=== PATIENT | female | born 1990 | race Caucasian/White ===

== ENCOUNTER 2023-01-17 09:51 | Outpatient (OUT) | payer OTHER, SELFPAY ==
[2023-01-17 11:18] LABS: Basophils Percent Auto 0.6 % (0.2-2.0); Eosinophils Absolute Auto 0.1 10^3/uL (0.0-0.7); Eosinophils Percent Auto 1.1 % (0.9-7.0); Hematocrit 43.7 % (36.0-48.0); Hemoglobin 14.5 g/dL (12.0-16.0); Immature Granulocytes Abs Auto 0.02 10^3/uL (0.00-0.03); Immature Granulocytes Pct Auto 0.4 % (0.0-0.5); Lymphocytes Absolute Auto 1.4 10^3/uL (1.2-3.8); Mean Corpuscular HGB Conc 33.2 g/dL (29.9-35.2); Mean Corpuscular Hemoglobin 28.9 pg (26.7-34.0); Mean Corpuscular Volume 87.1 fL (81.0-99.0); Mean Platelet Volume 10.9 fL (9.5-13.5); Monocytes Absolute Auto 0.4 10^3/uL (0.3-0.8); Monocytes Percent Auto 8.2 % (1.7-12.0); Neutrophils Absolute Auto 3.4 10^3/uL (1.4-6.5); Neutrophils Percent Auto 63.7 % (43.0-75.0); Platelet Count 284 10^3/uL (150-450); Red Blood Count 5.02 10^6/uL (4.20-5.40); Red Cell Distribution Width 11.9 % (11.0-15.0); White Blood Count 5.3 10^3/uL (4.0-11.0)
[2023-01-17 11:21] LABS: Bilirubin Urine NEGATIVE (NEGATIVE); Blood Urine SMALL (NEGATIVE); Clarity Urine CLEAR (CLEAR); Color Urine LT. YELLOW (YELLOW); Glucose Urine UA NEGATIVE (NEGATIVE); Ketones Urine NEGATIVE (NEGATIVE); Leukocyte Esterase Urine NEGATIVE (NEGATIVE); Nitrite Urine NEGATIVE (NEGATIVE); Protein Urine NEGATIVE (NEG/TRACE); Specific Gravity Urine >=1.030 (1.005-1.025); Urobilinogen Urine 0.2 EU/dL (0.2-1.0); pH Urine 5.5 (5.0-9.0)
[2023-01-17 11:36] LABS: Bacteria Urine NONE SEEN #/HPF (NONE SEEN); Mucus Urine MODERATE (NONE SEEN); RBC Urine 0-2 #/HPF (0-2); Squamous Epithelial Cell Urine FEW #/LPF (NONE/RARE); WBC Urine NONE SEEN #/HPF (NONE SEEN)
[2023-01-17 11:37] LABS: Cast Seen? NONE SEEN #/LPF (NONE SEEN); Crystals Seen? None Seen #/HPF (None Seen)
[2023-01-17 12:45] LABS: Alanine Aminotransferase 21 U/L (14-59); Albumin Level 3.9 g/dL (3.4-5.0); Alkaline Phosphatase 57 U/L (46-116); Anion Gap 12.4; Aspartate Amino Transferase 15 U/L (15-37); BUN Creatinine Ratio 20.5; Bilirubin Total 0.5 mg/dL (0.2-1.0); Carbon Dioxide 25.5 mmol/L (21.0-32.0); Chloride 103 mmol/L (98-107); Chol HDL Ratio 3.5; Cholesterol 173 mg/dL (<=200); Estimated GFR (African America >60 (>=60); Estimated GFR (Non-African Ame >60 (>=60); Globulin 4.1 g/dL; Glucose 97 mg/dL (74-106); HDL Cholesterol 49 mg/dL (40-60); Potassium 3.9 mmol/L (3.5-5.1); Sodium 137 mmol/L (136-145); Thyroid Stimulating Hormone 0.832 uIU/mL (0.358-3.740); Triglycerides 70 mg/dL (<=150)
== END 2023-01-17 09:52 ==
LOC: LAB 09:55
PROVIDERS: PCP Nurse Practitioner; Visit Provider Nurse Practitioner
DX: Z00.00 Encounter for general adult medical examination without abnormal findings (principal)
CPT/HCPCS: 36415; 80053; 80061; 81001; 82728; 83540; 84443; 85025

== ENCOUNTER 2023-01-17 21:42 | Outpatient (REF) | payer OTHER, SELFPAY ==
[2023-01-23 12:14] LABS: Age Gdln ACOG Testing Note (.); HPV Aptima Negative (Negative); IGP, Aptima HPV, rfx 16/18,45 Note (.)
== END 2023-01-17 21:43 | disposition home or self-care (01) ==
LOC: LAB 21:42
PROVIDERS: PCP Nurse Practitioner; Visit Provider Obstetrics & Gynecology
DX: Z00.00 Encounter for general adult medical examination without abnormal findings (principal); Z12.4 Encounter for screening for malignant neoplasm of cervix
CPT/HCPCS: 36415; 80053; 80061; 81001; 82728; 83540; 84443; 85025; 87624; G0145

== ENCOUNTER 2023-01-31 09:11 | Outpatient (OUT) | payer OTHER, SELFPAY ==
--- NOTE | 2023-01-31 09:15 | US_ITS ---
[address] [address] Patient Name: FIFI CHAPPELL MRN: [id number] date: 1990 Sex: F Assigned Patient Location: US Current Patient Location: US Accession/Order Number: [id number] Exam Date: 01/31/2023 09:15 Report Date: 01/31/2023 09:46 At the request of: ANTONIETA CHAU Procedure: US pelvis EXAMINATION: US pelvis HISTORY: OVARIAN CYST N83.209, PAIN OF OVARY N94.89 COMPARISON: No relevant comparison available. FINDINGS: The uterus is normal in size, contour and myometrial echotexture measuring 8.1 x 5.1 x 3.8 cm. Anteverted. No focal myometrial mass The endometrium measures 15 mm, normal. The right ovary is normal in size, contour and echotexture measuring 3.1 x 2.6 x 1.8 cm. Normal color and Doppler flow. The left ovary is normal in size, contour and echotexture measuring 3.1 x 2.1 x 1.8 cm. Normal color Doppler flow No free fluid IMPRESSION: No acute abnormality Electronically authenticated by: BRODERICK NGUYEN Date: 01/31/2023 09:46
== END 2023-01-31 09:12 | disposition home or self-care (01) ==
LOC: US 09:11
PROVIDERS: PCP Nurse Practitioner; Visit Provider Physician Assistant
DX: N94.89 Other specified conditions associated with female genital organs and menstrual cycle (principal); N83.209 Unspecified ovarian cyst, unspecified side
CPT/HCPCS: 76856

== ENCOUNTER 2024-04-04 06:43 | Outpatient (OUT) | payer OTHER, SELFPAY ==
[2024-04-04 07:13] LABS: Basophils Absolute Auto 0.1 10^3/uL (0.0-0.1); Basophils Percent Auto 0.7 % (0.2-2.0); Eosinophils Absolute Auto 0.2 10^3/uL (0.0-0.7); Eosinophils Percent Auto 2.1 % (0.9-7.0); Hematocrit 42.9 % (36.0-48.0); Hemoglobin 14.3 g/dL (12.0-16.0); Immature Granulocytes Abs Auto 0.02 10^3/uL (0.00-0.03); Immature Granulocytes Pct Auto 0.3 % (0.0-0.5); Lymphocytes Absolute Auto 1.9 10^3/uL (1.2-3.8); Mean Corpuscular HGB Conc 33.3 g/dL (29.9-35.2); Mean Corpuscular Hemoglobin 29.1 pg (26.7-34.0); Mean Corpuscular Volume 87.4 fL (81.0-99.0); Mean Platelet Volume 10.3 fL (9.5-13.5); Monocytes Absolute Auto 0.5 10^3/uL (0.3-0.8); Monocytes Percent Auto 7.5 % (1.7-12.0); Neutrophils Absolute Auto 4.4 10^3/uL (1.4-6.5); Neutrophils Percent Auto 62.4 % (43.0-75.0); Platelet Count 289 10^3/uL (150-450); Red Blood Count 4.91 10^6/uL (4.20-5.40); Red Cell Distribution Width 11.9 % (11.0-15.0); White Blood Count 7.1 10^3/uL (4.0-11.0)
[2024-04-04 07:47] LABS: Bilirubin Urine NEGATIVE (NEGATIVE); Blood Urine SMALL (NEGATIVE); Clarity Urine CLEAR (CLEAR); Color Urine LT. YELLOW (YELLOW); Glucose Urine UA NEGATIVE (NEGATIVE); Ketones Urine NEGATIVE (NEGATIVE); Leukocyte Esterase Urine NEGATIVE (NEGATIVE); Nitrite Urine NEGATIVE (NEGATIVE); Protein Urine NEGATIVE (NEG/TRACE); Specific Gravity Urine >=1.030 (1.005-1.025); Urobilinogen Urine 0.2 EU/dL (0.2-1.0); pH Urine 5.5 (5.0-9.0)
[2024-04-04 08:05] LABS: Bacteria Urine SMALL #/HPF (NONE SEEN); Cast Seen? NONE SEEN #/LPF (NONE SEEN); Crystals Seen? None Seen #/HPF (None Seen); Mucus Urine SMALL (NONE SEEN); RBC Urine 0-2 #/HPF (0-2); Squamous Epithelial Cell Urine RARE #/LPF (NONE/RARE); Urine Culture Indicated YES; WBC Urine 0-2 #/HPF (NONE SEEN)
[2024-04-04 08:09] LABS: Alanine Aminotransferase 24 U/L (14-59); Albumin Level 3.6 g/dL (3.4-5.0); Alkaline Phosphatase 68 U/L (46-116); Aspartate Amino Transferase 16 U/L (15-37); BUN Creatinine Ratio 18.9; Bilirubin Total 0.4 mg/dL (0.2-1.0); C Reactive Protein <0.50 mg/dL (<=0.50); Calcium 9.1 mg/dL (8.5-10.1); Carbon Dioxide 25.2 mmol/L (21.0-32.0); Chloride 105 mmol/L (98-107); Chol HDL Ratio 4.2; Cholesterol 210 mg/dL (<=200); Estimated GFR (African America >60 (>=60); Estimated GFR (Non-African Ame >60 (>=60); Globulin 3.6 g/dL; Glucose 99 mg/dL (74-106); HDL Cholesterol 50 mg/dL (40-60); Potassium 4.2 mmol/L (3.5-5.1); Sodium 140 mmol/L (136-145); Thyroid Stimulating Hormone 1.473 uIU/mL (0.358-3.740); Total Protein 7.2 g/dL (6.4-8.2); Triglycerides 142 mg/dL (<=150); Uric Acid 3.7 mg/dL (2.6-6.0); VLDL CHOLESTEROL 28.4 mg/dL
[2024-04-04 08:17] LABS: Erythrocyte Sedimentation Rate 27 mm/hr (<=20)
[2024-04-04 08:41] LABS: Free T4 0.81 ng/dL (0.76-1.46)
[2024-04-05 07:07] LABS: Thyroid Peroxidase (TPO) Ab <9 IU/mL (0-34)
[2024-04-05 09:07] LABS: Transferrin 262 mg/dL (192-364)
[2024-04-05 11:07] LABS: Antistreptolysin O Ab 32.8 IU/mL (0.0-200.0); Rheumatoid Factor (RF) <10.0 IU/mL (<14.0)
[2024-04-06 17:08] LABS: ANA Direct Positive (Negative); Anti-DNA (DS) Ab Qn 2 IU/mL (0-9); RNP Antibodies <0.2 AI (0.0-0.9); Sjogren's Anti-SS-A <0.2 AI (0.0-0.9); Sjogren's Anti-SS-B 1.1 AI (0.0-0.9)
[2024-04-08 10:09] LABS: Thyroglobulin Antibody 1.3 IU/mL (0.0-0.9)
== END 2024-04-04 06:44 | disposition home or self-care (01) ==
LOC: LAB 06:45
PROVIDERS: PCP Nurse Practitioner; Visit Provider Nurse Practitioner
DX: Z00.00 Encounter for general adult medical examination without abnormal findings (principal); M25.50 Pain in unspecified joint; R53.83 Other fatigue; F50.9 Eating disorder, unspecified; R76.8 Other specified abnormal immunological findings in serum; D50.9 Iron deficiency anemia, unspecified; R82.90 Unspecified abnormal findings in urine
CPT/HCPCS: 36415; 80053; 80061; 81001; 83540; 83550; 84439; 84443; 84466; 84550; 85025; 85652; 86038; 86060; 86140; 86225; 86235; 86376; 86431; 86800; 87086

== ENCOUNTER 2024-04-16 13:46 | Outpatient (OUT) | payer OTHER, SELFPAY ==
--- NOTE | 2024-04-16 13:48 | US_ITS ---
The [address] [address] Patient Name: FIFI CHAPPELL MRN: [id number] date: 1990 Sex: F Assigned Patient Location: US Current Patient Location: Accession/Order Number: [id number] Exam Date: 04/16/2024 13:50 Report Date: 04/17/2024 13:46 At the request of: LANE BLAS Procedure: US thyroid EXAMINATION: US thyroid HISTORY: Thyroid Antibody Positive R76.8 COMPARISON: No relevant comparison available. TECHNIQUE: Sonographic images of the thyroid gland were obtained. FINDINGS: The right thyroid lobe measures 5.0 x 1.6 x 1.5 cm with homogeneous echotexture with no focal nodule The thyroid isthmus measures 2.9 mm, no focal nodule The left thyroid lobe measures 5.2 x 1.8 x 1.7 cm. Single nodule. Nodule 1:1.5 x 1.2 x 0.8 cm. Solid, hypoechoic, wide, smooth margins, no calcifications. TR 4 US/US thyroid IMPRESSION: 1.5 cm left thyroid TR 4 nodule TI-RADS: The [employer] TI-RADS committee's white paper recommendations for thyroid lesions classified as TR4 (moderately suspicious) are listed below: > 1.0 cm. Follow-up ultrasound in 1, 2, 3, and 5 years. > 1.5 cm. FNA. J. Am Jose Carlos Radiol 2017;[id number]. Electronically authenticated by: BRODERICK NGUYEN Date: 04/17/2024 13:46
== END 2024-04-16 13:47 | disposition home or self-care (01) ==
LOC: US 13:46
PROVIDERS: PCP Nurse Practitioner; Visit Provider Nurse Practitioner
DX: R76.8 Other specified abnormal immunological findings in serum (principal); E04.1 Nontoxic single thyroid nodule
CPT/HCPCS: 76536

== ENCOUNTER 2024-04-30 08:18 | Day surgery (SDC) | payer OTHER, SELFPAY ==
--- NOTE | 2024-04-30 08:22 | US_ITS ---
[address] [address] Patient Name: FIFI CHAPPELL MRN: [id number] date: 1990 Sex: F Assigned Patient Location: US Current Patient Location: LAB Accession/Order Number: [id number] Exam Date: 04/30/2024 08:23 Report Date: 04/30/2024 09:53 At the request of: LANE BLAS Procedure: US biopsy thyroid EXAMINATION: US biopsy thyroid HISTORY: Thyroid Nodule COMPARISON: Ultrasound thyroid 04/16/2024 TECHNIQUE: After obtaining informed consent, ultrasound-guided fine needle aspiration was performed in the usual sterile manner. FINDINGS: IMAGING: Ultrasound. BIOPSY NEEDLE: 25-gauge; 3 separate passes LOCATION: Left lobe 1.6 cm TR 4 nodule. SPECIMEN TYPE: Cellular tissue. LOCAL ANESTHETIC: Buffered Xylocaine. COMPLICATIONS: None. LABORATORY: Prepared slide smears and washings for cell block evaluation. OTHER: Negative. PATHOLOGY: Pending. An addendum will be added when results are available. US/US biopsy thyroid IMPRESSION: 1. Uneventful ultrasound guided fine needle aspiration (FNA). 2. Pathology results are pending. Electronically authenticated by: FAB CANALES Date: 04/30/2024 09:53
[2024-04-30 08:30] VITALS: BP 103/73; PULSE 66; O2SAT 98
--- OUTSIDE RECORDS SUMMARY | 2024-04-30 08:31 | XMS_ITS | CCD ---
Author Organization [facility] Care Team Providers Care Health Technician Name Role Phone PHYSICIAN, DEFAULT Admitting Unavailable PHYSICIAN, DEFAULT Attending Unavailable BHARGAV SPARROW Primary Care Unavailable REE, DR BHATT Admitting Unavailable REE, DR BHATT Consulting Unavailable REE, DR BHATT Attending Unavailable REE, DR BHATT Admitting Unavailable REE, DR BHATT Consulting Unavailable REE, DR BHATT Attending Unavailable BHARGAV SPARROW Primary Care Unavailable Carmen Pineda Unavailable Madison Junior Unavailable Medications Current Medications Medication Drug Class(es) Dates Sig (Normalized) Sig (Original) amoxicillin 80 mg/ml oral suspension (1 source) Penicillin-class Antibacterial Start: 09-15-2023 take 12.5 mL by mouth twice daily Amoxicillin 400 MG/5ML 12.5 mL Orally Twice a day for 10 days Sep, Active Iron (2 sources) Iron Active Completed/Discontinued Medications Medication Drug Class(es) Dates Sig (Normalized) Sig (Original) azithromycin 500 mg oral tablet (2 sources) Macrolide Antimicrobial take 2 tablets by mouth once at mealtime Zithromax 500 MG 2 tabs Orally once for 1 days 2 tablets p.o. x1 today with food Not-Taking/PRN cefTRIAXone (2 sources) Cephalosporin Antibacterial Start: 08-04-2021 Rocephin 500 mg Jul, 500 mg fluconazole 150 mg oral tablet (2 sources) Azole Antifungal Start: 08-04-2021 Diflucan 150 MG 1 tablet Orally once for 2 days Take 1 tablet p.o. today, take the second tablet in 3 days. Jul, Not-Taking/PRN metroNIDAZOLE 500 mg oral tablet (4 sources) Nitroimidazole Antimicrobial Start: 08-04-2021 take 4 tablets by mouth once as needed metroNIDAZOLE 500 MG 4 tablets Orally once for 1 days Jul, Not-Taking/PRN metroNIDAZOLE 0. 75 % 1 application Vaginal qhs for 5 day(s) Not-Taking/PRN Problems Active Problems Problem Classification Problem Date Documented Da te Episodic/Chronic Influenza (1 source) Influenza due to other identified influenza virus with other respiratory manifestations Episodic Other upper respiratory infections (2 sources) Acute pharyngitis, unspecified; Translations: [Streptococcal pharyngitis] Episodic Past or Other Problems Problem Classification Problem Date Documented Date Episodic/Chronic Immunizations and screening for infectious disease (1 source) Encounter for screening for human papillomavirus (HPV); Translations: [ENC SCREENING HUMAN PAPILLOMAVIRUS] Onset: 11-01-2021 Episodic Other screening for suspected conditions (not mental disorders or infectious disease) (4 sources) Encounter for screening for malignant neoplasm of cervix; Translations: [ENC SCREENING MALIG NEOPLASM CERV] Onset: 10-30-2021 Episodic Unclassified (1 source) Contact with and (suspected) exposure to covid-19 Z20.822 Viral infection (1 source) Herpesviral infection, unspecified; Translations: [HERPESVIRAL INFECTION UNSPECIFIED] Onset: 11-01-2021 Episodic Results Test Name Value Interpretation Reference Range Facility Quick Strep[facility] 09-15-2023 S. pyogenes Org specific cx Ql (Throat) Positive [facility] Other Quick Strep [facility] Other COVID/FLU/RSV RT-PCRon 07-31 SARS-CoV-2 (COVID-19) RNA EDWIN+probe Ql (Unsp spec) Negative [facility] Other COVID/FLU/RSV RT-PCR Negative [facility] Other COVID/FLU/RSV RT-PCR Positive [facility] Other PAP ACOG PANEL 2: 30 to 65on 11-05-2021 . . [place] Comment on above: Result Comment: Perf ormed at: WB Performed By: #### [id number] #### [facility] [address] [place] [address] Dr. Omar Sanabria Age Gdln ACOG Testing 30-65 [place] Comment on above: Performed By: #### [id number] #### [facility] [address] [address] [address] Omar Sanabria DIAGNOSIS: Comment Normal [facility] Comment on above: Result Comment: NEGA TIVE FOR INTRAEPITHELIAL LESION OR MALIGNANCY. Performed at: WB Performed By: #### [id number] #### [facility] [address] [address] [address] Omar Sanabria HPV Aptima Negative Normal Negative [facility] Comment on above: Result Comment: This nucleic acid amplification test detects fourteen high-risk HPV types (16,18,31,33,35,39,45,51,52,56,58,59,66,68) without differentiation. Performed at: =G Performed By: #### [id number] #### [facility] [address] [place] [address] Dr. Omar Sanabria Methodology: Comment Normal [facility] Comment on above: Result Comment: This liquid based ThinPrep(R) pap test was screened with the use of an image guided system. Performed at: WB Performed By: #### [id number] #### [facility] [address] [place] [address] Dr. Omar Sanabria Note: Comment Normal [facility] Comment on above: Result Comment: The Pap smear is a screening test designed to aid in the detection of premalignant and malignant conditions of the uterine cervix. It is not a diagnostic procedure and should not be used as the sole means of detecting cervical cancer. Both false-positive and false-negative reports do occur. . Performed at: WB Performed By: #### [id number] #### [facility] [address] [address] [address] Omar Sanabria Performed by: Comment Normal [facility] Comment on above: Result Comment: Kristal Smith [employer] Consultant (ASCP) Performed at: WB Performed By: #### [id number] #### [facility] [address] [address] [address] Omar Sanabria Specimen adequacy: Comment Normal [facility] Comment on above: Result Comment: Sati sfactory for evaluation. Endocervical and/or squamous metaplastic cells (endocervical component) are present. Performed at: WB Performed By: #### [id number] #### [facility] [address] [place] [address] Dr. Omar Sanabria HERPES SIMPLEX 1/2 IGMon HSV, IgM I/II Combination 1.01 Ratio Critically high 0.00-0.90 [facility] Comment on above: Result Comment: Ve rified by repeat analysis Negative <0.91 Equivocal 0.91 - 1.09 Positive >1.09 Performed By: #### H SVIGM #### [facility] [address] [place] [address] Dr. Omar Sanabria HERPES SIMPLEX 1/2 IGGon HSV 1 IgG, Type Spec 8.59 index Critically high 0.00-0.90 [facility] Comment on above: Result Comment: Nega tive <0.91 Equivocal 0.91 - 1.09 Positive >1.09 Note: Negative indicates no antibodies detected to HSV-1. Equivocal may suggest early infection. If clinically appropriate, retest at later date. Positive indicates antibodies detected to HSV-1. Performed By: #### H SV IGG #### [facility] [address] [place] [address] Dr. Omar Sanabria HSV 2 IgG Type Spec <0.91 Normal 0.00-0.90 [facility] Comment on above: Result Comment: Nega tive <0.91 Equivocal 0.91 - 1.09 Positive >1.09 Note: Negative indicates no HSV-2 antibodies detected. Positive indicates HSV-2 antibodies detected. Equivocal and low positive HSV-2 screens (Index 0.91-5.00) may be false positive and are reflexed to supplemental testing in accordance with CDC guidelines. Performed By: #### H SV IGG #### [facility] [address] [place] [address] Dr. Omar Saanbria Vaginitis Plus (VG+)on 08-06 Atopobium Vaginae Moderate - 1 Normal . [facility] Comment on above: Order Comment: Reaso n for Exam Vaginal irritation Performed By: #### V AGINITIS+ #### [facility] , BVAB2 Low - 0 Normal . [facility] Comment on above: Order Comment: Reaso n for Exam Vaginal irritation Performed By: #### V AGINITIS+ #### [facility] , Meaghan Albicans, EDWIN Negative Normal Negative [facility] Comment on above: Order Comment: Reaso n for Exam Vaginal irritation Result Comment: This test was developed and its performance characteristics determined by [facility]. It has not been cleared or approved by the Food and Drug Administration. Performed By: #### V AGINITIS+ #### [facility] , Meaghan Glabrata, EDWIN Negative Normal Negative [facility] Comment on above: Order Comment: Reaso n for Exam Vaginal irritation Result Comment: This test was developed and its performance characteristics determined by [facility]. It has not been cleared or approved by the Food and Drug Administration. PERFORMED BY: [address] [place] [address] PATHOLOGIST HOSPICE CONSULTANT KAREN LINDSAY M.D. Performed By: #### V AGINITIS+ #### [facility] , Chlamydia Trachomotis, EDWIN Negative Normal Negative [facility] Comment on above: Order Comment: Reaso n for Exam Vaginal irritation Performed By: #### V AGINITIS+ #### [facility] , Megasphaera Low - 0 Normal . [facility] Comment on above: Order Comment: Reaso n for Exam Vaginal irritation Result Comment: Calc ulate total score by adding the 3 individual bacterial vaginosis (BV) marker scores together. Total score is interpreted as follows: Total score 0-1: Indicates the absence of BV. Total score 2: Indeterminate for BV. Additional clinical data should be evaluated to establish a diagnosis. Total score 3-6: Indicates the presence of BV. This test was developed and its performance characteristics determined by [facility]. It has not been cleared or approved by the Food and Drug Administration. Performed By: #### V AGINITIS+ #### [facility] , Neisseria Gonorrhoeae, EDWIN Negative Normal Negative [facility] Comment on above: Order Comment: Reaso n for Exam Vaginal irritation Result Comment: Perf ormed at: =G - [facility] [address] [place] [id number] Family Practice Physician Assistant: Valery Jarquin MD, Phone: [phone] Performed By: #### V AGINITIS+ #### [facility] , Tric Vag EDWIN Negative Normal Negative [facility] Comment on above: Order Comment: Reaso n for Exam Vaginal irritation Performed By: #### V AGINITIS+ #### [facility] , MAGR Intraoperative Recordon 12-19-2018 MAGR Intraoperative Record MAGR Intra-Op Record Summary Primary Physician: Luis Goss DO Finalized Date/Time: 12/19/18 08:27:55 Pt. Name: CHAPPELL FIFI XU Shine./Sex: 1990 FEMALE Med Rec #: [id number] Physician: Luis Goss DO Financial #: [id number] Pt. Type: D Room/Bed: / Admit/Disch: 12/16/18 06:00:00 - 12/16/18 10:38:00 Institution: Case Times MAGR Entry 1 Patient In Room Time 12/16/18 07:56:00 Out Room Time 12/16/18 09:03:00 Anesthesia Start Time 12/16/18 07:57:00 Stop Time 12/16/18 09:11:00 Surgery Start Time 12/16/18 08:21:00 Stop Time 12/16/18 08:56:00 Last Modified By: Joselyn Marx RN 12/16/18 09:13:46 Case Attendance MAGR Entry 1 Entry 2 Entry 3 Case Attendee Luis Goss DO, Bradley MD Ricci RN, Joselyn Granados Role Performed Surgeon - Primary Anesthesiologist of Liquid Floor And Wall Applier Record Time In 12/16/18 07:56:00 12/16/18 07:56:00 12/16/18 07:56:00 Time Out 12/16/18 09:03:00 12/16/18 09:03:00 12/16/18 09:03:00 Procedure Tubal Ligation Tubal Ligation Tubal Ligation Laparoscopic(Bilatera l) Laparoscopic(Bilatera l) Laparoscopic(Bilatera l) Last Modified By: Francisco J RN, Joselyn Marx RN, Joselyn Marx RN, Joselyn Granados 12/16/18 09:14:28 12/16/18 09:14:28 12/16/18 09:14:28 Entry 4 Entry 5 Case Attendee Adrián HARMON, Cynthia Wong MANAGER CT/CSFA Role Performed Scrub Personnel Merchandise Director Time In 12/16/18 07:56:00 12/16/18 07:56:00 Time Out 12/16/18 09:03:00 12/16/18 09:03:00 Procedure Tubal Ligation Tubal Ligation Laparoscopic(Bilatera l) Laparoscopic(Bilatera l) Last Modified By: Francisco J WHITTAKER, Joselyn Marx RN, Joselyn Granados 12/16/18 09:14:28 12/16/18 09:14:28 Surgical Procedures MAGR Pre-Care Text: A.20 Verifies operative procedure, surgical site, and laterality Im.150 Develops individualized plan of care Entry 1 Procedure Tubal Ligation Primary Procedure Yes Laparoscopic Primary Surgeon Luis Goss DO Modifiers Bilateral Surgeon Comment LAPAROSCOPIC BILATERAL Start 12/16/18 08:21:00 TUBAL LIGATION Stop 12/16/18 08:56:00 Anesthesia Type General Surgical Service Gynecology Wound Class Clean-Contaminated Last Modified By: Christen Anguiano 12/19/18 08:27:51 Post-Care Text: O.730 The patient's care is consistent with the individualized perioperative plan of care General Case Data MAGR Pre-Care Text: A.350.1 Classifies surgical wound Entry 1 Case Information OR MAGR OR 05 Case Level Level 4 Wound Class Clean-Contaminated Specialty Gynecology ASA Class 1 Diagnosis Preop Diagnosis STERILIZATION Postop Same As Preop Yes Postop Diagnosis STERILIZATION Last Modified By: Christen Anguiano 12/19/18 08:27:38 Post-Care Text: O.760 Patient receives consistent and comparable care regardless of the setting Time Out MAGR Entry 1 Time out date/time 12/16/18 08:18:00 All team members Yes have introduced themselves by name and role Surgeon, Yes Surgeon reviews Yes anesthesia, nurse critical or confirm patient, unexpected steps, site, procedure operative duration, anticipated blood loss Anesthesia team Yes Nursing team Yes reviews any reviews sterility patient-specific (including concerns indicator results) and equipment issues/concerns Antibiotic Is essential Yes imaging displayed? Last Modified By: Joselyn Marx RN 12/16/18 08:36:56 Patient Positioning MAGR Pre-Care Text: A.280 Identifies baseline musculoskeletal status Im.40 Positions the patient Im.80 Applies safety devices Entry 1 Procedure Tubal Ligation Body Position Low Lithotomy Laparoscopic(Bilatera l) Left Arm Position Tucked and padded at Right Arm Position Extended on padded arm side board Left Leg Position Secured in Stirrup Right Leg Position Secured in Stirrup Feet Uncrossed? Yes Press Points Checked Yes Additional GELPAD TO LEFT ARM AND Positioning Device Safety Strap, Stirrups, Information ELBOW Arm Boards, Arm Strap Outcome Met (O.80) Yes Last Modified By: Joselyn Marx RN 12/16/18 08:37:33 Post-Care Text: E.290 Evaluates musculoskeletal status O.80 Patient is free from signs and symptoms of injury related to positioning Skin Prep MAGR Pre-Care Text: A.30 Verifies allergies Im.270 Performs skin preparation Im.270.1 Implements protective measures to prevent skin and tissue injury due to chemical sources Entry 1 Entry 2 Skin Prep Syntegrity Prep Agents (Im.270) Chlorhexidine Gluconate Povidone-Iodine and Alcohol Prep By Joselyn Marx RN, RN, Jessica L Prep Area (Im.270) Abdomen Vagina and perineum Prep Area Details Skin Prep Agent Dry Yes Yes Without Pooling Hair Removal Syntegrity Hair Removal Methods No hair removal No hair removal performed performed Hair Removal By Hair Removal Date/Time Hair Removal Site Hair Removal Site Details Outcome Met (O.100) Yes Yes Last Modified By: Joselyn Marx RN, RN, Jessica L 12/16/18 08:38:25 12/16/18 08:38:25 Post-Care Text: E.10 Evaluates for signs and symptoms of physical injury to skin and tissue O.100 Patient is free from signs and symptoms of chemical injury Counts Verification MAGR Pre-Care Text: A.20 Verifies operative procedure, surgical site, and laterality A.20.2 Assesses the risk for unintended retained foreign body Im.20 Performs required counts Entry 1 Procedure Tubal Ligation Laparoscopic(Bilatera l) Counts Verification Initial Counts Items included in Instruments, Sponges, Initial Counts Manual the Initial Count Sharps Method Initial Counts Joselyn Marx RN, Initial Count Time 12/16/18 07:30:00 Performed By Thalia Sampson CST Counts Verification Final Counts Items Included in Sponges, Sharps Final Count Method Manual Final Count Final Count Status Correct Final Counts Joselyn Marx RN, Performed By Thalia Sampson CST Final Count Time 12/16/18 08:43:00 Surgeon notified of Yes final counts status Outcome Met (O.20) Yes Last Modified By: Joselyn Marx RN 12/16/18 08:43:48 Post-Care Text: E.50 Evaluates results of the surgical count O.20 Patient is free from unintended retained foreign objects Patient Care Devices MAGR Pre-Care Text: A.200 Assesses risk for normothermia regulation A.40 Verifies presence of prosthetics or corrective devices Im.280 Implements thermoregulation measures Im.60 Uses supplies and equipment within safe parameters Entry 1 Entry 2 Equipment Type FORCED WARM AIR UNIT BILATERAL PNEUMATIC COMPRESSION Serial ?# [id number] Equipment Setting 43 DEGREES DEFAULT Last Modified By: Joselyn Marx RN, RN, Jessica L 12/16/18 08:42:17 12/16/18 08:42:17 Post-Care Text: E.10 Evaluates signs and symptoms of physical injury to skin and tissue O.700 Patient is free from signs and symptoms of injury caused by extraneous objects Cautery MAGR Pre-Care Text: A.240 Assesses baseline skin condition A.40 Verifies presence of prosthetics or corrective devices Im.50 Implements protective measures to prevent injury due to electrical sources Entry 1 ESU Type Electrosurgical Unit Identification 5603 Number ESU Settings Syntegrity Cut Setting 50 Coag Setting 50 Grounding Pad Details Grounding Pad Yes Verified By Joselyn Marx RN Needed? Grounding Pad Site Table Grounding Pad Within Expiration Yes Date? Outcome Met (O.10) Yes Last Modified By: Joselyn Marx RN 12/16/18 08:44:22 Post-Care Text: E.10 Evaluates for signs and symptoms of physical injury to skin and tissue O.10 Patient is free from signs and symptoms of injury related to thermal sources Catheters, Drains & Tubes MAGR Pre-Care Text: A.310 Identifies factors associated with an increased risk for hemorrhage or fluid and electrolyte imbalance Im.250 Administers care to invasive device sites Entry 1 Device Description CATH RED ESQUEDA 14FR Device Type Straight catheter Present on Arrival? No Inserted By Joselyn Marx RN DC'd at End of Case? Yes DC'd By Joselyn Marx RN Drainage Details Urinary Catheter Hand Hygiene Performed Outcome Met (O.60) Yes Checklist Before and After Insertion, Aseptic Technique and Sterile Equipment Used, Perineal Area Cleansed Before Insertion Last Modified By: Joselyn Marx RN 12/16/18 09:14:20 Post-Care Text: E.340 Evaluates tubes and drains are intact and functioning as planned O.60 Patient is free from signs and symptoms of injury caused by extraneous objects General Comments: STRAIGHT CATH WITH PREP Medication Administration MAGR Pre-Care Text: A.210 Identifies physiological status Im.220 Administers prescribed medications Entry 1 Time Administered 12/16/18 08:46:00 Medication 0.25% MARCAINE WITH EPI Route of Admin Incisional/Surgical Site Volume 30 mL By Luis Goss DO Outcome Met (O.130) Yes Last Modified By: Joselyn Marx RN 12/16/18 08:46:27 Post-Care Text: E.20 Evaluates response to medications O.130 Patient receives appropriately administered medication(s) Departure from OR MAGR Entry 1 Present on Depart Oxygen Via Stretcher Post-op Destination PACU Skin DFO Condition Dry Description Condition Warm Description Report Given To Gema Todd RN Airway Maintenance Patient Status Stable Oxygen in Use? Yes Airway Device Simple mask Flow Rate 8 L/min Last Modified By: Joselyn Marx RN 12/16/18 08:44:59 Case Comments Finalized By: Christen Anguiano Document Signatures Signed By: Joselyn Marx RN 12/16/18 09:14 Christen Anguiano 12/19/18 08:27 Unfinalized History Date/Time Username Reason for Unfinalizing Freetext Reason for Unfinalizing 12/19/18 08:27 MHSSAUER Correct Documentation Normal [facility] Coding Summaryon 12-17-2018 Coding Summary CODING DATE: 12/17/[address] [facility] STATUS: Home PAYOR: Commercial Insurance APC DESCRIPTION 5361 Level 1 Laparoscopy and Related Services ADMIT DX: REASON FOR VISIT DX: Z30.2 Encounter for sterilization FINAL DX: PRINCIPAL: Z30.2 Encounter for sterilization SECONDARY: PYMT PROC APC STAT DESCRIPTION DOCTOR NAME DATE 78872 5361 J1 Laparoscopy, surgical; Luis Goss DO Myra 12/16/2018 with fulguration of oviducts (with or without transection) NOTE: The code number assigned matches the documented diagnosis and / or procedure in the patient's chart. However, the narrative phrase printed from the coding software may appear abbreviated, or result in slightly different terminology. Coded By: Elissa Rowe Date Saved: 12/17/2018 12:12 pm [facility] Consent Formson 12-17-2018 Consent Forms [id number]#1. 00[facility] History and Physicalon 12-17 History and Physical [id number]. 00[facility] Operative Report - Surgeon/P hysicianon 12-17-2018 Operative Report - Surgeon/Physician [id number]. 00[facility] Provider Orderson 12-17-2018 Protein mass conc [id number]#1. 00[facility] Telemetry Stripson 9 Telemetry Strips [id number]#1. 00[facility] Anesthesia Noteon 12-16-2018 Anesthesia Note Patient: FIFI CHAPPELL Age: 28 years Sex: FEMALE : 89 Associated Diagnoses: None Author: Sebastian Myers MD Postoperative Information Post Operative Note: Post Anesthesia Care Unit. Anesthetic utilized: General. Health Status Allergies: Allergic Reactions (All) No Known Medication Allergies Physical Examination VS/Measurements Vital Signs (last 24 hrs) Last Charted Heart Rate Peripheral L 57bpm (DECEMBER 16 09:20) Resp Rate 18 br/min (DECEMBER 16 09:15) SBP 111 mmHg (DECEMBER 16:20) DBP 64 mmHg (DECEMBER 16:20) SpO2 98 % (DECEMBER 16:20) Pain assessment: Self-reports no pain. General: Alert and oriented, No acute distress. Respiratory: Respirations are non-labored. Cardiovascular: Normal rate, Regular rhythm. Review / Management Condition: Stable. Assessment Anesthetic outcome No anesthetic complications noted. Adequate pain relief. No Complaint of nausea and vomiting. Plan Transfer/ Discharge: Patient can be discharged from PACU when criteria met. Condition good. [Electronically Signed on: 12/16/2018 09:26 EDT] Sebastian Myers MD [Verified on: 12/16/2018 09:26 EDT] Sebastian Myers MD [facility] Anesthesia Note Patient: FIFI CHAPPELL Age: 28 years Sex: FEMALE : [birth year] Associated Diagnoses: None Author: Sebastian Myers MD Preoperative Information Anesthesia history: Patient history: No nausea and vomiting with anesthesia, No prior anesthesia problems. Review of Systems Constitutional: Negative. Respiratory: No shortness of breath. Cardiovascular: No chest pain. Health Status Allergies: Allergic Reactions (All) No Known Medication Allergies Current medications: Home Medications (3) Active ferrous sulfate 325 mg (65 mg elemental iron) oral tablet 325 mg = 1 tab(s), PO, Daily FLUoxetine 20 mg oral capsule 20 mg = 1 cap(s), PO, Daily ibuprofen 600 mg oral tablet 600 mg = 1 tab(s), PRN, PO, QID Problem list (past medical history): All Problems Anemia / SNOMED CT 360668577 / Confirmed Depression / SNOMED CT 40465121 / Confirmed Insomnia / SNOMED CT 755501665 / Confirmed Histories Family History: No family history items have been selected or recorded. Procedure history: Laparoscopic cholecystectomy (97463827). Dilation and curettage (19048864). Social History Alcohol Assessment Use: Current. Liquor, 1-2 times per month Tobacco Assessment Never (less than 100 in lifetime) Tobacco Use:. Substance Abuse Assessment Substance use: Never. . Social & Psychosocial Habits Alcohol 12/09/2018 Alcohol Use: Current Type: Liquor Frequency: 1-2 times per month Substance Abuse 12/09/2018 Substance use: Never Tobacco 12/09/2018 Smoking tobacco use: Never (less than 100 in l . Physical Examination VS/Measurements Vital Signs (last 24 hrs) Last Charted Heart Rate Peripheral 61 bpm (DECEMBER 16 06:05) Resp Rate 14 br/min (DECEMBER 16 06:05) SBP 111 mmHg (DECEMBER 16 06:25) DBP 75 mmHg (DECEMBER 16 06:25) SpO2 99 % (DECEMBER 16:05) General: Alert and oriented, No acute distress. Airway: Mallampati classification: I (soft palate, fauces, uvula, pillars visible). Respiratory: Respirations are non-labored. Cardiovascular: Normal rate, Regular rhythm. Review / Management Laboratory Results Plan [employer]#( A) physical status classification: Class I. Anesthetic Preoperative Plan Anesthesia: General. . Anesthetic plan, risks, benefits, and alternatives discussed with the patient and/or family. Risks discussed. Patient verbalized understanding. Informed consent was given. Consent was signed by the patient. Communication: face to face with patient 10 minutes. Anesthetic technique: General anesthesia. [Electronically Signed on: 12/16/2018 07:49 EDT] Sebastian Myers MD [Verified on: 12/16/2018 07:49 EDT] Sebastian Myers MD [facility] Inpatient Patient Summaryon 12-16-2018 Inpatient Patient Summary [address] [id number] Patient Discharge Instructions Name: FIFI CHAPPELL : 89 Patient Address: [address] [place] [address] Primary Care Provider: Name: Bhargav Sparrow CNP After you are discharged if you find you have any questions, please, call [phone] ext [phone] to speak to a nurse. Discharge Diagnosis: 1:Multiparity If you received any narcotics, sedation, or any other medication that causes drowsiness for the next 24 hours, unless otherwise directed: ? Do not drive a car. ? Do not operate machinery such as power tools, lawn mowers, drills, sewing machines, or stoves ? Avoid alcoholic beverages and drugs for allergies, nerves, or sleep ? Do not make important personal or business decisions or sign any legal documents [facility] would like to thank you for allowing us to assist you with your healthcare needs. The following includes patient education materials and information regarding your injury/illness. FIFI CHAPPELL has been given the following list of follow-up instructions, prescriptions, and patient education materials: Follow-up Instructions With: Address: When: Luis Goss [address] [place] [address] [id number] Business (1) In 2 weeks 12/30/18 Medications During the course of your visit, your medication list was updated with the most current information. The details of those changes are reflected below: New Medications Printed Prescriptions acetaminophen-hydroco done ([place] 5 mg-325 mg oral tablet) 1 tab(s) Oral Every 6 hours as needed for pain. may take 1 or 2 tablets not to exceed 8 tablets/day. Refills: 0. Medications That Were Updated - Follow Below Instructions Printed Prescriptions Updated: ibuprofen (ibuprofen 600 mg oral tablet) 1 tab(s) Oral 4 times a day as needed for pain. Refills: 0. Medications to Continue That Have Not Changed Other Medications ferrous sulfate (ferrous sulfate 325 mg (65 mg elemental iron) oral tablet) 1 tab(s) Oral every day. FLUoxetine (FLUoxetine 20 mg oral capsule) 1 cap(s) Oral every day. It is important to always keep an active list of medications available so that you can share with other providers and manage your medications appropriately. As an additional courtesy, we are also providing you with your final active medications list that you can keep with you. acetaminophen-hydroco done (Florence 5 mg-325 mg oral tablet) 1 tab(s) Oral Every 6 hours as needed for pain. may take 1 or 2 tablets not to exceed 8 tablets/day. Refills: 0. ferrous sulfate (ferrous sulfate 325 mg (65 mg elemental iron) oral tablet) 1 tab(s) Oral every day. FLUoxetine (FLUoxetine 20 mg oral capsule) 1 cap(s) Oral every day. ibuprofen (ibuprofen 600 mg oral tablet) 1 tab(s) Oral 4 times a day as needed for pain. Refills: 0. Take only the medications listed above. Contact your doctor prior to taking any medications not on this list. Diet & Activity Patient Activity Level: Patient Diet: Patient Activity Restrictions: Comment: Patient education materials, if any, will display below Laparoscopic Tubal Ligation Laparoscopic tubal ligation is a procedure to close the fallopian tubes. This is done so that you cannot get . When the fallopian tubes are closed, the eggs that your ovaries release cannot enter the uterus, and sperm cannot reach the released eggs. A laparoscopic tubal ligation is sometimes called getting your tubes tied. You should not have this procedure if you want to get someday or if you are unsure about having more children. Tell a health care provider about: ? Any allergies you have. ? All medicines you are taking, including vitamins, herbs, eye drops, creams, and hhsq-jnb-mmvegct medicines. ? Any problems you or family members have had with anesthetic medicines. ? Any blood disorders you have. ? Any surgeries you have had. ? Any medical conditions you have. ? Whether you are or may be . ? Any past pregnancies. What are the risks? Generally, this is a safe procedure. However, problems may occur, including: ? Infection. ? Bleeding. ? Injury to surrounding organs. ? Side effects from anesthetics. ? Failure of the procedure. This procedure can increase your risk of a kind of in which a fertilized egg attaches to the outside of the uterus (ectopic ). What happens before the procedure? ? Ask your health care provider about: ? Changing or stopping your regular medicines. This is especially important if you are taking diabetes medicines or blood thinners. ? Taking medicines such as aspirin and ibuprofen. These medicines can thin your blood. Do not take these medicines before your procedure if your health care provider instructs you not to. ? Follow instructions from your health care provider about eating and drinking restrictions. ? Plan to have someone take you home after the procedure. ? If you go home right after the procedure, plan to have someone with you for 24 hours. What happens during the procedure? ? You will be given one or more of the following: ? A medicine to help you relax (sedative). ? A medicine to numb the area (local anesthetic). ? A medicine to make you fall asleep (general anesthetic). ? A medicine that is injected into an area of your body to numb everything below the injection site (regional anesthetic). ? An IV tube will be inserted into one of your veins. It will be used to give you medicines and fluids during the procedure. ? Your bladder may be emptied with a small tube (catheter). ? If you have been given a general anesthetic, a tube will be put down your throat to help you breathe. ? Two small cuts (incisions) will be made in your lower abdomen and near your belly button. ? Your abdomen will be inflated with a gas. This will let the surgeon see better and will give the surgeon room to work. ? A thin, lighted tube (laparoscope) with a camera attached will be inserted into your abdomen through one of the incisions. Small instruments will be inserted through the other incision. ? The fallopian tubes will be tied off, burned (cauterized), or blocked with a clip, ring, or clamp. A small portion in the center of each fallopian tube may be removed. ? The gas will be released from the abdomen. ? The incisions will be closed with stitches (sutures). ? A bandage (dressing) will be placed over the incisions. The procedure may vary among health care providers and hospitals. What happens after the procedure? ? Your blood pressure, heart rate, breathing rate, and blood oxygen level will be monitored often until the medicines you were given have worn off. ? You will be given medicine to help with pain, nausea, and vomiting as needed. This information is not intended to replace advice given to you by your health care provider. Make sure you discuss any questions you have with your health care provider. Document Released: 10/28/2001 Document Revised: 12/27/2016 Document Reviewed: 07/01/2016 [employer] Patient Education ? 2018 [employer] Viruses or Bacteria What?s got you sick? Antibiotics only treat bacterial infections. Viral illnesses cannot be treated with antibiotics. When an antibiotic is not prescribed, ask your healthcare professional for tips on how to relieve symptoms and feel better. Usual Cause Illness Viruses Bacteria Antibiotic Needed Cold/Runny Nose NO Bronchitis/Chest Cold (in otherwise healthy children and adults) NO Whooping Cough Yes Flu NO Strep Throat Yes Sore Throat (except strep) NO Fluid in the middle ear (otitis media with effusion) NO Urinary Tract Infection Yes Antibiotics Aren?t Always the Answer www.cdc.gov/getsmart GET SMART Know When Antibiotics Work U.S. Department of Health and Human Services Centers for Disease Control and Prevention April 2014 [facility] MAGR PACU Recordon 9 MAGR PACU Record MAGR PACU Record Summary Primary Physician: Luis Goss DO Finalized Date/Time: 12/16/18 09:44:44 Pt. Name: FIFI CHAPPELL/Sex: 1990 FEMALE Med Rec #: [id number] Physician: Luis Goss DO Financial #: [id number] Pt. Type: D Room/Bed: / Admit/Disch: 12/16/18 06:00:00 - Institution: PACU Case Times MAGR Entry 1 In PACU I 12/16/18 09:05:00 Ready for PACU I 12/16/18 09:30:00 Discharge Discharge from PACU 12/16/18 09:30:00 I Last Modified By: Gema Todd RN 12/16/18 09:44:40 General Comments: Discharge to nursing unit per Dr Myers using discharge criteria. Finalized By: Gema Todd RN Document Signatures Signed By: Gema Todd RN 12/16/18 09:44 [facility] MAGR Postoperative Recordon 12-16-2018 MAGR Postoperative Record MAGR Phase II Record Summary Primary Physician: Luis Goss DO Finalized Date/Time: 12/16/18 10:50:50 Pt. Name: MARY CHAPPELLNuno Shine./Sex: 1990 FEMALE Med Rec #: [id number] Physician: Luis Goss DO Financial #: [id number] Pt. Type: D Room/Bed: / Admit/Disch: 12/16/18 06:00:00 - Institution: Phase II Case Times MAGR Pre-Care Text: Patient is free from s/s of injury. Patient remains free from compromised physical state related to surgery or anesthesia. Patient comfort maintained. Patient/family verbalize understanding of discharge instructions. Entry 1 In PACU II 12/16/18 09:38:00 Discharge from PACU 12/16/18 10:38:00 II Last Modified By: Maty Irving RN 12/16/18 10:50:48 Post-Care Text: The patient remains free from s/s of injury. Patient's vital signs stable, circulation maintained, return to preop mental and physical status, opsite/dressing intact, minimal or absent nausea and vomiting, tolerates po intake. Patient verbalizes adequate pain control. Patient/family express understanding of discharge instructions. Finalized By: Maty Irving RN Document Signatures Signed By: Maty Irving RN 12/16/18 10:50 [facility] Preoperative Record MAGR Pre-Op Record Summary Primary Physician: Luis Goss DO Finalized Date/Time: 12/16/18 08:34:48 Pt. Name: TA FIFI Fang/Sex: 1990 FEMALE Med Rec #: [id number] Physician: Luis Goss DO Financial #: [id number] Pt. Type: D Room/Bed: / Admit/Disch: 12/16/18 06:00:00 - Institution: Pre-Op Case Times MAGR Pre-Care Text: Patient will be optimally prepared for surgery. Patient is free from s/s of injury. Provide information to patient/family related to plan of care. Verify patient allergies. Confirm identity and verify consent before the operative or invasive procedure. Entry 1 Patient Arrival Time 12/16/18 06:05:00 Preop Departure 12/16/18 07:54:00 Last Modified By: Joselyn Marx RN 12/16/18 08:34:47 Post-Care Text: Patient is prepared mentally and physically and is ready for surgery. The patient remains free from s/s of injury. Patient/family express understanding of plan of care and participate in decisions affecting his or her perioperrative plan of care. Allergies documented appropriately. Patient identifiers and consent correct. General Comments: Denies chest pain, shortness of breath or illlnessess. Denies pacemaker/defib. Denies sleep apnea. Finalized By: Joselyn Marx RN Document Signatures Signed By: Joselyn Marx RN 12/16/18 08:34 Normal [facility] Operative Report - Surgeon/P kusum 12-16-2018 Operative Report - Surgeon/Physician DATE OF PROCEDURE: 12/16/18 SURGEON: Luis Goss DO ANESTHESIA: Sebastian Bean MD (General) PREOPERATIVE DIAGNOSIS: Multiparity. The patient desires permanent elective irreversible sterilization. POSTOPERATIVE DIAGNOSIS: Multiparity. The patient desires permanent elective irreversible sterilization. PROCEDURE: Laparoscopic bilateral tubal ligation via electrocauterization. COMPLICATIONS: None. ESTIMATED BLOOD LOSS: Less than 25 cc. FLUIDS: Approximately 1000 cc of lactated ringers. URINE OUTPUT: See the nurses' notes. FINDINGS: Normal uterus and tubes. Left ovary cystic. Right ovary within normal limits; no endometriosis obviated. Normal appearing appendix as well. PROCEDURE: The patient was taken to the operating room and placed in the supine position. After adequate general anesthesia she was placed into the dorsolithotomy position and was then prepped and draped in the normal sterile fashion. Next, a weighted speculum was placed in the patient's vagina and the anterior aspect of the cervix was then grasped with a single tooth tenaculum. An [place] uterine manipulator was then advanced into the cervix to provide a means to manipulate the uterus. The speculum was removed from the vagina. Attention was then turned to the patient's abdomen where a 5 mm skin incision was made in the infraumbilical fold. The Verses needle was then carefully introduced into the peritoneal cavity at a 45 degree angle while tenting the abdominal wall. Intraperitoneal placement was then confirmed by the use of a water filled syringe and a drop in the intraabdominal pressure with insufflation of CO2 gas. The trocar and sleeve were then advanced without difficulty into the abdomen where placement was confirmed by the laparoscope. Pneumoperitoneum was obtained with approximately 3.5 liters of CO2 gas. A second skin incision was then made in the right lower quadrant at approximately 2 cm above the pubic symphysis in the right lower quadrant. The second 5 mm trocar and sleeve were then advanced under direct visualization. A third skin incision was then made 2 cm above the pubic symphysis in the left lower quadrant. The third 5 mm trocar and sleeve were then advanced under direct visualization. A survey of the patient's pelvis and abdomen revealed entirely normal anatomy other than a cystic left ovary. Next, the LigaSure was advanced through the second trocar and the patient's left fallopian tube was identified and followed out to the fimbriated end. The LigaSure was then applied in the mid ischemic area with good knuckles of tube noted and good blanching noted at the sites of application. After a 3 cm segment was electrocauterized and cut, there was no bleeding in the mesosalpinx. Next, the LigaSure was placed on the other tube which was electrocauterized in a similar fashion. The instruments were then removed from the patient's abdomen. The incisions were repaired with 4-0 Vicryl in a subcuticular manner. The [place] uterine manipulator was then removed from the vagina with no bleeding noted from the cervix. The patient tolerated the procedure well. Sponge, lap, needle and instrument counts were correct x2. The patient was taken to the recovery room awake and in stable condition. Luis Goss DO JOB #: [id number] [Electronically Signed on: 12/23/2018 07:53 EDT] Luis Goss DO, D.O. [Verified on: 12/23/2018 07:53 EDT] Luis Goss DO, D.O. [Transcribed on: 12/16/2018 09:49 EDT] [facility] Normal [facility] Patient Handouton 12-16-2018 Patient Handout Obstetrics and Gynecology Laparoscopic Tubal Ligation Laparoscopic tubal ligation is a procedure to close the fallopian tubes. This is done so that you cannot get . When the fallopian tubes are closed, the eggs that your ovaries release cannot enter the uterus, and sperm cannot reach the released eggs. A laparoscopic tubal ligation is sometimes called getting your tubes tied. You should not have this procedure if you want to get someday or if you are unsure about having more children. Tell a health care provider about: ? Any allergies you have. ? All medicines you are taking, including vitamins, herbs, eye drops, creams, and atmp-fsp-uemutlu medicines. ? Any problems you or family members have had with anesthetic medicines. ? Any blood disorders you have. ? Any surgeries you have had. ? Any medical conditions you have. ? Whether you are or may be . ? Any past pregnancies. What are the risks? Generally, this is a safe procedure. However, problems may occur, including: ? Infection. ? Bleeding. ? Injury to surrounding organs. ? Side effects from anesthetics. ? Failure of the procedure. This procedure can increase your risk of a kind of in which a fertilized egg attaches to the outside of the uterus (ectopic ). What happens before the procedure? ? Ask your health care provider about: ? Changing or stopping your regular medicines. This is especially important if you are taking diabetes medicines or blood thinners. ? Taking medicines such as aspirin and ibuprofen. These medicines can thin your blood. Do not take these medicines before your procedure if your health care provider instructs you not to. ? Follow instructions from your health care provider about eating and drinking restrictions. ? Plan to have someone take you home after the procedure. ? If you go home right after the procedure, plan to have someone with you for 24 hours. What happens during the procedure? ? You will be given one or more of the following: ? A medicine to help you relax (sedative). ? A medicine to numb the area (local anesthetic). ? A medicine to make you fall asleep (general anesthetic). ? A medicine that is injected into an area of your body to numb everything below the injection site (regional anesthetic). ? An IV tube will be inserted into one of your veins. It will be used to give you medicines and fluids during the procedure. ? Your bladder may be emptied with a small tube (catheter). ? If you have been given a general anesthetic, a tube will be put down your throat to help you breathe. ? Two small cuts (incisions) will be made in your lower abdomen and near your belly button. ? Your abdomen will be inflated with a gas. This will let the surgeon see better and will give the surgeon room to work. ? A thin, lighted tube (laparoscope) with a camera attached will be inserted into your abdomen through one of the incisions. Small instruments will be inserted through the other incision. ? The fallopian tubes will be tied off, burned (cauterized), or blocked with a clip, ring, or clamp. A small portion in the center of each fallopian tube may be removed. ? The gas will be released from the abdomen. ? The incisions will be closed with stitches (sutures). ? A bandage (dressing) will be placed over the incisions. The procedure may vary among health care providers and hospitals. What happens after the procedure? ? Your blood pressure, heart rate, breathing rate, and blood oxygen level will be monitored often until the medicines you were given have worn off. ? You will be given medicine to help with pain, nausea, and vomiting as needed. This information is not intended to replace advice given to you by your health care provider. Make sure you discuss any questions you have with your health care provider. Document Released: 10/28/2001 Document Revised: 12/27/2016 Document Reviewed: 07/01/2016 [employer] Patient Education ? 2018 [employer] [facility] Test Urine 1 U Preg Negative [facility] Comment on above: Performed By: #### 3 [id number] #### [facility] (DEFAULT) [address] [place] [address] U Preg Internal Control Pass [facility] Comment on above: Performed By: #### 3 [id number] #### [facility] (DEFAULT) [address] [place] [id number] Progress Note - Nurseon 12-03 Protein mass conc Spoke with pt regarding arrival time of 0600 and NPO status. Verbalized understanding. [Electronically Signed on: 12/15/2018 13:31 EDT] Issac WHITTAKER [place] A [Verified on: 12/15/2018 13:31 EDT] Issac WHITTAKER [place] [facility] Coding Summaryon 12-11-2018 Coding Summary CODING DATE: 12/11/[address] [facility] STATUS: Home PAYOR: Commercial Insurance ADMIT DX: REASON FOR VISIT DX: Z01.812 Encounter for preprocedural laboratory examination FINAL DX: PRINCIPAL: Z01.812 Encounter for preprocedural laboratory examination SECONDARY: PROCEDURES DOCTOR NAME DATE NOTE: The code number assigned matches the documented diagnosis and / or procedure in the patient's chart. However, the narrative phrase printed from the coding software may appear abbreviated, or result in slightly different terminology. Coded By: Elissa Rowe Date Saved: 12/11/2018 11:19 am [facility] Provider Orderson 12-11-2018 Protein mass conc [id number]. [id number] [facility] .Auto Diff 1on 12-09-2018 Auto Baso % 0.5 % Normal 0.2-2.0 [facility] Comment on above: Performed By: #### 1 [id number] #### [facility] (DEFAULT) [address] [place] [address] Auto [place] % 8 % Normal 1-12 [facility] Comment on above: Performed By: #### 1 [id number], [id number] #### [facility] (DEFAULT) [address] [place] [address] Auto Neut % 64 % Normal 44-88 [facility] Comment on above: Performed By: #### 1 [id number] #### [facility] (DEFAULT) [address] [place] [address] Baso Abs# 0.0 x10 Normal 0.0-0.2 [facility] Comment on above: Performed By: #### 1 [id number], [id number] #### [facility] (DEFAULT) [address] [place] [address] Eos Abs# 0.1 x10 Normal 0.0-0.4 [facility] Comment on above: Performed By: #### 1 [id number], [id number] #### [facility] (DEFAULT) [address] [place] [address] Eosinophils/100 WBC (Bld) 0.9 % Normal 0.9-4.0 [facility] Comment on above: Performed By: #### 1 [id number], [id number] #### [facility] (DEFAULT) [address] [place] [address] Lymphocytes #/vol (Bld) 1.7 x10 Normal 1.3-2.9 [facility] Comment on above: Performed By: #### 1 [id number], [id number] #### [facility] (DEFAULT) [address] [place] [address] Lymphocytes/100 WBC (Bld) 27 % Normal 14-48 [facility] Comment on above: Performed By: #### 1 [id number], [id number] #### [facility] (DEFAULT) [address] [place] [address] [place] Abs# 0.5 x10 Normal 0.0-0.8 [facility] Comment on above: Performed By: #### 1 [id number], [id number] #### [facility] (DEFAULT) [address] [place] [address] Neut Abs# 4.1 x10 Normal 1.5-9.2 [facility] Comment on above: Performed By: #### 1 [id number], [id number] #### [facility] (DEFAULT) [address] [place] [address] CBC w/ Auto Diffon 9 Erythrocyte distribution width Ratio (RBC) 12.9 % Normal 11.5-15.0 [facility] Comment on above: Performed By: #### 1 [id number], [id number] #### [facility] (DEFAULT) [address] [place] [address] Hematocrit Volume Fraction (Bld) 44.3 % High 33.7-40.4 [facility] Comment on above: Performed By: #### 1 [id number], [id number] #### [facility] (DEFAULT) [address] [place] [address] Hemoglobin mass conc (Bld) 15.1 g/dL Normal 11.3-15.9 [facility] Comment on above: Performed By: #### 1 [id number], [id number] #### [facility] (DEFAULT) [address] [place] [address] Man Diff? Auto Normal [facility] Comment on above: Performed By: #### 1 [id number], [id number] #### [facility] (DEFAULT) [address] [place] [address] MCH Entitic mass (RBC) 29 pg Normal 24-34 [facility] Comment on above: Performed By: #### 1 [id number], [id number] #### [facility] (DEFAULT) [address] [place] [address] MCHC mass conc (RBC) 34 g/dL Normal 26-37 [facility] Comment on above: Performed By: #### 1 [id number], [id number] #### [facility] (DEFAULT) [address] [place] [address] MCV Entitic volume (RBC) 85 fL Normal 81-100 [facility] Comment on above: Performed By: #### 1 [id number], [id number] #### [facility] (DEFAULT) [address] [place] [address] Platelet mean volume Entitic volume (Bld) 10.4 fL High 6.3-10.2 [facility] Comment on above: Performed By: #### 1 [id number] #### [facility] (DEFAULT) [address] [place] [address] Platelets #/vol (Bld) 295 x10 Normal 138-427 [facility] Comment on above: Performed By: #### 1 [id number] #### [facility] (DEFAULT) [address] [place] [address] RBC #/vol (Bld) 5.19 x10 Normal 3.70-5.30 [facility] Comment on above: Performed By: #### 1 [id number] #### [facility] (DEFAULT) [address] [place] [address] WBC #/vol (Bld) 6.4 x10 Normal 3.5-10.5 [facility] Comment on above: Performed By: #### 1 [id number] #### [facility] (DEFAULT) [address] [place] [id number] Vital Signs Date Time Vital Sign Value Performing Clinician Facility 09-15-2023 09:00-0500 Body height 154.94 cm Madison [facility] Other [facility] 09-15-2023 09:00-0500 Body mass index (BMI) [Ratio] 28.83 kg/m2 Madison [facility] Other [facility] Other 09-15-2023 09:00-0500 Body temperature 100 [degF] Madison Junior Other [facility] Other 09-15-2023 09:00-0500 Body weight 69.22 kg Madison Junior Other [facility] Other 09-15-2023 09:00-0500 Respiratory rate 18 /min Madison Junior Other [facility] Other 09-15-2023 09:00-0500 SaO2% (BldA) [Mass fraction] 99 % Madison Junior Other [facility] Other 07-31-2023 17:10-0500 Body height 154.94 cm Carmen Edwin Other [facility] Other 07-31-2023 17:10-0500 Body mass index (BMI) [Ratio] 24.56 kg/m2 Carmen Edwin Other [facility] Other 07-31-2023 17:10-0500 Body temperature 99 [degF] Carmen Edwin Other [facility] Other 07-31-2023 17:10-0500 Body weight 58.97 kg Carmen Edwin Other [facility] Other 07-31-2023 17:10-0500 Respiratory rate 18 /min Carmen Edwin Other [facility] Other 07-31-2023 17:10-0500 SaO2% (BldA) [Mass fraction] 97 % Carm[facility] Edwin Other [facility] Other Encounters Encounter Date Encounter Type Care Provider Facility Start: 09-15-2023 End: 09-15-2023 ambulatory Madison Junior Other [facility] Start: 09-15-2023 Office outpatient visit 25 minutes Madison Junior [facility] Start: 07-31-2023 End: 07-31-2023 ambulatory Carmen Edwin Other [facility] Start: 07-31-2023 Office outpatient visit 15 minutes Carmen Edwin [facility] Start: 10-30-2021 End: 10-30-[address] NOVA KEENAN Facility:[facility] Start: 10-30-2021 End: 10-31-2021 ambulatory BHARGAV SPARROW Facility:[facility] Start: 10-13-2018 End: 10-14-2018 Patient encounter procedure DEFAULT PHYSICIAN Facility:[facility] Payers Date Payer Category Payer Unknown [id number] 1990 Unknown [id number] 1990 Unknown [id number] 1959 Unknown [id number] Unknown Social History Date Type Detail Facility Unknown if ever smoked [facility] Other Sex Assigned At Sex Assigned At Bir [facility] Other Evaluation note 09-15-2023 Note Date & Type Note Facility 09-15-2023 Evaluation note Encounter Date Diagnosis Assessment Notes Sep, Sore throat (ICD-10 - J02.9) Sep, Strep pharyngitis (ICD-10 - J02.0) Advised patient that strep test was positive. Instructed to take antibiotic as directed, complete entire course even if feeling better. Allergies and recent antibiotics reviewed. Advised that patient is contagious for 24 hours after starting antibiotic, work note provided. Discussed good hand hygiene and infection control. New tooth brush and wash linens after 2-3 days of being on antibiotic to prevent reinfection. Discussed supportive care, push fluids and rest, eat soft foods and liquids that are easy to swallow, use throat lozenges and warm salt water gargles, Tylenol/Motrin as needed for fever or discomfort. Symptoms should improve in the next 48 hours, eval by PCP or UC if symptoms have not improved with treatment. Immediate eval if difficultly managing oral secretions, drooling, unilateral neck swelling, hot potato voice, persistent fever, neck pain/stiffness, severe headache, lethargy or any new or concerning symptoms arise. Patient verbalizes understanding and is agreeable to treatment plan. [facility] Other Evaluation note 07-31-2023 Note Date & Type Note Facility 07-31-2023 Evaluation note Encounter Date Diagnosis Assessment Notes Jul, Contact with and (suspected) exposure to covid-19 (ICD-10 - Z20.822) Jul, Influenza B (ICD-10 - J10.1) You were seen here today for your cough, congestion, sinus pressure, sore throat, headache, nausea, and swollen glands. You tested positive for flu B. Rest. Drink plenty of water. Lexx Tylenol or Motrin as needed for fever or discomfort. You may take over the counter cold and flu medication. Tamiflu is not indicated this far into symptoms and has side effects that outweigh the benefits. Follow up with your primary care doctor if symptoms persist or worsen. Go to the Et if you develop chest pain, difficulty breathing, shortness of breath. Patient is a 32 yo female who presents with complaints of cough, congestion, headache, general malaise, sinus pressure, mild sore throat for the past few days. Reports daughter was recently sick with similar symptoms. DDX includes covid, flu, viral URI, RSV. She tested positive for influenza B on the PCR and negative for covid, flu A and RSV. She is being encouraged to rest. Drink plenty of fluids. Take Tylenol/Motri n as needed for fever or discomfort. Follow up with PCP if symptoms persist or go to the ER if she develops chest pain, shortness of breath or difficulty breathing. [facility] Other History general Narrative - Reported Note Date & Type Note Facility History general Narrative - Reported Type Medical History anemia Surgical History cholecystectomy Surgical History tubal ligation Hospitalization History see above Hospitalization History child births [facility] Other Summary Purpose Family History No Family History Records FoundNo Family History Records FoundNo Family History Records FoundNo Family History Records Found Advance Directives No Advanced Directives Records FoundNo Advanced Directives Records FoundNo Advanced Directives Records FoundNo Advanced Directives Records Found Hospital Course Note [facility] SURGERY Clinical Discharge Summary PERSON INFORMATION Name FIFI CHAPPELL Age 28 Years 90 Sex FEMALE Language Kenyan PCP Bhargav Sparrow CNP Marital Status Med Service Ambulatory Surgery Acct# Arrival 12/16/18 06:00:00 Visit Reason SURGERY - LAPAROSCOPIC BILATERAL TUBAL LIGATION Acuity LOS 034 00:46 Address: [address] [place] [id number] Comment: PROVIDER INFORMATION VITALS INFORMATION Vital Sign Triage Latest Temp Oral Temp Temporal Temp Intravascular Temp Axillary Temp Rectal 02 Sat 99 % 97 % Respiratory Rate 16 br/min 16 br/min Peripheral Pulse Rate 64 bpm 62 bpm Apical Heart Rate Blood Pressure 113 mmHg / 96 mmHg 107 mmHg / 60 mmHg Comment: MEDICAL INFORMATION Allergy Info: No Known Medication Allergies Prescriptions Given: Prescription Display acetaminophen-hydrocodone ([place] 5 mg- 325 mg oral tablet) 1 tab(s), PO, q6hr, Instructions: may take 1 or 2 tablets not to exceed 8 tablets/day, (more content not included)... Additional Source Comments INFORMATION SOURCE (unrecogn ized section and content) DATE CREATED AUTHOR 10/14/2018 [facility] DATE CREATED AUTHOR AUTHOR'S ORGANIZ ATION 01/01/2019 [facility] DATE CREATED AUTHOR AUTHOR'S ORGANIZ ATION 09/20/2021 [facility] DATE CREATED AUTHOR AUTHOR'S ORGANIZ ATION 02/14/2022 [facility] REASON FOR VISIT (unrecogniz ed section and content) HEADACHE//SORE THROATsore th roat, swollen lymph nodes- exposed to strep FOR RECORDS PERTAINING TO PATIENTS WHO ARE OR HAVE BEEN ENROLLED IN A CHEMICAL DEPENDENCY/SUBSTANCEABUSE PROGRAM, SOME INFORMATION MAY BE OMITTED. This clinical summary was aggregated from multiple sources. Caution should be exercised in using it in the provision of clinical care. This summary normalizes information from multiple sources, and as a consequence, information in this document may materially change the coding, format and clinical context of patient data. In addition, data may be omitted in some cases. CLINICAL DECISIONS SHOULD BE BASED ON THE PRIMARY CLINICAL RECORDS. [employer] provides no warranty or guarantee of the accuracy or completeness of information in this document.
[2024-04-30] MEDS: LIDOCAINE HCL 10 ML, SODIUM BICARBONATE 1 MEQ INJ (09:10)
--- NOTE | 2024-04-30 09:57 | SUR.PREOP ---
04/23/24 Pt instructed on procedure, date, time, and prep.
== END 2024-04-30 09:30 | disposition home or self-care (01) ==
LOC: US 08:18
PROVIDERS: Radiology Diagnostic Radiology; PCP Nurse Practitioner; Visit Provider Nurse Practitioner
DX: E04.1 Nontoxic single thyroid nodule (principal)
CPT/HCPCS: 10005; 88173

== ENCOUNTER 2024-05-02 08:26 | Outpatient (OUT) | payer OTHER, SELFPAY ==
--- OUTSIDE RECORDS SUMMARY | 2024-05-02 08:29 | XMS_ITS | CCD ---
Author Organization [facility] Care Team Providers Care [employer] Name Role Phone PHYSICIAN, DEFAULT Admitting Unavailable PHYSICIAN, DEFAULT Attending Unavailable BHARGAV SPARROW Primary Care Unavailable REE, DR BHATT Admitting Unavailable REE, DR BHATT Consulting Unavailable REE, DR BHATT Attending Unavailable REE, DR BHATT Admitting Unavailable REE, DR BHATT Consulting Unavailable REE, DR BHATT Attending Unavailable BHARGAV SPARROW Primary Care Unavailable Edwin Carmen Unavailable Madison Junior Unavailable MCKENNA QUIÑONEZ Attending Unavailable MCKENNA QUIÑONEZ Attending Unavailable Mckenna Quiñonez Attending Provider Medications Current Medications Medication Drug Class(es) Dates [...] pyogenes Org specific cx Ql (Throat) Positive [facility] Other Quick Strep [facility] Other COVID/FLU/RSV RT-PCRon 07-31 SARS-CoV-2 (COVID-19) RNA EDWIN+probe Ql (Unsp spec) Negative [facility] Other COVID/FLU/RSV RT-PCR Negative [facility] Other COVID/FLU/RSV RT-PCR Positive [facility] Other PAP ACOG PANEL 2: 30 to 65on 11-05-2021 . . Normal [facility] Comment on above: Result Comment: Perf ormed at: WB Performed By: #### 4 [id number] #### [facility] [address] [place] [address] Dr. Omar Sanabria Age Gdln ACOG Testing 30-65 Normal [facility] Comment on above: Performed By: #### 4 [id number] #### [facility] [address] [place] [address] Dr. Omar Sanabria DIAGNOSIS: Comment Normal [facility] Comment on above: Result Comment: NEGA TIVE FOR INTRAEPITHELIAL LESION OR MALIGNANCY. Performed at: WB Performed By: #### 4 [id number] #### [facility] [address] [place] [address] Dr. Omar Sanabria HPV Aptima Negative Normal Negative [facility] Comment on above: Result Comment: This nucleic acid amplification test detects fourteen high-risk HPV types (16,18,31,33,35,39,45,51,52,56,58,59,66,68) without differentiation. Performed at: =G Performed By: #### 4 [id number] #### [facility] [address] [place] [address] Dr. Omar Sanabria Methodology: Comment Normal [facility] Comment on above: Result Comment: This liquid based ThinPrep(R) pap test was screened with the use of an image guided system. Performed at: WB Performed By: #### 4 [id number] #### [facility] [address] [place] [address] Dr. Omar Sanabria Note: Comment Normal [facility] Comment on above: Result Comment: The Pap smear is a screening test designed to aid in the detection of premalignant and malignant conditions of the uterine cervix. It is not a diagnostic procedure and should not be used as the sole means of detecting cervical cancer. Both false-positive and false-negative reports do occur. . Performed at: WB Performed By: #### 4 [id number] #### [facility] [address] [place] [address] Dr. Omar Sanabria Performed by: Comment Normal [facility] Comment on above: Result Comment: Kristal Smith, Line Up Examiner (ASCP) Performed at: WB Performed By: #### 4 [id number] #### [facility] [address] [place] [address] Dr. Omar Sanabria Specimen adequacy: Comment Normal [facility] Comment on above: Result Comment: Sati sfactory for evaluation. Endocervical and/or squamous metaplastic cells (endocervical component) are present. Performed at: WB Performed By: #### 4 [id number] #### [facility] [address] [place] [address] Dr. Omar Sanabria HERPES SIMPLEX 1/2 IGMon HSV, IgM I/II Combination 1.01 Ratio Critically high 0.00-0.90 [facility] Comment on above: Result Comment: Ve rified by repeat analysis Negative <0.91 Equivocal 0.91 - 1.09 Positive >1.09 Performed By: #### H SVIGM #### [facility] [address] [place] [address] Dr. Omar Sanabria HERPES SIMPLEX 1/2 IGGon HSV 1 IgG, Type Spec 8.59 index Critically high 0.00-0.90 [facility] Comment on above: Result Comment: Nega tive <0.91 Equivocal 0.91 - 1.09 Positive >1.09 Note: Negative indicates no antibodies detected to HSV-1. Equivocal may suggest early infection. If clinically appropriate, retest at later date. Positive indicates antibodies detected to HSV-1. Performed By: #### H SV IGG #### [facility] [address] [place] [address] Dr. Omar Sanabria HSV 2 IgG Type Spec <0.91 Normal 0.00-0.90 [facility] Comment on above: Result Comment: Nega tive <0.91 Equivocal 0.91 - 1.09 Positive >1.09 Note: Negative indicates no HSV-2 antibodies detected. Positive indicates HSV-2 antibodies detected. Equivocal and low positive HSV-2 screens (Index 0.91-5.00) may be false positive and are reflexed to supplemental testing in accordance with CDC guidelines. Performed By: #### H SV IGG #### [facility] [address] [place] [address] Dr. Omar Sanabria Vaginitis Plus (VG+)on 08-06 Atopobium Vaginae Moderate - 1 Normal . [facility] Comment on above: Order Comment: Reaso n for Exam Vaginal irritation Performed By: #### V AGINITIS+ #### [facility] , BVAB2 Low - 0 Normal . [facility] Comment on above: Order Comment: Reaso n for Exam Vaginal irritation Performed By: #### V AGINITIS+ #### [facility] , Meaghan Albicans, EDWIN Negative Normal Negative [facility] Comment on above: Order Comment: Reaso n for Exam Vaginal irritation Result Comment: This test was developed and its performance characteristics determined by [facility]. It has not been cleared or approved by the Food and Drug Administration. Performed By: #### V AGINITIS+ #### [facility] , Meaghan Glabrata, EDWIN Negative Normal Negative [facility] Comment on above: Order Comment: Reaso n for Exam Vaginal irritation Result Comment: This test was developed and its performance characteristics determined by [facility]. It has not been cleared or approved by the Food and Drug Administration. PERFORMED BY: [facility] [address] [place] [address] PATHOLOGIST PRESS CATCHER KAREN LINDSAY M.D. Performed By: #### V AGINITIS+ #### [facility] , Chlamydia Trachomotis, EDWIN Negative Normal Negative [facility] Comment on above: Order Comment: Reaso n for Exam Vaginal irritation Performed By: #### V AGINITIS+ #### [facility] , Megasphaera Low - 0 Normal . [facility] Comment on above: Order Comment: Reaso [...] developed and its performance characteristics determined by [facility]. It has not been cleared or approved by the Food and Drug Administration. Performed By: #### V AGINITIS+ #### [facility] , Neisseria Gonorrhoeae, EDWIN Negative Normal Negative [facility] Comment on above: Order Comment: Reaso n for Exam Vaginal irritation Result Comment: Perf ormed at: =G - [facility] [address] [place] [id number] Facilities Maintenance Manager: Valery Jarquin MD, Phone: [phone] Performed By: #### V AGINITIS+ #### [facility] , Tric Vag EDWIN Negative Normal Negative [facility] Comment on above: Order Comment: Reaso n for Exam Vaginal irritation Performed By: #### V AGINITIS+ #### [facility] , MAGR Intraoperative Recordon 12-19-2018 MAGR Intraoperative Record MAGR Intra-Op Record Summary Primary Physician: Luis Goss DO Finalized Date/Time: 12/19/18 08:27:55 Pt. Name: FIFI MOCK/Sex: 1990 FEMALE Med Rec #: [id number] Physician: Luis Goss DO Financial #: [id number] Pt. Type: D Room/Bed: / Admit/Disch: 12/16/18 [...] Role Performed Surgeon - Primary Anesthesiologist of [place] Marker Record Time In 12/16/18 07:56:00 12/16/18 07:56:00 12/16/18 07:56:00 Time Out 12/16/18 09:03:00 12/16/18 09:03:00 12/16/18 09:03:00 Procedure Tubal Ligation Tubal Ligation Tubal Ligation Laparoscopic(Bilatera l) Laparoscopic(Bilatera l) Laparoscopic(Bilatera l) Last Modified By: Francisco J RN, Joselyn Marx RN, Joselyn Marx RN, Joselyn Granados 12/16/18 09:14:28 12/16/18 09:14:28 12/16/18 09:14:28 Entry 4 Entry 5 Case Attendee Adrián HARMON, Cynthia Wong CONTINUUM OF CARE MANAGER/CSFA Role Performed Scrub Personnel Mechanical Door Repairer Time In 12/16/18 07:56:00 12/16/18 07:56:00 Time Out 12/16/18 09:03:00 12/16/18 09:03:00 Procedure Tubal Ligation Tubal Ligation Laparoscopic(Bilatera l) Laparoscopic(Bilatera l) Last Modified By: Francisco J RN, Joselyn Marx RN, Joselyn Granados 12/16/18 09:14:28 12/16/18 09:14:28 Surgical Procedures MAGR Pre-Care Text: A.20 Verifies operative procedure, surgical site, and laterality Im.150 Develops individualized plan of care Entry 1 Procedure Tubal Ligation Primary Procedure Yes Laparoscopic Primary Surgeon Luis Goss DO Bilateral Surgeon Comment LAPAROSCOPIC BILATERAL Start 12/16/18 [...] Final Counts Joselyn Marx RN, Performed By Adrián HARMON, Thalia Final Count Time 12/16/18 08:43:00 Surgeon notified [...] Unfinalizing Freetext Reason for Unfinalizing 12/19/18 08:27 [facility] Correct Documentation [facility] Coding Summaryon 12-17-2018 Coding Summary CODING DATE: 12/17/2018 [facility] STATUS: Home PAYOR: Commercial Insurance APC DESCRIPTION 5361 Level 1 Laparoscopy and Related Services ADMIT DX: REASON FOR VISIT DX: Z30.2 Encounter for sterilization FINAL DX: PRINCIPAL: Z30.2 Encounter for sterilization SECONDARY: PYMT PROC APC STAT DESCRIPTION DOCTOR NAME DATE 22590 5361 J1 Laparoscopy, surgical; Wolfgang Luis OWEN 12/16/2018 with fulguration of oviducts (with or without transection) NOTE: The code number assigned matches the documented diagnosis and / or procedure in the patient's chart. However, the narrative phrase printed from the coding software may appear abbreviated, or result in slightly different terminology. Coded By: Elissa Rowe Date Saved: 12/17/2018 12:12 pm [facility] Consent Formson 12-17-2018 Consent Forms [id number]#1. 00[facility] History and Physicalon 12-17 History and Physical [id number]#[address]. [address] [place] [address] Operative Report - Surgeon/P hysicianon 12-17-2018 Operative Report - Surgeon/Physician [id number]#1. 00[facility] Provider Orderson 12-17-2018 Protein mass conc [id number]#1. 00[facility] Telemetry Stripson 9 Telemetry Strips [id number]#1. 00[facility] Anesthesia Noteon 12-16-2018 Anesthesia Note Patient: FIFI MOCK Age: 28 years Sex: FEMALE : [birth year] [...] (DECEMBER 16 09:15) SBP 111 mmHg (DECEMBER 16 09:20) DBP 64 mmHg (DECEMBER 16:20) SpO2 98 [...] on: 12/16/2018 09:26 EDT] Sebastian Myers MD [facility] Anesthesia Note Patient: FIFI MOCK Age: 28 years Sex: FEMALE : 89 [...] history): All Problems Anemia / SNOMED CT 610781477 / Confirmed Depression / SNOMED CT 29118735 / Confirmed Insomnia / SNOMED CT 034391429 / Confirmed Histories Family History: No family history items have been selected or recorded. Procedure history: Laparoscopic cholecystectomy (72613349). Dilation and curettage (27290437). Social History Alcohol Assessment Use: Current. Liquor, [...] 16 06:05) Resp Rate 14 br/min (DECEMBER 16:05) SBP 111 mmHg (DECEMBER 16 06:25) DBP 75 mmHg (DECEMBER 16 06:25) SpO2 99 % (DECEMBER 16:05) General: Alert and oriented, No acute distress. Airway: Mallampati classification: I (soft palate, fauces, uvula, pillars visible). Respiratory: Respirations are non-labored. Cardiovascular: Normal rate, Regular rhythm. Review / Management Laboratory Results Plan [employer]#( A) physical status classification: [...] on: 12/16/2018 07:49 EDT] Sebastian Myers MD Normal [facility] Inpatient Patient Summaryon 12-16-2018 Inpatient Patient Summary [place] [id number] Patient Discharge Instructions Name: FIFI MOCK : 89 Patient [address]: [address] [place] [address] Primary Care Provider: Name: Bhargav Sparrow CNP After you are discharged if you find you have any questions, please, call [phone] ext [phone] to speak to a nurse. Discharge Diagnosis: [...] business decisions or sign any legal documents [facility] would like to thank you for allowing us to assist you with your healthcare needs. The following includes patient education materials and information regarding your injury/illness. FIFI MOCK has been given the following list of follow-up instructions, prescriptions, and patient education materials: Follow-up Instructions With: Address: When: Luis Goss [address] [place], [place] [address] Business (1) In 2 weeks 12/30/18 Medications During the course of your visit, your medication list was updated with the most current information. The details of those changes are reflected below: New Medications Printed Prescriptions acetaminophen-hydroco done ([place] 5 mg-325 mg oral tablet) 1 tab(s) [...] you can keep with you. acetaminophen-hydroco done ([place] 5 mg-325 mg oral tablet) 1 tab(s) [...] including vitamins, herbs, eye drops, creams, and ypwq-pdi-hkrejir medicines. ? Any problems you or family [...] 10/28/2001 Document Revised: 12/27/2016 Document Reviewed: 07/01/2016 [employer] Interactive Patient Education ? 2018 [employer] Viruses or Bacteria What?s got you [...] for Disease Control and Prevention April 2014 [facility] MAGR PACU Recordon 9 MAGR PACU Record MAGR PACU Record Summary Primary Physician: Luis Goss DO Finalized Date/Time: 12/16/18 09:44:44 Pt. Name: FIFI MOCK/Sex: 1990 FEMALE Med Rec #: [id number] Physician: Luis Goss DO Financial #: [id number] Pt. Type: D Room/Bed: / Admit/Disch: 12/16/18 [...] Signed By: Gema Todd RN 12/16/18 09:44 [facility] MAGR Postoperative Recordon 12-16-2018 MAGR Postoperative Record MAGR Phase II Record Summary Primary Physician: Luis Goss DO Finalized Date/Time: 12/16/18 10:50:50 Pt. Name: MOCKFIFI./Sex: 1990 FEMALE Med Rec #: [id number] Physician: Luis Goss DO Financial #: [id number] Pt. Type: D Room/Bed: / Admit/Disch: 12/16/18 [...] Signed By: Maty Irving RN 12/16/18 10:50 [facility] MAGR Preoperative Recordon 0 12-16-2018 [facility] Preoperative Record MAGR Pre-Op Record Summary Primary Physician: Luis Goss DO Finalized Date/Time: 12/16/18 08:34:48 Pt. Name: FIFI MOCK/Sex: 1990 FEMALE Med Rec #: [id number] Physician: Luis Goss DO Financial #: [id number] Pt. Type: D Room/Bed: / Admit/Disch: 12/16/18 [...] By: Joselyn Marx RN 12/16/18 08:34 Normal [facility] Operative Report - Surgeon/P kusum 12-16-2018 [...] grasped with a single tooth tenaculum. An [place] uterine manipulator was then advanced into the [...] 4-0 Vicryl in a subcuticular manner. The [place] uterine manipulator was then removed from the vagina with no bleeding noted from the cervix. The patient tolerated the procedure well. Sponge, lap, needle and instrument counts were correct x2. The patient was taken to the recovery room awake and in stable condition. Luis Goss DO JOB #: [id number] chavo [Electronically Signed on: 12/23/2018 07:53 EDT] Luis Goss DO, D.O. [Verified on: 12/23/2018 07:53 EDT] Luis Goss DO, D.O. [Transcribed on: 12/16/2018 09:49 EDT] [facility] Patient Handouton 12-16-2018 Patient Handout Obstetrics [...] including vitamins, herbs, eye drops, creams, and nfya-pyu-jxqhedf medicines. ? Any problems you or family [...] 10/28/2001 Document Revised: 12/27/2016 Document Reviewed: 07/01/2016 [employer] Interactive Patient Education ? 2018 [employer] [facility] Test Urine U Preg Negative [facility] Comment on above: Performed By: #### 3 [id number] #### [facility] (DEFAULT) [address] [place] [address] 89826 U Preg Internal Control Pass [facility] Comment on above: Performed By: #### 3 [id number] #### [facility] (DEFAULT) [address] [place] [address] 89458 Progress Note - Nurseon 05- 3-2019 Protein mass conc Spoke with pt regarding arrival time of 0600 and NPO status. Verbalized understanding. [Electronically Signed on: 12/15/2018 13:31 EDT] Virginia Davenport RN [Verified on: 12/15/2018 13:31 EDT] Virginia Davenport RN [facility] Coding Summaryon 12-11-2018 Coding Summary CODING DATE: 12/11/2018 [facility] STATUS: Home PAYOR: Commercial Insurance ADMIT DX: [...] Elissa Rowe Date Saved: 12/11/2018 11:19 am [facility] Provider Orderson 12-11-2018 Protein mass conc [id number]. [id number] [facility] .Auto Diff 1on 12-09-2018 Auto Baso % 0.5 % Normal 0.2-2.0 [facility] Comment on above: Performed By: #### 1 [id number], [id number] #### [facility] (DEFAULT) [address] [place] [address] Auto [place] % 8 % Normal 1-12 [facility] Comment on above: Performed By: #### 1 [id number], [id number] #### [facility] (DEFAULT) [address] [place] [address] 39555 Auto Neut % 64 % Normal 44-88 [facility] Comment on above: Performed By: #### 1 [id number], [id number] #### [facility] (DEFAULT) [address] [place] [address] 23781 Baso Abs# 0.0 x10 Normal 0.0-0.2 [facility] Comment on above: Performed By: #### 1 [id number], [id number] #### [facility] (DEFAULT) [address] [place] [address] 99144 Eos Abs# 0.1 x10 Normal 0.0-0.4 [facility] Comment on above: Performed By: #### 1 [id number], [id number] #### [facility] (DEFAULT) [address] [place] [address] 62065 Eosinophils/100 WBC (Bld) 0.9 % Normal 0.9-4.0 [facility] Comment on above: Performed By: #### 1 [id number], [id number] #### [facility] (DEFAULT) [address] [place] [address] 01106 Lymphocytes #/vol (Bld) 1.7 x10 Normal 1.3-2.9 [facility] Comment on above: Performed By: #### 1 [id number], [id number] #### [facility] (DEFAULT) [address] [place] [address] 32357 Lymphocytes/100 WBC (Bld) 27 % Normal 14-48 [facility] Comment on above: Performed By: #### 1 [id number], [id number] #### [facility] (DEFAULT) [address] [place] [address] 59044 [place] Abs# 0.5 x10 Normal 0.0-0.8 [facility] Comment on above: Performed By: #### 1 [id number], [id number] #### [facility] (DEFAULT) [address] [place] [address] 76503 Neut Abs# 4.1 x10 Normal 1.5-9.2 [facility] Comment on above: Performed By: #### 1 [id number], [id number] #### [facility] (DEFAULT) [address] [place] [address] 86722 CBC w/ Auto Diffon 9 Erythrocyte distribution width Ratio (RBC) 12.9 % Normal 11.5-15.0 [facility] Comment on above: Performed By: #### 1 [id number], [id number] #### [facility] (DEFAULT) [address] [place] [address] Hematocrit Volume Fraction (Bld) 44.3 % High 33.7-40.4 [facility] Comment on above: Performed By: #### 1 [id number], [id number] #### [facility] (DEFAULT) [address] [place] [address] Hemoglobin mass conc (Bld) 15.1 g/dL Normal 11.3-15.9 [facility] Comment on above: Performed By: #### 1 [id number], [id number] #### [facility] (DEFAULT) [address] [place] [address] Man Diff? Auto Normal [facility] Comment on above: Performed By: #### 1 [id number], [id number] #### [facility] (DEFAULT) [address] [place] [address] MCH Entitic mass (RBC) 29 pg Normal 24-34 [facility] Comment on above: Performed By: #### 1 [id number], [id number] #### [facility] (DEFAULT) [address] [place] [address] MCHC mass conc (RBC) 34 g/dL Normal 26-37 [facility] Comment on above: Performed By: #### 1 [id number], [id number] #### [facility] (DEFAULT) [address] [place] [address] MCV Entitic volume (RBC) 85 fL Normal 81-100 [facility] Comment on above: Performed By: #### 1 [id number], [id number] #### [facility] (DEFAULT) [address] [place] [address] Platelet mean volume Entitic volume (Bld) 10.4 fL High 6.3-10.2 [facility] Comment on above: Performed By: #### 1 [id number], [id number] #### [facility] (DEFAULT) [address] [place] [address] 32785 Platelets #/vol (Bld) 295 x10 Normal 138-427 [facility] Comment on above: Performed By: #### 1 [id number], [id number] #### [facility] (DEFAULT) [address] [place] [address] 56044 RBC #/vol (Bld) 5.19 x10 Normal 3.70-5.30 [facility] Comment on above: Performed By: #### 1 [id number], [id number] #### [facility] (DEFAULT) [address] [place] [address] 61461 WBC #/vol (Bld) 6.4 x10 Normal 3.5-10.5 [facility] Comment on above: Performed By: #### 1 [id number], [id number] #### [facility] (DEFAULT) [address] [place] [address] 92039 Vital Signs Date Time Vital Sign Value Performing Clinician Facility 09-15-2023 09:00-0500 Body height 154.94 cm Madison Junior Other [facility] Other 09-15-2023 09:00-0500 Body mass index (BMI) [Ratio] 28.83 kg/m2 Madison Junior Other [facility] Other 09-15-2023 09:00-0500 Body temperature 100 [degF] Madison Junior Other [facility] Other 09-15-2023 09:00-0500 Body weight 69.22 kg Madison Junior Other [facility] Other 09-15-2023 09:00-0500 Respiratory rate 18 /min Madison Junior Other [facility] Other 09-15-2023 09:00-0500 SaO2% (BldA) [Mass fraction] 99 % Madison Junior Other [facility] Other 07-31-2023 17:10-0500 Body height 154.94 cm Carmen Edwin Other [facility] Other 07-31-2023 17:10-0500 Body mass index (BMI) [Ratio] 24.56 kg/m2 Carmen Edwin Other [facility] Other 07-31-2023 17:10-0500 Body temperature 99 [degF] Carmen Edwin Other [facility] Other 07-31-2023 17:10-0500 Body weight 58.97 kg Carmen Edwin Other [facility] Other 07-31-2023 17:10-0500 Respiratory rate 18 /min Carmen Edwin Other [facility] Other 07-31-2023 17:10-0500 SaO2% (BldA) [Mass fraction] 97 % Carmen Edwin Other [facility] Other Encounters Encounter Date Encounter Type Care Provider Facility Start: 04-30-2024 End: 04-30-2024 ambulatory Mckenna Khang Work Phone: [facility] Work Phone: Start: 04-30-2024 End: 04-30-2024 Departed Referred Mckenna Khang Work Phone: [facility] Start: 04-28-2024 End: 04-28-2024 ambulatory MCKENNA AICLILLIANZ Not Available Start: 04-02-2024 End: 04-02-2024 ambulatory MCKENNA PURAHOLZ Not Available Start: 09-15-2023 End: 09-15-2023 ambulatory Madison Junior Other [facility] Other Start: 09-15-2023 Office outpatient visit 25 minutes Madison Junior [facility] Start: 07-31-2023 End: 07-31-2023 ambulatory Carmen Edwin Other [facility] Other Start: 07-31-2023 Office outpatient visit 15 minutes Carmen Edwin [facility] Start: 10-30-2021 End: 10-30-[address] NOVA KEENAN Facility:[facility] Start: 10-30-2021 End: 10-31-2021 ambulatory BHARGAV SPARROW Facility:[facility] Start: 10-13-2018 End: 10-14-2018 Patient encounter procedure DEFAULT PHYSICIAN Facility:[facility] Payers Date Payer Category Payer Unknown [id number] 1990 Unknown [id number] [id number] [id number] 1990 Unknown [id number] 2.16.84 [id number] 1990 Unknown [id number] 1990 Unknown [id number] 1959 Unknown [id number] Self-pay Self Pay [id number] Unknown Unknown [facility] [id number] Social History Date Type Detail Facility Unknown if ever smoked [facility] Other Sex Assigned At Sex Assigned At Bir th [facility] Other Start: 03-01-2018 Tobacco smoking status NHIS Never smoked tobacco (finding) [facility] Start: 1990 Sex Assigned At Female F [facility] Evaluation note 09-15-2023 Note Date & Type [...] understanding and is agreeable to treatment plan. [facility] Other Evaluation note 07-31-2023 Note Date & [...] pain, shortness of breath or difficulty breathing. [facility] Other Evaluation note Note Date & Type Note Facility Evaluation note No assessment information availa [facility] Work Phone: History general Narrative - Reported Note Date & Type Note Facility History general Narrative - Reported Type Medical History anemia Surgical History cholecystectomy Surgical History tubal ligation Hospitalization History see above Hospitalization History child births [facility] [employer] Other Summary Purpose Family History No Family History Records FoundNo Family History Records FoundNo Family History Records FoundNo Family History Records FoundNo Family History Records Found Advance Directives Advance Directive Response Recorded Date/ Time Advance Directives No March 06 12:49pm Hospital Course Note [facility] SURGERY Clinical Discharge Summary PERSON INFORMATION Name FIFI MOCK Age 28 Years 90 Sex FEMALE Language Dutch PCP Bhargav Sparrow CNP Marital Status Med Service Ambulatory Surgery Acct# Arrival 12/16/18 06:00:00 Visit Reason SURGERY - LAPAROSCOPIC BILATERAL TUBAL LIGATION Acuity LOS 034 00:46 Address: [address] [place] [address] Comment: PROVIDER INFORMATION VITALS INFORMATION Vital Sign [...] Medication Allergies Prescriptions Given: Prescription Display acetaminophen-hydrocodone ([place] 5 mg- 325 mg oral tablet) 1 tab(s), PO, q6hr, Instructions: may take 1 or 2 tablets not to exceed 8 tablets/day, (more content not included)... Additional Source Comments INFORMATION SOURCE (unrecogn ized section and content) DATE CREATED AUTHOR 10/14/2018 [facility] DATE CREATED AUTHOR AUTHOR'S ORGANIZ ATION 01/01/2019 [facility] DATE CREATED AUTHOR AUTHOR'S ORGANIZ ATION 09/20/2021 [facility] DATE CREATED AUTHOR AUTHOR'S ORGANIZ ATION 02/14/2022 [facility] DATE CREATED AUTHOR AUTHOR'S ORGANIZ ATION 05/01/2024 [facility] EPIC REASON FOR VISIT (unrecogniz ed section and content) HEADACHE//SORE THROATsore th roat, swollen lymph nodes- exposed to strep Care Teams (unrecognized sec tion and content) Team Status: Inactive Member Role Status Dates Mckenna Quiñonez Attending Provider Active Start: April 30, 2024 End: April 30, 2024 Goals (unrecognized section and content) Goals may be documented in a n alternate section FOR RECORDS PERTAINING TO PATIENTS WHO ARE [...] BE BASED ON THE PRIMARY CLINICAL RECORDS. [facility] [employer] provides no warranty or guarantee of the accuracy or completeness of information in this document.
[2024-05-05 11:09] LABS: Antinuclear Antibodies, IFA Positive (.)
== END 2024-05-02 08:27 | disposition home or self-care (01) ==
LOC: LAB 08:27
PROVIDERS: PCP Nurse Practitioner; Visit Provider Nurse Practitioner
DX: R76.8 Other specified abnormal immunological findings in serum (principal)
CPT/HCPCS: 36415; 86038

== ENCOUNTER 2024-10-09 16:02 | Outpatient (OUT) | payer OTHER, SELFPAY ==
--- NOTE | 2024-10-09 | US_ITS ---
The [address] [address] Patient Name: FIFI CHAPPELL MRN: [id number] date: 1990 Sex: F Assigned Patient Location: [place] Current Patient Location: [place] Accession/Order Number: [id number] Exam Date: 10/09/2024 22:47 Report Date: 10/09/2024 22:55 At the request of: LORENZO BIANCHI MD Procedure: US thyroid Thyroid Ultrasound HISTORY: Follow-up left thyroid nodule. FNA benign findings. COMPARISON: 04/16/2024 The RIGHT lobe measures 5.0 x 1.6 x 1.5cm. LEFT lobe measures 5.2 x 1.8 x 1.7 cm. Isthmus has an AP dimension of 0.3cm. Redemonstration of left single thyroid nodule. This is solid, hypoechoic, wide, smooth margin and without calcification. Today's measurement 1.5 x 1.2 x 0.8 cm.. No microcalcifications identified. Symmetric blood flow of the thyroid gland identified. US/US thyroid IMPRESSION: Stable left thyroid nodule. No new nodules. Impression dictated by: Cipriano Alvarado M.D.10/09/2024 10:55 PM Dictation [facility] Electronically authenticated by: [id number] Y Date: 10/09/2024 22:55
--- OUTSIDE RECORDS SUMMARY | 2024-10-09 16:06 | XMS_ITS | CCD ---
Author Organization 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 Name Role Phone PHYSICIAN, DEFAULT Admitting Unavailable PHYSICIAN, DEFAULT Attending Unavailable NASRA SPARROW Primary Care Unavailable REE, DR BHATT Admitting Unavailable REE, DR BHATT Consulting Unavailable REE, DR BHATT Attending Unavailable REE, DR BHATT Admitting Unavailable REE, DR BHATT Consulting Unavailable REE, DR BHATT Attending Unavailable NASRA SPARROW Primary Care Unavailable Edwin Carmen Unavailable Madison Junior Unavailable Bernie Quiñonez Attending Provider Chrissie Burks Unavailable Fermín Ceballos MD Primary Care Provider [phone] Bernie Quiñonez NP Unavailable JAMES MEDINA Attending Unavailable NASRA SPARROW Referring Unavailable NASRA SPARROW Primary Care Unavailable JAMES MEDINA Referring Unavailable NASRA SPARROW Primary Care Unavailable Bernie Quiñonez Attending Unavailable Bernie Quiñonez Admitting Unavailable BERNIE QUIÑONEZ Attending Unavailable BERNIE QUIÑONEZ Attending Unavailable BERNIE QUIÑONEZ Attending Unavailable LORENZO BIANCHI Attending Unavailable BERNIE QUIÑONEZ Referring Unavailable Nasra Beavers Primary Care Provider Nasra Beavers Primary Care Provider Medications Current Medications Medication Drug Class(es) Dates Sig (Normalized) Sig (Original) acetaminophen 500 mg / diphenhydrAMINE hydrochloride 25 mg oral tablet (10 sources) Histamine-1 Receptor Antagonist take 25-500 mg by mouth once as needed diphenhydrAMINE-a cetaminophen (Tylenol PM) 25-500 MG per tablet Take 1 tablet by mouth as needed at bedtime for sleep Active amoxicillin 80 mg/ml oral suspension (1 source) Penicillin-class Antibacterial Start: 09-15-2023 take 12.5 mL by mouth twice daily Amoxicillin 400 MG/5ML 12.5 mL Orally Twice a day for 10 days Sep, Active Iron (2 sources) Iron Active valACYclovir 500 mg oral tablet (16 sources) Herpesvirus Nucleoside Analog DNA Polymerase Inhibitor, Herpes Simplex Virus Nucleoside Analog DNA Polymerase Inhibitor, Herpes Zoster Virus Nucleoside Analog DNA Polymerase Inhibitor Start: 09-18-2022 take 1 tablet by mouth in the morning valACYclovir (Valtrex) 500 MG tablet Take 500 mg by mouth in the morning and 500 mg before bedtime. 09/18/2022 Active Completed/Discontinued Medications Medication Drug Class(es) Dates Sig (Normalized) Sig (Original) amitriptyline hydrochloride 10 mg oral tablet (4 sources) Tricyclic Antidepressant Start: 05-05-2024 End: 05-13-2024 take 1 tablet by mouth at bedtime amitriptyline (Elavil) 10 MG tablet Take 10 mg by mouth at bedtime 05/05/2024 05/13/2024 Discontinued azithromycin 500 mg oral tablet (2 sources) [...] Active Problems Problem Classification Problem Date Documented Date Episodic/Chronic Anxiety disorders (16 sources) Generalized anxiety disorder; Translations: [Generalized anxiety disorder] Onset: 04-02-2024 04-02-2024 Chronic Genitourinary symptoms and ill-defined conditions (11 sources) Abnormal urinalysis; Translations: [Unspecified abnormal findings in urine] Onset: 04-20-2024 04-20-2024 Episodic Influenza (1 source) Influenza due to other identified influenza virus with other respiratory manifestations Episodic Malaise and fatigue (2 sources) Chronic fatigue, unspecified; Translations: [Fatigue] Onset: 05-05-2024 05-05-2024 Chronic Mood disorders (16 sources) Major depression, single episode; Translations: [Major depressive disorder, single episode, in full remission] Onset: 04-02-2024 04-02-2024 Chronic Other congenital anomalies (14 sources) Remedios-Danlos syndrome; 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] Onset: 04-28-2024 04-28-2024 Chronic Other nutritional; endocrine; and metabolic disorders (20 sources) Obesity caused by energy imbalance; Translations: [Class 1 obesity due to excess calories without serious comorbidity with body mass index (BMI) of 31.0 to 31.9 in adult] Onset: 04-02-2024 04-02-2024 Chronic Other upper respiratory infections (2 sources) Acute pharyngitis, unspecified; Translations: [Streptococcal pharyngitis] Episodic Thyroid disorders (16 sources) Thyroid nodule; Translations: [Nontoxic single thyroid nodule] Onset: 04-28-2024 04-28-2024 Chronic Past or Other Problems Problem Classification Problem Date Documented Date Episodic/Chronic Deficiency and other anemia (18 sources) Iron deficiency anemia; Translations: [Iron deficiency anemia, unspecified] Onset: 04-02-2024 04-02-2024 Episodic Immunizations and screening for infectious disease (18 sources) Encounter for screening for human papillomavirus (HPV); Translations: [Anti-nuclear factor positive] Onset: 11-01-2021 04-20-2024 Episodic Malaise and fatigue (17 sources) Fatigue; Translations: [Other fatigue] Onset: 04-02-2024 04-02-2024 Episodic Other liver diseases (16 sources) Elevated liver enzymes level; Translations: [Abnormal levels of other serum enzymes] Onset: 04-02-2024 04-02-2024 Episodic Other non-traumatic joint disorders (17 sources) Joint pain; Translations: [Pain in unspecified joint] Onset: 04-02-2024 04-02-2024 Episodic Other screening for suspected conditions (not mental disorders or infectious disease) (4 sources) Encounter for screening for malignant neoplasm of cervix; Translations: [ENC SCREENING MALIG NEOPLASM CERV] Onset: 10-30-2021 Episodic Unclassified (1 source) Contact with and (suspected) exposure to covid-19 Z20.822 Viral infection (17 sources) Herpesviral infection, unspecified; Translations: [Herpes simplex] Onset: 11-01-2021 04-02-2024 Episodic Results Test Name Value Interpretation Reference Range Facility ANTINUCLEAR ANTIBODIES, IFAo n 05-05-2024 ANTINUCLEAR ANTIBODIES, IFA Positive Abnormal . [facility] Comment on above: Negative <1:80 Borderline 1:80 Positive >1:80 CENTRIOLE PATTERN TNP . [facility] Karel althcare CENTROMERE PATTERN TNP . [facility] Dmitriy ealthcare HOMOGENEOUS PATTERN 1:640 Abnormal . [facility] Comment on above: ICAP nomenclature: A C-1 Interpretation and review of laboratory results Abnormal [facility] MIDBODY PATTERN TNP . [facility] Heal thcare NOTE: Comment . [facility] e Comment on above: Pattern Potential Di sease Association Homogeneous Systemic Lupus Erythematosus, Drug Induced Systemic Lupus Erythematosus, Chronic Autoimmune hepatitis, Juvenile Idiopathic Arthritis Speckled Sjogren Syndrome, Systemic Lupus Erythematosus, Subacute Cutaneous Lupus, Lupus, Congenital Heart Block, Mixed Connective Tissue Disease, Scleroderma-diffuse, Scleroderma-Autoimmune Myositis Overlap Syndrome, Systemic Lupus Srsbzsdsuejgf-Zoghruguhmq-Kfphylixwe Myositis Overlap Syndrome, Systemic Autoimmune Rheumatic Disease, Undifferentiated Connective Tissue Disease Nucleolar Systemic Sclerosis, Scleroderma-Autoimmune Myositis Overlap Syndrome, Sjogren Syndrome, Raynaud phenomenon, Pulmonary Arterial Hypertension, Systemic Autoimmune Rheumatic Disease, Cancer Centromere Scleroderma-CREST, Limited Cutaneous SSc, Raynaud's Phenomenon, Primary Biliary Cholangitis Nuclear Dot Primary Biliary Cholangitis Nuclear Primary Biliary Cholangitis, Autoimmune Membrane Hepatitis/Liver disease, Systemic Autoimmune Rheumatic Disease, Autoimmune Cytopenias, Linear Scleroderma, Antiphospholipid Syndrome Performed at: - [facility] [id number] Bulb Inspector: Vasu Duke PhD, Phone: [phone] NUCLEAR DOT PATTERN TNP . [facility] NUCLEAR MEMBRANE PATTERN TNP . [facility] NUCLEOLAR PATTERN 1:640 Abnormal . [facility] Comment on above: ICAP nomenclature: A C-8,9,10 PCNA PATTERN TNP . [facility] are SPECKLED PATTERN TNP . [facility] SPINDLE APPARATUS PATTERN TNP . [facility] Ant[facility]uclear AB, HE-p Substra te, (SHAHLA by IFA)on 05-05-2024 Antinuclear Ab, HEp-2 Substrate, S Negative Normal <1:80 (Negative) [facility] Comment on above: Result Comment: NOTE ADDITIONAL INFORMATION Method: Immunofluorescence using HEp-2 cellular substrate. Test Performed by: [facility] [address] [place] [address] Bulb Inspector: Ashanti Anthony Ph.D.; CLIA# [id number] Performed By: #### 8 2477, 1987-12, CBCA, CMP #### [facility] ([id number]) [address] [place] [address], [place] [address] #### NAIFA #### [facility] ([id number]) [address] [facility], CBC AND AUTO DIFFon 05-05-20 24 ABSOLUTE BASOPHIL 0.1 X10E9/L Normal 0.0-0.2 [facility] Comment on above: Performed By: #### 8 2477, 1987-12, CBCA, CMP #### [facility] ([id number]) [address] [place] [address], [place] [address] #### NAIFA #### [facility] ([id number]) [address] [place] [address], ABSOLUTE NEUTROPHIL 4.6 X10E9/L Normal 1.5-6.6 [facility] Comment on above: Performed By: #### 8 2477, 1987-12, CBCA, CMP #### [facility] ([id number]) [address] [place] [address], [address] [place] [address] #### NAIFA #### [facility] ([id number]) [address] [facility], Basophils/100 WBC (Bld) 0.7 % Normal [facility] Comment on above: Performed By: #### 8 2477, 1987-12, CBCA, CMP #### [facility] ([id number]) [address] [place] [address], [address] [address] #### NAIFA #### [facility] ([id number]) [address] [facility], Eosinophils (Bld) [#/Vol] 0.1 10*3/uL Normal 0.0-0.4 [facility] Comment on above: Performed By: #### 8 24702-02, 1987-12, CBCA, CMP #### [facility] ([id number]) [address] [place] [address] #### NAIFA #### [facility] ([id number]) [address] [place] [address], Eosinophils/100 WBC (Bld) 2.0 % Normal [facility] Comment on above: Performed By: #### 8 24702-02, 1987-12, CBCA, CMP #### [facility] ([id number]) [address] [place] [address], [place] [address] #### NAIFA #### [facility] ([id number]) [address] [place] [address], Erythrocyte distribution width (RBC) [Ratio] 12.4 % Normal 11.5-15.0 [facility] Comment on above: Performed By: #### 8 24702-02, 1987-12, CBCA, CMP #### [facility] ([id number]) [address] [place] [address] #### NAIFA #### [facility] ([id number]) [address] [place] [address], Hematocrit (Bld) [Volume fraction] 42.1 % Normal [address] [facility] Comment on above: Performed By: #### 8 2476-08, 1987-12, CBCA, CMP #### [facility] ([id number]) [address] [place] [address] #### NAIFA #### [facility] ([id number]) [address] [facility], Hemoglobin (Bld) [Mass/Vol] 14.5 g/dL Normal 11.7-15.5 [facility] Comment on above: Performed By: #### 8 2476-08, 1987-12, CBCA, CMP #### [facility] ([id number]) [address] [place] [address] #### NAIFA #### [facility] ([id number]) [address] [place] [address], Lymphocytes (Bld) [#/Vol] 2.1 10*3/uL Normal 1.0-3.5 [facility] Comment on above: Performed By: #### 8 2476-08, 1987-12, CBCA, CMP #### [facility] ([id number]) [address] [place] [address] #### NAIFA #### [facility] ([id number]) [address] [place] [address], Lymphocytes/100 WBC (Bld) 27.9 % Normal [facility] Comment on above: Performed By: #### 8 2476-08, 1987-12, CBCA, CMP #### [facility] ([id number]) [address] [place] [address] #### NAIFA #### [facility] ([id number]) [address] [place] [address], MCH (RBC) [Entitic mass] 30.0 pg Normal 27-34 [facility] Comment on above: Performed By: #### 8 2476-08, 1987-12, CBCA, CMP #### [facility] ([id number]) [address] [place] [address], [facility] [address] [place] [address] #### NAIFA #### [facility] ([id number]) [address] [place] [address], MCHC (RBC) [Mass/Vol] 34.5 g/dL Normal 32-36 [facility] Comment on above: Performed By: #### 8 24702-02, 1987-12, CBCA, CMP #### [facility] ([id number]) [address] [place] [address] [address] [place] [address] #### NAIFA #### [facility] ([id number]) [address] [place] [address], MCV (RBC) [Entitic vol] 87 fL Normal 80-100 [facility] Comment on above: Performed By: #### 8 24702-02, 1987-12, CBCA, CMP #### [facility] ([id number]) [address] [place] [address] #### NAIFA #### [facility] ([id number]) [address] [place] [address], Monocytes (Bld) [#/Vol] 0.5 10*3/uL Normal 0-0.9 [facility] Comment on above: Performed By: #### 8 24702-02, 1987-12, CBCA, CMP #### [facility] ([id number]) [address] [place] [address] #### NAIFA #### [facility] ([id number]) [address] [place] [address], Monocytes/100 WBC (Bld) 7.1 % Normal [facility] Comment on above: Performed By: #### 8 24702-02, 1987-12, CBCA, CMP #### [facility] ([id number]) [address] [place] [address] #### NAIFA #### [facility] ([id number]) [address] [facility], Neutrophils/100 WBC (Bld) 62.3 % Normal [facility] Comment on above: Performed By: #### 8 2477, 1987-12, CBCA, CMP #### [facility] ([id number]) [address] [place] [address], [address] [place] [address] #### NAIFA #### [facility] ([id number]) [address] [facility], Platelet mean volume (Bld) [Entitic vol] 9.3 fL Normal 7-12 [facility] Comment on above: Performed By: #### 8 2477, 1987-12, CBCA, CMP #### [facility] ([id number]) [address] [place] [address], [address] [place] [address] #### NAIFA #### [facility] ([id number]) [address] [place] [address], Platelets (Bld) [#/Vol] 297 10*3/uL Normal 150-450 [facility] Comment on above: Performed By: #### 8 2477, 1987-12, CBCA, CMP #### [facility] ([id number]) [address] [place] [address], [address] [place] [address] #### NAIFA #### [facility] ([id number]) [address] [place] [address], RBC COUNT 4.85 X10E12/L Normal 3.80-5.20 [facility] Comment on above: Performed By: #### 8 2477, 1987-12, CBCA, CMP #### [facility] ([id number]) [address] [place] [address], [address] [place] [id number] #### NAIFA #### [facility] ([id number]) [address] [place] [address], WBC (Bld) [#/Vol] 7.4 10*3/uL Normal 4.0-11.0 [facility] Comment on above: Performed By: #### 8 2477-1, 1987-, CBCA, CMP #### [facility] ([id number]) [address] [place] [address], [address] [place] [address] #### NAIFA #### [facility] ([id number]) [address] [facility], CBC auto differentialon 10-0 Basophils (Bld) [#/Vol] 0.1 10*3/uL [facility] Basophils/100 WBC (Bld) 0.7 % [facility] Eosinophils (Bld) [#/Vol] 0.1 10*3/uL [facility] Eosinophils/100 WBC (Bld) 2.0 % [facility] Erythrocyte distribution width (RBC) [Ratio] 12.4 % 11.5 - 15.0 % [facility] Hematocrit (Bld) [Volume fraction] 42.1 % 35 - 47 % [facility] Hemoglobin (Bld) [Mass/Vol] 14.5 g/dL 11.7 - 15.5 g/dL [facility] Lymphocytes (Bld) [#/Vol] 2.1 10*3/uL [facility] Lymphocytes/100 WBC (Bld) 27.9 % [facility] MCH (RBC) [Entitic mass] 30.0 pg 27 - 34 pg [facility] MCHC (RBC) [Mass/Vol] 34.5 g/dL 32 - 36 g/dL [facility] MCV (RBC) [Entitic vol] 87 fL 80 - 100 fL [facility] Monocytes (Bld) [#/Vol] 0.5 10*3/uL [facility] Monocytes/100 WBC (Bld) 7.1 % [facility] Neutrophils (Bld) [#/Vol] 4.6 10*3/uL [facility] Neutrophils/100 WBC (Bld) 62.3 % [facility] Platelet mean volume (Bld) [Entitic vol] 9.3 fL 7 - 12 fL [facility] Platelets (Bld) [#/Vol] 297 10*3/uL [facility] RBC (Bld) [#/Vol] 4.85 10*6/uL [facility] WBC corrected for nucl RBC Auto (Bld) [#/Vol] 7.4 [facility] COMPREHENSIVE METABOLIC PANE Will 05-05-2024 Albumin [Mass/Vol] 4.3 g/dL Normal 3.2-5.3 [facility] Comment on above: Performed By: #### 8 2477, 1987-12, CBCA, CMP #### [facility] ([id number]) [address] [place] [address], [place] [address] #### NAIFA #### [facility] ([id number]) [address] [place] [address], ALP [Catalytic activity/Vol] 60 U/L Normal 39-130 [facility] Comment on above: Performed By: #### 8 24702-02, 1987-12, CBCA, CMP #### [facility] ([id number]) [address] [place] [address], [place] [address] #### NAIFA #### [facility] ([id number]) [address] [place] [address], ALT [Catalytic activity/Vol] 13 U/L Normal 0-31 [facility] Comment on above: Performed By: #### 8 2476-08, 1987-12, CBCA, CMP #### [facility] ([id number]) [address] [place] [address], [place] [address] #### NAIFA #### [facility] ([id number]) [address] [place] [address], Anion gap [Moles/Vol] 10 mmol/L Normal 5-15 [facility] Comment on above: Performed By: #### 8 24702-02, 1987-12, CBCA, CMP #### [facility] ([id number]) [address] [place] [address], [address] [place] [address] #### NAIFA #### [facility] ([id number]) [address] [place] [address], AST [Catalytic activity/Vol] 18 U/L Normal 0-41 [facility] Comment on above: Performed By: #### 8 24702-02, 1987-12, CBCA, CMP #### [facility] ([id number]) [address] [place] [address], [address] [place] [address] #### NAIFA #### [facility] ([id number]) [address] [place] [address], Bilirubin [Mass/Vol] 0.2 mg/dL Low 0.3-1.2 [facility] Comment on above: Performed By: #### 8 24702-02, 1987-12, CBCA, CMP #### [facility] ([id number]) [address] [place] [address], [address] [place] [address] #### NAIFA #### [facility] ([id number]) [address] [place] [address], Calcium [Mass/Vol] 9.6 mg/dL Normal 8.5-10.5 [facility] Comment on above: Performed By: #### 8 2476-08, 1987-12, CBCA, CMP #### [facility] ([id number]) [address] [place] [address], [address] [place] [address] #### NAIFA #### [facility] ([id number]) [address] [place] [address], Chloride [Moles/Vol] 103 mmol/L Normal 98-109 [facility] Comment on above: Performed By: #### 8 24702-02, 1987-12, CBCA, CMP #### [facility] ([id number]) [address] [place], [place] [address] [address] #### NAIFA #### [facility] ([id number]) [address] [facility], CO2 [Moles/Vol] 25 mmol/L Normal 22-32 [facility] Comment on above: Performed By: #### 8 2477, 1987-12, CBCA, CMP #### [facility] ([id number]) [address] [place] [address] #### NAIFA #### [facility] ([id number]) [address] [place] [address], Creatinine [Mass/Vol] 0.69 mg/dL Normal 0.40-1.00 [facility] Comment on above: Result Comment: METH OD TRACEABLE TO IDMS STANDARD Performed By: #### 8 24702-02, 1987-12, CBCA, CMP #### [facility] ([id number]) [address] [place] [address] #### NAIFA #### [facility] ([id number]) [address] [place] [address], eGFR (CKD-EPI) NON-RACE DEPENDENT >90 Normal >59 [facility] Comment on above: Result Comment: Reported eGFR is based on the CKD-EPI 2020 equation that does not use a race coefficient. Performed By: #### 8 2477, 1987-12, CBCA, CMP #### [facility] ([id number]) [address] [place] [address] #### NAIFA #### [facility] ([id number]) [address] [place] [address], Glucose [Mass/Vol] 74 mg/dL Normal 65-99 [facility] Comment on above: Performed By: #### 8 2477, 1987-12, CBCA, CMP #### [facility] ([id number]) [address] [place] [address] #### NAIFA #### [facility] ([id number]) [address] [facility], Potassium [Moles/Vol] 3.9 mmol/L Normal 3.5-5.0 [facility] Comment on above: Performed By: #### 8 2477, 1987-12, CBCA, CMP #### [facility] ([id number]) [address] [facility], [address] [place] [address] #### NAIFA #### [facility] ([id number]) [address] [place] [address], Protein [Mass/Vol] 7.3 g/dL Normal 6.0-8.0 [facility] Comment on above: Performed By: #### 8 2477, 1987-12, CBCA, CMP #### [facility] ([id number]) [address] [place] [address], [address] [place] [address] #### NAIFA #### [facility] ([id number]) [address] [place] [address], Sodium [Moles/Vol] 138 mmol/L Normal 134-146 [facility] Comment on above: Performed By: #### 8 24702-02, 1987-12, CBCA, CMP #### [facility] ([id number]) [address] [place] [address], [address] [place] [address] #### NAIFA #### [facility] ([id number]) [address] [place] [address], Urea nitrogen [Mass/Vol] 19 mg/dL Normal 5-23 [facility] Comment on above: Performed By: #### 8 24702-02, 1987-12, CBCA, CMP #### [facility] ([id number]) [address] [facility], [address] [place] [address] #### NAIFA #### [facility] ([id number]) [address] [facility], CRP [Mass/Vol]on 05-05-2024 C REACTIVE PROTEIN 0.2 mg/dL Normal 0.000-0.744 [facility] Comment on above: Performed By: #### 8 2477-, 1987-12, CBCA, CMP #### [facility] ([id number]) [address] [place] [address], [address] [place] [address] #### NAIFA #### [facility] ([id number]) [address] [place] [address], ESR Photometric method (Bld) [Velocity]on 05-05-2024 Interpretation and review of laboratory results Abnormal [facility] ESR, ERYTHROCYTE SEDIMENTATION RATE 21 mm/h High 0-20 [facility] Comment on above: Performed By: #### 8 2477-, 1987-12, CBCA, CMP #### [facility] ([id number]) [address] [place] [address], [address] [place] [address] #### NAIFA #### [facility] [facility] ([id number]) [address] [place] [address], Erythrocyte Sedimentation Ra te (ESR)on 05-05-2024 ESR Photometric method (Bld) [Velocity] 21 mm/h High 0 - 20 mm/h [facility] Will 04-30-2024 L Specimen: [id number] Received: 05/06/24 Status: ANDER Martin Num: [id number] Spec Type: Cytology Subm Dr: GENOVEVA Lund Tissues: A FNA SLIDES NOPATH (LT THY NOD) Procedures: Cyto Int and Re, PAPSTN/5 Age/ Patient Sex Location Account Attending Physician Fifi Mock 33/F LABELL [id number] GENOVEVA Lund SPEC NUM: [id number] RECD: 05/06/24 STATUS: ANDER MARTIN NUM: [id number] VÍCTOR: 04/30/24- SUBM DR: GENOVEVA Lund ENTERED: 05/06/24 [facility] DR: Jyotsna,Lab Mason Wynn MD SPEC TYPE: Cytology DEPT: JOAN NCYT ENTERED BY: [id number] RECV BY: [id number] ORDERED: Cyto Int and Re, PAPSTN/5 ORDERED: Cyto Int and Re, PAPSTN/5 Pathological Diagnosis Left thyroid nodule, FNA cytology: -Occasional follicular cells are present. -However, the larger and the more preserved follicular groups are still <10 for overall assessment, consistent with the category 1 [place] system: Nondiagnostic -The follicular cells of the assessable groups are otherwise small and benign-looking Clinical Information Left thyroid nodule Gross Description Received fixed in Cytolyt is 1 ml colorless clear fluid for cytology said to have been obtained as Left thyroid nodule. ThinPrep preparations are prepared for microscopic examination. Also received are 4 spray fixed smeared slides for pap and a Veracyte vial stored at -20 for microscopic examination.(YC/nh) ---- Specimen: [id number] Received: 05/06/24 Status: ANDER Teresaame Num: [id number] Spec Type: Cytology Subm Dr: GENOVEVA Lund Tissues: A FNA SLIDES NOPATH (LT THY NOD) Procedures: Cyto Int and Re, PAPSTN/5 ---- Patient: Fifi Mock [id number] (Continued) ---- Specimen: [id number] Received: 05/06/24 (Continued) Signed (signature on file) Ramon Sanabria MD 05/06/24 1732 ---- Specimen: [id number] Received: 05/06/24 Status: ANDER Martin Num: [id number] Spec Type: Cytology Subm Dr: Bernie Quiñonez, LINE LEAD-C Tissues: A FNA SLIDES NOPATH (LT THY NOD) Procedures: Cyto Int and ADDISON Teresa/5 ---- Patient: Fifi Mock [id number] (Continued) ---- Specimen: [id number] Received: 05/06/24 (Continued) Microscopic Description Microscopic examinations are performed supporting the above interpretation CPT Codes 09220 ---- ---- Specimen: [id number] Received: 05/06/24 Status: ANDER Martin Num: [id number] Spec Type: Cytology Subm Dr: Bernie Quiñonez, LINE LEAD-C Tissues: A FNA SLIDES NOPATH (LT THY NOD) Procedures: Cyto Int and Brii, PAPSTN/5 ---- Patient: Fifi Mock [id number] (Continued) ---- Signed (signature on file) Ramon Sanabria MD 05/06/24 0651 Normal [facility] ALL CBC WITH AUTO DIFFon BASOPHILS ABSOLUTE AUTO 0.1 [facility] Basophils/100 WBC (Bld) 0.7 % 0.2 - 2.0 % [facility] Eosinophils/100 WBC (Bld) 2.1 % 0.9 - 7.0 % [facility] Erythrocyte distribution width (RBC) [Ratio] 11.9 % 11.0 - 15.0 % [facility] Hematocrit (Bld) [Volume fraction] 42.9 % 36.0 - 48.0 % [facility] Hemoglobin (Bld) [Mass/Vol] 14.3 g/dL 12.0 - 16.0 g/dL [facility] IMMATURE GRANULOCYTES ABS AUTO 0.02 [facility] Immature granulocytes/100 WBC (Bld) 0.3 % 0.0 - 0.5 % [facility] LYMPHOCYTES ABSOLUTE AUTO 1.9 [facility] Lymphocytes/100 WBC (Bld) 27.0 % 20.5 - 60.0 % [facility] MCH (RBC) [Entitic mass] 29.1 pg 26.7 - 34.0 pg [facility] MCHC (RBC) [Mass/Vol] 33.3 g/dL 29.9 - 35.2 g/dL [facility] MCV (RBC) [Entitic vol] 87.4 fL 81.0 - 99.0 fL [facility] MONOCYTES ABSOLUTE AUTO 0.5 [facility] Monocytes/100 WBC (Bld) 7.5 % 1.7 - 12.0 % [facility] NEUTROPHILS ABSOLUTE AUTO 4.4 [facility] Neutrophils/100 WBC (Bld) 62.4 % 43.0 - 75.0 % [facility] Platelet mean volume (Bld) [Entitic vol] 10.3 fL 9.5 - 13.5 fL [facility] TBH EO # 0.2 [facility] PLT 289 [facility] RBC 4.91 [facility] WBC 7.1 [facility] Quick Strepon 09-15-2023 S. pyogenes Org specific cx Ql (Throat) Positive [employer] Other Quick Strep [employer] Other COVID/FLU/RSV RT-PCRon 07-31 SARS-CoV-2 (COVID-19) RNA EDWIN+probe Ql (Unsp spec) Negative [facility] [employer] Other COVID/FLU/RSV RT-PCR Negative [employer] [facility] [employer] Other COVID/FLU/RSV RT-PCR Positive [employer] [facility] [employer] Other PAP ACOG PANEL 2: 30 to 65on 11-05-2021 . . Normal [facility] Comment on above: Result Comment: Perf ormed at: WB Performed By: #### 4 [id number] #### [facility] [address] [place] [address] Dr. Omar Sanabria Age Gdln ACOG Testing - [facility] Comment on above: Performed By: #### 4 [id number] #### [facility] [address] [place] [address] Dr. Omar Sanabria DIAGNOSIS: Comment Normal [facility] Comment on above: Result Comment: NEGA TIVE FOR INTRAEPITHELIAL LESION OR MALIGNANCY. Performed at: WB Performed By: #### 4 [id number] #### [facility] [address] [address] [address] Omar Sanabria HPV Aptima Negative Normal Negative [facility] Comment on above: Result Comment: This nucleic acid amplification test detects fourteen high-risk HPV types (16,18,31,33,35,39,45,51,52,56,58,59,66,68) without differentiation. Performed at: =G Performed By: #### 4 [id number] #### [facility] [address] [address] [address] Omar Sanabria Methodology: Comment [facility] Comment on above: Result Comment: This liquid based ThinPrep(R) pap test was screened with the use of an image guided system. Performed at: WB Performed By: #### 4 [id number] #### [facility] [address] [place] [address] Dr. Omar Sanabria Note: Comment Normal [facility] Comment on above: Result Comment: The Pap smear is a screening test designed to aid in the detection of premalignant and malignant conditions of the uterine cervix. It is not a diagnostic procedure and should not be used as the sole means of detecting cervical cancer. Both false-positive and false-negative reports do occur. . Performed at: WB Performed By: #### 4 [id number] #### [facility] [address] [place] [address] Dr. Omar Sanabria Performed by: Comment Normal [facility] Comment on above: Result Comment: Kristal Smith, Photographic Laboratory Supervisor (ASCP) Performed at: WB Performed By: #### 4 [id number] #### [facility] [address] [place] [address] Dr. Omar Sanabria Specimen adequacy: Comment Normal [facility] Comment on above: Result Comment: Sati sfactory for evaluation. Endocervical and/or squamous metaplastic cells (endocervical component) are present. Performed at: WB Performed By: #### 4 [id number] #### [facility] [address] [place] [address] Dr. Omar Sanabria HERPES SIMPLEX 1/2 IGMon HSV, IgM I/II Combination 1.01 Ratio Critically high 0.00-0.90 [facility] Comment on above: Result Comment: Ve rified by repeat analysis Negative <0.91 Equivocal 0.91 - 1.09 Positive >1.09 Performed By: #### H SVIGM #### [facility] [address] [place] [address] Dr. Omar Sanabria HERPES SIMPLEX 1/2 IGGon HSV 1 IgG, Type Spec 8.59 index Critically high 0.00-0.90 [facility] Comment on above: Result Comment: Nega tive <0.91 Equivocal 0.91 - 1.09 Positive >1.09 Note: Negative indicates no antibodies detected to HSV-1. Equivocal may suggest early infection. If clinically appropriate, retest at later date. Positive indicates antibodies detected to HSV-1. Performed By: #### H SV IGG #### [facility] [address] [place] [address] Dr. Omar Sanabria HSV 2 IgG Type Spec <0.91 Normal 0.00-0.90 [facility] Comment on above: Result Comment: Nega tive <0.91 Equivocal 0.91 - 1.09 Positive >1.09 Note: Negative indicates no HSV-2 antibodies detected. Positive indicates HSV-2 antibodies detected. Equivocal and low positive HSV-2 screens (Index 0.91-5.00) may be false positive and are reflexed to supplemental testing in accordance with CDC guidelines. Performed By: #### H SV IGG #### [facility] [address] [address] [address] Omar Sanabria MAGR Intraoperative Recordon 12-19-2018 MAGR Intraoperative Record MAGR Intra-Op Record Summary Primary Physician: Luis Goss DO Finalized Date/Time: 12/19/18 08:27:55 Pt. Name: FIFI MOCK/Sex: 1990 FEMALE Med Rec #: [id number] Physician: Luis Goss DO Financial #: [id number] Pt. Type: D Room/Bed: / Admit/Disch: 12/16/18 06:00:00 - 12/16/18 10:38:00 Institution: Case Times MAGR Entry 1 Patient In Room Time 12/16/18 07:56:00 Out Room Time 12/16/18 09:03:00 Anesthesia Start Time 12/16/18 07:57:00 Stop Time 12/16/18 09:11:00 Surgery Start Time 12/16/18 08:21:00 Stop Time 12/16/18 08:56:00 Last Modified By: Francisco J WHITTAKER, Joselyn Granados 12/16/18 09:13:46 Case Attendance MAGR Entry 1 Entry 2 Entry 3 Case Attendee Luis Goss DO, Bradley MD Ricci RN, Joselyn Granados Role Performed Surgeon - Primary Anesthesiologist of Still Photographer Record Time In 12/16/18 07:56:00 12/16/18 07:56:00 12/16/18 07:56:00 Time Out 12/16/18 09:03:00 12/16/18 09:03:00 12/16/18 09:03:00 Procedure Tubal Ligation Tubal Ligation Tubal Ligation Laparoscopic(Bilateral ) Laparoscopic(Bilateral ) Laparoscopic(Bilateral ) Last Modified By: Francisco J RN, Joselyn Marx RN, Joselyn Marx RN, Joselyn Granados 12/16/18 09:14:28 12/16/18 09:14:28 12/16/18 09:14:28 Entry 4 Entry 5 Case Attendee Adrián HARMON, Cynthia Wong NEWSPAPER MANAGER/CSFA Role Performed Scrub Personnel Mobile Phlebotomist Time In 12/16/18 07:56:00 12/16/18 07:56:00 Time Out 12/16/18 09:03:00 12/16/18 09:03:00 Procedure Tubal Ligation Tubal Ligation Laparoscopic(Bilateral ) Laparoscopic(Bilateral ) Last Modified By: Francisco J WHITTAKER, Joselyn [...] Yes imaging displayed? Last Modified By: Joselyn Maxr RN 12/16/18 08:36:56 Patient Positioning MAGR Pre-Care Text: A.280 Identifies baseline musculoskeletal status Im.40 Positions the patient Im.80 Applies safety devices Entry 1 Procedure Tubal Ligation Body Position Low Lithotomy Laparoscopic(Bilateral ) Left Arm Position Tucked and padded at [...] required counts Entry 1 Procedure Tubal Ligation Laparoscopic(Bilateral ) Counts Verification Initial Counts Items included in [...] for Unfinalizing 12/19/18 08:27 MHSSAUER Correct Documentation [facility] Coding Summaryon 12-17-2018 Coding Summary CODING DATE: 12/17/2018 [facility] STATUS: Home PAYOR: Commercial Insurance APC DESCRIPTION 5361 Level 1 Laparoscopy and Related Services ADMIT DX: REASON FOR VISIT DX: Z30.2 Encounter for sterilization FINAL DX: PRINCIPAL: Z30.2 Encounter for sterilization SECONDARY: PYMT PROC APC STAT DESCRIPTION DOCTOR NAME DATE 08525 5361 J1 Laparoscopy, surgical; Luis Goss DO 12/16/2018 with fulguration of oviducts (with or without transection) NOTE: The code number assigned matches the documented diagnosis and / or procedure in the patient's chart. However, the narrative phrase printed from the coding software may appear abbreviated, or result in slightly different terminology. Coded By: Elissa Rowe Date Saved: 12/17/2018 12:12 pm [facility] Consent Formson 12-17-2018 Consent Forms [id number]#1.00 [facility] History and Physicalon 12-17 History and Physical [id number]#1.00 [facility] Operative Report - Surgeon/P hysicianon 12-17-2018 Operative Report - Surgeon/Physician [id number]#1.00 [facility] Provider Orderson 12-17-2018 Protein mass conc [id number]#1.00 [facility] Telemetry Stripson 9 Telemetry Strips [id number]#1.00 [facility] Anesthesia Noteon 12-16-2018 Anesthesia Note Patient: [...] mmHg (DECEMBER 16:20) DBP 64 mmHg (DECEMBER 16:) SpO2 98 % (DECEMBER 16:) Pain assessment: Self-reports no pain. General: Alert [...] on: 12/16/2018 09:26 EDT] Sebastian Myers MD [facility] Anesthesia Note Patient: FIFI MOCK Age: 28 [...] history): All Problems Anemia / SNOMED CT 219668252 / Confirmed Depression / SNOMED CT 25995451 / Confirmed Insomnia / SNOMED CT 432676497 / Confirmed Histories Family History: No family history items have been selected or recorded. Procedure history: Laparoscopic cholecystectomy (65260110). Dilation and curettage (66557181). Social History Alcohol Assessment Use: Current. Liquor, [...] 16 06:05) Resp Rate 14 br/min (DECEMBER 16:) SBP 111 mmHg (DECEMBER 16 06:25) DBP 75 mmHg (DECEMBER 16:25) SpO2 99 % (DECEMBER 16:05) General: Alert and oriented, No acute distress. Airway: Mallampati classification: I (soft palate, fauces, uvula, pillars visible). Respiratory: Respirations are non-labored. Cardiovascular: Normal rate, Regular rhythm. Review / Management Laboratory Results Plan [place] [employer] Anesthesiologists#(ASA ) physical status classification: Class I. Anesthetic Preoperative [...] on: 12/16/2018 07:49 EDT] Sebastian Myers MD [facility] Inpatient Patient Summaryon 12-16-2018 Inpatient Patient Summary [address] [id number] Patient Discharge Instructions Name: FIFI MOCK : 89 [facility]: [id number] Patient Address: [address] [place] [address] Primary Care Provider: Name: Nasra Sparrow CNP After you are discharged if you find you have any questions, please, call [phone] ext [phone] to speak to a nurse. Discharge Diagnosis: [...] business decisions or sign any legal documents [facility] would like to thank you for allowing us to assist you with your healthcare needs. The following includes patient education materials and information regarding your injury/illness. FIFI MOCK has been given the following list of follow-up instructions, prescriptions, and patient education materials: Follow-up Instructions With: Address: When: Luis Goss [address] [place] [address] [facility] (1) In 2 weeks 12/30/18 Medications During the course of your visit, your medication list was updated with the most current information. The details of those changes are reflected below: New Medications Printed Prescriptions acetaminophen-hydrocod one (Oberlin 5 mg-325 mg oral tablet) 1 tab(s) [...] list that you can keep with you. acetaminophen-hydrocod one (Oberlin 5 mg-325 mg oral tablet) 1 tab(s) [...] including vitamins, herbs, eye drops, creams, and dtel-zlw-qbwwyww medicines. ? Any problems you or family [...] 10/28/2001 Document Revised: 12/27/2016 Document Reviewed: 07/01/2016 [employer] Patient Education ? 2018 [employer] Viruses or Bacteria What?s got you [...] for Disease Control and Prevention April 2014 [facility] MAGR PACU Recordon 9 MAGR PACU Record MAGR PACU Record Summary Primary Physician: Luis Goss DO Finalized Date/Time: 12/16/18 09:44:44 Pt. Name: FIFI MOCK/Sex: 1990 FEMALE Med Rec #: [id number] Physician: Luis Goss DO Financial #: [id number] Pt. Type: D Room/Bed: / Admit/Disch: 12/16/18 [...] Signed By: Gema Todd RN [facility]/16/18 [facility]44 [facility]-16[facility]2018 MAGR Postoperative Record MAGR Phase II Record Summary Primary Physician: Luis Goss DO Finalized Date/Time: 12/16/18 10:50:50 Pt. Name: FIFI MOCK/Sex: 1990 FEMALE Med Rec #: [id number] Physician: Luis Goss DO Financial #: [id number] Pt. Type: D Room/Bed: / Admit/Disch: 12/16/18 [...] Signed By: Maty Irving RN 12/16/18 10:50 [facility] 0 12-16-2018 [facility] Preoperative Record MAGR Pre-Op Record Summary Primary Physician: Luis Goss DO Finalized Date/Time: 12/16/18 08:34:48 Pt. Name: FIFI MOCK XU Fang/Sex: 1990 FEMALE Med Rec #: [id number] Physician: Luis Goss DO Financial #: [id number] Pt. Type: D Room/Bed: / Admit/Disch: 12/16/18 [...] By: Joselyn Marx RN 12/16/18 08:34 Normal [facility] Operative Report - Surgeon/P kristiemy 12-16-2018 Operative Report - Surgeon/Physician DATE OF [...] grasped with a single tooth tenaculum. An [place] uterine manipulator was then advanced into the [...] 4-0 Vicryl in a subcuticular manner. The [place] uterine manipulator was then removed from the vagina with no bleeding noted from the cervix. The patient tolerated the procedure well. Sponge, lap, needle and instrument counts were correct x2. The patient was taken to the recovery room awake and in stable condition. Luis Goss DO JOB #: [id number] [Electronically Signed on: 12/23/2018 07:53 EDT] Luis Goss DO, D.O. [Verified on: 12/23/2018 07:53 EDT] Luis Goss DO, D.O. [Transcribed on: 12/16/2018 09:49 EDT] [facility] Patient Handouton 12-16-2018 Patient Handout Obstetrics [...] including vitamins, herbs, eye drops, creams, and yvgu-tci-zowaqys medicines. ? Any problems you or family [...] 10/28/2001 Document Revised: 12/27/2016 Document Reviewed: 07/01/2016 [employer] Patient Education ? 2018 [employer] [facility] Test Urine U Preg Negative [facility] Comment on above: Performed By: #### 3 [id number] #### [facility] (DEFAULT) [address] [place] [address] U Preg Internal Control Pass [facility] Comment on above: Performed By: #### 3 [id number] #### [facility] (DEFAULT) [address] [place] [address] Progress Note - Nurseon 12-03 Protein mass conc Spoke with pt regarding arrival time of 0600 and NPO status. Verbalized understanding. [Electronically Signed on: 12/15/2018 13:31 EDT] Issac WHITTAKERVirginia [Verified on: 12/15/2018 13:31 EDT] Issac WHITTAKERVirginia [facility] Coding Summaryon 12-11-2018 Coding Summary CODING DATE: 12/11/2018 [facility] STATUS: Home PAYOR: Commercial Insurance [...] Elissa Rowe Date Saved: 12/11/2018 11:19 am [facility] Provider Orderson 12-11-2018 Protein mass conc [id number]#1.00 OTGTIFF [facility] .Auto Diff 1on 12-09-2018 Auto Baso % 0.5 % Normal 0.2-2.0 [facility] Comment on above: Performed By: #### 1 [id number], [id number] #### [facility] (DEFAULT) [address] [place] [address] Auto Mason % 8 % Normal 1-12 [facility] Comment on above: Performed By: #### 1 [id number], [id number] #### [facility] (DEFAULT) [address] [place] [address] Auto Neut % 64 % Normal 44-88 [facility] Comment on above: Performed By: #### 1 [id number], [id number] #### [facility] (DEFAULT) [address] [place] [address] Baso Abs# 0.0 x10 Normal 0.0-0.2 [facility] Comment on above: Performed By: #### 1 [id number], [id number] #### [facility] (DEFAULT) [address] [place] [address] Eos Abs# 0.1 x10 Normal 0.0-0.4 [facility] Comment on above: Performed By: #### 1 [id number], [id number] #### [facility] (DEFAULT) [address] [place] [address] Eosinophils/100 WBC (Bld) 0.9 % Normal 0.9-4.0 [facility] Comment on above: Performed By: #### 1 [id number], [id number] #### [facility] (DEFAULT) [address] [place] [address] Lymphocytes #/vol (Bld) 1.7 x10 Normal 1.3-2.9 [facility] Comment on above: Performed By: #### 1 [id number], [id number] #### [facility] (DEFAULT) [address] [place] [address] Lymphocytes/100 WBC (Bld) 27 % Normal 14-48 [facility] Comment on above: Performed By: #### 1 [id number], [id number] #### [facility] (DEFAULT) [address] [place] [address] Mason Abs# 0.5 x10 Normal 0.0-0.8 [facility] Comment on above: Performed By: #### 1 [id number], [id number] #### [facility] (DEFAULT) [address] [place] [address] Neut Abs# 4.1 x10 Normal 1.5-9.2 [facility] Comment on above: Performed By: #### 1 [id number], [id number] #### [facility] (DEFAULT) [address] [place] [address] CBC w/ Auto Diffon 9 Erythrocyte distribution width Ratio (RBC) 12.9 % Normal 11.5-15.0 [facility] Comment on above: Performed By: #### 1 [id number], [id number] #### [facility] (DEFAULT) [address] [place] [address] Hematocrit Volume Fraction (Bld) 44.3 % High 33.7-40.4 [facility] Comment on above: Performed By: #### 1 [id number], [id number] #### [facility] (DEFAULT) [address] [place] [address] Hemoglobin mass conc (Bld) 15.1 g/dL Normal 11.3-15.9 [facility] Comment on above: Performed By: #### 1 [id number], [id number] #### [facility] (DEFAULT) [address] [place] [address] Man Diff? Auto Normal [facility] Comment on above: Performed By: #### 1 [id number], [id number] #### [facility] (DEFAULT) [address] [place] [address] MCH Entitic mass (RBC) 29 pg Normal 24-34 [facility] Comment on above: Performed By: #### 1 [id number], [id number] #### [facility] (DEFAULT) [address] [place] [address] MCHC mass conc (RBC) 34 g/dL Normal 26-37 [facility] Comment on above: Performed By: #### 1 [id number], [id number] #### [facility] (DEFAULT) [address] [place] [address] MCV Entitic volume (RBC) 85 fL Normal 81-100 [facility] Comment on above: Performed By: #### 1 [id number], [id number] #### [facility] (DEFAULT) [address] [place] [address] Platelet mean volume Entitic volume (Bld) 10.4 fL High 6.3-10.2 [facility] Comment on above: Performed By: #### 1 [id number], [id number] #### [facility] (DEFAULT) [address] [place] [address] Platelets #/vol (Bld) 295 x10 Normal 138-427 [facility] Comment on above: Performed By: #### 1 [id number], [id number] #### [facility] (DEFAULT) [address] [place] [address] RBC #/vol (Bld) 5.19 x10 Normal 3.70-5.30 [facility] Comment on above: Performed By: #### 1 [id number], [id number] #### [facility] (DEFAULT) [address] [place] [address] WBC #/vol (Bld) 6.4 x10 Normal 3.5-10.5 [facility] Comment on above: Performed By: #### 1 [id number], [id number] #### [facility] (DEFAULT) [address] [place] [address] Vital Signs Date Time Vital Sign Value Performing Clinician Facility 06-03-2024 14:07-0400 Body height 154.9 cm Lorenzo Bianchi MD Work Phone: [facility] 06-03-2024 14:07-0400 Body mass index (BMI) [Ratio] 31.74 kg/m2 Lorenzo Bianchi MD Work Phone: [facility] 06-03-2024 14:07-0400 Body weight 76.2 kg Lorenzo Bianchi MD Work Phone: [facility] 06-03-2024 14:07-0400 Diastolic blood pressure 80 mm[Hg] Lorenzo Bianchi MD Work Phone: [facility] 06-03-2024 14:07-0400 Systolic blood pressure 113 mm[Hg] Lorenzo Bianchi MD Work Phone: [facility] 05-13-2024 14:50-0400 Body height 154.9 cm Bernie Quiñonez [employer] Work Phone: [facility] 05-13-2024 14:50-0400 Body mass index (BMI) [Ratio] 31.63 kg/m2 Bernie Quiñonez LINE [employer] Work Phone: [facility] 05-13-2024 14:50-0400 Body temperature 98.29 [degF] Bernie Quiñonez LINE LEAD Work Phone: [facility] 05-13-2024 14:50-0400 Body weight 75.93 kg Bernie Quiñonez LINE LE[employer] Work Phone: [facility] 05-13-2024 14:50-0400 Diastolic blood pressure 60 mm[Hg] Bernie Cinthiaz LINE LEAD Work Phone: [facility] 05-13-2024 14:50-0400 Heart rate 75 /min Bernie Patiencehholz LINE LEAD Work Phone: [facility] 05-13-2024 14:50-0400 Respiratory rate 18 /min Bernie Aichholz LINE LEAD Work Phone: [facility] 05-13-2024 14:50-0400 SaO2% (BldA) [Mass fraction] 97 % Bernie Cinthiaz LINE LEAD Work Phone: [facility] 05-13-2024 14:50-0400 Systolic blood pressure 98 mm[Hg] Bernie Cinthiaz LINE LEAD Work Phone: [facility] 05-05-2024 11:46-0400 Body weight 72.58 kg James Medina MD Work Phone: [facility] 05-05-2024 11:46-0400 Diastolic blood pressure 74 mm[Hg] James Medina MD Work Phone: [facility] 05-05-2024 11:46-0400 Respiratory rate 18 /min James Medina MD Work Phone: [facility] 05-05-2024 11:46-0400 Systolic blood pressure 122 mm[Hg] James Medina MD Work Phone: [facility] 04-28-2024 15:01-0400 Body height 154.9 cm Bernie Cinthiaz LINE LEAD Work Phone: [facility] 04-28-2024 15:01-0400 Body mass index (BMI) [Ratio] 31.06 kg/m2 Bernie Cinthiaz LINE LEAD Work Phone: [facility] 04-28-2024 15:01-0400 Body temperature 98.1 [degF] Bernie Patiencehholz LINE LEAD Work Phone: [facility] 04-28-2024 15:01-0400 Body weight 74.57 kg Bernie Patiencehholz LINE LEAD Work Phone: [facility] 04-28-2024 15:01-0400 Diastolic blood pressure 86 mm[Hg] Bernie Aichholz LINE LEAD Work Phone: [facility] 04-28-2024 15:01-0400 Heart rate 69 /min Bernie Patiencehholz LINE LEAD Work Phone: [facility] 04-28-2024 15:01-0400 Respiratory rate 18 /min Bernie Aichholz LINE LEAD Work Phone: [facility] 04-28-2024 15:01-0400 SaO2% (BldA) [Mass fraction] 98 % Bernie Aichholz LINE LEAD Work Phone: [facility] 04-28-2024 15:01-0400 Systolic blood pressure 106 mm[Hg] Bernie Aichholz LINE LEAD Work Phone: [facility] 04-02-2024 14:26-0400 Body height 154.9 cm Bernie Aichholz LINE LEAD Work Phone: [facility] 04-02-2024 14:26-0400 Body mass index (BMI) [Ratio] 31.29 kg/m2 Bernie Aichholz LINE LEAD Work Phone: [facility] 04-02-2024 14:26-0400 Body temperature 97.81 [degF] Bernie Patiencehholz LINE LEAD Work Phone: [facility] 04-02-2024 14:26-0400 Body weight 75.12 kg Bernie Aichholz LINE LEAD Work Phone: [facility] 04-02-2024 14:26-0400 Diastolic blood pressure 70 mm[Hg] Bernie Aichholz LINE LEAD Work Phone: [facility] 04-02-2024 14:26-0400 Heart rate 65 /min Bernie Quiñoenz LINE LEAD Work Phone: [facility] 04-02-2024 14:26-0400 Respiratory rate 18 /min Bernie Quiñonez LINE LEAD Work Phone: [facility] 04-02-2024 14:26-0400 SaO2% (BldA) [Mass fraction] 99 % Bernie Quioñnez LINE LEAD Work Phone: [facility] 04-02-2024 14:26-0400 Systolic blood pressure 106 mm[Hg] Bernie Quiñonez LINE LEAD Work Phone: [facility] 09-15-2023 09:00-0500 Body height 154.94 cm Madison Junior Other [facility] Other 09-15-2023 09:00-0500 Body mass index (BMI) [Ratio] 28.83 kg/m2 Madison Junior Other [facility] Other 09-15-2023 09:00-0500 Body temperature 100 [degF] Madison Junior Other [facility] Other 09-15-2023 09:00-0500 Body weight 69.22 kg Madison Junior Other [facility] Other 09-15-2023 09:00-0500 Respiratory rate 18 /min Madison Agueroler Other [facility] Other 09-15-2023 09:00-0500 SaO2% (BldA) [Mass fraction] 99 % Madison Junior Other [facility] Other 07-31-2023 17:10-0500 Body height 154.94 cm Carmen Edwin Other [facility] [employer] Other 07-31-2023 17:10-0500 Body mass index (BMI) [Ratio] 24.56 kg/m2 Carmen Edwin Other [facility] [employer] Other 07-31-2023 17:10-0500 Body temperature 99 [degF] Carmen Edwin Other [facility] [employer] Other 07-31-2023 17:10-0500 Body weight 58.97 kg Carmen Edwin Other [facility] [employer] Other 07-31-2023 17:10-0500 Respiratory rate 18 /min Carmen Edwin Other [facility] [employer] Other 07-31-2023 17:10-0500 SaO2% (BldA) [Mass fraction] 97 % Carmen Edwin Other [facility] [employer] Other Encounters Encounter Date Encounter Type Care Provider Facility Start: 07-13-2024 End: 07-13-2024 Telephone encounter Bernie Quiñonez NP Work Phone: [facility] Start: 06-03-2024 End: 06-03-2024 Bamboo flowsheet Lorenzo Bianchi MD Work Phone: [facility] Start: 06-03-2024 End: 06-03-2024 Bamboo flowsheet Lorenzo Bianchi MD Work Phone: [facility] Start: 06-03-2024 End: 06-03-2024 Office outpatient new 30 minutes Lorenzo Bianchi MD Work Phone: [facility] Comment on above: Thyroid nodule great er than or equal to 1.5 cm in diameter incidentally noted on imaging study (CMS/HCC) Start: 06-03-2024 End: 06-03-2024 ambulatory LORENZO BIANCHI Not Available Start: 05-13-2024 End: 05-13-2024 Office outpatient visit 15 minutes Bernie Quiñonez LINE LEAD Work Phone: [facility] Comment on above: Thyroid nodule great er than or equal to 1.5 cm in diameter incidentally noted on imaging study (CMS/HCC) (Primary Dx); Other Remedios-Danlos syndromes (CMS/HCC); Class 1 obesity due to excess calories without serious comorbidity with body mass index (BMI) of 31.0 to 31.9 in adult Start: 05-13-2024 End: 05-13-2024 ambulatory BERNIE QUIÑONEZ Not Available Start: 05-13-2024 End: 05-13-2024 Bamboo flowsheet Bernie Quiñonez LINE LEAD Work Phone: [facility] Start: 05-13-2024 End: 05-13-2024 Bamboo flowsheet Bernie Quiñonez LINE LEAD Work Phone: [facility] Start: 05-05-2024 End: 05-05-2024 Office outpatient new 45 minutes James Medina MD Work Phone: [facility] Comment on above: SHAHLA positive (Primar y Dx); Chronic fatigue Start: 05-05-2024 End: 05-05-2024 ambulatory JAMES MEDINA [facility] Start: 05-02-2024 End: 05-05-2024 Clinisync Result Encounter Bernie Quiñonez LINE LEAD Work Phone: [facility] Unsolicited Start: 05-02-2024 End: 05-05-2024 Clinisync Result Encounter Bernie Quiñonez LINE LEAD Work Phone: [facility] Unsolicited Start: 04-30-2024 End: 04-30-2024 ambulatory Bernie Quiñonez [facility] Work Phone: Start: 04-30-2024 End: 04-30-2024 Departed Referred Bernie Quiñonez Work Phone: [facility] Start: 04-29-2024 End: 04-29-2024 Telephone encounter Bucky Mcdermott CNA [facility] Start: 04-28-2024 End: 04-28-2024 Office outpatient visit 25 minutes Bernie Quiñonez LINE LEAD Work Phone: [facility] Comment on above: SHAHLA positive (Primar y Dx); Other Rmeedios-Danlos syndromes (CMS/HCC); Class 1 obesity due to excess calories without serious comorbidity with body mass index (BMI) of 31.0 to 31.9 in adult; Thyroid nodule greater than or equal to 1.5 cm in diameter incidentally noted on imaging study (CMS/HCC) Start: 04-28-2024 End: 04-28-2024 ambulatory BERNIE QUIÑONEZ Not Available Start: 04-28-2024 End: 04-28-2024 Bamboo flowsheet Bernie Quiñonez LINE LEAD Work Phone: [facility] Start: 04-28-2024 End: 04-28-2024 Bamboo flowsheet Bernie Quiñonez LINE LEAD Work Phone: [facility] Start: 04-09-2024 End: 04-09-2024 Orders Only Bernie Quiñonez LINE LEAD Work Phone: [facility] Comment on above: Thyroid antibody pos itive (Primary Dx) Start: 04-04-2024 End: 04-04-2024 Clinisync Result Encounter Bernie Quiñonez LINE LEAD Work Phone: [facility] Unsolicited Start: 04-04-2024 End: 04-04-2024 Clinisync Result Encounter Bernie Quiñonez LINE LEAD Work Phone: [facility] Unsolicited Start: 04-02-2024 End: 04-02-2024 Periodic preventive med est patient 18-39 yrs Bernie Quiñonez LINE LEAD Work Phone: [facility] Comment on above: Wellness examination (Primary Dx); Arthralgia, unspecified joint; Other fatigue; Iron deficiency anemia, unspecified iron deficiency anemia type; Class 1 obesity due to excess calories without serious comorbidity with body mass index (BMI) of 31.0 to 31.9 in adult Start: 04-02-2024 End: 04-02-2024 ambulatory BERNIE QUIÑONEZ Not Available Start: 04-02-2024 End: 04-02-2024 Bamboo flowsheet Bernie Quiñonez LINE LEAD Work Phone: [facility] Start: 04-02-2024 End: 04-02-2024 Bamboo flowsheet Bernie Quiñonez LINE LEAD Work Phone: [facility] Start: 04-02-2024 End: 04-02-2024 Patient encounter status Bernie Quiñonez LINE LEAD Work Phone: [facility] Start: 09-15-2023 End: 09-15-2023 ambulatory Madison Vernon Other [facility] Other Start: 09-15-2023 Office outpatient vi sit 25 minutes Madison Junior [facility] [place] Start: 07-31-2023 End: 07-31-2023 ambulatory Carmen Edwin Other [facility] Other Start: 07-31-2023 Office outpatient vi sit 15 minutes Carmen Edwin [facility] [place] Start: 10-30-2021 End: 10-30-[address] NOVA KEENAN Facility:[facility] Start: 10-30-2021 End: 10-31-2021 ambulatory NASRA SPARROW Facility:[facility] Start: 10-13-2018 End: 10-14-2018 Patient encounter procedure DEFAULT PHYSICIAN Facility:[facility] Procedures Date Procedure Procedure Detail Performing Clinician Start: 05-02-2024 ANTINUCLEAR ANTIBODI ES, IFA Bernie Quiñonez LINE LEAD Work Phone: Start: 04-04-2024 ALL CBC WITH AUTO DIFF Bernie Quiñonez LINE LEAD Work Phone: Plan of Treatment Date Care Activity Detail Author Start: 02-16-2028 Screening for malign ant neoplasm of cervix [facility] Start: 10-20-2024 End: 10-20-2024 Patient encounter procedure 10/20/2024 3:20 PM EDT Office Visit [facility] [address] [place] [address] Lorenzo Bianchi MD [address] [facility] [address] [place] [address] [facility] Start: 07-22-2024 End: 07-22-2024 Patient encounter procedure 07/22/2024 2:00 PM EST Office Visit [facility] [address] [place] [address] Bernie Quiñonez NP [address] [place] [address] [facility] Start: 06-03-2024 End: 06-03-2024 Patient encounter procedure 06/03/2024 2:00 PM EDT Office Visit [facility] [address] [facility] [address] [place] [address] Lorenzo Bianchi MD [address] [facility] [address] [place] [address] Thyroid nodule greater than or equal to 1.5 cm in diameter incidentally noted on imaging study (CMS/HCC) [facility] Comment on above: Thyroid nodule great er than or equal to 1.5 cm in diameter incidentally noted on imaging study (CMS/HCC) Start: 05-13-2024 End: 05-13-2024 Patient encounter procedure [facility] Comment on above: Arrived Start: 05-05-2024 End: 05-05-2025 C-reactive protein C-reactive protein Lab Routine SHAHLA positive Expected: 05/05/2024 (Approximate), Expires: 05/05/2025 [facility] Comment on above: Expected: 05/05/2024 (Approximate), Expires: 05/05/2025 Start: 05-05-2024 End: 05-05-2025 Comprehensive metabolic 2000 panel - Serum or Plasma [facility] Comment on above: Expected: 05/05/2024 (Approximate), Expires: 05/05/2025 Start: 04-28-2024 End: 04-28-2024 Patient encounter procedure [facility] Comment on above: Arrived Start: 04-09-2024 End: 04-09-2025 US Thyroid gland US thyroid Imaging Routine Thyroid antibody positive Expected: 04/09/2024, Expires: 04/09/2025 [facility] Work Phone: Comment on above: Expected: 04/09/2024 , Expires: 04/09/2025 Start: 04-05-2024 Influenza vaccination [facility] Start: 04-02-2024 End: 04-02-2024 Patient encounter procedure 04/02/2024 2:20 PM EDT Office Visit [facility] [address] [place] [address] Bernie Quiñonez NP [address] [place] [address] Arrived [facility] Comment on above: Arrived Start: 04-02-2024 End: 04-02-2025 C reactive protein [Mass/volume] in Serum or Plasma C-reactive protein Lab Routine Arthralgia, unspecified joint Expected: 04/02/2024 (Approximate), Expires: 04/02/2025 [facility] Comment on above: Expected: 04/02/2024 (Approximate), Expires: 04/02/2025 Start: 04-02-2024 End: 04-02-2025 Erythrocyte sedimentation rate Sedimentation rate, automated Lab Routine Arthralgia, unspecified joint Expected: 04/02/2024 (Approximate), Expires: 04/02/2025 [facility] Work Phone: Comment on above: Expected: 04/02/2024 (Approximate), Expires: 04/02/2025 Start: 04-02-2024 End: 04-02-2025 Iron + transferrin + TIBC Iron + transferrin + TIBC Lab Routine Iron deficiency anemia, unspecified iron deficiency anemia type Expected: 04/02/2024 (Approximate), Expires: 04/02/2025 [facility] Comment on above: Expected: 04/02/2024 (Approximate), Expires: 04/02/2025 Start: 04-02-2024 End: 04-02-2025 Nuclear Ab [Titer] in Serum by Immunofluorescence SHAHLA Lab Routine Arthralgia, unspecified joint Expected: 04/02/2024 (Approximate), Expires: 04/02/2025 [facility] Comment on above: Expected: 04/02/2024 (Approximate), Expires: 04/02/2025 Start: 04-02-2024 End: 04-02-2025 Rheumatoid factor [Units/volume] in Serum or Plasma Rheumatoid factor Lab Routine Arthralgia, unspecified joint Expected: 04/02/2024 (Approximate), Expires: 04/02/2025 [facility] Comment on above: Expected: 04/02/2024 (Approximate), Expires: 04/02/2025 Start: 04-02-2024 End: 04-02-2025 Thyroid peroxidase and thyroglobulin antibodies Thyroid peroxidase and thyroglobulin antibodies Lab Routine Other fatigue Expected: 04/02/2024 (Approximate), Expires: 04/02/2025 [facility] Comment on above: Expected: 04/02/2024 (Approximate), Expires: 04/02/2025 Start: 04-02-2024 End: 04-02-2025 Urate [Mass/volume] in Serum or Plasma Uric acid Lab Routine Arthralgia, unspecified joint Expected: 04/02/2024 (Approximate), Expires: 04/02/2025 [facility] Comment on above: Expected: 04/02/2024 (Approximate), Expires: 04/02/2025 Start: 05-29-2022 DTaP,Tdap and Td Vac cines (2 - Td or Tdap) DTaP,Tdap and Td Vaccines (2 - Td or Tdap) [facility] Start: 11-05-2011 Screening for malign ant neoplasm of cervix Pap Smear [facility] Start: 2009 DTaP,Tdap and Td Vac cines (1 - Tdap) DTaP,Tdap and Td Vaccines (1 - Tdap) [facility] Start: 2008 Adult BMI Screening Adult BMI Screen ing [facility] Start: 2002 [facility] Start: 2002 Tobacco Screening Tobacco Screening [facility] End: 05-05-2025 Antinuclear Ab, HEp-2 Substrate, S Antinuclear Ab, HEp-2 Substrate, S Lab Routine SHAHLA positive 1 Occurrences starting 05/05/2024 until 05/05/2025 [facility]: Comment on above: 1 Occurrences starti ng 05/05/2024 until 05/05/2025 Antinuclear Ab, HEp- 2 Substrate, S Antinuclear Ab, HEp-2 Substrate, S Lab Routine SHAHLA positive 05/05/2024 12:03 PM EDT [facility] C reactive protein [Mass/volume] in Serum or Plasma C-reactive protein Lab Routine SHAHLA positive 05/05/2024 12:03 PM EDT [facility] Immunizations Immunization Date Immunization Notes Care Provider Simba maya 05-29-2012 tetanus toxoid, redu parviz diphtheria toxoid, and acellular pertussis vaccine, adsorbed Bernie Quiñonez LINE LEAD Work Phone: [facility] Payers Date Payer Category Payer Self-pay [id number] 2022 Private Health Insurance [employer] [id number] 2022 Unknown 1990 Unknown [id number] 1990 Unknown [id number] 593 1990 Unknown [id number] 593 1990 Unknown [id number] 1286 1990 Unknown [id number] 1286 1990 Unknown [id number]. 1259 1990 Unknown [id number]. 1259 1990 Unknown [id number]. 1259 1990 Unknown [id number]. 1259 1959 Unknown [id number] Unknown [facility] [id number] Unknown [id number] 531 Social History Date Type Detail Facility Unknown if ever smoked [facility] Other Start: 09-15-2020 End: 04-01-2024 Sex Assigned At [facility] Start: 03-01-2018 End: 01-16-2023 Tobacco smoking status NHIS Never smoked tobacco (finding) [facility] Start: 1990 Sex Assigned At Female [facility] Start: 01-16-2023 Tobacco use and exposure Smokeless tobacco non-user [facility] Start: 04-02-2024 End: 04-28-2024 Alcoholic beverage intake Current drinker of alcohol (finding) [facility] Start: 09-15-2020 End: 04-01-2024 History of Social function [facility] How often do you nee d to have someone help you when you read instructions, pamphlets, or other written material from your doctor or pharmacy [SILS] Never [facility] Do you belong to any clubs or organizations such as spiritism groups, unions, fraternal or athletic groups, or school groups? No [facility] Are you now , , , , never or living with a partner? [facility] How often to you hav e a drink containing alcohol? Monthly or less [facility] How many standard dr inks containing alcohol do you have on a typical day? 1 or 2 [facility] How often do you hav e 6 or more drinks on 1 occasion? Never [facility] Do you feel stress - tense, restless, nervous, or anxious, or unable to sleep at night because your mind is troubled all the time - these days [OSQ] Rather much [facility] (I/We) worried wheth er (my/our) food would run out before (I/we) got money to buy more. Never true [facility] Start: 01-16-2023 Alcohol Comment occasional alcohol use [facility] Start: 1990 Sex assigned at Not on file [facility] Start: 06-03-2024 Alcoholic beverage intake Ex-drinker (finding) [facility] Tobacco smoking stat [facility] Tobacco smoking consumption unknown [facility] Clinical Notes 07-31-2023 to 07-13-2024 Telephone Encounter - Bernie Quiñonez NP - 07/13/2024 7:14 PM ESTTelephone Encounter - Bernie uQiñonez NP - 07/13/2024 7:14 PM Gagan Bianchi MD - 06/03/2024 2:00 PM EDT Note Date & Type Note Facility 07-13-2024 Telephone encounter Note Please call referral for Genetics, pt still has not heard anything about an appt [place] [facility] 07-13-2024 Miscellaneous Notes Please call referral for Genetics, pt still has not heard anything about an appt [place] documented in this encounter [facility] 06-03-2024 History of Present illness Narrative Subjective Patient ID: Fifi Mock is a 33 y.o. female who presents for Thyroid Nodule (Ultrasound 04/17/24 [facility]) Pt reports she was being evaluated for fatigue, which included and eval of the thyroid. TSH was 1.47. Thyroid US was obtained that showed a [id number] LT TR4 nodule. US-guided FNA performed that was classified as [place] 1. No radiation exposure. No family h/o thyroid cancer. Review of Systems All other systems reviewed and are negative. Family History Problem Relation Name Age of Onset Endometriosis Mother Elissa Youngblood Cancer Mother Elissa Youngblood Remedios-Danlos syndrome Father Diabetes Maternal Grandmother Celena Diabetes Paternal Grandmother Madhavi Diabetes Paternal Grandfather Uriel Active Ambulatory Problems Diagnosis Date Noted Elevated liver enzymes 04/02/2024 Herpes simplex viral infection 04/02/2024 TALHA (generalized anxiety disorder) (CMS/HCC) 04/02/2024 Major depressive disorder with single episode, in remission (HCC) (CMS/HCC) 04/02/2024 JENIFER (iron deficiency anemia) 04/02/2024 Wellness examination 04/02/2024 Arthralgia 04/02/2024 Other fatigue 04/02/2024 Class 1 obesity due to excess calories without serious comorbidity with body mass index (BMI) of 31.0 to 31.9 in adult 04/02/2024 SHAHLA positive 04/09/2024 Abnormal urinalysis 04/20/2024 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 Thyroid nodule greater than or equal to 1.5 cm in diameter incidentally noted on imaging study ([facility]/HCC) 04/28/2024 Resolved Ambulatory Problems Diagnosis Date Noted No Resolved Ambulatory Problems Past Medical History: Diagnosis Date At risk for falls Bacterial infection BMI 24.0-24.9, adult Cholecystitis 2014 Cholelithiasis 2014 Family history of connective tissue disease Fatigue Finger pain, right Herpes Influenza vaccination declined by patient Laceration of chin Non-healing skin lesion Scabies exposure Sleep difficulties Well woman exam Past Surgical History: Procedure Laterality Date CHOLECYSTECTOMY 2013 lap elizabeth COSMETIC SURGERY 04/2020 TUBAL LIGATION 2017 No Known Allergies Current Outpatient Medications on File Prior to Visit Medication Sig Dispense Refill diphenhydrAMINE-acetaminophen (Tylenol PM) 25-500 MG per tablet Take 1 tablet by mouth as needed at bedtime for sleep valACYclovir (Valtrex) 500 MG tablet Take 500 mg by mouth in the morning and 500 mg before bedtime. No current facility-administered medications on file prior to visit. Objective Last Recorded Vitals Vitals: 06/03/24 1407 BP: 113/80 ENT Physical Exam Constitutional Appearance: patient appears well-developed, well-nourished and well-groomed, Head and Face Appearance: head appears normal and face appears atraumatic; Ear Ear Canals: right ear canal normal; left ear canal normal; Tympanic Membranes: right tympanic membrane normal; left tympanic membrane normal; Nose External Nose: nares patent bilaterally; external nose normal; Internal Nose: septum normal; Oral Cavity/Oropharynx Tongue: normal; Oral mucosa: normal; Hard palate: normal; Soft palate: normal; Tonsils: normal; Neck Neck: neck normal; neck palpation normal; Thyroid: thyroid normal; Respiratory Inspection: breathing unlabored; normal breathing rate; Auscultation: breath sounds are clear; Cardiovascular Inspection: extremities are warm and well perfused; no peripheral edema present; Auscultation: regular rate and rhythm; Assessment/Plan Diagnoses and all orders for this visit: Thyroid nodule greater than or equal to 1.5 cm in diameter incidentally noted on imaging study (CMS/HCC) - Ambulatory referral to ENT Pt has a small fairly low risk nodule. Though FNA technically nondiagnostic, it is still reassuring in that no suspicious cells were found. I will start checking periodic surveillance US. documented in this encounter [facility] 05-13-2024 History of Present illness Narrative Associated Problem(s): Thyroid nodule greater than or equal to 1.5 cm in diameter incidentally noted on imaging study (CMS/HCC) Non diagnostic biopsy, will refer to ENT Associated Problem(s): Other Remedios-Danlos syndromes (CMS/HCC) Will send to [place] for testing, [facility] does not do this testing Left heel started hurting on Saturday-pt does not recall anything happening. Pt has iced it. Pt is still having pain in upper back between shoulder blades Images from the original note were not included. Fifi Mock is a 33 y.o. female presents with chief complaint of No chief complaint on file. HPI: Here for biopsy results Has seen Rheumatology is getting further labs No other new acute complaints SUBJECTIVE: MEDICATIONS: Current Outpatient Medications Medication Instructions diphenhydrAMINE-acetaminophen (Tylenol PM) 25-500 MG per tablet 1 tablet, Oral, Nightly PRN valACYclovir (VALTREX) 500 mg, Oral, 2 times daily ALLERGIES: No Known Allergies REVIEW OF SYMPTOMS: Review of Systems Constitutional: Negative for appetite change, chills and fever. HENT: Negative for congestion, ear pain and sore throat. Eyes: Negative for pain, discharge, redness and visual disturbance. Respiratory: Negative for cough, shortness of breath and wheezing. Cardiovascular: Negative for chest pain, palpitations and leg swelling. Gastrointestinal: Negative for abdominal pain, blood in stool, constipation, diarrhea, nausea and vomiting. Genitourinary: Negative for difficulty urinating, dysuria and frequency. Musculoskeletal: Positive for arthralgias and back pain. Negative for joint swelling and myalgias. Skin: Negative for rash and wound. Neurological: Negative for dizziness, tremors, seizures, syncope and headaches. Psychiatric/Behavioral: Negative for behavioral problems, self-injury and suicidal ideas. The patient is not nervous/anxious. Hematological: Does not bruise/bleed easily. Endocrine: Negative for polydipsia, polyphagia and polyuria. Allergic/Immunologic: Negative for environmental allergies and food allergies. PAST MEDICAL HISTORY Past Medical History: Diagnosis Date At risk for falls Bacterial infection BMI 24.0-24.9, adult Cholecystitis 2014 Cholelithiasis 2013 Elevated liver enzymes Family history of connective tissue disease Finger pain, right Herpes Influenza vaccination declined by patient Laceration of chin Non-healing skin lesion Scabies exposure Well woman exam Past Surgical History: Procedure Laterality Date CHOLECYSTECTOMY 2013 lap elizabeth TUBAL LIGATION 2017 family history includes Diabetes in her maternal grandmother, paternal grandfather, and paternal grandmother; Remedios-Danlos syndrome in her father; Endometriosis in her mother. OBJECTIVE: Visit Vitals BP 98/60 (BP Location: Left arm, Patient Position: Sitting, BP Cuff Size: Adult long) Pulse 75 Temp 98.3 F (Temporal) Resp 18 Ht 5' 1 Wt 167 lb 6.4 oz SpO2 97% BMI 31.63 kg/m Smoking Status Never BSA 1.81 m Physical Exam Vitals and nursing note reviewed. Constitutional: General: She is not in acute distress. Appearance: Normal appearance. HENT: Head: Normocephalic and atraumatic. Right Ear: External ear normal. Left Ear: External ear normal. Nose: Nose normal. Mouth/Throat: Mouth: Mucous membranes are moist. Eyes: Extraocular Movements: Extraocular movements intact. Conjunctiva/sclera: Conjunctivae normal. Cardiovascular: Rate and Rhythm: Normal rate and regular rhythm. Pulses: Normal pulses. Heart sounds: Normal heart sounds. Pulmonary: Effort: Pulmonary effort is normal. Breath sounds: Normal breath sounds. Abdominal: General: Bowel sounds are normal. There is no distension. Palpations: Abdomen is soft. There is no mass. Tenderness: There is no abdominal tenderness. Musculoskeletal: General: Normal range of motion. Cervical back: Normal range of motion and neck supple. Skin: General: Skin is warm and dry. Capillary Refill: Capillary refill takes 2 to 3 seconds. Findings: No rash. Neurological: General: No focal deficit present. Mental Status: She is alert and oriented to person, place, and time. Psychiatric: Mood and Affect: Mood normal. Behavior: Behavior normal. Thought Content: Thought content normal. Judgment: Judgment normal. ASSESSMENT AND PLAN: No follow-ups on file. Problem List Items Addressed This Visit Class 1 obesity due to excess calories without serious comorbidity with body mass index (BMI) of 31.0 to 31.9 in adult Other Remedios-Danlos syndromes (CMS/HCC) - Primary Will send to [place] for testing, [facility] does not do this testing Relevant Orders Ambulatory referral to Genetics Thyroid nodule greater than or equal to 1.5 cm in diameter incidentally noted on imaging study (CMS/HCC) Non diagnostic biopsy, will refer to ENT Relevant Orders Ambulatory referral to ENT documented in this encounter [facility] 05-05-2024 History of Present illness Narrative Images from the original note were not included. [id number] [id number] Date of Service: 05/05/2024 Positive SHAHLA Subjective: Fifi Mock is a 33 y.o. female who presents today for evaluation positive SHAHLA. Patient is seen at the request of ANAND Sevilla. This is the 1st visit for this 33-year-old female patient who has been referred to us with positive SHAHLA Patient's history dates back to 2020 when she started having fatigue 7/10,joints pain, involving the upper back and feet. Autoimmune /Systemic screening: negative Raynaud's, negative for oral/ ocular sicca,she has recurrent oral ulcers, no alopecia, no photosensitivity, no skin lesions,no butterfly rash. No history of cytopenia, or pericarditis, pleuritis or DVT/PE,has 2 children Systemic involvement such as anorexia, wt loss, recurrent unexplained fever negative . Lab results done on SHAHLA screen positive Past medical past negative Past surgical negative Smoking history negative Family history negative The following portions of the patient's history were reviewed and updated as appropriate: allergies, current medications, past family history, past medical history, past social history, past surgical history and problem list. Review of Systems: Review of Systems Constitutional: Positive for fatigue. Negative for fever and unexpected weight change. HENT: Negative. Eyes: Negative. Respiratory: Negative. Cardiovascular: Negative. Gastrointestinal: Negative. Genitourinary: Negative. Musculoskeletal: Positive for arthralgias and back pain. Skin: Negative. Allergic/Immunologic: Negative. Neurological: Positive for headaches. Negative for seizures, syncope and weakness. Hematological: Does not bruise/bleed easily. Psychiatric/Behavioral: Positive for sleep disturbance. Negative for dysphoric mood. Current Outpatient Medications Medication Sig Dispense Refill amitriptyline (ELAVIL) 10 mg tablet One capsule at 8 PM each night 30 tablet 2 No current facility-administered medications for this visit. Physical Exam: Physical Exam Vitals and nursing note reviewed. Constitutional: General: She is not in acute distress. Appearance: She is well-developed. She is not diaphoretic. HENT: Head: Normocephalic and atraumatic. Right Ear: External ear normal. Left Ear: External ear normal. Nose: Nose normal. Eyes: Conjunctiva/sclera: Conjunctivae normal. Pupils: Pupils are equal, round, and reactive to light. Neck: Thyroid: No thyromegaly. Cardiovascular: Rate and Rhythm: Normal rate and regular rhythm. Heart sounds: Normal heart sounds. No murmur heard. No friction rub. Pulmonary: Effort: Pulmonary effort is normal. No respiratory distress. Breath sounds: No stridor. No wheezing or rales. Abdominal: General: There is no distension. Palpations: Abdomen is soft. There is no mass. Tenderness: There is no guarding. Musculoskeletal: General: No tenderness or deformity. Normal range of motion. Cervical back: Normal range of motion and neck supple. Skin: General: Skin is warm and dry. Findings: No erythema or rash. Neurological: Mental Status: She is alert and oriented to person, place, and time. Cranial Nerves: No cranial nerve deficit. Coordination: Coordination normal. Psychiatric: Behavior: Behavior normal. LOCK-28 (If Applicable) There is currently no information documented on the homunculus. Go to the Rheumatology activity and complete the homunculus joint exam. LOCK-28 (CRP): -- LOCK-28 (ESR): -- Tender (LOCK-28): -- Swollen (LOCK-28): -- BP 122/74 Resp 18 Wt 72.6 kg (160 lb) : reviewed Labs and Imaging: reviewed and discussed with the patient during the visit.I Lab Results Component Value Date WBC 12.2 (H) 04/25/2020 HGB 14.3 04/25/2020 HCT 43.3 04/25/2020 MCV 89 04/25/2020 Imaging: Assessment and Plan: Fifi Mock is a 33 y.o. female patient with: 1. SHAHLA positive - Antinuclear Ab, HEp-2 Substrate, S; Future - Erythrocyte Sedimentation Rate (ESR); Future - C-reactive protein; Future - Comprehensive metabolic panel; Future - CBC auto differential; Future 2. Chronic fatigue - amitriptyline (ELAVIL) 10 mg tablet; One capsule at 8 PM each night Dispense: 30 tablet; Refill: 2 At this point I explained to the patient that she only has positive SHAHLA screen, however there is no enough clinical or laboratory evidence suggest an underlying connective tissue disease at this time. I have explained to the patient that we need to repeat SHAHLA by immunofluorescence in addition to more lab tests and based on the results further workup will be done. Meanwhile I explained the patient that she has chronic fatigue syndrome and for that I am starting patient on amitriptyline. Return to clinic based on lab results RTC based on lab results Total [id number] time was 35 minutes with more than 50% of the visit spent counseling and discussing diagnostic or treatment recommendations, prognosis, risks and benefits of management options, instructions, compliance or risk-factor reduction. This note was created with the assistance of a speech recognition program. While intending to generate a timely document that accurately reflects the content of the visit, no guarantee can be provided that every grammatical or spelling mistake has been or will be identified or corrected. Thank you for your understanding. [facility] Rhe[facility] Dr. James Medina MD [address] [place] [address] Office: [phone] documented in this encounter [facility] 04-29-2024 Miscellaneous Notes Lvm to schedule new patient appt Positive SHAHLA documented in this encounter [facility] 04-29-2024 Telephone encounter Note Lvm to schedule new patient appt Positive SHAHLA [facility] 04-28-2024 History of Present illness Narrative Associated Problem(s): Thyroid nodule greater than or equal to 1.5 cm in diameter incidentally noted on imaging study (CMS/HCC) Has biopsy this week Fu for results Associated Problem(s): Other Remedios-Danlos syndromes (CMS/HCC) Family hx of this, would like genetic testing Associated Problem(s): SHAHLA positive Did not do a pattern or ratio Will re order SHAHLA level Refer to Rheumatology Pt would like to go over the medication with bernie before her procedure on . Images from the original note were not included. Fifi Mock is a 33 y.o. female presents with chief complaint of No chief complaint on file. HPI: Here for re check and to review labs: +thyroid antibodies, +SHAHLA Thyroid US: nodule, no diff w swallowing, no pain Also wants a referral to genetics for testing for Remedios- Danlos Syndrome SUBJECTIVE: MEDICATIONS: Current Outpatient Medications Medication Instructions diphenhydrAMINE-acetaminophen (Tylenol PM) 25-500 MG per tablet 1 tablet, Oral, Nightly PRN valACYclovir (VALTREX) 500 mg, Oral, 2 times daily ALLERGIES: No Known Allergies REVIEW OF SYMPTOMS: Review of Systems Constitutional: Negative for appetite change, chills and fever. HENT: Negative for congestion, ear pain and sore throat. Eyes: Negative for pain, discharge, redness and visual disturbance. Respiratory: Negative for cough, shortness of breath and wheezing. Cardiovascular: Negative for chest pain, palpitations and leg swelling. Gastrointestinal: Negative for abdominal pain, blood in stool, constipation, diarrhea, nausea and vomiting. Genitourinary: Negative for difficulty urinating, dysuria and frequency. Musculoskeletal: Negative for arthralgias, back pain, joint swelling and myalgias. Skin: Negative for rash and wound. Neurological: Negative for dizziness, tremors, seizures, syncope and headaches. Psychiatric/Behavioral: Negative for behavioral problems, self-injury and suicidal ideas. The patient is not nervous/anxious. Hematological: Does not bruise/bleed easily. Endocrine: Negative for polydipsia, polyphagia and polyuria. Allergic/Immunologic: Negative for environmental allergies and food allergies. PAST MEDICAL HISTORY Past Medical History: Diagnosis Date At risk for falls Bacterial infection BMI 24.0-24.9, adult Cholecystitis 2014 Cholelithiasis 2014 Elevated liver enzymes Family history of connective tissue disease Finger pain, right Herpes Influenza vaccination declined by patient Laceration of chin Non-healing skin lesion Scabies exposure Well woman exam Past Surgical History: Procedure Laterality Date CHOLECYSTECTOMY 2013 lap eliazbeth TUBAL LIGATION 2017 family history includes Diabetes in her maternal grandmother, paternal grandfather, and paternal grandmother; Remedios-Danlos syndrome in her father; Endometriosis in her mother. OBJECTIVE: Visit Vitals BP 106/86 (BP Location: Left arm, Patient Position: Sitting, BP Cuff Size: Adult long) Pulse 69 Temp 98.1 F (Temporal) Resp 18 Ht 5' 1 Wt 164 lb 6.4 oz SpO2 98% BMI 31.06 kg/m Smoking Status Never BSA 1.79 m Physical Exam Vitals and nursing note reviewed. Constitutional: General: She is not in acute distress. Appearance: Normal appearance. HENT: Head: Normocephalic and atraumatic. Right Ear: External ear normal. Left Ear: External ear normal. Nose: Nose normal. Mouth/Throat: Mouth: Mucous membranes are moist. Eyes: Extraocular Movements: Extraocular movements intact. Conjunctiva/sclera: Conjunctivae normal. Cardiovascular: Rate and Rhythm: Normal rate and regular rhythm. Pulses: Normal pulses. Heart sounds: Normal heart sounds. Pulmonary: Effort: Pulmonary effort is normal. Breath sounds: Normal breath sounds. Abdominal: General: Bowel sounds are normal. There is no distension. Palpations: Abdomen is soft. There is no mass. Tenderness: There is no abdominal tenderness. Musculoskeletal: General: Normal range of motion. Cervical back: Normal range of motion and neck supple. No tenderness. Lymphadenopathy: Cervical: No cervical adenopathy. Skin: General: Skin is warm and dry. Capillary Refill: Capillary refill takes 2 to 3 seconds. Findings: No rash. Neurological: General: No focal deficit present. Mental Status: She is alert and oriented to person, place, and time. Psychiatric: Mood and Affect: Mood normal. Behavior: Behavior normal. Thought Content: Thought content normal. Judgment: Judgment normal. ASSESSMENT AND PLAN: No follow-ups on file. Problem List Items Addressed This Visit Class 1 obesity due to excess calories without serious comorbidity with body mass index (BMI) of 31.0 to 31.9 in adult SHAHLA positive - Primary Did not do a pattern or ratio Will re order SHAHLA level Refer to Rheumatology Relevant Orders Ambulatory referral to Rheumatology Other Remedios-Danlos syndromes (CMS/HCC) Family hx of this, would like genetic testing Relevant Orders Ambulatory referral to Genetics Thyroid nodule greater than or equal to 1.5 cm in diameter incidentally noted on imaging study (CMS/HCC) Has biopsy this week Fu for results documented in this encounter [facility] 04-02-2024 History of Present illness Narrative Associated Problem(s): Wellness examination Reviewed Ht/Wt/BMI Recommend eye exam yearly Recommend dental exams twice a year Balance work/leisure activities Exercises is recommended most days of the week (appropriate as chronic conditions allow) Follow up yearly and prn Pt has not taken any iron for a long time and she is interested in those levels. Pt would like to talk about the process of going about how to find out if she has remedios danlos like her father and sister. Images from the original note were not included. Fifi Mock is a 33 y.o. female presents with chief complaint of No chief complaint on file. HPI: Here for wellness examination: Overall she is doing well. Diet: variety Activity: pain with work outs Primarily would like to discuss: fatigue-she used to take iron supplements but no longer does. She does have heavy menses which could also contribute to having deficiency. She would also like to have an evaluation for possible Remedios-Danlos syndrome: both her sister and father have this. She does have fatigue, muscle soreness which is very aggravated after simple exercise work outs. She denies any joint pain/swelling, no rashes noted SUBJECTIVE: MEDICATIONS: Current Outpatient Medications Medication Instructions valACYclovir (VALTREX) 500 mg, Oral, 2 times daily ALLERGIES: No Known Allergies REVIEW OF SYMPTOMS: Review of Systems Constitutional: Positive for fatigue. Negative for appetite change, chills and fever. HENT: Negative for congestion, ear pain and sore throat. Eyes: Negative for pain, discharge, redness and visual disturbance. Respiratory: Negative for cough, shortness of breath and wheezing. Cardiovascular: Negative for chest pain, palpitations and leg swelling. Gastrointestinal: Negative for abdominal pain, blood in stool, constipation, diarrhea, nausea and vomiting. Genitourinary: Negative for difficulty urinating, dysuria and frequency. Musculoskeletal: Positive for arthralgias and myalgias. Negative for back pain and joint swelling. Skin: Negative for rash and wound. Neurological: Negative for dizziness, tremors, seizures, syncope and headaches. Psychiatric/Behavioral: Negative for behavioral problems, self-injury and suicidal ideas. The patient is not nervous/anxious. Hematological: Does not bruise/bleed easily. Endocrine: Negative for polydipsia, polyphagia and polyuria. Allergic/Immunologic: Negative for environmental allergies and food allergies. PAST MEDICAL HISTORY Past Medical History: Diagnosis Date At risk for falls Bacterial infection BMI 24.0-24.9, adult Cholecystitis 2014 Cholelithiasis 2014 Elevated liver enzymes Family history of connective tissue disease Finger pain, right Herpes Influenza vaccination declined by patient Laceration of chin Non-healing skin lesion Scabies exposure Well woman exam Past Surgical History: Procedure Laterality Date CHOLECYSTECTOMY 2013 lap elizabeth TUBAL LIGATION 2018 family history includes Diabetes in her maternal grandmother, paternal grandfather, and paternal grandmother; Remedios-Danlos syndrome in her father; Endometriosis in her mother. OBJECTIVE: Visit Vitals BP 106/70 (BP Location: Left arm, Patient Position: Sitting, BP Cuff Size: Adult long) Pulse 65 Temp 97.8 F (Temporal) Resp 18 Ht 5' 1 Wt 165 lb 9.6 oz SpO2 99% BMI 31.29 kg/m Smoking Status Never BSA 1.8 m Physical Exam Vitals and nursing note reviewed. Constitutional: General: She is not in acute distress. Appearance: Normal appearance. HENT: Head: Normocephalic and atraumatic. Right Ear: Tympanic membrane, ear canal and external ear normal. Left Ear: Tympanic membrane, ear canal and external ear normal. Nose: Nose normal. No congestion or rhinorrhea. Mouth/Throat: Mouth: Mucous membranes are moist. Pharynx: No oropharyngeal exudate or posterior oropharyngeal erythema. Eyes: Extraocular Movements: Extraocular movements intact. Conjunctiva/sclera: Conjunctivae normal. Neck: Vascular: No carotid bruit. Cardiovascular: Rate and Rhythm: Normal rate and regular rhythm. Pulses: Normal pulses. Heart sounds: Normal heart sounds. Pulmonary: Effort: Pulmonary effort is normal. Breath sounds: Normal breath sounds. Abdominal: General: Bowel sounds are normal. There is no distension. Palpations: Abdomen is soft. There is no mass. Tenderness: There is no abdominal tenderness. Musculoskeletal: General: No swelling or tenderness. Normal range of motion. Cervical back: Normal range of motion and neck supple. Right lower leg: No edema. Left lower leg: No edema. Lymphadenopathy: Cervical: No cervical adenopathy. Skin: General: Skin is warm and dry. Capillary Refill: Capillary refill takes 2 to 3 seconds. Findings: No rash. Neurological: General: No focal deficit present. Mental Status: She is alert and oriented to person, place, and time. Psychiatric: Mood and Affect: Mood normal. Behavior: Behavior normal. Thought Content: Thought content normal. Judgment: Judgment normal. ASSESSMENT AND PLAN: No follow-ups on file. Problem List Items Addressed This Visit JENIFER (iron deficiency anemia) Relevant Orders Iron + transferrin + TIBC Wellness examination - Primary Reviewed Ht/Wt/BMI Recommend eye exam yearly Recommend dental exams twice a year Balance work/leisure activities Exercises is recommended most days of the week (appropriate as chronic conditions allow) Follow up yearly and prn Arthralgia Relevant Orders Sedimentation rate, automated C-reactive protein Rheumatoid factor SHAHLA Uric acid Other fatigue Relevant Orders Thyroid peroxidase and thyroglobulin antibodies Class 1 obesity due to excess calories without serious comorbidity with body mass index (BMI) of 31.0 to 31.9 in adult documented in this encounter [facility] 09-15-2023 Evaluation note Encounter Date Diagnosis Assessment [...] understanding and is agreeable to treatment plan. [employer] Other 12-27-2023 Evaluation note* Encounter Date Diagnosis Assessment Notes Treatment Notes Treatment Clinical Notes Jul, Contact with and (suspected) exposure [...] to rest. Drink plenty of fluids. Take Tylenol/Motrin as needed for fever or discomfort. Follow up with PCP if symptoms persist or go to the ER if she develops chest pain, shortness of breath or difficulty breathing. [employer] Other Evaluation noteNo assessment information available [facility] Work Phone: Evaluation note* Diagnosis Thyroid nodule greater than or equal to 1.5 cm in diameter incidentally noted on imaging study (CMS/HCC)- Primary Other Remedios-Danlos syndromes (CMS/HCC) Class 1 obesity due to excess calories without serious comorbidity with body mass index (BMI) of 31.0 to 31.9 in adult [facility] Diagnosis Wellness examination- Primary Arthralgia, unspecified joint Other fatigue Iron deficiency anemia, unspecified iron deficiency anemia type Class 1 obesity due to excess calories without serious comorbidity with body mass index (BMI) of 31.0 to 31.9 in adult SHAHLA positive- Primary Other Remedios-Danlos syndromes (CMS/HCC) Class 1 obesity due to excess calories without serious comorbidity with body mass index (BMI) of 31.0 to 31.9 in adult Thyroid nodule greater than or equal to 1.5 cm in diameter incidentally noted on imaging study (CMS/HCC) Thyroid nodule greater than or equal to 1.5 cm in diameter incidentally noted on imaging study (CMS/HCC)- Primary Other Remedios-Danlos syndromes (CMS/HCC) Class 1 obesity due to excess calories without serious comorbidity with body mass index (BMI) of 31.0 to 31.9 in adult Thyroid nodule greater than or equal to 1.5 cm in diameter incidentally noted on imaging study (CMS/HCC) [facility] Diagnosis Wellness examination- Primary Arthralgia, unspecified joint Other fatigue Iron deficiency anemia, unspecified iron deficiency anemia type Class 1 obesity due to excess calories without serious comorbidity with body mass index (BMI) of 31.0 to 31.9 in adult [facility] Diagnosis Thyroid antibody positive- Primary [facility] Diagnosis SHAHLA positive- Primary Other Remedios-Danlos syndromes (CMS/HCC) Class 1 obesity due to excess calories without serious comorbidity with body mass index (BMI) of 31.0 to 31.9 in adult Thyroid nodule greater than or equal to 1.5 cm in diameter incidentally noted on imaging study (CMS/HCC) [facility] Diagnosis SHAHLA positive- Primary Chronic fatigue Other malaise and fatigue [facility]* Type Description Date Medical History anemia Surgical History cholecystectomy Surgical History tubal ligation Hospitalization History see above Hospitalization History child births [facility] Other InstructionsNot on filedocumented in this encounter [facility]um[facility] SystemInstructionsNot on filedocumented in this encounter [facility] SystemReason for referral (narrative)* Consultation (Routine) - Pending Review Specialty Diagnoses / Procedures Referred By Contac t Referred To Contact Genetics Diagnoses Other Remedios-Danlos syndromes (CMS/HCC) Procedures IN OFFICE/OUTPATIENT NEW HIGH MDM 60 MINUTES Bernie Quiñonez NP [address] [place] [address] Nancy Brennan MD [address] [place] [address] Referral ID Status Reason Start Date Expiration Date Visits Requested Visits Authorized [id number] Pending Review Specialty Services Required 05/13/2024 11/09/2024 1 1 * Consultation (Routine) - Pending Review Specialty Diagnoses / Procedures Referred By Contac t Referred To Contact Otolaryngology Diagnoses Thyroid nodule greater than or equal to 1.5 cm in diameter incidentally noted on imaging study (CMS/HCC) Procedures IN OFFICE/OUTPATIENT NEW HIGH MDM 60 MINUTES Bernie Quiñonez NP [address] [place] [address] Lorenzo Bianchi MD [address] [address] Referral ID Status Reason Start Date Expiration Date Visits Requested Visits Authorized [id number] Pending Review Specialty Services Required 05/13/2024 11/09/2024 1 1 [facility] (n[facility]ative)* Consultation (Routine) - Pending Review Specialty Diagnoses / Procedures Referred By Contjohnson t Referred To Contact Rheumatology Diagnoses SHAHLA positive Procedures IN OFFICE/OUTPATIENT NEW HIGH MDM 60 MINUTES Bernie Quiñonez NP [address] [place] [address] James Medina MD [address] [address] Referral ID Status Reason Start Date Expiration Date Visits Requested Visits Authorized [id number] Pending Review Specialty Services Required 04/28/2024 10/25/2024 1 1 * Consultation (Routine) - Pending Review Specialty Diagnoses / Procedures Referred By Polly choudhary Referred To Contact Genetics Diagnoses Other Remedios-Danlos syndromes (CMS/HCC) Procedures IN OFFICE/OUTPATIENT NEW HIGH MDM 60 MINUTES Bernie Quiñonez NP [address] [place] [address] Referral ID Status Reason Start Date Expiration Date Visits Requested Visits Authorized [id number] Pending Review Specialty Services Required 04/28/2024 10/25/2024 1 1 Scheduling Instructions Schedule in [place] with Genetics department of [facility] Summary Purpose Family History No Family History Records FoundNo Family History Records FoundNo Family History Records FoundNo Family History Records FoundNo Family History Records FoundNo Family History Records Found Advance Directives Advance Directive Response Recorded Date/ Time Advance Directives No Deans 2nd, 2 018 12:49pm Hospital Course Note [facility] SURGERY Clinical Discharge Summary PERSON INFORMATION Name FIFI MOCK Age 28 Years 90 Sex FEMALE Language Beninese PCP Nasra Sparrow CNP Marital Status Med Service Ambulatory Surgery Acct# Arrival 12/16/18 06:00:00 Visit Reason SURGERY - LAPAROSCOPIC BILATERAL TUBAL LIGATION Acuity LOS 034 00:46 Address: [address] [place], [place] [id number] Comment: PROVIDER INFORMATION VITALS INFORMATION Vital Sign [...] Medication Allergies Prescriptions Given: Prescription Display acetaminophen-hydrocodone (Oberlin 5 mg- 325 mg oral tablet) 1 tab(s), PO, q6hr, Instructions: may take 1 or 2 tablets not to exceed 8 tablets/day, (more content not included)... Additional Source Comments INFORMATION SOURCE (unrecogn ized section and content) DATE CREATED AUTHOR 10/14/2018 [facility] DATE CREATED AUTHOR AUTHOR'S ORGANIZ ATION 01/01/2019 [facility] DATE CREATED AUTHOR AUTHOR'S ORGANIZ ATION 02/14/2022 [facility] DATE CREATED AUTHOR AUTHOR'S ORGANIZ ATION 05/06/2024 [facility] DATE CREATED AUTHOR AUTHOR'S ORGANIZ ATION 05/08/2024 [facility] DATE CREATED AUTHOR AUTHOR'S ORGANIZ ATION 06/05/[address] [facility] dical Specialists EPIC REASON FOR VISIT (unrecogniz ed section and content) Reason Comments Thyroid Nodule Ultrasound 04/17/24 T Specialty Diagnoses / Procedures Referred By Polly t Referred To Contact Otolaryngology Diagnoses Thyroid nodule greater than or equal to 1.5 cm in diameter incidentally noted on imaging study ([facility]) Procedures IN OFFICE/OUTPATIENT NEW HIGH [facility] 60 MINUTES Bernie Quiñonez NP [address] [facility] [place] [address] Phone: tel: fax: Lorenzo Bianchi MD [address] [place] [address] Phone: tel: fax: Referral ID Status Reason Start Date Expiration Date V isits Requested Visits Authorized [id number] Closed Specialty Services Required 05/13/2024 11/09/2024 1 1 Care Teams (unrecognized sec tion and content) Team Status: Inactive Member Role Status Dates Bernie Quiñonez Attending Provider Active Start: April 30, 2024 End: April 30, 2024 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 Range Supervisor Relationship Specialty Start Date End Date Chrissie Mesa PA [address] [place], [place] [id number] PCP - Medical [place] [employer] 08/05/21 08/04/99 Fermín Ceballos MD [address] [place] [address] PCP - General Family Medicine 03/19/24 Bernie Quiñonez NP [address] [place] [address] Nurse Practitioner Family Medicine 03/19/24 Finishing Range Supervisor Relationship Specialty Start Date End Date Chrissie Mesa PA [address] [place] [address] PCP - Medical [place] [employer] 08/05/21 08/04/99 Fermín Ceballos MD [address] [place] [address] PCP - General Family Medicine 03/19/24 Bernie Quiñonez NP [address] [place] [address] Nurse Practitioner Family Medicine 03/19/24 Finishing Range Supervisor Relationship Specialty Start Date End Date Chrissie Mesa PA [address] [facility] [place] [address] PCP - Medical [place] [employer] 08/05/21 08/04/99 Fermín Ceballos MD [address] [place] [address] PCP - General Family Medicine 03/19/24 Bernie Quiñonez NP [address] [place] [address] Nurse Practitioner Family Medicine 03/19/24 Finishing Range Supervisor Relationship Specialty Start Date End Date Chrissie Mesa PA [address] [place] [address] [place] [address] PCP - Medical [place] [employer] 08/05/21 08/04/99 Fermín Ceballos MD [address] [place] [address] PCP - General Family Medicine 03/19/24 Bernie Quiñonez, BONNIE [address] [place] [address] Nurse Practitioner Family Medicine 03/19/24 Finishing [place] Supervisor Relationship Specialty Start Date End Date Chrissie Mesa PA [address] [place] [address] [place] [address] PCP - Medical [place] [employer] 08/05/21 08/04/99 Fermín Ceballos MD [address] [place] [address] PCP - General Family Medicine 03/19/24 Bernie Quiñonez NP [address] [place] [address] Nurse Practitioner Family Medicine 03/19/24 Finishing Range Supervisor Relationship Specialty Start Date End Date Chrissie Mesa PA [address] [facility] [place] [address] PCP - Medical [place] [employer] 08/05/21 08/04/99 Fermín Ceballos MD [address] [place] [address] PCP - General Family Medicine 03/19/24 Bernie Quiñonez NP [address] [place] [address] Nurse Practitioner Family Medicine 03/19/24 Finishing [place] Supervisor Relationship Specialty Start Date End Date Chrissie Mesa PA [address] [facility] [place] [address] PCP - Medical [place] [employer] 08/05/21 08/04/99 Fermín Ceballos MD [address] [place] [address] PCP - General Family Medicine 03/19/24 Bernie Quiñonez NP [address] [place] [address] Nurse Practitioner Family Medicine 03/19/24 Finishing [place] Supervisor Relationship Specialty Start Date End Date Chrissie Mesa PA [address] [facility] [place] [address] PCP - Medical [place] [employer] 08/05/21 08/04/99 Fermín Ceballos MD [address] [place] [address] PCP - General Family Medicine 03/19/24 Bernie Quiñonez, LINE LEAD [address] [place] [address] Nurse Practitioner Family Medicine 03/19/24 Finishing [place] Supervisor Relationship Specialty Start Date End Date Chrissie Mesa PA [address] [facility] [place] [address] PCP - Medical [place] [employer] 08/05/21 08/04/99 Fermín Ceballos MD [address] [place] [address] PCP - General Family Medicine 03/19/24 Bernie Quiñonez, LINE LEAD [address] [place] [address] Nurse Practitioner Family Medicine 03/19/24 Finishing [place] Supervisor Relationship Specialty Start Date End Date Chrissie Mesa PA [address] [place] [address] PCP - Medical [place] [employer] 08/05/21 08/04/99 Fermní Ceballos MD [address] [place] [address] PCP - General Family Medicine 03/19/24 Bernie Quiñonez NP [address] [place] [address] Nurse Practitioner Family Medicine 03/19/24 Finishing [place] Supervisor Relationship Specialty Start Date End Date Chrissie Mesa PA [address] [place] [address] [place] [address] PCP - Medical [place] [employer] 08/05/21 08/04/99 Fermín Ceballos MD [address] [place] [address] PCP - General Family Medicine 03/19/24 Bernie Quiñonez NP [address] [place] [address] Nurse Practitioner Family Medicine 03/19/24 Finishing Range Supervisor Relationship Specialty Start Date End Date Chrissie Mesa PA [address] [place] [address] [place] [address] PCP - Medical [place] [employer] 08/05/21 08/04/99 Fermín Ceballos MD [address] [place] [address] PCP - General Family Medicine 03/19/24 Bernie Quiñonez NP [address] [place] [address] Nurse Practitioner Family Medicine 03/19/24 Finishing Range Supervisor Relationship Specialty Start Date End Date Nasra Sparrow, DISH CARRIER-BUSINESS LOAN PROCESSOR [address] [place] [address] PCP - General Nurse Practitioner 04/25/20 Finishing [place] Supervisor Relationship Specialty Start Date End Date Andrews, Nasra Morales APRN-CANDIDA PCP - General Nurse Practitioner 04/25/20 Goals (unrecognized section and content) Goals may [...] BE BASED ON THE PRIMARY CLINICAL RECORDS. [employer] [facility]. provides no warranty or guarantee of the accuracy or completeness of information in this document.
== END 2024-10-09 16:03 | disposition home or self-care (01) ==
LOC: US 16:02
PROVIDERS: Visit Provider Otolaryngology
DX: E04.1 Nontoxic single thyroid nodule (principal)
CPT/HCPCS: 76536

== ENCOUNTER 2025-04-14 13:47 | Outpatient (OUT) | payer OTHER, SELFPAY ==
--- NOTE | 2025-04-14 13:51 | US_ITS ---
The [address] [address] Patient Name: FIFI CHAPPELL MRN: [id number] date: 1990 Sex: F Assigned Patient Location: US Current Patient Location: US Accession/Order Number: [id number] Exam Date: 04/14/2025 13:52 Report Date: 04/14/2025 15:48 At the request of: LORENZO BIANCHI MD Procedure: US thyroid Thyroid ultrasound Reason for exam: Thyroid nodule follow-up Comparison: Thyroid ultrasound 10/09/2024 Technique: Grayscale and color Doppler images of the thyroid gland were obtained. Findings: Right lobe measures 5.1 x 1.4 x 1.0 cm. Left lobe measures 5.1 x 1.5 x 1.3 cm. Isthmus measures 0.23 cm. Once again demonstrated is a hypoechoic nodule involving the mid aspect of the left lobe measuring 15 x 8 x 12 mm grossly unchanged from the prior study. No microcalcifications. US/US thyroid Impression: No significant change in thyroid findings were compared to the prior study. FNA should be contemplated. Impression dictated by: Bird Harris Jr., D.O. 04/14/2025 3:48 PM Dictation Location: [place] [address] Electronically authenticated by: [id number] Y Date: 04/14/2025 15:48
--- OUTSIDE RECORDS SUMMARY | 2025-04-14 13:51 | XMS_ITS | Encounter Summary ---
Author Organization [facility] Address [address] [facility] [place] [address] Care Team Providers Care Hydrochloric Acid Operator Name Role Phone Chrissie Mesa Unavailable Fermín Ceballos MD Primary Care Provider [phone] Mckenna Quiñonez NP Unavailable [phone] Encounter Details Date Type Department Care Team (Late st Contact Info) Description 04/20/2024 Orders Only [facility] [address] [place] [address] Mckenna Quiñonez NP [address] [place] [address] Social History Tobacco Use Types Packs/Day Years Used Date Smoking Tobacco: Never Smokeless Tobacco: Never Alcohol Use Standard Drinks/Week Comments Yes 0 (1 standard drink = 0.6 oz pur e alcohol) occasional alcohol use B1300 Health Literacy Answer Date Recor ded How often do you need to hav e someone help you when you read instructions, pamphlets, or other written material from your doctor or pharmacy? Never 04/01/2024 Social Connection and Isolation Panel [NHANES] A nswer Date Recorded In a typical week, how many times do you talk on the phone with family, friends, or neighbors? Once a week 04/01/2024 How often do you get together with friends or re latives? Once a week 04/01/2024 How often do you attend caodaism or protestant serv ices? Never 04/01/2024 Do you belong to any clubs o r organizations such as caodaism groups, unions, fraternal or athletic groups, or school groups? No 04/01/2024 How often do you attend meet ings of the clubs or organizations you belong to? Never 04/01/2024 Are you , , di vorced, , never , or living with a partner? 04/01/2024 AUDIT-C Answer Date Recorded Q1: How often do you have a drink containing alc ohol? Monthly or less 04/01/2024 Q2: How many drinks containi ng alcohol do you have on a typical day when you are drinking? 1 or 2 04/01/2024 Q3: How often do you have si x or more drinks on one occasion? Never 04/01/2024 Overall Financial Resource Strain (CARDIA) Answe r Date Recorded How hard is it for you to pa y for the very basics like food, housing, medical care, and heating? Not hard at all 04/01/2024 PHQ-2 Answer Date Recorded Patient Health Questionnaire-2 Score 0 04/02/2024 [facility] - Occupational Stress Questionnaire Answer Date Recorded Do you feel stress - tense, restless, nervous, or anxious, or unable to sleep at night because your mind is troubled all the time - these days? Rather much 04/01/2024 Exercise Vital Sign Answer Date Recorde d On average, how many days pe r week do you engage in moderate to strenuous exercise (like a brisk walk)? 4 days 04/01/2024 On average, how many minutes do you engage in exercise at this level? 60 min 04/01/2024 Hunger Vital Sign Answer Date Recorded Within the past 12 months, y ou worried that your food would run out before you got the money to buy more. Never true 04/01/20 24 Within the past 12 months, t he food you bought just didn't last and you didn't have money to get more. Never true 04/01/2024 PRAPARE - Transportation Answer Date Re corded In the past 12 months, has l ack of transportation kept you from medical appointments or from getting medications? No 03/06 In the past 12 months, has l ack of transportation kept you from meetings, work, or from getting things needed for daily living? No 04/01/2024 Housing Stability Vital Sign Answer Max e Recorded In the last 12 months, was t here a time when you were not able to pay the mortgage or rent on time? No 04/01/2024 Number of Times Moved in the Last Year Not on fi le 04/01/2024 At any time in the past 12 m [facility], were you homeless or living in a nursing home (including now)? No 04/01/2024 Comments Unknown Sex and Gender Information Value Date Recorded Sex Assigned at Not on file Legal Sex Female 6:45 PM EDT Gender Identity Not on file Sexual Orientation Not on file documented as of this encounter Plan of Treatment Upcoming Encounters Date Type Department Care Team (Late st Contact Info) Description 04/27/2025 3:20 PM EDT Office Visit [facility] 112 [facility] [address] [place] [address] Becky Oliveros MD 112 [facility] [address] [place], [place] [phone] documented as of this encounter Procedures Procedure Name Priority Date/Time Associated Diagnosis Comments US THYROID Routine 04/20/2024 3:43 PM EDT documented in this encounter Results * US thyroid (04/20/2024 3:43 PM EDT) Anatomical Region Laterality Modality Head, Neck Ultrasound us Mckenna Quiñonez SHIPPING COORDINATOR IMG US PROCEDURES Final Result documented in this encounter Visit Diagnoses Not on filedocumented in this encounter Care Teams Hydrochloric Acid Operator Relationship Specialty Start Date End Date Chrissie Mesa PA [address] [place], [place] [address] [address] PCP - Medical [place] [employer] 08/05/21 02/25/25 Fermín Ceballos MD [address] [place], [place] [address] [address] PCP - General Family Medicine 03/19/24 Mckenna Quiñonez NP [address] [place] [address] Nurse Practitioner Family Medicine 03/19/24 documented as of this encounter
--- OUTSIDE RECORDS SUMMARY | 2025-04-14 13:51 | XMS_ITS | Encounter Summary ---
Author Organization [facility] Address [id number] [address] [place] [address] Care Team Providers Care Optical Element Coater Name Role Phone Nasra Sparrow Andrew TOMAS-PROPERTY TECHNICIAN Primary Care Provider [phone] Encounter Details Date Type Department Care Team (Late st Contact Info) Description 05/04/2024 Telephone [facility] -[facility] [address] [facility] [address] [place] [address] [facility] [address] [facility] [address] [place] [address] Social History Tobacco Use Types Packs/Day Years Used Date Smoking Tobacco: Never Assessed Childcare Answer Date Recorded Childcare Unknown 04/25/2020 Employment Answer Date Recorded Employment Unknown 04/25/2020 Purpose - Life Answer Date Recorded Purpose and direction in life Unknown Comments Unknown Sex and Gender Information Value Date Recorded Sex Assigned at Not on file Legal Sex Female 11:58 AM EDT Gender Identity Not on file Sexual Orientation Not on file documented as of this encounter Miscellaneous Notes * Telephone Encounter - Meagan Morocho - 05/04/2024 9:15 AM EDT 04/23/24 re: referral from Mckenna Quiñonez, NON PROFIT JOB TITLES, LVM for both pt and RN that for EDS, [facility] sj documented in this encounter Plan of Treatment Not on file documented as of this encounter Visit Diagnoses Not on filedocumented in this encounter Care Teams Optical Element Coater Relationship Specialty Start Date End Date Nasra Sparrow, [employer]UTIONS ARCHITECT-PROPERTY TECHNICIAN [address] [place] [address] PCP - General Nurse Practitioner 04/25/20 documented as of this encounter
--- OUTSIDE RECORDS SUMMARY | 2025-04-14 13:51 | XMS_ITS | Encounter Summary ---
Author Organization [facility] Address [address] [place] [address] Care Team Providers Care Manager Garden Name Role Phone Chrissie Mesa Unavailable Fermín Ceballos MD Primary Care Provider [phone] Mckenna Quiñonez NP Unavailable [phone] Encounter Details Date Type Department Care Team (Late st Contact Info) Description 04/30/2024 Clinisync Result Encounter [facility] External Department Unsolicited Mckenna Quiñonez, BONNIE [address] [place] [address] Social History Tobacco Use Types Packs/Day Years [...] week 04/01/2024 How often do you attend christian or hinduism serv ices? Never 04/01/2024 Do you belong to any clubs o r organizations such as christian groups, unions, fraternal or athletic groups, or [...] Recorded Patient Health Questionnaire-2 Score 0 04/02/2024 [facility] - Occupational Stress Questionnaire Answer [...] any time in the past 12 m [facility], were you homeless or living in a prison (including now)? No 04/01/2024 Comments Unknown Sex [...] EDT Office Visit [facility] [address] [facility] [address] [place] [address] Becky Oliveros MD 112 [facility] [address] [place] [address] documented as of this encounter Procedures Procedure Name Priority Date/Time Associated Diagnosis Comments US BIOPSY THYROID 04/30/2024 9:5 3 AM EDT documented in this encounter Results * US BIOPSY THYROID (04/30/2024 9:53 AM EDT) Anatomical Region Laterality Modality Other 04/30/2024 9:53 AM EDT Narrative 04/30/2024 9:55 AM EDT [address] [address] Ultrasound Report Signed Patient: FIFI CHAPPELL MR#: [id number] : 1990 Acct:[id number] Age/Sex: 33 / F ADM Date: 04/30/24 Loc: US Attending Dr: Mckenna Quiñonez NP Ordering Physician: Mckenna Quiñonez NP Date of Service: 04/30/24 Procedure(s): US biopsy thyroid Accession Number(s): [id number] cc: Mckenna Quñionez NP [address] [address] Patient Name: FIFI CHAPPELL MRN: [facility]:[id number] date: 1990 Sex: F Assigned Patient Location: US Current Patient Location: LAB Accession/Order Number: [id number] Exam Date: 04/30/2024 08:23 Report Date: 04/30/2024 09:53 At the request of: MCKENNA QUIÑONEZ Procedure: US biopsy thyroid EXAMINATION: US biopsy thyroid HISTORY: Thyroid Nodule COMPARISON: Ultrasound thyroid 04/16/2024 TECHNIQUE: After obtaining informed consent, ultrasound-guided fine needle aspiration was performed in the usual sterile manner. FINDINGS: IMAGING: Ultrasound. BIOPSY NEEDLE: 25-gauge; 3 separate passes LOCATION: Left lobe 1.6 cm TR 4 nodule. SPECIMEN TYPE: Cellular tissue. LOCAL ANESTHETIC: Buffered Xylocaine. COMPLICATIONS: None. LABORATORY: Prepared slide smears and washings for cell block evaluation. OTHER: Negative. PATHOLOGY: Pending. An addendum will be added when results are available. US/US biopsy thyroid IMPRESSION: 1. Uneventful ultrasound guided fine needle aspiration (FNA). 2. Pathology results are pending. Electronically authenticated by: MASON WYNN Date: 04/30/2024 09:53 Dictated By: Mason Wynn M.D. Signed By: 04/30/2455 DD/ TD/TT: Signal Repairer: Procedure Note Radiology, Radiologist, MD - 04/30/2024 [facility] [place] [id number] Ultrasound Report Signed Patient: FIFI CHAPPELL AMR#: [id number] : 1990Acct:[id number] Age/Sex: 33 / FADM Date: 04/30/24 Loc: US Attending Dr: Mckenna Quiñonez NP Ordering Physician: Mckenna Quiñonez NP Date of Service: 04/30/24 Procedure(s): US biopsy thyroid Accession Number(s): [id number] cc: Mckenna Quiñonez NP [address] [address] Patient Name: FIFI CHAPPELL MRN: [facility]:[id number] date: 1990 Sex: F Assigned Patient Location: US Current Patient Location: LAB Accession/Order Number: [id number] Exam Date: 04/30/2024 08:23 Report Date: 04/30/2024 09:53 At the request of: MCKENNA QUIÑONEZ Procedure: US biopsy thyroid EXAMINATION: US biopsy thyroid HISTORY: Thyroid Nodule COMPARISON: Ultrasound thyroid 04/16/2024 TECHNIQUE: After obtaining informed consent, ultrasound-guided fine needle aspiration was performed in the usual sterile manner. FINDINGS: IMAGING: Ultrasound. BIOPSY NEEDLE: 25-gauge; 3 separate passes LOCATION: Left lobe 1.6 cm TR 4 nodule. SPECIMEN TYPE: Cellular tissue. LOCAL ANESTHETIC: Buffered Xylocaine. COMPLICATIONS: None. LABORATORY: Prepared slide smears and washings for cell block evaluation. OTHER: Negative. PATHOLOGY: Pending. An addendum will be added when results are available. US/US biopsy thyroid IMPRESSION: 1. Uneventful ultrasound guided fine needle aspiration (FNA). 2. Pathology results are pending. Electronically authenticated by: MASON WYNN Date: 04/30/2024 09:53 Dictated By: Mason Wynn M.D. Signed By:04/30/24 0955 DD/ 0953 TD/TT: Signal Repairer: Mckenna Quiñonez CLINICAL DIETICIAN [facility] Final Result documented in this encounter Visit Diagnoses Not on filedocumented in this encounter Care Teams Manager Garden Relationship Specialty Start Date End Date Chrissie Mesa PA [address] [place] [address] PCP - Medical [place] [employer] 08/05/21 02/25/25 Fermín Ceballos MD [address] [place] [address] PCP - General Family Medicine 03/19/24 Mckenna Quiñonez NP [address] [place] [address] Nurse Practitioner Family Medicine 03/19/24 documented as of this encounter
--- OUTSIDE RECORDS SUMMARY | 2025-04-14 13:51 | XMS_ITS | Encounter Summary ---
Author Organization [facility] Address [address] [place] [address] Care Team Providers Care Hot Blaster Name Role Phone Chrissie Mesa Unavailable Fermín Ceballos MD Primary Care Provider [phone] Mckenna Quiñonez NP Unavailable [phone] Encounter Details Date Type Department Care Team (Late st Contact Info) Description 04/17/2024 Clinisync Result Encounter [facility] External Department Unsolicited Mckenna Quiñonez, BONNIE [address] [place] [address] Social History Tobacco Use Types Packs/Day Years [...] week 04/01/2024 How often do you attend muslim or mormon serv ices? Never 04/01/2024 Do you belong to any clubs o r organizations such as muslim groups, unions, fraternal or athletic groups, or [...] Recorded Patient Health Questionnaire-2 Score 0 04/02/2024 [facility]ational Stress Questionnaire Answer Date Recorded [...] any time in the past 12 m [facility], were you homeless or living in a [...] EDT Office Visit [facility] 112 [facility] [address] [place] [address] Becky Oliveros MD 112 [facility] [address] [place] [address] documented as of this encounter Procedures Procedure Name Priority Date/Time Associated Diagnosis Comments US THYROID 04/17/2024 1:46 PM EDT documented in this encounter Results * US thyroid (04/17/2024 1:46 PM EDT) Anatomical Region Laterality Modality Head, Neck Ultrasound 04/17/2024 1:46 PM EDT Narrative 05/18/2024 2:23 PM EDT The [address] [address] Ultrasound Report Signed with Dre Patient: FIFI CHAPPELL MR#: [id number] : 1990 Acct:[id number] Age/Sex: 33 / F ADM Date: 04/16/24 Loc: US Attending Dr: Mckenna Quiñonez NP Ordering Physician: Mckenna Quiñonez NP Date of Service: 04/16/24 Procedure(s): US thyroid Accession Number(s): [id number] cc: Mckenna Quiñonez NP ADDENDUM The [address] [address] Patient Name: FIFI CHAPPELL MRN: [id number] date: 1990 Sex: F Assigned Patient Location: US Current Patient Location: US Accession/Order Number: [id number] Exam Date: 04/16/2024 13:50 Report Date: 05/12/2024 10:57 At the request of: MCKENNA QUIÑONEZ Procedure: US thyroid Begin Addendum #1 COLLECTED DATE: 04/30/2024 Final Diagnosis Report for THE [place], [place] Pathological Diagnosis: Left thyroid nodule, FNA cytology: Category 1 Brandon system: Nondiagnostic. 05/08/[address] Mckenna Quiñonez. Verified with Kathie that report was present in office. Original Report EXAMINATION: US thyroid HISTORY: Thyroid Antibody Positive R76. 8 COMPARISON: No relevant comparison available. TECHNIQUE: Sonographic images of the thyroid gland were obtained. FINDINGS: The right thyroid lobe measures 5. 0 x 1. 6 x 1. 5 cm with homogeneous echotexture with no focal nodule The thyroid isthmus measures 2. 9 mm, no focal nodule The left thyroid lobe measures 5. 2 x 1. 8 x 1. 7 cm. Single nodule. Nodule 1:1. 5 x 1. 2 x 0. 8 cm. Solid, hypoechoic, wide, smooth margins, no calcifications. TR 4 Addendum Dictated By: Broderick Nguyen M.D. Addendum Signed By: <Electronically signed by Broderick Nguyen M.D.> 05/18/24 142 Addendum Cosigned By: DD/ /28/1057 TD/TT: / ADDENDUM US/US thyroid IMPRESSION: 1. 5 cm left thyroid TR 4 nodule TI-RADS: The [employer] TI-RADS committee's white paper recommendations for thyroid lesions classified as TR4 (moderately suspicious) are listed below: > 1. 0 cm. Follow-up ultrasound in 1, 2, 3, and 5 years. > 1. 5 cm. FNA. J. Am Jose Carlos Radiol 2017;14:587-595. Electronically authenticated by: BRODERICK NGUYEN Date: 05/12/2024 10:57 Addendum Dictated By: Broderick Nguyen M.D. Addendum Signed By: <Electronically signed by Broderick Nguyen M.D.> 05/18/24 1423 Addendum Cosigned By: DD/ /28/1057 TD/TT: / The [place] [address] Patient Name: FIFI CHAPPELL MRN: [facility]:[id number] date: 1990 Sex: F Assigned Patient Location: US Current Patient Location: Accession/Order Number: [id number] Exam Date: 04/16/2024 13:50 Report Date: 04/17/2024 13:46 At the request of: MCKENNA QUIÑONEZ Procedure: US thyroid EXAMINATION: US thyroid HISTORY: Thyroid Antibody Positive R76.8 COMPARISON: No relevant comparison available. TECHNIQUE: Sonographic images of the thyroid gland were obtained. FINDINGS: The right thyroid lobe measures 5.0 x 1.6 x 1.5 cm with homogeneous echotexture with no focal nodule The thyroid isthmus measures 2.9 mm, no focal nodule The left thyroid lobe measures 5.2 x 1.8 x 1.7 cm. Single nodule. Nodule 1:1.5 x 1.2 x 0.8 cm. Solid, hypoechoic, wide, smooth margins, no calcifications. TR 4 US/US thyroid IMPRESSION: 1.5 cm left thyroid TR 4 nodule TI-RADS: The [employer] TI-RADS committee's white paper recommendations for thyroid lesions classified as TR4 (moderately suspicious) are listed below: > 1.0 cm. Follow-up ultrasound in 1, 2, 3, and 5 years. > 1.5 cm. FNA. J. Am Jose Carlos Radiol 2017;14:587-595. Electronically authenticated by: BRODERICK NGUYEN Date: 04/17/2024 13:46 Dictated By: Broderick Nguyen M.D. Signed By: 04/17/24 1348 DD/ 45 TD/TT: Certified Medical Coding Specialist: Procedure Note Radiology, Radiologist, - 05/18/2024 [place] [address] Ultrasound Report Signed with Addenda Patient: FIFI CHAPPELL AMR#: [id number] : 1990Acct:[id number] Age/Sex: 33 / FADM Date: 04/16/24 Loc: US Attending Dr: Mckenna Quiñonez NP Ordering Physician: Mckenna Quiñonez NP Date of Service: 04/16/24 Procedure(s): US thyroid Accession Number(s): [id number] cc: Mckenna Quiñonez NP ADDENDUM The [facility] [address] [place], [place] [address] Patient Name: FIFI CHAPPELL MRN: [id number] date: 1990 Sex: F Assigned Patient Location: US Current Patient Location: US Accession/Order Number: [id number] Exam Date: 04/16/2024 13:50 Report Date: 05/12/2024 10:57 At the request of: MCKENNA QUIÑONEZ Procedure: US thyroid Begin Addendum #1 COLLECTED DATE: 04/30/2024 Final Diagnosis Report for [facility] [place] Pathological Diagnosis: Left thyroid nodule, FNA cytology: Category 1 Brandon system: Nondiagnostic. 05/08/[address] Mckenna Quiñonez. Verified with Kathie that reportwas present in office. Original Report EXAMINATION: US thyroid HISTORY: Thyroid Antibody Positive R76. 8 COMPARISON: No relevant comparison available. TECHNIQUE: Sonographic images of the thyroid gland were obtained. FINDINGS: The right thyroid lobe measures 5. 0 x 1. 6 x 1. 5 cm with homogeneous echotexture with no focal nodule The thyroid isthmus measures 2. 9 mm, no focal nodule The left thyroid lobe measures 5. 2 x 1. 8 x 1. 7 cm. Single nodule. Nodule 1:1. 5 x 1. 2 x 0. 8 cm. Solid, hypoechoic, wide, smooth margins,no calcifications. TR 4 Addendum Dictated By: Broderick Nguyen M.D. Addendum Signed By: <Electronically signed by Broderick Nguyen M.D.> 05/18/241422 Addendum Cosigned By: DD/ /28/1057 TD/TT: / ADDENDUM US/US thyroid IMPRESSION: 1. 5 cm left thyroid TR 4 nodule TI-RADS: The [employer] TI-RADS committee's whitepaper recommendations for thyroid lesions classified as TR4 (moderatelysuspicious) are listed below: > 1. 0 cm. Follow-up ultrasound in 1, 2, 3, and 5 years. > 1. 5 cm. FNA. J. Am Jose Carlos Radiol 2017;14:587-595. Electronically authenticated by: BRODERICK NGUYEN Date: 05/12/2024 10:57 Addendum Dictated By: Broderick Nguyen M.D. Addendum Signed By: <Electronically signed by Broderick Nguyen M.D.> 05/18/241422 Addendum Cosigned By: DD/ /28/1057 TD/TT: / [place] [id number] Patient Name: FIFI CHAPPELL MRN: [id number] date: 1990 Sex: F Assigned Patient Location: US Current Patient Location: Accession/Order Number: [id number] Exam Date: 04/16/2024 13:50 Report Date: 04/17/2024 13:46 At the request of: MCKENNA QUIÑONEZ Procedure: US thyroid EXAMINATION: US thyroid HISTORY: Thyroid Antibody Positive R76.8 COMPARISON: No relevant comparison available. TECHNIQUE: Sonographic images of the thyroid gland were obtained. FINDINGS: The right thyroid lobe measures 5.0 x 1.6 x 1.5 cm with homogeneous echotexture with no focal nodule The thyroid isthmus measures 2.9 mm, no focal nodule The left thyroid lobe measures 5.2 x 1.8 x 1.7 cm. Single nodule. Nodule 1:1.5 x 1.2 x 0.8 cm. Solid, hypoechoic, wide, smooth margins, no calcifications. TR 4 US/US thyroid IMPRESSION: 1.5 cm left thyroid TR 4 nodule TI-RADS: The [employer] TI-RADS committee's white paper recommendations for thyroid lesions classified as TR4 (moderatelysuspicious) are listed below: > 1.0 cm. Follow-up ultrasound in 1, 2, 3, and 5 years. > 1.5 cm. FNA. J. Am Jose Carlos Radiol 2017;14:587-595. Electronically authenticated by: BRODERICK NGUYEN Date: 04/17/2024 13:46 Dictated By: Broderick Nguyen M.D. Signed By:04/17/24 1348 DD/ 1346 TD/TT: Certified Medical Coding Specialist: us Mckenna Quiñonez HOME OFFICE REPRESENTATIVE IMG US PROCEDURES Final Result documented in this encounter Visit Diagnoses Not on filedocumented in this encounter Care Teams Hot Blaster Relationship Specialty Start Date End Date Chrissie Mesa PA [address] [place] [address] PCP - Medical [place] [employer] 08/05/21 02/25/25 Fermín Ceballos MD [address] [place] [address] [place] [address] PCP - General Family Medicine 03/19/24 Mckenna Quiñonez NP [address] [place] [address] [place] [address] Nurse Practitioner Family Medicine 03/19/24 documented as of this encounter
--- OUTSIDE RECORDS SUMMARY | 2025-04-14 13:51 | XMS_ITS | Encounter Summary ---
Author Organization [facility] Address [address] [facility] [place] [address] Care Team Providers Care National Sales Representative Name Role Phone Chrissie Mesa Unavailable Fermín Ceballos MD Primary Care Provider [phone] Mckenna Quiñonez NP Unavailable [phone] Encounter Details Date Type Department Care Team (Late st Contact Info) Description 05/12/2024 Orders Only [facility] [address] [place] [address] Mckenna Quiñonez NP [address] [place] [address] Social History Tobacco Use Types Packs/Day Years [...] week 04/01/2024 How often do you attend tenriism or oriental orthodox serv ices? Never 04/01/2024 Do you belong to any clubs o r organizations such as tenriism groups, unions, fraternal or athletic groups, or [...] Patient Health Questionnaire-2 Score 0 04/02/2024 [facility] of Occupat ional [facility] - Occupational Stress Questionnaire Answer Date Recorded [...] any time in the past 12 m [facility], were you homeless or living in a assisted (including now)? No 04/01/2024 Comments Unknown Sex [...] EDT Office Visit [facility] 112 [facility] [address] [place] [address] Becky Oliveros MD 112 [facility] [address] [place], [place] [address] documented as of this encounter Procedures Procedure Name Priority Date/Time Associated Diagnosis Comments US THYROID Routine 05/12/2024 11:05 AM EDT documented in this encounter Results * US thyroid (05/12/2024 11:05 AM EDT) Anatomical Region Laterality Modality Head, Neck Ultrasound us Mckenna Quiñonez SALESPERSON [employer] IMG US PROCEDURES Final Result documented in this encounter Visit Diagnoses Not on filedocumented in this encounter Care Teams National Sales Representative Relationship Specialty Start Date End Date Chrissie Mesa PA [address] [place], [place] [address] [address] PCP - Medical [place] [employer] 08/05/21 02/25/25 Fermín Ceballos MD [address] [place], [place] [address] [address] PCP - General Family Medicine 03/19/24 Mckenna Quiñonez NP [address] [place] [address] Nurse Practitioner Family Medicine 03/19/24 documented as of this encounter
--- OUTSIDE RECORDS SUMMARY | 2025-04-14 13:51 | XMS_ITS | Clinical Summary ---
Author Organization [facility] Address [address] [place] [address] Care Team Providers Care Dumper Operator Name Role Phone Fermín Ceballos MD Primary Care Provider [phone] Mckenna Quiñonez NP Unavailable [phone] Allergies No known active allergies Medications valACYclovir (Valtrex) 500 MG tablet Take 500 mg by mouth in the morning and 500 mg before bedtime. 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 Assessment & Plan (05/13/2024 5:37 PM EDT): Will send to [facility] for testing, [facility] does not do this testing Assessment & Plan (04/28/2024 5:34 PM EDT): Family hx of this, would like genetic testing Thyroid nodule greater than or equal to 1.5 cm in diameter incidentally noted on imaging study 04/28/2024 Assessment & Plan (05/13/2024 5:37 PM EDT): Non diagnostic biopsy, will refer to ENT Assessment & Plan (04/28/2024 5:34 PM EDT): Has biopsy this week Fu for results Abnormal urinalysis 04/20/2024 SHAHLA positive 04/09/2024 Assessment & Plan (04/28/2024 5:32 PM EDT): Did not do a pattern or ratio Will re order SHAHLA level Refer to Rheumatology Elevated liver enzymes 04/02/2024 Herpes simplex viral infection 04/02/2024 TALHA (generalized anxiety disorder) 04/02/2024 Major depressive disorder with single episode, i n remission 04/02/2024 JENIFER (iron deficiency anemia) 04/02/2024 Wellness examination 04/02/2024 Assessment & Plan (04/02/2024 8:59 PM EDT): Reviewed Ht/Wt/BMI Recommend eye exam yearly Recommend dental exams twice a year Balance work/leisure activities Exercises is recommended most days of the week (appropriate as chronic conditions allow) Follow up yearly and prn Arthralgia 04/02/2024 Other fatigue 04/02/2024 Class 1 obesity due to exces s calories without serious comorbidity with body mass index (BMI) of 31.0 to 31.9 in adult 04/02/2024 Immunizations Immunization Administration Dates Next Due Tdap 05/29/2012 Family History Medical History Relation Name Comments Meghana-Danlos syndrome Father Diabetes Maternal Grandmother Celena Cancer Mother Elissa Youngblood Endometriosis Mother Elissa Youngblood Diabetes Paternal Grandfather Uriel Diabetes Paternal Grandmother Madhavi Relation Name Status Comments Daughter Alive Father Alive Maternal Grandmother Celena Mother Elissa Youngblood Alive Paternal Grandfather Uriel Paternal Grandmother Madhavi Son Alive Social History Tobacco Use Types Packs/Day Years Used Date Smoking Tobacco: Never Smokeless Tobacco: Never Tobacco Cessation:Counseling Given: Not Answered Alcohol Use Standard Drinks/Week Comments Not Currently 0 (1 standard drink = 0.6 oz [...] week 04/01/2024 How often do you attend jewish or latter day serv ices? Never 04/01/2024 Do you belong to any clubs o r organizations such as jewish groups, unions, fraternal or athletic groups, or [...] Recorded Patient Health Questionnaire-2 Score 0 04/02/2024 [facility] of Occupat ional [facility] - Occupational Stress Questionnaire Answer Date [...] any time in the past 12 m [facility], were you homeless or living in a care home (including now)? No 04/01/2024 Comments Unknown Sex and Gender Information Value Date Recorded Sex Assigned at Not on file Legal Sex Female 6:45 PM EDT Gender Identity Not on file Sexual Orientation Not on file Last Filed Vital Signs Vital Sign Reading Time Taken Comments Blood Pressure 116/73 10/20/2024 3:14 PM EDT Pulse 74 10/20/2024 3:14 PM EDT Temperature 36.8 C (98.3 F) 05/13/2024 2:50 PM EDT Respiratory Rate 18 05/13/2024 2:50 PM EDT Oxygen Saturation 97% 05/13/2024 2:50 PM EDT Inhaled Oxygen Concentration - - Weight 76.7 kg (169 lb) 10/20/2024 3:14 PM EDT Height 154.9 cm (5' 1 ) 10/20/2024 3:14 PM EDT Body Mass Index 31.93 10/20/2024 3:14 PM EDT Plan of Treatment Upcoming Encounters Date Type Department Care Team (Late st Contact Info) Description 04/27/2025 3:20 PM EDT Office Visit [facility] [address] [facility] [address] [place] [address] Becky Oliveros MD 112 [facility] [address] [place] [address] Health Maintenance Due Date Last Done Comments Pap Smear 11/05/2011 Cervical Cancer Screening 02/16/2028 HPV/Cotest 02/16/2028 02/15/2023 Influenza Vaccine Discontinued Procedures Procedure Name Priority Date/Time Associated Diagnosis Comments THINPREP PAP AND HPV MRNA E6/E7 W/RFL HPV 16,18/45 Routine 02/15/2023 10:32 AM EDT Well woman exam with routine gynecological exam from Last 3 Months or Most Recently Relevant to Health Maintenance Results * THINPREP PAP AND HPV MRNA E6/E7 W/RFL HPV 16,18/45 (02/15/2023 10:32 AM EDT) us Chrissie [facility] BLOOD ORDERABLES Final Resul t EXTERNAL LAB from Last 3 Months or Most Recently Relevant to Health Maintenance Insurance [employer] Care Teams Dumper Operator Relationship Specialty Start Date End Date Fermín Ceballos MD PCP - General Family Medicine 03/19/24 Mckenna Quiñonez NP Nurse Practitioner Family Medicine 03/19/24
--- OUTSIDE RECORDS SUMMARY | 2025-04-14 13:51 | XMS_ITS | Encounter Summary ---
Author Organization [facility] Address [address] [facility] [address] Care Team Providers Care Log Check Scaler Name Role Phone Chrissie Mesa Unavailable Fermín Ceballos MD Primary Care Provider [phone] Mckenna Quiñonez NP Unavailable [phone] Encounter Details Date Type Department Care Team (Late st Contact Info) Description 04/30/2024 Orders Only [facility] [address] [place] [address] Mckenna Quiñonez NP [address] [place] [address] Social History Tobacco Use Types Packs/Day Years [...] week 04/01/2024 How often do you attend lutheran or episcopalian serv ices? Never 04/01/2024 Do you belong to any clubs o r organizations such as lutheran groups, unions, fraternal or athletic groups, or [...] Recorded Patient Health Questionnaire-2 Score 0 04/02/2024 [facility] of Occupat ional [facility] - Occupational Stress Questionnaire Answer [...] any time in the past 12 m [facility], were you homeless or living in a penitentiary (including now)? No 04/01/2024 Comments Unknown Sex [...] EDT Office Visit [facility] 112 [facility] [address] [place] [address] Becky Oliveros MD 112 [facility] [address] [place], [place] [address] documented as of this encounter Procedures Procedure Name Priority Date/Time Associated Diagnosis Comments BIOPSY THYROID Routine 04/30/2024 10:06 AM EDT documented in this encounter Results * Biopsy thyroid (04/30/2024 10:06 AM EDT) Mckenna Quiñonez NP IN CLINIC/BEDSIDE ORDERABLES Fi nal Result documented in this encounter Visit Diagnoses Not on filedocumented in this encounter Care Teams Log Check Scaler Relationship Specialty Start Date End Date Chrissie Mesa PA [facility] [place] [address] PCP - Medical [place] [employer] 08/05/21 02/25/25 Fermín Ceballos MD [facility] [place] [address] PCP - General Family Medicine 03/19/24 Mckenna Quiñonez NP [address] [place] [address] Nurse Practitioner Family Medicine 03/19/24 documented as of this encounter
--- OUTSIDE RECORDS SUMMARY | 2025-04-14 13:51 | XMS_ITS | Clinical Summary ---
Author Organization [employer] Address [id number] [address] [place] [address] Care Team Providers Care Signal Constructor Name Role Phone Nasra Sparrow GENOVEVA-FLEXOGRAPHIC PRESS OPERATOR Primary Care Provider [phone] Allergies No known active allergies Medications amitriptyline (ELAVIL) 10 mg tabletIndicatio ns:Chronic fatigue One capsule at 8 PM each night 30 tablet 2 05/05/2024 Active Active Problems No known active problems Social History Tobacco Use Types Packs/Day Years [...] Sign Reading Time Taken Comments Blood Pressure 122/74 05/05/2024 11:46 AM EDT Pulse - - Temperature - - Respiratory Rate 18 05/05/2024 11:46 AM EDT Oxygen Saturation - - Inhaled Oxygen Concentration - - Weight 72.6 kg (160 lb) 05/05/2024 11:46 AM EDT Height - - Body Mass Index - - Plan of Treatment Health Maintenance Due Date Last Done Comments Depression Screening 2002 Tobacco Screening 2002 Adult BMI Screening 2008 Pap Smear 11/05/2011 DTaP,Tdap and Td Vaccines (2 - Td or Tdap) 05/29/2022 05/29/2012 Influenza Vaccine 04/05/2025 Medical Devices Not on file Insurance [employer] Member Subscriber Plan / Payer (Ef fective 2019-Present) Name:Venita Chappell Relation to Subscriber:Spouse Name:Mervin Chappell Date of :1983 (Home) Address: [address] [place] [address] Payer ID:Not on file Type:Not on file Address: [address] [place] [phone] [employer] Member Subscriber Plan / Payer (Ef fective 2023-Present) Name:Venita Chappell Relation to Subscriber:Spouse Name:MERVIN CHAPPELL Date of :1983 Address: [address] [place] [address] Payer ID:Not on file Type:Not on file Address: [address] [place] [phone] Care Teams Signal Constructor Relationship Specialty Start Date End Date Nasra Sparrow, BONBON DIPPER-FLEXOGRAPHIC PRESS OPERATOR [address] [place] [address] PCP - General Nurse Practitioner 04/25/20
--- OUTSIDE RECORDS SUMMARY | 2025-04-14 13:51 | XMS_ITS | Encounter Summary ---
Author Organization [facility] Address [address] [facility] [place] [address] Care Team Providers Care Plant Inspector Name Role Phone Chrissie Mesa Unavailable Fermín Ceballos MD Primary Care Provider [phone] Mckenna Quiñonez NP Unavailable [phone] Encounter Details Date Type Department Care Team (Late st Contact Info) Description 02/14/2023 Abstract [facility] [address] [facility] [place] [id number] Gt Davis DO [address] [facility] [place] [address] Social History Tobacco Use Types Packs/Day Years Used Date Smoking Tobacco: Never Smokeless Tobacco: Never Alcohol Use Standard Drinks/Week Comments Yes 0 (1 standard drink = 0.6 oz pur e alcohol) occasional alcohol use Comments Unknown Sex and Gender Information Value Date Recorded Sex Assigned at Not on file Legal Sex Female 6:45 PM EDT Gender Identity Not on file Sexual Orientation Not on file documented as of this encounter Plan of Treatment Upcoming Encounters Date Type Department Care Team (Late st Contact Info) Description 04/27/2025 3:20 PM EDT Office Visit [facility] [address] [facility] [address] [place] [id number] Becky Oliveros MD [address] [facility] [address] [place], [place] [id number] documented as of this encounter Visit Diagnoses Not on filedocumented in this encounter Care Teams Plant Inspector Relationship Specialty Start Date End Date Chrissie Mesa PA [address] [place] [address] PCP - Medical [employer] 08/05/21 02/25/25 Fermín Ceballos MD [address] [place] [address] PCP - General Family Medicine 03/19/24 Mckenna Quiñonez NP [address] [place] [address] Nurse Practitioner Family Medicine 03/19/24 documented as of this encounter
--- OUTSIDE RECORDS SUMMARY | 2025-04-14 13:51 | XMS_ITS | Encounter Summary ---
Author Organization [facility] Address [address] [place] [address] Care Team Providers Care Compliance Mgr Name Role Phone Chrissie Mesa Unavailable Fermín Ceballos MD Primary Care Provider [phone] Mckenna Quiñonez NP Unavailable [phone] Encounter Details Date Type Department Care Team (Late st Contact Info) Description 04/17/2024 Clinisync Result Encounter [facility] External Department Unsolicited Mckenna Quiñonez, BONNIE [address] [place] [address] Social History Tobacco Use Types Packs/Day Years [...] week 04/01/2024 How often do you attend bahai or nondenominational serv ices? Never 04/01/2024 Do you belong to any clubs o r organizations such as bahai groups, unions, fraternal or athletic groups, or [...] Recorded Patient Health Questionnaire-2 Score 0 04/02/2024 [facility] - Occupational Stress Questionnaire Answer Date [...] any time in the past 12 m [facility], were you homeless or living in a halfway (including now)? No 04/01/2024 Comments Unknown Sex [...] [facility] [address] [facility] [address] [place] [address] Becky Oliveros MD [address] [facility] [address] [place] [address] documented as of this encounter Procedures Procedure Name Priority Date/Time Associated Diagnosis Comments US THYROID 04/17/2024 1:46 PM EDT documented in this encounter Results * US thyroid (04/17/2024 1:46 PM EDT) Anatomical Region Laterality Modality Head, Neck Ultrasound 04/17/2024 1:46 PM EDT Narrative 04/17/2024 1:48 PM EDT [address] [address] Ultrasound Report Signed Patient: FIFI CHAPPELL MR#: [id number] : 1990 Acct:[id number] Age/Sex: 33 / F ADM Date: 04/16/24 Loc: US Attending Dr: Mckenna Quiñonez NP Ordering Physician: Mckenna Quiñonez NP Date of Service: 04/16/24 Procedure(s): US thyroid Accession Number(s): [id number] cc: Mckenna Quiñonez NP [address] [address] Patient Name: FIFI CHAPPELL MRN: [facility]:[id number] date: 1990 Sex: F Assigned Patient Location: US Current Patient Location: Accession/Order Number: [id number] Exam Date: 04/16/2024 13:50 Report Date: 04/17/2024 [...] left thyroid TR 4 nodule TI-RADS: The [employer] TI-RADS committee's white paper recommendations for thyroid lesions classified as TR4 (moderately suspicious) are listed below: > 1.0 cm. Follow-up ultrasound in 1, 2, 3, and 5 years. > 1.5 cm. FNA. J. Am [facility] Radiol 2017;14:587-595. Electronically authenticated by: BRODERICK NGUYEN Date: 04/17/2024 13:46 Dictated By: Broderick Nguyen M.D. Signed By: 04/17/24 1348 DD/ TD/TT: Repair Cameraman: Procedure Note Radiology, Radiologist, MD - 04/17/2024 [place] [address] Ultrasound Report Signed Patient: FIFI CHAPPELL [facility]#: [id number] : 1990Acct:[id number] Age/Sex: 33 / FADM Date: 04/16/24 Loc: US Attending Dr: Mckenna Quiñonez NP Ordering Physician: Mckenna Quiñonez NP Date of Service: 04/16/24 Procedure(s): US thyroid Accession Number(s): [id number] cc: Mckenna Quiñonez NP [address] [address] Patient Name: FIFI CHAPPELL MRN: [facility]:[id number] date: 1990 Sex: F Assigned Patient Location: US Current Patient Location: Accession/Order Number: [id number] Exam Date: 04/16/2024 13:50 Report Date: 04/17/2024 [...] left thyroid TR 4 nodule TI-RADS: The [employer] TI-RADS committee's white paper recommendations for thyroid lesions classified as TR4 (moderatelysuspicious) are listed below: > 1.0 cm. Follow-up ultrasound in 1, 2, 3, and 5 years. > 1.5 cm. FNA. J. Am Jose Carlos Radiol 2017;14:587-595. Electronically authenticated by: BRODERICK NGUYEN Date: 04/17/2024 13:46 Dictated By: Broderick Nguyen M.D. Signed By:04/17/24 1348 DD/ 134 TD/TT: Repair Cameraman: us Mckenna Quiñonez NP IMG US PROCEDURES Final Result documented in this encounter Visit Diagnoses Not on filedocumented in this encounter Care Teams Compliance Mgr Relationship Specialty Start Date End Date Chrissie Mesa PA [address] [place] [address] [place] [address] PCP - Medical [employer] 08/05/21 02/25/25 Fermín Ceballos MD [address] [place] [address] PCP - General Family Medicine 03/19/24 Mckenna Quiñonez NP [address] [place] [address] Nurse Practitioner Family Medicine 03/19/24 documented as of this encounter
--- OUTSIDE RECORDS SUMMARY | 2025-04-14 14:05 | XMS_ITS | CCD ---
Author Organization [facility] Care Team Providers Care Environmental Technical Officer Name Role Phone PHYSICIAN, DEFAULT Admitting Unavailable PHYSICIAN, DEFAULT Attending Unavailable NASRA SPARROW Primary Care Unavailable REE, DR BHATT Admitting Unavailable REE, DR BHATT Consulting Unavailable REE, DR BHATT Attending Unavailable REE, DR BHATT Admitting Unavailable REE, DR BHATT Consulting Unavailable REE, DR BHATT Attending Unavailable NASRA SPARROW Primary Care Unavailable Edwin, Carmen Unavailable Madison Junior Unavailable Bernie Quiñonez Attending Provider [phone] Moshe [place], Chrissie Unavailable Fermín Ceballos MD Primary Care Provider [phone] Khang NICOLE, Bernie Unavailable JAMES MEDINA Attending Unavailable NASRA SPARROW Referring Unavailable NASRA SPARROW Primary Care Unavailable JAMES MEDINA Referring Unavailable NASRA SPARROW Primary Care Unavailable Bernie Quiñonez Attending Unavailable Bernie Quiñonez Admitting Unavailable Nasra Beavers Primary Care Provider Nasra Beavers Primary Care Provider LORENZO BIANCHI Attending Unavailable BERNIE QUIÑONEZ Attending Unavailable BERNIE QUIÑONEZ Attending Unavailable BERNIE QUIÑONEZ Attending Unavailable LORENZO BIANCHI Attending Unavailable BERNIE QUIÑONEZ Referring Unavailable Medications Current Medications Medication Drug Class(es) [...] 05-05-2024 ANTINUCLEAR ANTIBODIES, IFA Positive Abnormal . [facility] Comment on above: Negative <1:80 Borderline 1:80 Positive >1:80 CENTRIOLE PATTERN TNP . [facility] He althcare CENTROMERE PATTERN TNP . [facility] H ealthcare HOMOGENEOUS PATTERN 1:640 Abnormal . [facility] Comment on above: ICAP nomenclature: A C-1 Interpretation and review of laboratory results Abnormal [facility] re MIDBODY PATTERN TNP . [facility] Heal thcare NOTE: Comment . [facility] e Comment on above: Pattern Potential Di sease Association Homogeneous Systemic Lupus Erythematosus, Drug Induced Systemic Lupus Erythematosus, Chronic Autoimmune hepatitis, Juvenile Idiopathic Arthritis Speckled Sjogren Syndrome, Systemic Lupus Erythematosus, Subacute Cutaneous Lupus, Lupus, Congenital Heart Block, Mixed Connective Tissue Disease, Scleroderma-diffuse, Scleroderma-Autoimmune Myositis Overlap Syndrome, Systemic Lupus Zpdbwzyayrqcr-Kxyazzwhlik-Rbkagyqtmx Myositis Overlap Syndrome, Systemic Autoimmune Rheumatic Disease, [...] Cytopenias, Linear Scleroderma, Antiphospholipid Syndrome Performed at: [address] [id number] Slide Forming Machine Operator: Vasu Duke PhD, Phone: [phone] NUCLEAR DOT PATTERN TNP . [facility] NUCLEAR MEMBRANE PATTERN TNP . [facility] NUCLEOLAR PATTERN 1:640 Abnormal . [facility] Comment on above: ICAP nomenclature: A C-8,9,10 PCNA PATTERN TNP . [facility] Healthc are SPECKLED PATTERN TNP . [facility] SPINDLE APPARATUS PATTERN TNP . [facility] Antinuclear AB, HE-p Substra te, (SHAHLA by IFA)on 05-05-2024 Antinuclear Ab, HEp-2 Substrate, S Negative Normal <1:80 (Negative) [facility] Comment on above: Result Comment: NOTE ADDITIONAL INFORMATION Method: Immunofluorescence using HEp-2 cellular substrate. Test Performed by: [facility] [address] [place] [address] Slide Forming Machine Operator: Ashanti Anthony Ph.D.; CLIA# [id number] Performed By: #### 8 2477, 1987-12, CBCA, CMP #### [facility] ([id number]) [address] [place] [address], [place] [address] #### NAIFA #### [facility] ([id number]) [address] [place] [address], CBC AND AUTO DIFFon 05-05-20 ABSOLUTE BASOPHIL 0.1 X10E9/L Normal 0.0-0.2 [facility] Comment on above: Performed By: #### 8 2477, 1987-12, CBCA, CMP #### [facility] ([id number]) [address] [place] [address], [place] [address] #### NAIFA #### [facility] ([id number]) [address] [place] [address], ABSOLUTE NEUTROPHIL 4.6 X10E9/L Normal 1.5-6.6 [facility] Comment on above: Performed By: #### 8 2477, 1987-12, CBCA, CMP #### [facility] ([id number]) [address] [place] [address], [place] [address] #### NAIFA #### [facility] ([id number]) [address] [facility], Basophils/100 WBC (Bld) 0.7 % Normal [facility] Comment on above: Performed By: #### 8 2477, 1987-12, CBCA, CMP #### [facility] ([id number]) [address] [place] [address], [address] [place] [address] #### NAIFA #### [facility] ([id number]) [address] [place] [address], Eosinophils (Bld) [#/Vol] 0.1 10*3/uL Normal 0.0-0.4 [facility] Comment on above: Performed By: #### 8 2477, 1987-12, CBCA, CMP #### [facility] ([id number]) [address] [place] [address], [address] [place] [address] #### NAIFA #### [facility] ([id number]) [address] [place] [address], Eosinophils/100 WBC (Bld) 2.0 % Normal [facility] Comment on above: Performed By: #### 8 2477, 1987-12, CBCA, CMP #### [facility] ([id number]) [address] [place] [address], [address] [place] [address] #### NAIFA #### [facility] ([id number]) [address] [place] [address], Erythrocyte distribution width (RBC) [Ratio] 12.4 % Normal 11.5-15.0 [facility] Comment on above: Performed By: #### 8 2477, 1987-12, CBCA, CMP #### [facility] ([id number]) [address] [place] [address], [address] [place] [address] #### NAIFA #### [facility] ([id number]) [address] [place] [address], Hematocrit (Bld) [Volume fraction] 42.1 % Normal 35-47 [facility] Comment on above: Performed By: #### 8 24702-02, 1987-12, CBCA, CMP #### [facility] ([id number]) [address] [place] [address] #### NAIFA #### [facility] ([id number]) [address] [facility], Hemoglobin (Bld) [Mass/Vol] 14.5 g/dL Normal 11.7-15.5 [facility] Comment on above: Performed By: #### 8 24702-02, 1987-12, CBCA, CMP #### [facility] ([id number]) [address] [place] [address] #### NAIFA #### [facility] ([id number]) [address] [place] [address], Lymphocytes (Bld) [#/Vol] 2.1 10*3/uL Normal 1.0-3.5 [facility] Comment on above: Performed By: #### 8 24702-02, 1987-12, CBCA, CMP #### [facility] ([id number]) [address] [place] [address] #### NAIFA #### [facility] ([id number]) [address] [place] [address], Lymphocytes/100 WBC (Bld) 27.9 % Normal [facility] Comment on above: Performed By: #### 8 2476-08, 1987-12, CBCA, CMP #### [facility] ([id number]) [address] [place] [address] #### NAIFA #### [facility] ([id number]) [address] [facility], MCH (RBC) [Entitic mass] 30.0 pg Normal 27-34 [facility] Comment on above: Performed By: #### 8 2476-08, 1987-12, CBCA, CMP #### [facility] ([id number]) [address] [place] [address], [place] [address] #### NAIFA #### [facility] ([id number]) [address] [facility], MCHC (RBC) [Mass/Vol] 34.5 g/dL Normal 32-36 [facility] Comment on above: Performed By: #### 8 2476-08, 1987-12, CBCA, CMP #### [facility] ([id number]) [address] [place] [address] #### NAIFA #### [facility] ([id number]) [address] [facility], MCV (RBC) [Entitic vol] 87 fL Normal 80-100 [facility] Comment on above: Performed By: #### 8 2476-08, 1987-12, CBCA, CMP #### [facility] ([id number]) [address] [place] [address], [place] [address] #### NAIFA #### [facility] ([id number]) [address] [facility], Monocytes (Bld) [#/Vol] 0.5 10*3/uL Normal 0-0.9 [facility] Comment on above: Performed By: #### 8 2476-08, 1987-12, CBCA, CMP #### [facility] ([id number]) [address] [place] [address] #### NAIFA #### [facility] ([id number]) [address] [facility], Monocytes/100 WBC (Bld) 7.1 % Normal [facility] Comment on above: Performed By: #### 8 2476-08, 1987-12, CBCA, CMP #### [facility] ([id number]) [address] [place] [address], [address] [place] [address] #### NAIFA #### [facility] ([id number]) [address] [facility], Neutrophils/100 WBC (Bld) 62.3 % Normal [facility] Comment on above: Performed By: #### 8 2477, 1987-12, CBCA, CMP #### [facility] ([id number]) [address] [place] [address], [facility] [address] [place] [address] #### NAIFA #### [facility] ([id number]) [address] [place] [address], Platelet mean volume (Bld) [Entitic vol] 9.3 fL Normal 7-12 [facility] Comment on above: Performed By: #### 8 24702-02, 1987-12, CBCA, CMP #### [facility] ([id number]) [address] [place] [address] #### NAIFA #### [facility] ([id number]) [address] [place] [address], Platelets (Bld) [#/Vol] 297 10*3/uL Normal 150-450 [facility] Comment on above: Performed By: #### 8 24702-02, 1987-12, CBCA, CMP #### [facility] ([id number]) [address] [place] [address], [address] [address] #### NAIFA #### [facility] ([id number]) [address] [place] [address], RBC COUNT 4.85 X10E12/L Normal 3.80-5.20 [facility] Comment on above: Performed By: #### 8 24702-02, 1987-12, CBCA, CMP #### [facility] ([id number]) [address] [place] [address], [facility] [address] [place] [address] #### NAIFA #### [facility] ([id number]) [address] [facility], WBC (Bld) [#/Vol] 7.4 10*3/uL Normal 4.0-11.0 [facility] Comment on above: Performed By: #### 8 2477-1, 1987-, CBCA, CMP #### [facility] ([id number]) [address] [place] [address], [address] [place] [address] #### NAIFA #### [facility] ([id number]) [address] [facility], CBC auto differentialon 10-0 Basophils (Bld) [#/Vol] 0.1 10*3/uL [facility] Basophils/100 WBC (Bld) 0.7 % [facility] Eosinophils (Bld) [#/Vol] 0.1 10*3/uL [facility] Eosinophils/100 WBC (Bld) 2.0 % [facility] Erythrocyte distribution width (RBC) [Ratio] 12.4 % 11.5 - 15.0 % [facility] Hematocrit (Bld) [Volume fraction] 42.1 % 35 - 47 % [facility] Hemoglobin (Bld) [Mass/Vol] 14.5 g/dL 11.7 - 15.5 g/dL [facility] Lymphocytes (Bld) [#/Vol] 2.1 10*3/uL [facility] Lymphocytes/100 WBC (Bld) 27.9 % [facility] MCH (RBC) [Entitic mass] 30.0 pg 27 - 34 pg [facility] MCHC (RBC) [Mass/Vol] 34.5 g/dL 32 - 36 g/dL [facility] MCV (RBC) [Entitic vol] 87 fL 80 - 100 fL [facility] Monocytes (Bld) [#/Vol] 0.5 10*3/uL [facility] Monocytes/100 WBC (Bld) 7.1 % [facility] Neutrophils (Bld) [#/Vol] 4.6 10*3/uL [facility] Neutrophils/100 WBC (Bld) 62.3 % [facility] Platelet mean volume (Bld) [Entitic vol] 9.3 fL 7 - 12 fL [facility] Platelets (Bld) [#/Vol] 297 10*3/uL [facility] RBC (Bld) [#/Vol] 4.85 10*6/uL [facility] WBC corrected for nucl RBC Auto (Bld) [#/Vol] 7.4 [facility] COMPREHENSIVE METABOLIC PANE Will 05-05-2024 Albumin [Mass/Vol] 4.3 g/dL Normal 3.2-5.3 [facility] Comment on above: Performed By: #### 8 2477, 1987-12, CBCA, CMP #### [facility] ([id number]) [address] [facility], [place] [address] #### NAIFA #### [facility] ([id number]) [address] [facility], ALP [Catalytic activity/Vol] 60 U/L Normal 39-130 [facility] Comment on above: Performed By: #### 8 24702-02, 1987-12, CBCA, CMP #### [facility] ([id number]) [address] [place] [address], [address] [address] #### NAIFA #### [facility] ([id number]) [address] [facility], ALT [Catalytic activity/Vol] 13 U/L Normal 0-31 [facility] Comment on above: Performed By: #### 8 2477, 1987-12, CBCA, CMP #### [facility] ([id number]) [address] [place] [address], [address] [place] [address] #### NAIFA #### [facility] ([id number]) [address] [facility], Anion gap [Moles/Vol] 10 mmol/L Normal 5-15 [facility] Comment on above: Performed By: #### 8 24702-02, 1987-12, CBCA, CMP #### [facility] ([id number]) [address] [place] [address], [address] [place] [address] #### NAIFA #### [facility] ([id number]) [address] [place] [address], AST [Catalytic activity/Vol] 18 U/L Normal 0-41 [facility] Comment on above: Performed By: #### 8 24702-02, 1987-12, CBCA, CMP #### [facility] ([id number]) [address] [place] [address], [address] [place] [address] #### NAIFA #### [facility] ([id number]) [address] [place] [address], Bilirubin [Mass/Vol] 0.2 mg/dL Low 0.3-1.2 [facility] Comment on above: Performed By: #### 8 2476-08, 1987-12, CBCA, CMP #### [facility] ([id number]) [address] [place] [address], [address] [place] [address] #### NAIFA #### [facility] ([id number]) [address] [place] [address], Calcium [Mass/Vol] 9.6 mg/dL Normal 8.5-10.5 [facility] Comment on above: Performed By: #### 8 2476-08, 1987-12, CBCA, CMP #### [facility] ([id number]) [address] [place] [address], [address] [place] [address] #### NAIFA #### [facility] ([id number]) [address] [place] [address], Chloride [Moles/Vol] 103 mmol/L Normal 98-109 [facility] Comment on above: Performed By: #### 8 2476-08, 1987-12, CBCA, CMP #### [facility] ([id number]) [address] [place] [address], [address] [place] [address] #### NAIFA #### [facility] ([id number]) [address] [place] [address], CO2 [Moles/Vol] 25 mmol/L Normal 22-32 [facility] Comment on above: Performed By: #### 8 2477, 1987-12, CBCA, CMP #### [facility] ([id number]) [address] [place] [address], [address] [place] [address] #### NAIFA #### [facility] ([id number]) [address] [place] [address], Creatinine [Mass/Vol] 0.69 mg/dL Normal 0.40-1.00 [facility] Comment on above: Result Comment: METH OD TRACEABLE TO IDMS STANDARD Performed By: #### 8 24702-02, 1987-12, CBCA, CMP #### [facility] ([id number]) [address] [place] [address], [address] [address] #### NAIFA #### [facility] ([id number]) [address] [place] [address], eGFR (CKD-EPI) NON-RACE DEPENDENT >90 Normal >59 [facility] Comment on above: Result Comment: Reported eGFR is based on the CKD-EPI 1 equation that does not use a race coefficient. Performed By: #### 8 2477, 1987-12, CBCA, CMP #### [facility] ([id number]) [address] [place] [address], [facility] [address] [place] [address] #### NAIFA #### [facility] ([id number]) [address] [place] [address], Glucose [Mass/Vol] 74 mg/dL Normal 65-99 [facility] Comment on above: Performed By: #### 8 2477, 1987-12, CBCA, CMP #### [facility] ([id number]) [address] [place] [address], [address] [place] [address] #### NAIFA #### [facility] ([id number]) [address] [place] [address], Potassium [Moles/Vol] 3.9 mmol/L Normal 3.5-5.0 [facility] Comment on above: Performed By: #### 8 24702-02, 1987-12, CBCA, CMP #### [facility] ([id number]) [address] [place] [address], [facility] [address] [place] [address] #### NAIFA #### [facility] ([id number]) [address] [place] [address], Protein [Mass/Vol] 7.3 g/dL Normal 6.0-8.0 [facility] Comment on above: Performed By: #### 8 24702-02, 1987-12, CBCA, CMP #### [facility] ([id number]) [address] [place] [address], [address] [place] [address] #### NAIFA #### [facility] ([id number]) [address] [place] [address], Sodium [Moles/Vol] 138 mmol/L Normal 134-146 [facility] Comment on above: Performed By: #### 8 24702-02, 1987-12, CBCA, CMP #### [facility] ([id number]) [address] [place] [address], [address] [place] [address] #### NAIFA #### [facility] ([id number]) [address] [place] [address], Urea nitrogen [Mass/Vol] 19 mg/dL Normal 5-23 [facility] Comment on above: Performed By: #### 8 24702-02, 1987-12, CBCA, CMP #### [facility] ([id number]) [address] [place] [address], [facility] [address] [place] [address] #### NAIFA #### [facility] ([id number]) [address] [place] [address], CRP [Mass/Vol]on 05-05-2024 C REACTIVE PROTEIN 0.2 mg/dL Normal 0.000-0.744 [facility] Comment on above: Performed By: #### 8 2477-1, 1987-12, CBCA, CMP #### [facility] ([id number]) [address] [place] [address], [address] [place] [address] #### NAIFA #### [facility] ([id number]) [address] [place] [address], ESR Photometric method (Bld) [Velocity]on 05-05-2024 Interpretation and review of laboratory results Abnormal [facility] ESR, ERYTHROCYTE SEDIMENTATION RATE 21 mm/h High 0-20 [facility] Comment on above: Performed By: #### 8 2477, 1987-12, CBCA, CMP #### [facility] ([id number]) [address] [place] [address], [address] [place] [address] #### NAIFA #### [facility] ([id number]) [address] [place] [address], Erythrocyte Sedimentation Ra te (ESR)on 05-05-2024 ESR Photometric method (Bld) [Velocity] 21 mm/h High 0 - 20 mm/h [facility] Will 04-30-2024 L Specimen: [id number] Received: 05/06/24 Status: ANDER Martin Num: [id number] Spec Type: Cytology Subm Dr: GENOVEVA Lund Tissues: A FNA SLIDES NOPATH (LT THY NOD) Procedures: Cyto Int and Re, PAPSTN/5 Age/ Patient Sex Location Account Attending Physician Fifi Mock 33/F LABELL [id number] GENOVEVA Lund SPEC NUM: [id number] RECD: 05/06/24 STATUS: SOUDimitry REQ NUM: [id number] VÍCTOR: 04/30/24- SUBM DR: Bernie Quiñonez, ADOBE ARCHITECT-C ENTERED: 05/06/[address] [facility] [address]: Jyotsna,Lab Mason Wynn MD SPEC TYPE: Cytology DEPT: JOAN NCYT ENTERED BY: [id number] RECV BY: [id number] ORDERED: Cyto Int and Re, PAPSTN/5 ORDERED: Cyto Int and Re, PAPSTN/5 Pathological Diagnosis Left thyroid nodule, FNA cytology: -Occasional follicular cells are present. -However, the larger and the more preserved follicular groups are still <10 for overall assessment, consistent with the category 1 Roundup system: Nondiagnostic -The follicular cells of the [...] at -20 for microscopic examination.(YC/nh) ---- Specimen: [id number] Received: 05/06/24 Status: ANDER Martin Num: [id number] Spec Type: Cytology [facility] Dr: Bernie Quiñonez, ADOBE ARCHITECT-C Tissues: A FNA SLIDES NOPATH (LT THY NOD) Procedures: Cyto Int and Re, PAPSTN/5 ---- Patient: Fifi Mock [id number] (Continued) ---- Specimen: [id number] Received: 05/06/24 (Continued) Signed (signature on file) Ramon Sanabria MD 05/06/24 1732 ---- Specimen: [id number] Received: 05/06/24 Status: ANDER Martin Num: [id number] Spec Type: Cytology Subm Dr: Bernie Quiñonez, GENOVEVA Tissues: A FNA SLIDES NOPATH (LT THY NOD) Procedures: Cyto Int and Re, PAPSTN/5 ---- Patient: Fifi Mock [id number] (Continued) ---- Specimen: [id number] Received: 05/06/24 (Continued) Microscopic Description Microscopic examinations are performed supporting the above interpretation CPT Codes 89599 ---- ---- Specimen: [id number] Received: 05/06/24 Status: ANDER Martin Num: [id number] Spec Type: Cytology Subm Dr: Bernie Quiñonez, ADOBE ARCHITECT-C Tissues: A FNA SLIDES NOPATH (LT THY NOD) Procedures: Cyto Int and Re, PAPN/5 ---- Patient: Fifi Mock [id number] (Continued) ---- Signed (signature on file) Brayan-Inocencio Sanabria MD 05/06/24 1732 Normal [facility] ALL CBC WITH AUTO DIFFon BASOPHILS ABSOLUTE AUTO 0.1 [facility] Basophils/100 WBC (Bld) 0.7 % 0.2 - 2.0 % [facility] Eosinophils/100 WBC (Bld) 2.1 % 0.9 - 7.0 % [facility] Erythrocyte distribution width (RBC) [Ratio] 11.9 % 11.0 - 15.0 % [facility] Hematocrit (Bld) [Volume fraction] 42.9 % 36.0 - 48.0 % [facility] Hem[facility] ([facility]ld) [Mass/Vol] 14.3 g/dL 12.0 - 16.0 g/dL [facility] IMMATURE GRANULOCYTES ABS AUTO 0.02 [facility] Immature granulocytes/100 WBC (Bld) 0.3 % 0.0 - 0.5 % [facility] LYMPHOCYTES ABSOLUTE AUTO 1.9 [facility] Lymphocytes/100 WBC (Bld) 27.0 % 20.5 - 60.0 % [facility] MCH (RBC) [Entitic mass] 29.1 pg 26.7 - 34.0 pg [facility] MCHC (RBC) [Mass/Vol] 33.3 g/dL 29.9 - 35.2 g/dL [facility] MCV (RBC) [Entitic vol] 87.4 fL 81.0 - 99.0 fL [facility] MONOCYTES ABSOLUTE AUTO 0.5 [facility] Monocytes/100 WBC (Bld) 7.5 % 1.7 - 12.0 % [facility] NEUTROPHILS ABSOLUTE AUTO 4.4 [facility] Neutrophils/100 WBC (Bld) 62.4 % 43.0 - 75.0 % [facility] Platelet mean volume (Bld) [Entitic vol] 10.3 fL 9.5 - 13.5 fL [facility] TBH EO # 0.2 [facility] PLT 289 [facility] RBC 4.91 [facility] WBC 7.1 [facility] CLINISYNC [facility] Quick Strepon 09-15-2023 S. pyogenes Org specific cx Ql (Throat) Positive [facility] Other Quick Strep [facility] Other COVID/FLU/RSV RT-PCRon 07-31 SARS-CoV-2 (COVID-19) RNA EDWIN+probe Ql (Unsp spec) Negative [facility] Other COVID/FLU/RSV RT-PCR Negative [facility] Other COVID/FLU/RSV RT-PCR Positive [facility] Other PAP ACOG PANEL 2: 30 to 65on 11-05-2021 . . Normal [facility] Comment on above: Result Comment: Perf ormed at: WB Performed By: #### 4 [id number] #### [facility] [address] [place] [address] Dr. Omar Sanabria Age Gdln ACOG Testing -65 Normal [facility] Comment on above: Performed By: #### 4 [id number] #### [facility] [address] [place] [address] Dr. Omar Sanabria DIAGNOSIS: Comment Normal [facility] Comment on above: Result Comment: NEGA TIVE FOR INTRAEPITHELIAL LESION OR MALIGNANCY. Performed at: WB Performed By: #### 4 [id number] #### [facility] [address] [place] [address] Dr. Omar Sanabria HPV Aptima Negative Normal Negative [facility] Comment on above: Result Comment: This nucleic acid amplification test detects fourteen high-risk HPV types (16,18,31,33,35,39,45,51,52,56,58,59,66,68) without differentiation. Performed at: =G Performed By: #### 4 [id number] #### [facility] [address] [place] [address] Dr. Omar Sanabria Methodology: Comment [facility] Comment on above: Result Comment: This liquid based ThinPrep(R) pap test was screened with the use of an image guided system. Performed at: WB Performed By: #### 4 [id number] #### [facility] [address] [place] [address] Dr. Omar Sanabria Note: Comment Normal [facility] Comment on above: Result Comment: The Pap smear is a screening test designed to aid in the detection of premalignant and malignant conditions of the uterine cervix. It is not a diagnostic procedure and should not be used as the sole means of detecting cervical cancer. Both false-positive and false-negative reports do occur. . Performed at: WB Performed By: #### 4 [id number] #### [facility] [address] [address] [address] Omar Sanabria Performed by: Comment Normal [facility] Comment on above: Result Comment: Kristal Smith, Client Server Developer (ASCP) Performed at: WB Performed By: #### 4 [id number] #### [facility] [address] [place] [address] Dr. Omar Sanabria Specimen adequacy: Comment Normal [place] Comment on above: Result Comment: Sati sfactory for evaluation. Endocervical and/or squamous metaplastic cells (endocervical component) are present. Performed at: WB Performed By: #### 4 [id number] #### [facility] [address] [place] [address] Dr. Omar Sanabria HERPES SIMPLEX 1/2 IGMon HSV, IgM I/II Combination 1.01 Ratio Critically high 0.00-0.90 [facility] Comment on above: Result Comment: Ve rified by repeat analysis Negative <0.91 Equivocal 0.91 - 1.09 Positive >1.09 Performed By: #### H SVIGM #### [facility] [address] [place] [address] Dr. Omar Sanabria HERPES SIMPLEX 1/2 IGGon HSV 1 IgG, Type Spec 8.59 index Critically high 0.00-0.90 [facility] Comment on above: Result Comment: Nega tive <0.91 Equivocal 0.91 - 1.09 Positive >1.09 Note: Negative indicates no antibodies detected to HSV-1. Equivocal may suggest early infection. If clinically appropriate, retest at later date. Positive indicates antibodies detected to HSV-1. Performed By: #### H SV IGG #### [facility] [address] [place], [place] [address] Dr. Omar Sanabria HSV 2 IgG Type Spec <0.91 Normal 0.00-0.90 [facility] Comment on above: Result Comment: Nega tive <0.91 Equivocal 0.91 - 1.09 Positive >1.09 Note: Negative indicates no HSV-2 antibodies detected. Positive indicates HSV-2 antibodies detected. Equivocal and low positive HSV-2 screens (Index 0.91-5.00) may be false positive and are reflexed to supplemental testing in accordance with CDC guidelines. Performed By: #### H SV IGG #### [facility] [address] [address] [address] Omar Sanabria MAGR Intraoperative Recordon 12-19-2018 MAGR Intraoperative Record MAGR Intra-Op Record Summary Primary Physician: Luis Goss DO Finalized Date/Time: 12/19/18 08:27:55 Pt. Name: FIFI MOCK/Sex: 1990 FEMALE Med Rec #: [id number] Physician: Luis Goss DO Financial #: [id number] Pt. Type: D Room/Bed: / Admit/Disch: 12/16/18 [...] Role Performed Surgeon - Primary Anesthesiologist of Horizontal Boring Mill Set Up Operator Record Time In 12/16/18 07:56:00 12/16/18 07:56:00 12/16/18 07:56:00 Time Out 12/16/18 09:03:00 05/14/19 09:03:00 12/16/18 09:03:00 Procedure Tubal Ligation Tubal Ligation Tubal Ligation Laparoscopic(Bilateral ) Laparoscopic(Bilateral ) Laparoscopic(Bilateral ) Last Modified By: Francisco J RN, Joselyn Marx RN, Joselyn Marx RN, Joselyn Granados 12/16/18 09:14:28 12/16/18 09:14:28 12/16/18 09:14:28 Entry 4 Entry 5 Case Attendee Adrián HARMON, Cynthia Wong TEST CLERK/CSFA Role Performed Scrub Personnel Snath Handle Assembler Time In 12/16/18 07:56:00 12/16/18 07:56:00 Time [...] device sites Entry 1 Device Description CATH KALEY ESQUEDA 14FR Device Type Straight catheter Present [...] Unfinalizing Freetext Reason for Unfinalizing 12/19/18 08:27 SSAUER Correct Documentation [facility] Coding Summaryon 12-17-2018 Coding Summary CODING DATE: 12/17/2018 [facility] STATUS: Home PAYOR: Commercial Insurance APC DESCRIPTION 5361 Level 1 Laparoscopy and Related Services ADMIT DX: REASON FOR VISIT DX: Z30.2 Encounter for sterilization FINAL DX: PRINCIPAL: Z30.2 Encounter for sterilization SECONDARY: PYMT PROC APC STAT DESCRIPTION DOCTOR NAME DATE 85161 5361 J1 Laparoscopy, surgical; Wolfgang OWEN Luis Renteria 12/16/2018 with fulguration of oviducts (with or without transection) NOTE: The code number assigned matches the documented diagnosis and / or procedure in the patient's chart. However, the narrative phrase printed from the coding software may appear abbreviated, or result in slightly different terminology. Coded By: Elissa Rowe Date Saved: 12/17/2018 12:12 pm [facility] Consent Formson 12-17-2018 Consent Forms [id number]#1.00 [facility] History and Physicalon 12-17 History and Physical [id number]#1.00 [facility] Operative Report - Surgeon/P hysicianon 12-17-2018 Operative Report - Surgeon/Physician [id number]#1.00 [facility] Provider Orderson 12-17-2018 Protein mass conc [id number]#1.00 [facility] Telemetry Stripson 9 Telemetry Strips [id number]#1.00 [facility] Anesthesia Noteon 12-16-2018 Anesthesia Note Patient: [...] 16 09:20) Resp Rate 18 br/min (DECEMBER 16:15) SBP 111 mmHg (DECEMBER 16:20) DBP 64 mmHg (DECEMBER 16:20) SpO2 98 % (DECEMBER 16:) Pain assessment: [...] on: 12/16/2018 09:26 EDT] Sebastian Myers MD [facility] Anesthesia Note Patient: FIFI MOCK Age: 28 [...] history): All Problems Anemia / SNOMED CT 366784196 / Confirmed Depression / SNOMED CT 21047689 / Confirmed Insomnia / SNOMED CT 368937346 / Confirmed Histories Family History: No family history items have been selected or recorded. Procedure history: Laparoscopic cholecystectomy (74695209). Dilation and curettage (35140863). Social History Alcohol Assessment Use: Current. Liquor, [...] br/min (DECEMBER 16:) SBP 111 mmHg (DECEMBER 16:25) DBP 75 mmHg (DECEMBER 16:25) SpO2 99 % (DECEMBER 16:05) General: Alert and oriented, No acute distress. Airway: Mallampati classification: I (soft palate, fauces, uvula, pillars visible). Respiratory: Respirations are non-labored. Cardiovascular: Normal rate, Regular rhythm. Review / Management Laboratory Results Plan [employer] Anesthesiologists#(ASA ) physical status classification: [...] on: 12/16/2018 07:49 EDT] Sebastian Myers MD [facility] Inpatient Patient Summaryon 12-16-2018 Inpatient Patient Summary [facility] [address] [place], [place] [id number] Patient Discharge Instructions Name: FIFI MOCK : 89 Patient Address: [address] [place], [place] [id number] Primary Care Provider: Name: Nasra Sparrow CNP After you are discharged if you find you have any questions, please, call [phone] ext [phone] to speak to a nurse. Discharge Diagnosis: [...] business decisions or sign any legal documents [facility] would like to thank you for allowing us to assist you with your healthcare needs. The following includes patient education materials and information regarding your injury/illness. FIFI MOCK has been given the following list of follow-up instructions, prescriptions, and patient education materials: Follow-up Instructions With: Address: When: Luis Goss [address] [place] [address] [id number] Business (1) In 2 weeks 12/30/18 Medications During the course of your visit, your medication list was updated with the most current information. The details of those changes are reflected below: New Medications Printed Prescriptions acetaminophen-hydrocod one (Riverside 5 mg-325 mg oral tablet) 1 tab(s) [...] you can keep with you. acetaminophen-hydrocod one (Riverside 5 mg-325 mg oral tablet) 1 tab(s) [...] including vitamins, herbs, eye drops, creams, and xdzw-zkc-zhpwedp medicines. ? Any problems you or family [...] 10/28/2001 Document Revised: 12/27/2016 Document Reviewed: 07/01/2016 [employer] Interactive Patient Education ? 2018 [employer] Viruses or Bacteria What?s got you [...] for Disease Control and Prevention April 2014 [facility] MAGR PACU Recordon 9 MAGR PACU Record MAGR PACU Record Summary Primary Physician: Luis Goss DO Finalized Date/Time: 12/16/18 09:44:44 Pt. Name: MOCK FIFIBabita Shine./Sex: 1990 FEMALE Med Rec #: [id number] Physician: Luis Goss DO Financial #: [id number] Pt. Type: D Room/Bed: / Admit/Disch: 12/16/18 [...] Signed By: Gema Todd RN 12/16/18 09:44 [facility] MAGR Postoperative Recordon 12-16-2018 MAGR Postoperative Record MAGR Phase II Record Summary Primary Physician: Luis Goss DO Finalized Date/Time: 12/16/18 10:50:50 Pt. Name: MARY MOCKBabita Shine./Sex: 1990 FEMALE Med Rec #: [id number] Physician: Luis Goss DO Financial #: [id number] Pt. Type: D Room/Bed: / Admit/Disch: 12/16/18 [...] Signed By: Maty Irving RN 12/16/18 10:50 [facility]2018 [facility] Preoperative Record MAGR Pre-Op Record Summary Primary Physician: Luis Goss DO Finalized Date/Time: 12/16/18 08:34:48 Pt. Name: MASOUD MOCKRADHA Shine./Sex: 1990 FEMALE Med Rec #: [id number] Physician: Luis Goss DO Financial #: [id number] Pt. Type: D Room/Bed: / Admit/Disch: 12/16/18 [...] By: Joselyn Marx RN 12/16/18 08:34 Normal [facility] Operative Report - Surgeon/P kusum 12-16-2018 Operative [...] grasped with a single tooth tenaculum. An [place] uterine manipulator was then advanced into the [...] 4-0 Vicryl in a subcuticular manner. The [place] uterine manipulator was then removed from the vagina with no bleeding noted from the cervix. The patient tolerated the procedure well. Sponge, lap, needle and instrument counts were correct x2. The patient was taken to the recovery room awake and in stable condition. Luis Goss DO JOB #: [id number] [Electronically Signed on: 12/23/2018 07:53 EDT] Luis Goss DO, D.O. [Verified on: 12/23/2018 07:53 EDT] Luis Goss DO, D.O. [Transcribed on: 12/16/2018 09:49 EDT] U [facility] Patient Handouton 12-16-2018 Patient Handout Obstetrics [...] including vitamins, herbs, eye drops, creams, and ypqo-fcf-xmjafgx medicines. ? Any problems you or family [...] 10/28/2001 Document Revised: 12/27/2016 Document Reviewed: 07/01/2016 [employer] Interactive Patient Education ? 2018 [employer] [facility] Test Urine 1 U Preg Negative [facility] Comment on above: Performed By: #### 3 [id number] #### [facility] (DEFAULT) [address] [place] [address] U Preg Internal Control Pass [facility] Comment on above: Performed By: #### 3 [id number] #### [facility] (DEFAULT) [address] [place] [address] Progress Note - Nurseon 12-03 Protein mass conc Spoke with pt regarding arrival time of 0600 and NPO status. Verbalized understanding. [Electronically Signed on: 12/15/2018 13:31 EDT] Virginia Davenoprt RN [Verified on: 12/15/2018 13:31 EDT] Virginia Davenport RN [facility] Coding Summaryon 12-11-2018 Coding Summary CODING DATE: 12/11/2018 [facility] STATUS: Home PAYOR: Commercial Insurance [...] Elissa Rowe Date Saved: 12/11/2018 11:19 am [facility] Provider Orderson 12-11-2018 Protein mass conc [id number]#1.00 OTGTIFF [facility] .Auto Diff 1on 12-09-2018 Auto Baso % 0.5 % Normal 0.2-2.0 [facility] Comment on above: Performed By: #### 1 [id number], [id number] #### [facility] (DEFAULT) [address] [place] [address] Auto Henry % 8 % Normal 1-12 [facility] Comment on above: Performed By: #### 1 [id number], [id number] #### [facility] (DEFAULT) [address] [place] [address] Auto Neut % 64 % Normal 44-88 [facility] Comment on above: Performed By: #### 1 [id number], [id number] #### [facility] (DEFAULT) [address] [place] [address] Baso Abs# 0.0 x10 Normal 0.0-0.2 [facility] Comment on above: Performed By: #### 1 [id number], [id number] #### [facility] (DEFAULT) [address] [place] [address] Eos Abs# 0.1 x10 Normal 0.0-0.4 [facility] Comment on above: Performed By: #### 1 [id number], [id number] #### [facility] (DEFAULT) [address] [place] [address] Eosinophils/100 WBC (Bld) 0.9 % Normal 0.9-4.0 [facility] Comment on above: Performed By: #### 1 [id number], [id number] #### [facility] (DEFAULT) [address] [place] [address] Lymphocytes #/vol (Bld) 1.7 x10 Normal 1.3-2.9 [facility] Comment on above: Performed By: #### 1 [id number], [id number] #### [facility] (DEFAULT) [address] [place] [address] Lymphocytes/100 WBC (Bld) 27 % Normal 14-48 [facility] Comment on above: Performed By: #### 1 [id number], [id number] #### [facility] (DEFAULT) [address] [place] [address] Henry Abs# 0.5 x10 Normal 0.0-0.8 [facility] Comment on above: Performed By: #### 1 [id number], [id number] #### [facility] (DEFAULT) [address] [place] [address] Neut Abs# 4.1 x10 Normal 1.5-9.2 [facility] Comment on above: Performed By: #### 1 [id number], [id number] #### [facility] (DEFAULT) [address] [place] [address] CBC w/ Auto Diffon 9 Erythrocyte distribution width Ratio (RBC) 12.9 % Normal 11.5-15.0 [facility] Comment on above: Performed By: #### 1 [id number], [id number] #### [facility] (DEFAULT) [address] [place] [address] Hematocrit Volume Fraction (Bld) 44.3 % High 33.7-40.4 [facility] Comment on above: Performed By: #### 1 [id number], [id number] #### [facility] (DEFAULT) [address] [place] [address] Hemoglobin mass conc (Bld) 15.1 g/dL Normal 11.3-15.9 [facility] Comment on above: Performed By: #### 1 [id number], [id number] #### [facility] (DEFAULT) [address] [place] [address] Man Diff? Auto Normal [facility] Comment on above: Performed By: #### 1 [id number], [id number] #### [facility] (DEFAULT) [address] [place] [address] MCH Entitic mass (RBC) 29 pg Normal 24-34 [facility] Comment on above: Performed By: #### 1 [id number], [id number] #### [facility] (DEFAULT) [address] [place] [address] MCHC mass conc (RBC) 34 g/dL Normal 26-37 [facility] Comment on above: Performed By: #### 1 [id number], [id number] #### [facility] (DEFAULT) [address] [place] [address] MCV Entitic volume (RBC) 85 fL Normal 81-100 [facility] Comment on above: Performed By: #### 1 [id number], [id number] #### [facility] (DEFAULT) [address] [place] [address] Platelet mean volume Entitic volume (Bld) 10.4 fL High 6.3-10.2 [facility] Comment on above: Performed By: #### 1 [id number], [id number] #### [facility] (DEFAULT) [address] [place] [address] Platelets #/vol (Bld) 295 x10 Normal 138-427 [facility] Comment on above: Performed By: #### 1 [id number], [id number] #### [facility] (DEFAULT) [address] [place] [address] RBC #/vol (Bld) 5.19 x10 Normal 3.70-5.30 [facility] Comment on above: Performed By: #### 1 [id number], [id number] #### [facility] (DEFAULT) [address] [place] [address] WBC #/vol (Bld) 6.4 x10 Normal 3.5-10.5 [facility] Comment on above: Performed By: #### 1 [id number], [id number] #### [facility] (DEFAULT) [address] [place] [address] Vital Signs Date Time Vital Sign Value Performing Clinician Facility 06-03-2024 14:07-0400 Body height 154.9 cm Lorenzo Bianchi MD Work Phone: [facility] 06-03-2024 14:07-0400 Body mass index (BMI) [Ratio] 31.74 kg/m2 Lorenzo Bianchi MD Work Phone: [facility] 06-03-2024 14:07-0400 Body weight 76.2 kg Lorenzo Bianchi MD Work Phone: [facility] 06-03-2024 14:07-0400 Diastolic blood pressure 80 mm[Hg] Lorenzo Bianchi MD Work Phone: [facility] 06-03-2024 14:07-0400 Systolic blood pressure 113 mm[Hg] Lorenzo Bianchi MD Work Phone: [facility] 05-13-2024 14:50-0400 Body height 154.9 cm Bernie Quiñonez ADOBE ARCHITECT Work Phone: [facility] 05-13-2024 14:50-0400 Body mass index (BMI) [Ratio] 31.63 kg/m2 Bernie Quiñonez ADOBE ARCHITECT Work Phone: [facility] 05-13-2024 14:50-0400 Body temperature 98.29 [degF] Bernie Quiñonez ADOBE ARCHITECT Work Phone: [facility] 05-13-2024 14:50-0400 Body weight 75.93 kg Bernieyuridia Moringill ADOBE ARCHITECT Work Phone: [facility] 05-13-2024 14:50-0400 Diastolic blood pressure 60 mm[Hg] Bernie Cinthiaz ADOBE ARCHITECT Work Phone: [facility] 05-13-2024 14:50-0400 Heart rate 75 /min Bernie Cinthiaz ADOBE ARCHITECT Work Phone: [facility] 05-13-2024 14:50-0400 Respiratory rate 18 /min Bernie Vanesasohamz ADOBE ARCHITECT Work Phone: [facility] 05-13-2024 14:50-0400 SaO2% (BldA) [Mass fraction] 97 % Bernie Cinthiaz ADOBE ARCHITECT Work Phone: [facility] 05-13-2024 14:50-0400 Systolic blood pressure 98 mm[Hg] Bernie Khang ADOBE ARCHITECT Work Phone: [facility] 05-05-2024 11:46-0400 Body weight 72.58 kg James Medina MD Work Phone: [facility] 05-05-2024 11:46-0400 Diastolic blood pressure 74 mm[Hg] James Medina MD Work Phone: [facility] 05-05-2024 11:46-0400 Respiratory rate 18 /min James Medina MD Work Phone: [facility] 05-05-2024 11:46-0400 Systolic blood pressure 122 mm[Hg] James Medina MD Work Phone: [facility] 04-28-2024 15:01-0400 Body height 154.9 cm Bernie Khang ADOBE ARCHITECT Work Phone: [facility] 04-28-2024 15:01-0400 Body mass index (BMI) [Ratio] 31.06 kg/m2 Bernie Khang ADOBE ARCHITECT Work Phone: [facility] 04-28-2024 15:01-0400 Body temperature 98.1 [degF] Bernieyuridia Alexissohamz ADOBE ARCHITECT Work Phone: [facility] 04-28-2024 15:01-0400 Body weight 74.57 kg Bernie Patiencehholz ADOBE ARCHITECT Work Phone: [facility] 04-28-2024 15:01-0400 Diastolic blood pressure 86 mm[Hg] Bernie Patiencehholz ADOBE ARCHITECT Work Phone: [facility] 04-28-2024 15:01-0400 Heart rate 69 /min Bernie Aichholz ADOBE ARCHITECT Work Phone: [facility] 04-28-2024 15:01-0400 Respiratory rate 18 /min Bernie Patiencehholz ADOBE ARCHITECT Work Phone: [facility] 04-28-2024 15:01-0400 SaO2% (BldA) [Mass fraction] 98 % Bernie Vanesaholz ADOBE ARCHITECT Work Phone: [facility] 04-28-2024 15:01-0400 Systolic blood pressure 106 mm[Hg] Bernie Patiencehholz ADOBE ARCHITECT Work Phone: [facility] 04-02-2024 14:26-0400 Body height 154.9 cm Bernie Patiencehholz ADOBE ARCHITECT Work Phone: [facility] 04-02-2024 14:26-0400 Body mass index (BMI) [Ratio] 31.29 kg/m2 Bernie Patiencehholz ADOBE ARCHITECT Work Phone: [facility] 04-02-2024 14:26-0400 Body temperature 97.81 [degF] Bernie Patiencehholz ADOBE ARCHITECT Work Phone: [facility] 04-02-2024 14:26-0400 Body weight 75.12 kg Bernie Patiencehholz ADOBE ARCHITECT Work Phone: [facility] 04-02-2024 14:26-0400 Diastolic blood pressure 70 mm[Hg] Bernie Aichholz ADOBE ARCHITECT Work Phone: [facility] 04-02-2024 14:26-0400 Heart rate 65 /min Bernie Quiñonez ADOBE ARCHITECT Work Phone: [facility] 04-02-2024 14:26-0400 Respiratory rate 18 /min Bernie Quiñonez ADOBE ARCHITECT Work Phone: [facility] 04-02-2024 14:26-0400 SaO2% (BldA) [Mass fraction] 99 % Bernie Quiñonez ADOBE ARCHITECT Work Phone: [facility] 04-02-2024 14:26-0400 Systolic blood pressure 106 mm[Hg] Bernie Quiñonez ADOBE ARCHITECT Work Phone: [facility] 09-15-2023 09:00-0500 Body height 154.94 cm Madison [employer] Other [employer] Other 09-15-2023 09:00-0500 Body mass index (BMI) [Ratio] 28.83 kg/m2 Madison [employer] Other [employer] Other 09-15-2023 09:00-0500 Body temperature 100 [degF] Madison Junior Other [employer] Other 09-15-2023 09:00-0500 Body weight 69.22 kg Madison Junior Other [employer] Other 09-15-2023 09:00-0500 Respiratory rate 18 /min Madison [employer] Other [employer] Other 09-15-2023 09:00-0500 SaO2% (BldA) [Mass fraction] 99 % Madison Junior Other [employer] Other 07-31-2023 17:10-0500 Body height 154.94 cm Carmen Edwin Other [employer] Other 07-31-2023 17:10-0500 Body mass index (BMI) [Ratio] 24.56 kg/m2 Carmen Edwin Other [employer] Other 07-31-2023 17:10-0500 Body temperature 99 [degF] Carmen Edwin Other [employer] Other 07-31-2023 17:10-0500 Body weight 58.97 kg Carmen Edwin Other [employer] Other 07-31-2023 17:10-0500 Respiratory rate 18 /min Carmen Edwin Other [employer] Other 07-31-2023 17:10-0500 SaO2% (BldA) [Mass fraction] 97 % Carmen Edwin Other [employer] Other Encounters Encounter Date Encounter Type Care Provider Facility Start: 10-20-2024 End: 10-20-2024 ambulatory LORENZO BIANCHI Not Available Start: 07-13-2024 End: 07-13-2024 Telephone encounter Bernie Quiñonez NP Work Phone: [facility] Start: 06-03-2024 End: 06-03-2024 Bamboo flowsheet Lorenzo Bianchi MD Work Phone: [facility] Start: 06-03-2024 End: 06-03-2024 Bamboo flowsmerari Bianchi MD Work Phone: [facility] [...] Office outpatient visit 15 minutes Bernie Quiñonez ADOBE ARCHITECT Work Phone: [facility] Comment on [...] 05-13-2024 End: 05-13-2024 Bamboo flowsheet Bernie Quiñonez ADOBE ARCHITECT Work Phone: [facility] Start: 05-13-2024 End: 05-13-2024 Bamboo flowsheet Bernie Quiñonez ADOBE ARCHITECT Work Phone: [facility] Start: 05-05-2024 End: 05-05-2024 Office outpatient new 45 minutes James Medina MD Work Phone: [facility] Comment on above: SHAHLA positive (Primar y Dx); Chronic fatigue Start: 05-05-2024 End: 05-05-2024 ambulatory [facility] Start: 05-02-2024 End: 05-05-2024 Clinisync Result Encounter Bernie Quiñonez ADOBE ARCHITECT Work Phone: [facility] Unsolicited Start: 05-02-2024 End: 05-05-2024 Clinisync Result Encounter Bernie Quiñonez ADOBE ARCHITECT Work Phone: [facility] Unsolicited Start: 04-30-2024 End: 04-30-2024 ambulatory Bernie Quiñonez [facility] Work Phone: Start: 04-30-2024 End: 04-30-2024 Departed Referred Bernie Quiñonez Work Phone: [facility] Start: 04-29-2024 End: 04-29-2024 Telephone encounter [facility] Start: 04-28-2024 End: 04-28-2024 Office outpatient visit 25 minutes Bernie Quiñonez ADOBE ARCHITECT Work Phone: [facility] Comment on above: SHAHLA positive (Primar y Dx); Other Remedios-Danlos syndromes (CMS/HCC); Class 1 obesity due to excess calories without serious comorbidity with body mass index (BMI) of 31.0 to 31.9 in adult; Thyroid nodule greater than or equal to 1.5 cm in diameter incidentally noted on imaging study (CMS/HCC) Start: 04-28-2024 End: 04-28-2024 ambulatory BERNIE QUIÑONEZ Not Available Start: 04-28-2024 End: 04-28-2024 Bamboo flowsheet Bernie Khang ADOBE ARCHITECT Work Phone: [facility] Start: 04-28-2024 End: 04-28-2024 Bamboo flowsheet Bernie Khang ADOBE ARCHITECT Work Phone: [facility] Start: 04-09-2024 End: 04-09-2024 Orders Only Bernie Quiñonez ADOBE ARCHITECT Work Phone: [facility] Comment on above: Thyroid antibody pos itive (Primary Dx) Start: 04-04-2024 End: 04-04-2024 Clinisync Result Encounter Bernie Quiñonez ADOBE ARCHITECT Work Phone: [facility] Unsolicited Start: 04-04-2024 End: 04-04-2024 Clinisync Result Encounter Bernie Khang ADOBE ARCHITECT Work Phone: [facility] Unsolicited Start: 04-02-2024 End: 04-02-2024 Periodic preventive med est patient 18-39 yrs Bernie Quiñonez ADOBE ARCHITECT Work Phone: [facility] Comment on above: Wellness examination (Primary Dx); Arthralgia, unspecified joint; Other fatigue; Iron deficiency anemia, unspecified iron deficiency anemia type; Class 1 obesity due to excess calories without serious comorbidity with body mass index (BMI) of 31.0 to 31.9 in adult Start: 04-02-2024 End: 04-02-2024 ambulatory BERNIE QUIÑONEZ Not Available Start: 04-02-2024 End: 04-02-2024 Bamboo flowsheet Bernie Quiñonez ADOBE ARCHITECT Work Phone: [facility] Start: 04-02-2024 End: 04-02-2024 Bamboo flowsheet Bernie Quiñonez ADOBE ARCHITECT [facility] Phone: [facility] Start: 04-02-2024 End: 04-02-2024 Patient encounter status Bernie Quiñonez ADOBE ARCHITECT Work Phone: [facility] Start: 09-15-2023 End: 09-15-2023 ambulatory Madison Junior Other B-Obvious Other Start: 09-15-2023 Office outpatient vi sit 25 minutes Madison Junior [facility] [place] Start: 07-31-2023 End: 07-31-2023 ambulatory Carmen Edwin Other B-Obvious Other Start: 07-31-2023 Office outpatient vi sit 15 minutes Carmen Edwni [facility] [place] Start: 10-30-2021 End: 10-30-[address] NOVA KEENAN Facility:[facility] Start: 10-30-2021 End: 10-31-2021 ambulatory NASRA SPARROW Facility:[facility] Start: 10-13-2018 End: 10-14-2018 Patient encounter procedure DEFAULT PHYSICIAN Facility:[facility] Procedures Date Procedure Procedure Detail Performing Clinician Start: 05-02-2024 ANTINUCLEAR ANTIBODI ES, IFA Bernie Quiñonez ADOBE ARCHITECT Work Phone: Start: 08-31-2024 ALL CBC WITH AUTO DIFF Bernie Quiñonez ADOBE ARCHITECT Work Phone: Plan of Treatment Date Care Activity Detail Author Start: 02-16-2028 Screening for malign ant neoplasm of cervix [facility] Start: 10-20-2024 End: 10-20-2024 Patient encounter procedure 10/20/2024 3:20 PM EDT Office Visit [facility] [address] [facility] [address] [place] [address] Lorenzo Bianchi MD [address] [place] [address] [place] [address] [facility] Start: 07-22-2024 End: 07-22-2024 Patient encounter procedure 07/22/2024 2:00 PM EST Office Visit [facility] [address] [place] [address] Bernie Quiñonez, ADOBE ARCHITECT [address] [place] [address] [facility] Start: 06-03-2024 End: 06-03-2024 Patient encounter procedure 06/03/2024 2:00 PM EDT Office Visit [facility] [address] [facility] [address] [place] [address] Lorenzo Bianchi MD [address] [facility] [address] [place] [address] Thyroid nodule greater than or equal to [...] SHAHLA positive Expected: 05/05/2024 (Approximate), Expires: 05/05/2025 [facility] Comment on above: Expected: 05/05/2024 (Approximate), Expires: 05/05/2025 Start: 05-05-2024 End: 05-05-2025 Comprehensive metabolic 2000 panel - Serum or Plasma [facility] Comment on above: Expected: 05/05/2024 (Approximate), Expires: 05/05/2025 Start: 04-28-2024 End: 04-28-2024 [facility] Comment on above: Arrived Start: 04-09-2024 End: 04-09-2025 US Thyroid gland US thyroid Imaging Routine Thyroid antibody positive Expected: 04/09/2024, Expires: 04/09/2025 [facility] Work Phone: Comment on above: Expected: 04/09/2024 , Expires: 04/09/2025 Start: 04-05-2024 Influenza vaccination N [facility] Start: 04-02-2024 End: 04-02-2024 Patient encounter procedure 04/02/2024 2:20 PM EDT Office Visit [facility] [address] [place] [address] Bernie Quiñonez NP [address] [place] [id number] Arrived [facility] Comment on above: Arrived Start: 04-02-2024 End: 04-02-2025 C reactive protein [Mass/volume] in Serum or Plasma C-reactive protein Lab Routine Arthralgia, unspecified joint Expected: 04/02/2024 (Approximate), Expires: 04/02/2025 [facility] Comment on above: Expected: 04/02/2024 (Approximate), Expires: 04/02/2025 Start: 04-02-2024 End: 04-02-2025 Erythrocyte sedimentation rate Sedimentation rate, automated Lab Routine Arthralgia, unspecified joint Expected: 04/02/2024 (Approximate), Expires: 04/02/2025 [facility] Work Phone: Comment on above: Expected: 04/02/2024 (Approximate), Expires: 04/02/2025 Start: 04-02-2024 End: 04-02-2025 Iron + transferrin + TIBC Iron + transferrin + TIBC Lab Routine Iron deficiency anemia, unspecified iron deficiency anemia type Expected: 04/02/2024 (Approximate), Expires: 04/02/2025 [facility] Comment on above: Expected: 04/02/2024 (Approximate), Expires: 04/02/2025 Start: 04-02-2024 End: 04-02-2025 Nuclear Ab [Titer] in Serum by Immunofluorescence SHAHLA Lab Routine Arthralgia, unspecified joint Expected: 04/02/2024 (Approximate), Expires: 04/02/2025 [facility] Comment on above: Expected: 04/02/2024 (Approximate), Expires: 04/02/2025 Start: 04-02-2024 End: 04-02-2025 Rheumatoid factor [Units/volume] in Serum or Plasma Rheumatoid factor Lab Routine Arthralgia, unspecified joint Expected: 04/02/2024 (Approximate), Expires: 04/02/2025 [facility] Comment on above: Expected: 04/02/2024 (Approximate), Expires: 04/02/2025 Start: 04-02-2024 End: 04-02-2025 Thyroid peroxidase and thyroglobulin antibodies Thyroid peroxidase and thyroglobulin antibodies Lab Routine Other fatigue Expected: 04/02/2024 (Approximate), Expires: 04/02/2025 [facility] Comment on above: Expected: 04/02/2024 (Approximate), Expires: 04/02/2025 Start: 04-02-2024 End: 04-02-2025 Urate [Mass/volume] in Serum or Plasma Uric acid Lab Routine Arthralgia, unspecified joint Expected: 04/02/2024 (Approximate), Expires: 04/02/2025 [facility] Comment on above: Expected: 04/02/2024 (Approximate), Expires: 04/02/2025 Start: 05-29-2022 DTaP,Tdap and Td Vac cines (2 - Td or Tdap) DTaP,Tdap and Td Vaccines (2 - Td or Tdap) [facility] Start: 11-05-2011 Screening for malign ant neoplasm of cervix Pap Smear [facility] Start: 2009 DTaP,Tdap and Td Vac cines (1 - Tdap) DTaP,Tdap and Td Vaccines (1 - Tdap) [facility] Start: 2008 Adult BMI Screening Adult BMI Screen ing [facility] Start: 2002 Depression Screening Depression Scre ening [facility] Start: 2002 Tobacco Screening Tobacco Screening [facility] End: 05-05-2025 Antinuclear Ab, HEp-2 Substrate, S Antinuclear Ab, HEp-2 Substrate, S Lab Routine SHAHLA positive 1 Occurrences starting 05/05/2024 until 05/05/2025 [facility] Work Phone: Comment on above: 1 Occurrences starti ng 05/05/2024 until 05/05/2025 Antinuclear Ab, HEp- 2 Substrate, S Antinuclear Ab, HEp-2 Substrate, S Lab Routine SHAHLA positive 05/05/2024 12:03 PM EDT [facility] C reactive protein [Mass/volume] in Serum or Plasma C-reactive protein Lab Routine SHAHLA positive 05/05/2024 12:03 PM EDT [facility] Immunizations Immunization Date Immunization Notes Care Provider Simba maya 05-29-2012 tetanus toxoid, redu parviz diphtheria toxoid, and acellular pertussis vaccine, adsorbed Bernie Quiñonez NP Work Phone: [facility] Payers Date Payer Category Payer Self-pay [id number] 2022 [place] [id number] 2022 Unknown 1990 Unknown [id number]. 647 1990 Unknown [id number] [id number]. 593 1990 Unknown [id number] [id number]. 593 1990 Unknown [id number] [id number]. 1286 1990 Unknown [id number] 2.16.840.1.189954.3.579.2. 1286 1990 Unknown [id number] [id number]. 1259 1990 Unknown [id number] [id number]. 1259 1990 Unknown [id number] 2.16.840.1.510608.3.579.2. 1259 1990 Unknown [id number] 2.16.840.1.848500.3.579.2. 1259 1990 Unknown [id number] [id number]. 1259 1959 Unknown [id number] Unknown [facility] [id number] Unknown [id number]. 531 Social History Date Type Detail Facility Unknown if ever smoked [facility] Other Start: 09-15-2020 End: 04-01-2024 Sex Assigned At [facility] Start: 03-01-2018 End: 01-16-2023 Tobacco smoking status NHIS Never smoked tobacco (finding) [facility] Start: 1990 Sex Assigned At Female [facility] Start: 01-16-2023 Tobacco use and exposure Smokeless tobacco non-user [facility] Start: 04-02-2024 End: 04-28-2024 Alcoholic beverage intake Current drinker of alcohol (finding) [facility] Start: 09-15-2020 End: 04-01-2024 History of Social function [facility] How often do you nee d to have someone help you when you read instructions, pamphlets, or other written material from your doctor or pharmacy [SILS] Never [facility] Do you belong to any clubs or organizations such as hoahaoism groups, unions, fraternal or athletic groups, or [...] Ex-drinker (finding) [facility] Tobacco smoking stat [facility] Tobacco smoking consumption unknown [facility] Clinical Notes 07-31-2023 to 07-13-2024 Telephone Encounter - Bernie Quiñonez NP - 07/13/2024 7:14 PM ESTTelephone Encounter - Bernie Quiñonez NP - 07/13/2024 7:14 PM Gagan Bianchi MD - 06/03/2024 2:00 PM EDT Note Date & Type Note Facility 07-13-2024 Telephone encounter Note Please call referral for Genetics, pt still has not heard anything about an appt [place] [facility] 07-13-2024 Miscellaneous Notes Please call referral for Genetics, pt still has not heard anything about an appt [place] documented in this encounter [facility] 06-03-2024 History of Present illness Narrative Subjective Patient ID: Fifi Mock is a 33 y.o. female who presents for Thyroid Nodule (Ultrasound 04/17/24 [facility]) Pt reports she was being evaluated for fatigue, which included and eval of the thyroid. TSH was 1.47. Thyroid US was obtained that showed a [id number] LT TR4 nodule. US-guided FNA performed that was classified as Roundup 1. No radiation exposure. 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 documented in this encounter [facility] 05-13-2024 History of Present illness Narrative Associated Problem(s): Thyroid nodule greater than or equal to 1.5 cm in diameter incidentally noted on imaging study (CMS/HCC) Non diagnostic biopsy, will refer to ENT Associated Problem(s): Other Remedios-Danlos syndromes (CMS/HCC) Will send to [facility] for testing, [facility] does not do this testing Left [...] syndromes (CMS/HCC) - Primary [facility], [facility] Relevant Orders Ambulatory referral to Genetics Thyroid nodule greater than or equal to 1.5 cm in diameter incidentally noted on imaging study (CMS/HCC) Non diagnostic biopsy, will refer to ENT Relevant Orders Ambulatory referral to ENT documented in this encounter [facility] 05-05-2024 History of Present illness Narrative Images from the original note were not included. [address] [address] Date of Service: 05/05/2024 Positive SHAHLA Subjective: [...] results RTC based on lab results Total [id number] time was 35 minutes with more than [...] or corrected. Thank you for your understanding. [facility] Rheumatology Dr. James Medina MD [address] [place] [address] Office: [phone] documented in this encounter [facility] 04-29-2024 Miscellaneous Notes Lvm to schedule new patient appt Positive SHAHLA documented in this encounter [facility] 04-29-2024 Telephone encounter Note Lvm to schedule new patient appt Positive SHAHLA [facility] 04-28-2024 History of Present illness Narrative Associated [...] Fu for results documented in this encounter [facility] 04-02-2024 History of Present illness Narrative [...] 31.9 in adult documented in this encounter [facility] 09-15-2023 Evaluation note Encounter Date Diagnosis [...] understanding and is agreeable to treatment plan. [facility] Other 12-27-2023 Evaluation note* Encounter Date Diagnosis [...] pain, shortness of breath or difficulty breathing. B-Obvious Other Evaluation noteNo assessment information available [facility] Work Phone: Evaluation note* Diagnosis Thyroid nodule greater than or equal to 1.5 cm in diameter incidentally noted on imaging study (CMS/HCC)- Primary Other Remedios-Danlos syndromes (CMS/HCC) Class 1 obesity due to excess calories without serious comorbidity with body mass index (BMI) of 31.0 to 31.9 in adult documented in this encounter [facility] Healthcare[facility] note* Diagnosis Wellness examination- Primary Arthralgia, [...] imaging study (CMS/HCC) documented in this encounter [facility]* Diagnosis Wellness examination- Primary Arthralgia, unspecified joint Other fatigue Iron deficiency anemia, unspecified iron deficiency anemia type Class 1 obesity due to excess calories without serious comorbidity with body mass index (BMI) of 31.0 to 31.9 in adult documented in this encounter [facility] Healthcare[facility] note* Diagnosis Thyroid antibody positive- Primary documented in this encounter [facility]* Diagnosis SHAHLA positive- Primary Other Remedios-Danlos syndromes (CMS/HCC) Class 1 obesity due to excess calories without serious comorbidity with body mass index (BMI) of 31.0 to 31.9 in adult Thyroid nodule greater than or equal to 1.5 cm in diameter incidentally noted on imaging study (CMS/HCC) documented in this encounter [facility] Healthcare[facility] note* Diagnosis SHAHLA positive- Primary Chronic fatigue Other malaise and fatigue documented [facility] Narrative - Reported* Type Description Date Medical History anemia Surgical History cholecystectomy Surgical History tubal ligation Hospitalization History see above Hospitalization History child births B-Obvious Other InstructionsNot on filedocumented in this encounter [facility] System[facility]ructionsNot on filedocumented in this encounter [facility] SystemReason for referral (narrative)* Consultation (Routine) - Pending Review Specialty Diagnoses / Procedures Referred By Polly choudhary Referred To Contact Genetics Diagnoses Other Remedios-Danlos syndromes (CMS/HCC) Procedures OR OFFICE/OUTPATIENT [facility] 60 MINUTES Bernie Quiñonez NP [address] [place] [address] Nancy Brennan MD [address] [place] [address] Referral ID Status Reason Start Date Expiration Date Visits Requested Visits Authorized [id number] Pending Review Specialty Services Required 05/13/2024 11/09/2024 1 1 * Consultation (Routine) - Pending Review Specialty Diagnoses / Procedures Referred By Polly choudhary Referred To Contact Otolaryngology Diagnoses Thyroid nodule greater than or equal to 1.5 cm in diameter incidentally noted on imaging study (CMS/HCC) Procedures OR OFFICE/OUTPATIENT NEW HIGH MDM 60 MINUTES Bernie Quiñonez NP [address] [place] [address] Lorenzo Bianchi MD [address] [address] Referral ID Status Reason Start Date Expiration Date Visits Requested Visits Authorized [id number] Pending Review Specialty Services Required 05/13/2024 11/09/2024 1 1 [facility] Consultation (Routine) - Pending Review Specialty Diagnoses / Procedures Referred By Contac t Referred To Contact Rheumatology Diagnoses SHAHLA positive Procedures OR OFFICE/OUTPATIENT NEW HIGH MDM 60 MINUTES Bernie Quiñonez NP [address] [place] [address] James Medina MD [address] [address] Referral ID Status Reason Start Date Expiration Date Visits Requested Visits Authorized [id number] Pending Review Specialty Services Required 04/28/2024 10/25/2024 1 1 * Consultation (Routine) - Pending Review Specialty Diagnoses / Procedures Referred By Contac t Referred To Contact Genetics Diagnoses Other Remedios-Danlos syndromes (CMS/HCC) Procedures OR OFFICE/OUTPATIENT NEW HIGH MDM 60 MINUTES Bernie Quiñonez NP [address] [place] [address] Referral ID Status Reason Start Date Expiration Date Visits Requested Visits Authorized [id number] Pending Review Specialty Services Required 04/28/2024 10/25/2024 1 1 Scheduling Instructions Schedule in [place] with Genetics department of [facility] Summary Purpose Family History No Family History Records FoundNo Family History Records FoundNo Family History Records FoundNo Family History Records FoundNo Family History Records FoundNo Family History Records Found Advance Directives No Advanced Directives Records Found Advance Directive Response Recorded Date/ Time Advance Directives No March 06, 018 12:49pm Hospital Course Note [facility] SURGERY Clinical Discharge Summary PERSON INFORMATION Name FIFI MOCK Age 28 Years 90 Sex FEMALE Language Upper Sor[place] PCP Nasra Sparrow CNP R Marital Status Med Service Ambulatory Surgery Acct# Arrival 12/16/18 06:00:00 Visit Reason SURGERY - LAPAROSCOPIC BILATERAL TUBAL LIGATION Acuity LOS 034 00:46 Address: [address] [place] [address] Comment: PROVIDER INFORMATION VITALS INFORMATION Vital Sign [...] Medication Allergies Prescriptions Given: Prescription Display acetaminophen-hydrocodone ([place] 5 mg- 325 mg oral tablet) 1 tab(s), PO, q6hr, Instructions: may take 1 or 2 tablets not to exceed 8 tablets/day, (more content not included)... Additional Source Comments INFORMATION SOURCE (unrecogn ized section and content) DATE CREATED AUTHOR 10/14/2018 [facility] DATE CREATED AUTHOR AUTHOR'S ORGANIZ ATION 01/01/2019 [facility] DATE CREATED AUTHOR AUTHOR'S ORGANIZ ATION 02/14/2022 [facility] DATE CREATED AUTHOR AUTHOR'S ORGANIZ ATION 05/06/2024 [facility] DATE CREATED AUTHOR AUTHOR'S ORGANIZ ATION 05/08/2024 [facility] DATE CREATED AUTHOR AUTHOR'S ORGANIZ ATION 10/23/2024 [facility] dical Specialists EPIC REASON FOR VISIT (unrecogniz ed section and content) Reason Comments Thyroid Nodule Ultrasound 04/17/24 [facility] Specialty Diagnoses / Procedures Referred By Polly t Referred To Contact Otolaryngology Diagnoses Thyroid nodule greater than or equal to 1.5 cm in diameter incidentally noted on imaging study ([facility]) Procedures OR OFFICE/OUTPATIENT NEW HIGH MDM 60 MINUTES Bernie Quiñonez NP [address] [place] [address] Phone: tel: fax: Lorenzo Bianchi MD [address] [place] [address] Phone: tel: fax: Referral ID Status Reason Start Date Expiration Date V isits Requested Visits Authorized [id number] Closed Specialty Services Required 05/13/2024 11/09/2024 1 1 Care Teams (unrecognized sec tion and content) Team Status: Inactive Member Role Status Dates Bernie Quiñonez Attending Provider Active Start: April 30, 2024 End: April 30, 2024 Environmental Technical Officer Relationship Specialty Start Date End Date Chrissie Mesa PA [address] [place] [address] PCP - Medical [place] [employer] 08/05/21 08/04/99 Fermín Ceballos MD [address] [place] [phone] PCP - General Family Medicine 03/19/24 Bernie Quiñonez NP [address] [place] [id number] Nurse Practitioner Family Medicine 03/19/24 Environmental Technical Officer Relationship Specialty Start Date End Date Chrissie Mesa PA [address] [place] [address] PCP - Medical [place] [employer] 08/05/21 08/04/99 Fermín Ceballos MD [address] [place] [address] PCP - General Family Medicine 03/19/24 Bernie Quiñonez NP [address] [place] [address] Nurse Practitioner Family Medicine 03/19/24 Environmental Technical Officer Relationship Specialty Start Date End Date Chrissie Mesa PA [address] [place] [address] PCP - Medical [place] [employer] 08/05/21 08/04/99 Fermín Ceballos MD [address] [place] [phone] PCP - General Family Medicine 03/19/24 Bernie Quiñonez NP [address] [place] [phone] Nurse Practitioner Family Medicine 03/19/24 Environmental Technical Officer Relationship Specialty Start Date End Date Chrissie Mesa PA [address] [place] [address] PCP - Medical [place] [employer] 08/05/21 08/04/99 Fermín Ceballos MD [address] [place] [phone] PCP - General Family Medicine 03/19/24 Bernie Quiñonez NP [address] [place] [phone] Nurse Practitioner Family Medicine 03/19/24 Environmental Technical Officer Relationship Specialty Start Date End Date Chrissie Mesa PA [address] [place] [address] PCP - Medical [place] [employer] 08/05/21 08/04/99 Fermín Ceballos MD [address] [place] [phone] PCP - General Family Medicine 03/19/24 Bernie Quiñonez, ADOBE ARCHITECT [address] [place] [phone] Nurse Practitioner Family Medicine 03/19/24 Environmental Technical Officer Relationship Specialty Start Date End Date Chrissie Mesa PA [address] [place] [address] PCP - Medical [place] [employer] 08/05/21 08/04/99 Fermín Ceballos MD [address] [place] [phone] PCP - General Family Medicine 03/19/24 Bernie Quiñonez, ADOBE ARCHITECT [address] [place] [address] Nurse Practitioner Family Medicine 03/19/24 Environmental Technical Officer Relationship Specialty Start Date End Date Chrissie Mesa PA [address] [place], [place] [id number] PCP - Medical [place] [employer] 08/05/21 08/04/99 Fermín Ceballos MD [address] [place] [phone] PCP - General Family Medicine 03/19/24 Bernie Quiñonez NP [address] [place] [address] Nurse Practitioner Family Medicine 03/19/24 Environmental Technical Officer Relationship Specialty Start Date End Date Chrissie Mesa [place] [facility] [place] [address] PCP - Medical [place] [employer] 08/05/21 08/04/99 Fermín Ceballos MD [address] [place] [phone] PCP - General Family Medicine 03/19/24 Bernie Quiñonez NP [address] [place] [phone] Nurse Practitioner Family Medicine 03/19/24 Environmental Technical Officer Relationship Specialty Start Date End Date Chrissie Mesa PA [facility] [place] [address] PCP - Medical [place] [employer] 08/05/21 08/04/99 Fermín Ceballos MD [address] [place] [phone] PCP - General Family Medicine 03/19/24 Bernie Quiñonez NP [address] [place] [address] Nurse Practitioner Family Medicine 03/19/24 Environmental Technical Officer Relationship Specialty Start Date End Date Chrissie Mesa PA [address] [place] [address] PCP - Medical [place] [employer] 08/05/21 08/04/99 Fermín Ceballos MD [address] [place] [phone] PCP - General Family Medicine 03/19/24 Bernie Quiñonez NP [address] [place] [phone] Nurse Practitioner Family Medicine 03/19/24 Environmental Technical Officer Relationship Specialty Start Date End Date Chrissie Mesa PA [address] [place] [address] PCP - Medical [place] [employer] 08/05/21 08/04/99 Fermín Ceballos MD [address] [place] [phone] PCP - General Family Medicine 03/19/24 Bernie Quiñonez NP [address] [place] [address] Nurse Practitioner Family Medicine 03/19/24 Environmental Technical Officer Relationship Specialty Start Date End Date Chrissie Mesa PA [address] [place] [address] PCP - Medical [place] [employer] 08/05/21 08/04/99 Fermín Ceballos MD [address] [place] [address] PCP - General Family Medicine 03/19/24 Bernie Quiñonez NP [address] [place] [address] Nurse Practitioner Family Medicine 03/19/24 Environmental Technical Officer Relationship Specialty Start Date End Date Nasra Sparrow, GENOVEVA-CANDIDA [address] [place] [address] PCP - General Nurse Practitioner 04/25/20 Environmental Technical Officer Relationship Specialty Start Date End Date Nasra Sparrow, GENOVEVA-VETERINARIAN SMALL [employer]IMAL PCP - General Nurse Practitioner 04/25/20 Goals [...] BE BASED ON THE PRIMARY CLINICAL RECORDS. [facility] [email or web address] [facility]. provides no warranty or guarantee of the accuracy or completeness of information in this document.
== END 2025-04-14 13:48 | disposition home or self-care (01) ==
LOC: US 13:49
PROVIDERS: Visit Provider Otolaryngology
DX: E04.1 Nontoxic single thyroid nodule (principal)
CPT/HCPCS: 76536

== ENCOUNTER 2025-06-08 13:10 | Outpatient (OUT) | payer OTHER, SELFPAY ==
--- OUTSIDE RECORDS SUMMARY | 2025-06-07 13:33 | XMS_ITS | Continuity of Care Document ---
Author Organization [facility] Address [address] [place] [address] Phone Care Team Providers Care Equipment Coordinator Name Role Phone Mckenna Quiñonez NP-C Primary Care Provider Mckenna Quiñonez Attending Provider Care Teams Patient Care Team Team Status: Active Member Role/Relationship Status Dates GENOVVEA Lund Primary Care Provider Active Patient Care Team Team Status: Inactive Member Role/Relationship Status Dates Mckenna Quiñonez NP-Gabriele Primary Care Provider Active Start: June 07, 2025 End: June 07, 2025FELICITY LundCAttending ProviderActiveStart: June 07, 2025 End: June 07, 2025 Chief Complaint and Reason for Visit Chief Complaint Admit Date annual wellness June 07, 2025 5 :46pm Reason for Visit Admit Date Meghana-Danlos disease June 07, 2025 5:46pm Encounter for wellness examination Novem 2024 5:46pm TALHA (generalized anxiety disorder) Novem 2024 5:46pm JENIFER (iron deficiency anemia) June 5:46pm Major depression June 07, 2025 5 :46pm Obesity due to excess calories June 07, 2025 5:46pm Allergies, Adverse Reactions, Alerts Allergen Type Severity Reaction Last Updated Verified Status No Known Allergies Allergy Unknown June 07, 2025 6:20pmYesActive Social History Smoking Status Status Start Date End Date Date of Observa tion Never smoked tobacco (finding) March 01, 2018 9:20am Observation Status Observation Response Date of Response Legal Sex Female (finding) Sex Assigned At BirthFemaleApril 1990 Problems Active Problems Problem Diagnosis/Recorded Date Onset Date Stat us Positive SHAHLA (antinuclear antibody) June 05, 2025 4:39am Unknown Active Major depression June 05, 2025 4:38am Unknown Active TALHA (generalized anxiety disorder) June 05, 2025 4:38am Unknown Active Thyroid nodule June 05, 2025 4:39am Unknown Active Elevated LFTs June 05, 2025 4:38am Unknown A ctive Meghana-Danlos disease June 05, 2025 4:39am Unknow n Active Encounter for wellness examination June 07, 2025 7:27am Unknown Active Herpes simplex June 05, 2025 4:38am Unknown Active JENIFER (iron deficiency anemia) June 05, 2025 4:38am Unknown Active Hx of cholecystectomy June 05, 2025 4:38am Unknow n Active Hx of breast implants, bilateral June 07, 2025 6: 22pm Unknown Active Hx of tubal ligation June 05, 2025 4:38am Unknown Active Obesity due to excess calories June 05, 2025 4:39 am Unknown Active Medications Medication Status Dose Units Route Directions Qty Days Refills S tart Date Stop Date End Date Reason(s) Instructions Adherence Valacyclovir (Valtrex) 500 mg tablet Discontinued 500 MG PO Daily June 04, 2025 11:00pmJune 07, 2025 6:21pmDiphenhydramine-Acetaminophen (Tylenol Pm Extra Strength) 25-500 mg poqkwrNlpdko3UEEOHEsurc at bedtime as neededJune 04, 2025 11:00pmComplies with drug therapyValacyclovir (Valtrex) 500 mg jldlyjOelrei772AGFMConfn as neededJune 07, 2025 6:20pmComplies with drug therapy Vital Signs Vital Reading Result Reference Range Collection Date/Time Height 61 [in_i] June 07, 2025 6:42gaGthmrq88.60 kgJune 07, 2025 6:07pmBody Temperature 98.1 [degF]97.6-99.0June 07, 2025 6:07pmHeart Rate90 /qcb08-845LlidsztmJune 07, 2025 6:07pmRespiratory rate18 /krm63-94OikljegaJune 07, 2025 6:07pmOxygen saturation by Pulse lfgbraqp10 %95-100June 07, 2025 6:07pmBP Iarabppg691 mm[Hg]100-140June 07, 2025 6:07pmBP Cgnsgtimt73 mm[Hg]60-100June 07, 2025 6:07pmBMI (Body Mass Index)33.1 kg/x1LtfxqtusJune 07, 2025 6:07pm Advance Directives Advance Directive Response Recorded Date/ Time Advance Directives No March 06 11:49am Insurance Providers Guarantor Venitanica Mock Address [address] [facility] [address] Info.Home Phone: Payer Group Member ID Coverage Type Subscriber Relationship to Subscriber Effective Date Expiration Date [facility]: [id number] A [place] Id: [id number] [id number] [facility] [address] Home Phone: Encounters Encounter Location(s) Arrival/Admit Date Discharge/Departure Date Discharge/Departure Disposition Provider(s) Departed Physician/ Provider Office Visit -[facility] Family Medicine [place] June 07, 2025 5:46pm June 07, 2025 6:32pm Discharged to home care or self care (routine discharge) FELICITY LundC Recent Diagnosis Onset Date Admit Date Meghana-Danlos disease Unknown June 072024 5:46pm Encounter for wellness examination Unknown June 07, 2025 5:46pm TALHA (generalized anxiety disorder) Unknown June 07, 2025 5:46pm JENIFER (iron deficiency anemia) Unknown Jun 5:46pm Major depression Unknown June 07 5:46pm Obesity due to excess calories Unknown N ov2024 5:46pm Assessments Diagnosis Onset Date Resolution Status Admit Date Meghana-Danlos disease acuteJune 07, 2025 5:46pmEncounter for wellness examinationacuteJune 07, 2025 5:46pmGAD (generalized anxiety disorder)acuteJune 07, 2025 5:46pm JENIFER (iron deficiency anemia)acuteJune 07, 2025 5:46pmMajor depressionacute June 07, 2025 5:46pmObesity due to excess caloriesacuteJune 07, 2025 5:46pm Plan of Treatment Author Mckenna Quiñonez [facility] 7:28amReviewed Ht/Wt/BMI Recommend eye exams yearly Recommend dental exam: twice a year Balance work/leisure activities exercise is recommended most days of the week (appropriate as chronic conditions allow) follow up yearly and prn no meds no meds check labs Discussed with patient their BMI (actual vs recommended). We have discussed lifestyle modifications: attempts to perform phsyical activity as chronic conditions allow, monitor dietary intake: increasing protein/fruits/veggies and lowering carb intake (unless contraindicated). Limit sodas, juices, sugary drinks, as well as alcohol consumption. Future Tests Future scheduled test information is unavailable Pending Tests Test Name Ordered Date Scheduled Date Comprehensive Metabolic Panel June 07, 2025 7:28am Future Visits Future appointment information is unavailable Future Procedures Procedure Name Ordered Date Scheduled Date Dipstick and Microscopic June 07, 2025 7:28 am Complete Blood Count Auto DiffNovember 2024 7:28amIron and TIBC Profile June 07, 2025 6:28pmFerritinNov2024 6:28pmLipid PanelNov2024 7:28amTransferrinNovval[facility] hospital 2024 6:28pmThyroid Stimulating Hormone June 07, 2025 7:28am Future Medications Future medication information is unavailable Patient Instructions Patient instructions are unavailable
--- OUTSIDE RECORDS SUMMARY | 2025-06-08 13:17 | XMS_ITS | Clinical Summary ---
Author Organization [facility] Address [address] [place] [address] Care Team Providers Care Race Car Driver Name Role Phone Unavailable Primary Care Provider Unavailabl e Social History Tobacco UseTypesPacks/DayYears UsedDateSmoking Tobacco: Never Assessed CommentsUnknownSex and Gender InformationValueDate RecordedSex Assigned at Not on fileLegal GpzMchngv11/30/2022 12:13 AM EDTGender IdentityNot on file Sexual OrientationNot on file Plan of Treatment Not on file
--- OUTSIDE RECORDS SUMMARY | 2025-06-08 13:18 | XMS_ITS | CCD ---
Author Organization [facility] CliniSywy Care Team Providers Care Tin Cutter Name Role Phone PHYSICIAN, DEFAULT Admitting Unavailable PHYSICIAN, DEFAULT Attending Unavailable NASRA SPARROW R Primary Care Unavailable REE, DR BHATT Admitting Unavailable REE, DR BHATT Consulting Unavailable REE, DR BHATT Attending Unavailable REE, DR BHATT Admitting Unavailable REE, DR BHATT Consulting Unavailable REE, DR BHATT Attending Unavailable LENA SPARROWN R Primary Care Unavailable Edwin Carmen Unavailable Madison Junior Unavailable Bernie Quiñonez Attending Provider Chrissie Burks Unavailable Fermín Ceballos MD Primary Care Provider Khang ASSEMBLER PIANO, Bernie Unavailable JAMES MEDINA Attending Unavailable BISHOP, NASRA R Referring Unavailable BISHOP, NASRA R Primary Care Unavailable HIMANSHU MEDINAADER Referring Unavailable BISHOP, NASRA R Primary Care Unavailable Bernie Quiñonez Attending Unavailable Bernie Quiñonez Admitting Unavailable Bishop SPRAY UNIT FEEDER-PRODUCTION TRUCK DRIVER, Nasra R Primary Care Provider Bishop SPRAY UNIT FEEDER-PRODUCTION TRUCK DRIVER, Nasra R Primary Care Provider Fermín Ceballos MD Primary Care Provider Khang ASSEMBLER PIANO, Bernie Unavailable Fermín Ceballos MD Primary Care Provider Khang ASSEMBLER PIANO, Bernie Unavailable LORENZO BIANCHI Attending Unavailable LORENZO BIANCHI Attending Unavailable BERNIE QUIÑONEZ Attending Unavailable LORENZO BIANCHI Attending Unavailable BERNIE QUIÑONEZ Referring Unavailable Chrissie Burks Unavailable Fermín Ceballos MD Primary Care Provider Khang ASSEMBLER PIANO, Bernie Unavailable Fermín Ceballos MD Primary Care Provider Khang ASSEMBLER PIANO, Bernie Unavailable Khang ASSEMBLER PIANO-C, Bernie Omer Primary Care Provider Khang ASSEMBLER PIANO-C, Bernie Omer Attending Provider [phone] Medications Current Medications MedicationDrug Class(es)DatesSig (Normalized)Sig (Original)acetaminophen 500 mg / diphenhydrAMINE hydrochloride 25 mg oral tablet (16 sources)Histamine-1 Receptor AntagonistStart: 20-49-5763gmgz 1 tablet by mouth once daily at bedtime as neededDiphenhydramine-Acetaminophen (Tylenol Pm Extra Strength) 25-500 mg tablet Active 1 TAB PO Daily atbedtime as needed June 04, 2025 11:00pm Complies with drug therapytake 25-500 mg by mouth once as neededdiphenhydrAMINE-acetaminophen (Tylenol PM) 25-500 MG per tablet Take 1 tablet by mouth as needed atbedtime for sleep Activeamoxicillin 80 mg/ml oral suspension (1 source)Penicillin-class AntibacterialStart: 87-49-3879gtay 12.5 mL by mouth twice dailyAmoxicillin 400 MG/5ML 12.5 mL Orally Twice a day for 10 days Sep, ActiveIron (2 sources)Iron ActivevalACYclovir 500 mg oral tablet (20 sources)Herpesvirus Nucleoside Analog DNA Polymerase Inhibitor, Herpes Simplex Virus Nucleoside Analog DNA Polymerase Inhibitor, Herpes Zoster Virus Nucleoside Analog DNA Polymerase InhibitorStart: 06-05-2025 End: 02-44-1386qdzy 1 tablet by mouth once daily as neededValacyclovir (Valtrex) 500 mg tablet Active 500 MG PO Daily as needed June 07, 2025 6:20pm Comp lies with drug therapyStart: 38-51-4948unmr 1 tablet by mouth in the morning valACYclovir (Valtrex) 500 MG tablet Take 500 mg by mouth in the morning and 500 mg before bedtime.09/18/2022 Active Completed/Discontinued Medications MedicationDrug Class(es)DatesSig (Normalized)Sig (Original)amitriptyline hydrochloride 10 mg oral tablet (4 sources)Tricyclic AntidepressantStart: 05-05-2024 End: 29-85-3149uamz 1 tablet by mouth at bedtimeamitriptyline (Elavil) 10 MG tablet Take 10 mg by mouth at bedtime 05/05/2024 05/13/2024 Discontinued azithromycin 500 mg oral tablet (2 sources)Macrolide Antimicrobialtake 2 tablets by mouth once at mealtime Zithromax 500 MG 2 tabs Orally once for 1 days 2 tablets p.o. x1 today with food Not-Taking/PRNcefTRIAXone (2 sources)Cephalosporin AntibacterialStart: 71-20-0701Csrhunwr 500 mg Jul, 500 mgfluconazole 150 mg oral tablet (2 sources)Azole AntifungalStart: 53-69-3599Szsdiyah 150 MG 1 tablet Orally once for 2 days Take 1 tablet p.o. today, take the second tablet in3 days. Jul, Not-Taking/PRNmetroNIDAZOLE 500 mg oral tablet (4 sources)Nitroimidazole AntimicrobialStart: 07-08-4087dcdn 4 tablets by mouth once as neededmetroNIDAZOLE 500 MG 4 tablets Orally once for 1 days Jul, Not-Taking/PRNmetroNIDAZOLE 0.75 % 1 application Vaginal qhs for 5 day(s) Not-Taking/PRN Problems Active Problems Problem ClassificationProblemDateDocumented DateEpisodic/ChronicAnxiety disorders (20 sources)Generalized anxiety disorder; Translations: [Generalized anxiety disorder]Onset: 080201-10-3086GqknswjUjpzjsnruq and other anemia (20 sources)Iron deficiency anemia; Translations: [Iron deficiency anemia, unspecified]Onset: 381285-24-5389WrckvuxxWcidhcbonxspv and screening for infectious disease (20 sources)Encounter for screening for human papillomavirus (HPV); Translations: [Anti-nuclear factor positive]Onset: 696814-00-6809Nzsinmnp Influenza (1 source)Influenza due to other identified influenza virus with other respiratory manifestationsEpisodicMalaise and fatigue (2 sources)Chronic fatigue, unspecified; Translations: [Fatigue]Onset: 381344-33-5619NikhhokYhzm disorders (20 sources)Major depression, single episode; Translations: [Major depressive disorder, single episode, in fullremission]Onset: hronic Other congenital anomalies (20 sources)Remedios-Danlos syndrome; 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]Onset: 472052-83-4157GwquojlDyjgc nutritional; endocrine; and metabolic disorders (20 sources)Obesity caused by energy imbalance; Translations: [Class 1 obesity due to excess calories without serious comorbidity with body mass index (BMI) of 31.0 to 31.9 in adult]Onset: 488022-66-1582KymaqzbGcvyx screening for suspected conditions (not mental disorders or infectious disease) (5 sources)Encounter for screening for malignant neoplasm of cervix; Translations: [Other specified abnormal findings of blood chemistry]Onset: 68-24-6041ErzwimnhCbtav upper respiratory infections (2 sources)Acute pharyngitis, unspecified; Translations: [Streptococcal pharyngitis]EpisodicResidual codes; unclassified (1 source)History of bilateral breast implants; Translations: [Breast implant status]86-10-5362IfmulonLqlsdbv disorders (20 sources)Thyroid nodule; Translations: [Nontoxic single thyroid nodule]Onset: 532157-83-6818SpvotjfCpuss infection (20 sources)Herpesviral infection, unspecified; Translations: [Herpes simplex] Onset: 822774-57-0319Vxqlkojd Past or Other Problems Problem ClassificationProblemDateDocumented DateEpisodic/ChronicGenitourinary symptoms and ill-defined conditions (18 sources)Abnormal urinalysis; Translations: [Unspecified abnormal findings in urine]Onset: 729270-95-4703PtqywonsSwlqmig and fatigue (20 sources)Fatigue; Translations: [Other fatigue]Onset: EpisodicOther liver diseases (20 sources)Elevated liver enzymes level; Translations: [Abnormal levels of other serum enzymes]Onset: 100675-46-3656GrkdjbbxOdbfr non-traumatic joint disorders (20 sources)Joint pain; Translations: [Pain in unspecified joint]Onset: 516908-26-8908VrjekwtmDahifeseblya (1 source)Contact with and (suspected) exposure to covid-19 Z20.822 Results Test NameValueInterpretationReference RangeFacilityUS Thyroid glandon 04-14-2025 [place] [address] Ultrasound Report Signed Patient: FIFI MOCK MR#: [id number] : 1990 Acct:[id number] Age/Sex: 34 / F ADM Date: 04/14/25 Loc: US Attending Dr: Lorenzo Bianchi M.D. Ordering Physician: Lorenzo Bianchi M.D. Date of Service: 04/14/25 Procedure(s): US thyroid Accession Number(s): [id number] cc: Physician,Non-Staff Cristino; Lorenzo Bianchi M.D. [place] [address] Patient Name: FIFI MOCK MRN: [id number] date: 1990 Sex: F Assigned Patient Location: US Current Patient Location: Accession/Order Number: [id number] Exam Date: 04/14/2025 13:52 Report Date: 04/14/2025 15:48 At the request of: LORENZO BIANCHI MD Procedure: US thyroid Thyroid ultrasound Reason for exam: Thyroid nodule follow-up Comparison: Thyroid ultrasound 10/09/2024 Technique: Grayscale and color Doppler images of the thyroid gland were obtained. Findings: Right lobe measures 5.1 x 1.4 x 1.0 cm. Left lobe measures 5.1 x 1.5 x 1.3 cm. Isthmus measures 0.23 cm. Once again demonstrated is a hypoechoic nodule involving the mid aspect of the left lobe measuring 15 x 8 x 12 mm grossly unchanged from the prior study. No microcalcifications. US/US thyroid Impression: No significant change in thyroid findings were compared to the prior study. FNA should be contemplated. Impression dictated by: Bird Harris Jr., D.O. 04/14/2025 3:48 PM Dictation Location: [place] [address] Electronically authenticated by: [id number] Y Date: 04/14/2025 15:48 Dictated By: Bird Harris M.D. Signed By: 04/14/25 1550 DD/ 1548 TD/TT: Technical Administrator:FIDELadiologbabita, Radiologist, - 04/14/2025 [place] [address] Ultrasound Report Signed Patient: FIFI MOCK MR#: [id number] : 1990 Acct:[id number] Age/Sex: 34 / F ADM Date: 04/14/25 Loc: US Attending Dr: Lorenzo Bianchi M.D. Ordering Physician: Lorenzo Bianchi M.D. Date of Service: 04/14/25 Procedure(s): US thyroid Accession Number(s): [id number] cc: Physician,Non-Staff Cristino; Lorenzo Bianchi M.D. [place] [id number] Patient Name: FIFI MOCK MRN: [id number] date: 1990 Sex: F Assigned Patient Location: Current Patient Location: US Accession/Order Number: [id number] Exam Date: 04/14/2025 13:52 Report Date: 04/14/2025 15:48 At the request of: LORENZO BIANCHI MD Procedure: US thyroid Thyroid ultrasound Reason for exam: Thyroid nodule follow-up Comparison: Thyroid ultrasound 10/09/2024 Technique: Grayscale and color Doppler images of the thyroid gland were obtained. Findings: Right lobe measures 5.1 x 1.4 x 1.0 cm. Left lobe measures 5.1 x 1.5 x 1.3 cm. Isthmus measures 0.23 cm. Once again demonstrated is a hypoechoic nodule involving the mid aspect of the left lobe measuring 15 x 8 x 12 mm grossly unchanged from the prior study. No microcalcifications. US/US thyroid Impression: No significant change in thyroid findings were compared to the prior study. FNA should be contemplated. Impression dictated by: Bird Harris Jr., D.O. 04/14/2025 3:48 PM Dictation Location: [place] [address] Electronically authenticated by: [id number] Y Date: 04/14/2025 15:48 Dictated By: Bird Harris M.D. Signed By: 04/14/25 1550 DD/ 1548 TD/TT: Technical Administrator: PHILIP BrockRadiology Study observation (narrative)PHILIP Conway Thyroid glandOrdered By: Radiologist Radiology on 06-28-5162XWVV Gamar Work Phone: US Thyroid glandon [phone] [address] Ultrasound Report Signed with Addenda Patient: FIFI MOCK MR#: [id number] : 1990 Acct:[id number] Age/Sex: 33 / F ADM Date: 04/16/24 Loc: US Attending Dr: Bernie Quiñonez NP Ordering Physician: Bernie Quiñonez NP Date of Service: 04/16/24 Procedure(s): US thyroid Accession Number(s): [id number] cc: Bernie Quiñonez NP ADDENDUM [place] [id number] Patient Name: FIFI MOCK MRN: [id number] date: 1990 Sex: F Assigned Patient Location: US Current Patient Location: US Accession/Order Number: [id number] Exam Date: 04/16/2024 13:50 Report Date: 05/12/2024 10:57 At the request of: BERNIE QUIÑONEZ Procedure: US thyroid Begin Addendum #1 COLLECTED DATE: 04/30/2024 Final Diagnosis Report for [facility] [place] Pathological Diagnosis: Left thyroid nodule, FNA cytology: Category 1 Anita system: Nondiagnostic. 05/08/[address] Bernie Quiñonez. Verified with Kathie that report was [...] By: Broderick Nguyen M.D. Addendum Signed By: 05/18/241422 Addendum Cosigned By: DD/ /28/1057 TD/TT: / ADDENDUM US/US thyroid IMPRESSION: 1. 5 cm left thyroid TR 4 nodule TI-RADS: The [employer] TI-RADS committee's white paper recommendations for thyroid lesions classified as TR4 (moderately suspicious) are listed below: > 1. 0 cm. Follow-up ultrasound in 1, 2, 3, and 5 years. > 1. 5 cm. FNA. J. Am Jose Carlos Radiol 2017;14:587-595. Electronically authenticated by: BRODERICK NGUYEN Date: 05/12/2024 10:57 Addendum Dictated By: Broderick Nguyen M.D. Addendum Signed By: 05/18/241422 Addendum Cosigned By: DD/ /28/1057 TD/TT: / [place] [id number] Patient Name: FIFI MOCK MRN: [id number] date: 1990 Sex: F Assigned Patient Location: US Current Patient Location: Accession/Order Number: [id number] Exam Date: 04/16/2024 13:50 Report Date: 04/17/2024 13:46 At the request of: BERNIE QUIÑONEZ Procedure: US thyroid EXAMINATION: US thyroid HISTORY: Thyroid Antibody Positive R76.8 COMPARISON: No relevant comparison available. TECHNIQUE: Sonographic images of the thyroid gland were obtained. FINDINGS: The right thyroid lobe measures 5.0 x 1.6 x 1.5 cm with homogeneous echotexture with no focal nodule The thyroid isthmus measures 2.9 mm, no focal nodule The l (more content not included)...TBHRadiology, Radiologist, - 05/18/2024 [place] [address] Ultrasound Report Signed with Addenda Patient: FIFI MOCK MR#: [id number] : 1990 Acct:[id number] Age/Sex: 33 / F ADM Date: 04/16/24 Loc: US Attending Dr: Bernie Quiñonez NP Ordering Physician: Bernie Quiñonez NP Date of Service: 04/16/24 Procedure(s): US thyroid Accession Number(s): [id number] cc: Bernie Quiñonez NP ADDENDUM [place] [address] Patient Name: FIFI MOCK MRN: [facility]:[id number] date: 1990 Sex: F Assigned Patient Location: Current Patient Location: Accession/Order Number: [id number] Exam Date: 04/16/2024 13:50 Report Date: 05/12/2024 10:57 At the request of: BERNIE QUIÑONEZ Procedure: US thyroid Begin Addendum #1 COLLECTED DATE: 04/30/2024 Final Diagnosis Report for [facility] [place] Pathological Diagnosis: Left thyroid nodule, FNA cytology: Category 1 Anita system: Nondiagnostic. 05/08/[address] Bernie Quiñonez. Verified with Kathie that report was [...] By: Broderick Nguyen M.D. Addendum Signed By: Cristino> 05/18/241422 Addendum Cosigned By: DD/ /28/1057 TD/TT: / ADDENDUM US/US thyroid IMPRESSION: 1. 5 cm left thyroid TR 4 nodule TI-RADS: The [employer] TI-RADS committee's white paper recommendations for thyroid lesions classified as TR4 (moderately suspicious) are listed below: > 1. 0 cm. Follow-up ultrasound in 1, 2, 3, and 5 years. > 1. 5 cm. FNA. J. Am Jose Carlos Radiol 2017;14:587-595. Electronically authenticated by: BRODERICK NGUYEN Date: 05/12/2024 10:57 Addendum Dictated By: Broderick Nguyen M.D. Addendum Signed By: Cristino> 05/18/241422 Addendum Cosigned By: DD/ /28/1057 TD/TT: / [place] [id number] Patient Name: FIFI MOCK MRN: [id number] date: 1990 Sex: F Assigned Patient Location: Current Patient Location: Accession/Order Number: [id number] Exam Date: 04/16/2024 13:50 Report Date: 04/17/2024 13:46 At the request of: BERNIE QUIÑONEZ Procedure: US thyroid EXAMINATION: US thyroid [...] left thyroid TR 4 nodule TI-RADS: The [employer] TI-RADS committee's white paper recommendations for thyroid lesions classified as TR4 (moderately suspicious) are listed below: > 1.0 cm. Follow-up ultrasound in 1, 2, 3, and 5 years. > 1.5 cm. FNA. J. Am Jose Carlos Radiol 2017;14:587-595. Electronically authenticated by: BRODERICK NGUYEN Date: 04/17/2024 13:46 Dictated By: Broderick Nguyen M.D. Signed By: 04/17/24 1348 DD/ 1346 TD/TT: Technical Administrator: PHILIP Brock Thyroid glandOrdered By: Radiologist Radiology on 05-18-2024 [facility] Work Phone: aNTINUCLEAR ANTIBODIES, IFAon [phone] ANTIBODIES, IFAPositiveAbnormal.[facility] HealthcareComment on above:Negative <1:80 Borderline 1:80 Positive >1:80 CENTRIOLE PATTERNTNP.[facility] HealthcareCENTROMERE PATTERNTNP.[facility] HOMOGENEOUS PATTERN1:640Abnormal.[facility] HealthcareComment on above:[facility] nomenclature: AC-1Interpretation and review of laboratory resultsAbnormalNOMS HealthcareMIDBODY PATTERNTNP.[facility] HealthcareNOTE:Comment.[facility] HospitalComment on above:Pattern Potential Disease Association Homogeneous Systemic Lupus Erythematosus, Drug Induced Systemic Lupus Erythematosus, Chronic Autoimmune hepatitis, Juvenile Idiopathic Arthritis Speckled Sjogren Syndrome, Systemic Lupus Erythematosus, Subacute Cutaneous Lupus, Lupus, Congenital Heart Block, Mixed Connective Tissue Disease, Scleroderma-diffuse, Scleroderma-Autoimmune Myositis Overlap Syndrome, Systemic Lupus Acwyxahcvmtrx-Kvcgauiksrd-Rtgtmalvmz Myositis Overlap Syndrome, Systemic Autoimmune Rheumatic Disease, [...] Cytopenias, Linear Scleroderma, Antiphospholipid Syndrome Performed at: [address] [id number] [employer]opewalk Rope Maker: Vasu Duke PhD, Phone: [phone] NUCLEAR DOT PATTERNTNP.[facility] HealthcareNUCLEAR MEMBRANE PATTERNTNP.[facility] HealthcareNUCLEOLAR PATTERN1:640Abnormal.[facility] HealthcareComment on above:[facility] nomenclature: AC-8,9,10PCNA PATTERNTNP.[facility] HealthcareSPECKLED PATTERNTNP.[facility] HealthcareSPINDLE APPARATUS PATTERNTNP.[facility] HealthcareCLINISYNCNINTEGR[facility] Healthcare Antinuclear AB, HE-p Substrate, (SHAHLA by IFA)on 72-33-5237Krjrovyzrty Ab, HEp-2 Substrate, SNegativeNormal<1:80 (Negative)[facility] HospitalComment on above:Result Comment: NOTE ADDITIONAL INFORMATION Method: Immunofluorescence using HEp-2 cellular substrate. Test Performed by: [place] [address] [employer]opewalk Rope Maker: Ashanti Anthony Ph.D.; CLIA# [id number] By: #### 22803- 1, 1987-12, CBCA, CMP #### [facility] ([id number]) [address] [place] [address] #### NAIFA #### [facility] ([id number]) [address] [place] [address],CBC AND AUTO DIFFon 46-64-8663JZYBWFNV BASOPHIL0.1 X10E9/LNormal0.0-0.2 [facility] HospitalComment on above:Performed By: #### 31537-0, 1987-12, CBCA, CMP #### [facility] ([id number]) [address] [place] [address] #### NAIFA #### [facility] ([id number]) [address] [place] [address],ABSOLUTE NEUTROPHIL4.6 X10E9/LNormal1.5-6.6[facility] Comment on above:Performed By: #### 13126-6, 1987-12, CBCA, CMP #### [facility] ([id number]) [address] [place] [address], [place] [address] #### NAIFA #### [facility] ([id number]) [address] [place] [address],Basophils/100 WBC (Bld)0.7 %NormalProKettering Health HospitalComment on above:Performed By: #### 91760-4, 1987-12, CBCA, CMP #### [facility] ([id number]) [address] [place] [address] #### NAIFA #### [facility] ([id number]) [address] [place] [address],Eosinophils (Bld) [#/Vol]0.1 10*3/uLNormal0.0-0.4[facility] HospitalComment on above:Performed By: #### 09107-0, 1987-12, CBCA, CMP #### [facility] ([id number]) [address] [place] [address] #### NAIFA #### [facility] ([id number]) [address] [place] [address],Eosinophils/100 WBC (Bld)2.0 %NormalProKettering Health HospitalComment on above:Performed By: #### 93301-6, 1987-12, CBCA, CMP #### [facility] ([id number]) [address] [place] [address] #### NAIFA #### [facility] ([id number]) [address] [place] [address],Erythrocyte distribution width (RBC) [Ratio]12.4 %Tjgoaf15.5-15.0 [facility] HospitalComment on above:Performed By: #### 90473-9, 1987-12, CBCA, CMP #### [facility] ([id number]) [address] [place] [address], [address] [place] [address] #### NAIFA #### [facility] ([id number]) [address] [place] [address],Hematocrit (Bld) [Volume fraction]42.1 %Efmdoi39-85TmfNlkich Laurens HospitalComment on above:Performed By: #### 56823-0, 1987-12, CBCA, CMP #### [facility] ([id number]) [address] [place] [address], [address] [place] [address] #### NAIFA #### [facility] ([id number]) [address] [place] [address],Hemoglobin (Bld) [Mass/Vol]14.5 g/vXPeldzj00.7-15.5ProMedC[facility] HospitalComment on above:Performed By: #### 90395-0, 1987-12, CBCA, CMP #### [facility] ([id number]) [address] [place] [address], [address] [place] [address] #### NAIFA #### [facility] ([id number]) [address] [place] [address],Lymphocytes (Bld) [#/Vol]2.1 10*3/uLNormal1.0-3.5PLakeHealth TriPoint [facility] HospitalComment on above:Performed By: #### 61260-9, 1987-12, CBCA, CMP #### [facility] ([id number]) [address] [place] [address], [address] [place] [address] #### NAIFA #### [facility] ([id number]) [address] [place] [address],Lymphocytes/100 WBC (Bld)27.9 %NormalProMediMercy Health [facility]field Hospital HospitalComment on above:Performed By: #### 79524-5, 1987-12, CBCA, CMP #### [facility] ([id number]) [address] [place] [address], [address] [place] [address] #### NAIFA #### [facility] ([id number]) [address] [place] [address],MCH (RBC) [Entitic mass]30.0 dnJqskgo49-39JffAnhruhMercer County Community Hospital Comment on above:Performed By: #### 42395-8, 1987-12, CBCA, CMP #### [facility] ([id number]) [address] [place] [address], [address] [place] [address] #### NAIFA #### [facility] ([id number]) [address] [place] [address],MCHC (RBC) [Mass/Vol]34.5 g/aVVroxkd32-71HgeHwhgzgMercer County Community Hospital Comment on above:Performed By: #### 47630-8, 1987-12, CBCA, CMP #### [facility] ([id number]) [address] [place] [address], [place] [address] #### NAIFA #### [facility] ([id number]) [address] [place] [address],MCV (RBC) [Entitic vol]87 yOGbmnsg67-757QjuGgnwjqMercer County Community Hospital Comment on above:Performed By: #### 53468-7, 1987-12, CBCA, CMP #### [facility] ([id number]) [address] [place] [address], [address] [place] [address] #### NAIFA #### [facility] ([id number]) [address] [place] [address],Monocytes (Bld) [#/Vol]0.5 10*3/uLNormal0-0.9[facility] Comment on above:Performed By: #### 07405-4, 1987-12, CBCA, CMP #### [facility] ([id number]) [address] [place] [address], [address] [place] [address] #### NAIFA #### [facility] ([id number]) [address] [facility],Monocytes/100 WBC (Bld)7.1 %NormalSt. Mary's Medical Center, [facility] Campus HospitalComment on above:Performed By: #### 02553-8, 1987-12, CBCA, CMP #### [facility] ([id number]) [address] [place] [address], [address] [place] [address] #### NAIFA #### [facility] ([id number]) [address] [facility],Neutrophils/100 WBC (Bld)62.3 %NormalProKettering Health HospitalComment on above:Performed By: #### 91200-3, 1987-12, CBCA, CMP #### [facility] ([id number]) [address] [place] [address] #### NAIFA #### [facility] ([id number]) [address] [place] [address],Platelet mean volume (Bld) [Entitic vol]9.3 fLNormal7-12[facility] HospitalComment on above:Performed By: #### 46692-0, 1987-12, CBCA, CMP #### [facility] ([id number]) [address] [place] [address], [address] [place] [address] #### NAIFA #### [facility] ([id number]) [address] [place] [address],Platelets (Bld) [#/Vol]297 10*3/yRVvvezj245-961FrfQsjqzm [facility] HospitalComment on above:Performed By: #### 51542-6, 1987-12, CBCA, CMP #### [facility] ([id number]) [address] [place] [address], [address] [place] [address] #### NAIFA #### [facility] ([id number]) [address] [facility],RBC COUNT4.85 X10E12/LNormal3.80-5.20[facility] HospitalComment on above:Performed By: #### 13480-6, 1987-12, CBCA, CMP #### [facility] ([id number]) [address] [place] [address], [address] [place] [address] #### NAIFA #### [facility] [facility] ([id number]) [address] [facility],WBC (Bld) [#/Vol]7.4 10*3/uLNormal4.0-11.0[facility] Comment on above:Performed By: #### 21046-5, 1987-12, CBCA, CMP #### [facility] ([id number]) [address] [place] [address], [place] [address] #### NAIFA #### [facility] ([id number]) [address] [place] [address],CBC auto differentialon 25-13-0074Ihkacfcgl (Bld) [#/Vol]0.1 10*3/uL [facility] SystemBasophils/100 WBC (Bld)0.7 %[facility] Eosinophils (Bld) [#/Vol]0.1 10*3/uLMayo Memorial HospitalMedica Health SystemEosinophils/100 WBC (Bld)2.0 %[facility] Health SystemErythrocyte distribution width (RBC) [Ratio] 12.4 %11.5 - 15.0 %[facility] SystemHematocrit (Bld) [Volume fraction]42.1 %35 - 47 %[facility] SystemHemoglobin (Bld) [Mass/Vol]14.5 g/dL11.7 - 15.5 g/dLProMediky Health SystemLymphocytes (Bld) [#/Vol]2.1 10*3/uLProMedica Health SystemLymphocytes/100 WBC (Bld)27.9 %[facility] SystemMCH (RBC) [Entitic mass]30.0 pg27 - 34 [facility] HospitalMCHC (RBC) [Mass/Vol]34.5 g/dL32 - 36 g/dLProMedica Toledo HospitalMCV (RBC) [Entitic vol]87 fL80 - 100 [facility] CenterMonocytes (Bld) [#/Vol]0.5 10*3/[facility] Monocytes/100 WBC (Bld)7.1 %[facility] HospitalNeutrophils (Bld) [#/Vol]4.6 10*3/[facility] MichiganNeutrophils/100 WBC (Bld)62.3 %[facility]edo HospitalPlatelet mean volume (Bld) [Entitic vol]9.3 fL7 - 12 [facility] CenterPlatelets (Bld) [#/Vol]297 10*3/[facility] MichiganRBC (Bld) [#/Vol] 4.85 10*6/[facility] MichiganWBC corrected for nucl RBC Auto (Bld) [#/Vol] 7.4[facility] CenterCOMPREHENSIVE METABOLIC PANELon 57-22-7170Qdilyny [Mass/Vol]4.3 g/dLNormal3.2-5.3PAvita [facility] Comment on above:Performed By: #### 68519-3, 1987-12, CBCA, CMP #### [facility] ([id number]) [address] [place] [address], [place] [address] #### NAIFA #### [facility] ([id number]) [address] [place] [address] [Catalytic activity/Vol]60 U/BTqtorr11-797ElzNtnursMercer [facility] Community Hospital Comment on above:Performed By: #### 04239-3, 1987-12, CBCA, CMP #### [facility] ([id number]) [address] [place] [address], [address] [place] [address] #### NAIFA #### [facility] ([id number]) [address] [place] [Catalytic activity/Vol]13 U/LNormal0-31[facility] Comment on above:Performed By: #### 06393-8, 1987-12, CBCA, CMP #### [facility] ([id number]) [address] [place] [address], [address] [place] [address] #### NAIFA #### [facility] ([id number]) [address] [place] [address],Anion gap [Moles/Vol]10 mmol/LNormal5-15[facility] Comment on above:Performed By: #### 17288-5, 1987-12, CBCA, CMP #### [facility] ([id number]) [address] [place] [address], [address] [place] [address] #### NAIFA #### [facility] ([id number]) [address] [place] [address],AST [Catalytic activity/Vol]18 U/LNormal0-41[facility] Comment on above:Performed By: #### 94861-3, 1987-12, CBCA, CMP #### [facility] ([id number]) [address] [place] [address], [address] [place] [address] #### NAIFA #### [facility] ([id number]) [address] [place] [address],Bilirubin [Mass/Vol]0.2 mg/dLLow0.3-1.2PAvita Health System Ontario HospitalComment on above:Performed By: #### 43965-2, 1987-12, CBCA, CMP #### [facility] ([id number]) [address] [place] [address], [address] [address] #### NAIFA #### [facility] ([id number]) [address] [place] [address],Calcium [Mass/Vol]9.6 mg/dLNormal8.5-10.5[facility] Comment on above:Performed By: #### 68521-9, 1987-12, CBCA, CMP #### [facility] ([id number]) [address] [place] [address], [address] [place] [address] #### NAIFA #### [facility] ([id number]) [address] [place] [address],Chloride [Moles/Vol]103 mmol/PUdiyrm87-587ZbxUieaofMercer County Community Hospital Comment on above:Performed By: #### 13045-2, 1987-12, CBCA, CMP #### [facility] ([id number]) [address] [place] [address], [place] [address] #### NAIFA #### [facility] ([id number]) [address] [place] [address],CO2 [Moles/Vol]25 mmol/QIvtcgw94-72JnxWfmzfiAvita Health System Ontario HospitalComment on above:Performed By: #### 89435-9, 1987-12, CBCA, CMP #### [facility] ([id number]) [address] [place] [address], [address] [place] [address] #### NAIFA #### [facility] ([id number]) [address] [place] [address],Creatinine [Mass/Vol]0.69 mg/dLNormal0.40-1.00[facility] Comment on above:Result Comment: METHOD TRACEABLE TO IDPR STANDARDPerformed By: #### 68218-2, 1987-12, CBCA, CMP #### [facility] ([id number]) [address] [place] [address], [address] [place] [address] #### NAIFA #### [facility] ([id number]) [address] [place] [address],eGFR (CKD-EPI) NON-RACE DEPENDENT>90Normal>59[facility] Comment on above:Result Comment: Reported eGFR is based on the CKD-EPI 2021 equation that does not use a race coefficient.Performed By: #### 07047-0, 1987-12, CBCA, CMP #### [facility] ([id number]) [address] [place] [address], [place] [address] #### NAIFA #### [facility] ([id number]) [address] [place] [address],Glucose [Mass/Vol]74 mg/qWFugeeg59-53GwzXjcotk Toledo HospitalComment on above:Performed By: #### 51930-0, 1987-12, CBCA, CMP #### [facility] ([id number]) [address] [place] [address] #### NAIFA #### [facility] ([id number]) [address] [place] [address],Potassium [Moles/Vol]3.9 mmol/LNormal3.5-5.0[facility] Comment on above:Performed By: #### 46466-9, 1987-12, CBCA, CMP #### [facility] ([id number]) [address] [place] [address] #### NAIFA #### [facility] ([id number]) [address] [place] [address],Protein [Mass/Vol]7.3 g/dLNormal6.0-8.0ProRiverview Health InstituteComment on above:Performed By: #### 99003-8, 1987-12, CBCA, CMP #### [facility] ([id number]) [address] [place] [address] #### NAIFA #### [facility] ([id number]) [address] [place] [address],Sodium [Moles/Vol]138 mmol/RGktnpd376-335EeuLmebks [facility] Comment on above:Performed By: #### 65738-4, 1987-12, CBCA, CMP #### [facility] ([id number]) [address] [facility], [address] [place] [address] #### NAIFA #### [facility] ([id number]) [address] [facility],Urea nitrogen [Mass/Vol]19 mg/dLNormal5-23[facility] Comment on above:Performed By: #### 03359-2, 1987-12, CBCA, CMP #### [facility] ([id number]) [address] [place] [address], [address] [place] [address] #### NAIFA #### [facility] ([id number]) [address] [place] [address],CRP [Mass/Vol]on 4C REACTIVE PROTEIN0.2 mg/dLNormal0.000-0.744 [facility] HospitalComment on above:Performed By: #### 47289-0, 1987-12, CBCA, CMP #### [facility] ([id number]) [address] [place] [address], [address] [place] [address] #### NAIFA #### [facility] ([id number]) [address] [place] [address],ESR Photometric method (Bld) [Velocity]on 05-39-0048Vctosrtzsdjsek and review of laboratory resultsAbnormalProMedica Cleveland Clinic [facility] Hospital SystemProMediky Health SystemESR, ERYTHROCYTE SEDIMENTATION RATE21 mm/hHigh0-20[facility] HospitalComment on above:Performed By: #### 85177-0, 1987-12, CBCA, CMP #### [facility] ([id number]) [address] [place] [address], [address] [place] [address] #### NAIFA #### [facility] ([id number]) [address] [place] [address],Erythrocyte Sedimentation Rate (ESR)on 36-19-9661XFV Photometric method (Bld) [Velocity]21 mm/hHigh0 - 20 mm/hProMedica Corewell Health Ludington HospitalLon 04-30-2024 Specimen: Received: 05/06/24 Status: ANDER Teresaame Num: [id number] Spec Type: Cytology Subm Dr: GENOVEVA Lund Tissues: A FNA SLIDES NOPATH (LT THY NOD) Procedures: Cyto Int and Re, PAPSTN/5 Age/ Patient Sex Location Account Attending Physician NishFifi Lynnette 33/F LABELL [id number] GENOVEVA Lund SPEC NUM: [id number] RECD: 05/06/24 STATUS: ANDER TONI NUM: [id number] JOSE CARLOS: 04/30/24- SUBM DR: GENOVEVA uLnd ENTERED: 05/06/[address]: Jyotsna,Lab Fab Wynn MD SPEC TYPE: Cytology DEPT: [facility] ENTERED BY: [id number] RECV BY: [id number] ORDERED: Cyto Int and Re, PAPSTN/5 ORDERED: Cyto Int and Re, PAPSTN/5 Pathological Diagnosis Left thyroid nodule, FNA cytology: -Occasional follicular cells are present. -However, the larger and the more preserved follicular groups are still <10 for overall assessment, consistent with the category 1 Anita system: Nondiagnostic -The follicular cells of the [...] vial stored at -20 for microscopic examination.(YC/nh) Specimen: Received: 05/06/24 Status: ANDER Martin Num: [id number] Spec Type: Cytology Subm Dr: Bernie Quiñonez [employer]SEM[employer] PIANO-C Tissues: A FNA SLIDES SHAEATH (LT THY NOD) Procedures: Cyto Int and Re, PAPSTN/5 Patient: MockFifi Church [id number] (Continued) Specimen: [id number] Received: 05/06/24 (Continued) Signed (signature on file) Ramon Sanabria MD 05/06/24 1732 Specimen: [id number] Received: 05/06/24 Status: ANDER Martin Num: [id number] Spec Type: Cytology Subm Dr: Bernie Quiñonez [employer]-C Tissues: A FNA SLIDES RUTH (LT THY NOD) Procedures: Cyto Int and Re, PAPSTN/5 Patient: Fifi Mock [id number] (Continued) Specimen: [id number] Received: 05/06/24 (Continued) Microscopic Description Microscopic examinations are performed supporting the above interpretation CPT Codes 84347 Specimen: [id number] Received: 05/06/24 Status: ANDER Martin Num: [id number] Spec Type: Cytology Subm Dr: Bernie Quiñonez, [employer]O-C Tissues: A FNA SLIDES NOPATH (LT THY NOD) Procedures: Cyto Int and Re, PAPSTN/5 Patient: Fifi Mock [id number] (Continued) Signed (signature on file) Ramon Sanabria MD 05/06/[address] [place] [address] Physician [facility] HospitalUS BIOPSY THYROIDon 57-87-3390QgyWilliam [place] [id number] Ultrasound Report Signed Patient: FIFI MOCK MR#: [id number] : 1990 Acct:[id number] Age/Sex: 33 / F ADM Date: 04/30/24 Loc: US Attending Dr: Bernie Quiñonez NP Ordering Physician: Bernie Quiñonez NP Date of Service: 04/30/24 Procedure(s): US biopsy thyroid Accession Number(s): [id number] cc: Bernie Quiñonez NP [address] [address] Patient Name: FIFI MOCK MRN: [id number] date: 1990 Sex: F Assigned Patient Location: US Current Patient Location: LAB Accession/Order Number: [id number] Exam Date: 04/30/2024 08:23 Report Date: 04/30/2024 09:53 At the request of: BERNIE QUIÑONEZ Procedure: US biopsy thyroid EXAMINATION: US [...] Pathology results are pending. Electronically authenticated by: FAB WYNN Date: 04/30/2024 09:53 Dictated By: Fab Wynn M.D. Signed By: 04/30/24954 DD/ 2 TD/TT: Technical Administrator:FIDELadiology, Radiologist, - 04/30/2024 [place] [address] Ultrasound Report Signed Patient: FIFI MOKC MR#: [id number] : 1990 Acct:[id number] Age/Sex: 33 / F ADM Date: 04/30/24 Loc: US Attending Dr: Bernie Quiñonez NP Ordering Physician: Bernie Quiñonez NP Date of Service: 04/30/24 Procedure(s): US biopsy thyroid Accession Number(s): [id number] cc: Bernie Quiñonez NP [place] [address] Patient Name: FIFI MOCK MRN: [id number] date: 1990 Sex: F Assigned Patient Location: US Current Patient Location: LAB Accession/Order Number: [id number] Exam Date: 04/30/2024 08:23 Report Date: 04/30/2024 09:53 At the request of: BERNIE QUIÑONEZ Procedure: US biopsy thyroid EXAMINATION: US [...] Pathology results are pending. Electronically authenticated by: FAB WYNN Date: 04/30/2024 09:53 Dictated By: Fab Wynn M.D. Signed By: 04/30/24954 DD/ 2 TD/TT: Technical Administrator: PHILIP BrockRadiology Study observation (narrative)PHILIP BrockUS BIOPSY THYROIDOrdered By: Radiologist Radiology on 53-01-8138TZEZ Gamar Work Phone: US Thyroid glandon [phone] [address] Ultrasound Report Signed Patient: FIFI MOCK MR#: [id number] : 1990 Acct:[id number] Age/Sex: 33 / F ADM Date: 04/16/24 Loc: US Attending Dr: Bernie Quiñonez NP Ordering Physician: Bernie Quiñonez NP Date of Service: 04/16/24 Procedure(s): US thyroid Accession Number(s): [id number] cc: Bernie Quiñonez NP [place] [id number] Patient Name: FIFI MOCK MRN: [id number] date: 1990 Sex: F Assigned Patient Location: US Current Patient Location: Accession/Order Number: [id number] Exam Date: 04/16/2024 13:50 Report Date: 04/17/2024 13:46 At the request of: BERNIE QUIÑONEZ Procedure: US thyroid EXAMINATION: US thyroid [...] left thyroid TR 4 nodule TI-RADS: The [employer] TI-RADS committee's white paper recommendations for thyroid lesions classified as TR4 (moderately suspicious) are listed below: > 1.0 cm. Follow-up ultrasound in 1, 2, 3, and 5 years. > 1.5 cm. FNA. J. Am Jose Carlos Radiol 2017;14:587-595. Electronically authenticated by: BRODERICK NGUYEN Date: 04/17/2024 13:46 Dictated By: Broderick Nguyen M.D. Signed By: 04/17/24 1348 DD/ 1346 TD/TT: Technical Administrator:TBHRadiology, Radiologist, MD - 04/17/[address] [address] Ultrasound Report Signed Patient: FIFI MOCK MR#: [id number] : 1990 Acct:[id number] Age/Sex: 33 / F ADM Date: 04/16/24 Loc: US Attending Dr: Bernie Quiñonez NP Ordering Physician: Bernie Quiñonez NP Date of Service: 04/16/24 Procedure(s): US thyroid Accession Number(s): [id number] cc: Bernie Quiñonez NP The [address] [address] Patient Name: FIFI MOCK MRN: [id number] date: 1990 Sex: F Assigned Patient Location: US Current Patient Location: Accession/Order Number: [id number] Exam Date: 04/16/2024 13:50 Report Date: 04/17/2024 13:46 At the request of: BERNIE QUIÑONEZ Procedure: US thyroid EXAMINATION: US thyroid [...] left thyroid TR 4 nodule TI-RADS: The [employer] TI-RADS committee's white paper recommendations for thyroid lesions classified as TR4 (moderately suspicious) are listed below: > 1.0 cm. Follow-up ultrasound in 1, 2, 3, and 5 years. > 1.5 cm. FNA. J. Am Jose Carlos Radiol 2017;14:587-595. Electronically authenticated by: BRODERICK NGUYEN Date: 04/17/2024 13:46 Dictated By: Broderick Nguyen M.D. Signed By: 04/17/248 DD/ 45 TD/TT: Technical Administrator: PHILIP HealthcareRadiology Study observation (narrative)NOMS HealthcareUS Thyroid glandOrdered By: Radiologist Radiology on 33-32-6731DQPJBarnes-Jewish [facility] Work Phone: all CBC WITH AUTO DIFFon 34-22-8787IWDVTLJSH ABSOLUTE AUTO0.1NOMS HealthcareBasophils/100 WBC (Bld)0.7 %0.2 - 2.0 %[facility] Eosinophils/100 WBC (Bld)2.1 %0.9 - 7.0 %NOM HealthcareErythrocyte distribution width (RBC) [Ratio]11.9 %11.0 - 15.0 %NOM HealthcareHematocrit (Bld) [Volume fraction]42.9 %36.0 - 48.0 %NOM HealthcareHemoglobin (Bld) [Mass/Vol]14.3 g/dL 12.0 - 16.0 g/dLBarnes-Jewish Saint Peters HospitalIMMATURE GRANULOCYTES ABS AUTO0.02[facility] Immature granulocytes/100 WBC (Bld)0.3 %0.0 - 0.5 %NOMNevada Regional Medical CenterLYMPHOCYTES ABSOLUTE AUTO1.9NOMS HealthcareLymphocytes/100 WBC (Bld)27.0 %20.5 - 60.0 %[facility] HospitalH (RBC) [Entitic mass]29.1 pg26.7 - 34.0 pgNOSaint Louis University Health Science CenterHC (RBC) [Mass/Vol]33.3 g/dL29.9 - 35.2 g/dLNOSaint Louis University Health Science CenterV (RBC) [Entitic vol]87.4 fL 81.0 - 99.0 fLNOPR HealthcareMONOCYTES ABSOLUTE AUTO0.5NOMS [facility] Monocytes/100 WBC (Bld)7.5 %1.7 - 12.0 %NOMNevada Regional Medical CenterNEUTROPHILS ABSOLUTE AUTO 4.4NOMS [facility]terson Medical CenterNeutrophils/100 WBC (Bld)62.4 %43.0 - 75.0 %[facility] Platelet mean volume (Bld) [Entitic vol]10.3 fL9.5 - 13.5 fLNOSaint Luke's North Hospital–Barry RoadTB EO #0.2NOMS HealthcareTB [id number] [facility] RBC4.91NOMS [facility] Medical CenterTB WBC 7.1NOMS HealthcareCLINISYNCNOMS [facility] Medical CenterQuick Strepon 09-15-2023S. pyogenes Org specific cx Ql (Throat)PositiveNomissouri rehabilitation center RuiYi Other Quick StrepNomissouri rehabilitation center RuiYi Other COVID/FLU/RSV RT-PCRon 67-51-4658KGJO-CoV-2 (COVID-19) RNA EDWIN+probe Ql (Unsp spec)NegativeNort RuiYi Other COVID/FLU/RSV RT-PCRNegativeNoLeapfrog Online Other COVID/FLU/RSV RT-PCRPositiveNoLeapfrog Online Other PAP ACOG PANEL 2: 30 to 65on 11-05-2021..NormalThe Jewish HospitalComment on above:Result Comment: Performed at: WBPerformed By: #### [id number] #### [facility] [address] [place] [address] Dr. Omar Rivera Gdln ACOG Iyqciox40-49KfhiwaIacThe Surgical Hospital at SouthwoodsComment on above:Performed By: #### [id number] #### [facility] [address] [place] [address] Dr. Omar SanabriaDIAGNOSIS:CommentSelect Medical Specialty Hospital - [facility] [place] on above: Result Comment: NEGATIVE FOR INTRAEPITHELIAL LESION OR MALIGNANCY. Performed at: WBPerformed By: #### [id number] #### [facility] [address] [place] [address] Dr. Omar SanabriaHPV AptimaNegativeNormalNegativeThe [facility] on above:Result Comment: This nucleic acid amplification test detects fourteen high-risk HPV types (16,18,31,33,35,39,45,51,52,56,58,59,66,68) without differentiation. Performed at: =GPerformed By: #### [id number] #### [facility] [address] [place] [address] Dr. Omar SanabriaMethodology:CommentSelect Medical Specialty Hospital - [facility] [place] on above: Result Comment: This liquid based ThinPrep(R) pap test was screened with the use of an image guided system. Performed at: WBPerformed By: #### [id number] #### [facility] [address] [place] [address] Dr. Omar SanabriaNote:CommentSelect Medical Specialty Hospital - [facility] [place] on above:Result Comment: The Pap smear is a screening test designed to aid in the detection of premalignant and malignant conditions of the uterine cervix. It is not a diagnostic procedure and should not be used as the sole means of detecting cervical cancer. Both false-positive and false-negative reports do occur. . Performed at: WBPerformed By: #### [id number] #### [facility] [address] [place] [address] Dr. Omar SanabriaPerformed by:CommentNoAshtabula General Hospital on above: Result Comment: Moisés Luis, Director Dermatology (ASCP) Performed at: WBPerformed By: #### [id number] #### [facility] [address] [place] [address] Dr. Omar Hendrix adequacy:CommentNormRegency Hospital Cleveland West on above:Result Comment: Satisfactory for evaluation. Endocervical and/or squamous metaplastic cells (endocervical component) are present. Performed at: WBPerformed By: #### [id number] #### [facility] [address] [place] [address] Dr. Omar Ponce SIMPLEX 1/2 IGMon 62-91-8169EYA, IgM I/II Combination1.01 RatioCritically high0.00-0.90The Jewish HospitalComment on above:Result Comment: Verified by repeat analysis Negative <0.91 Equivocal 0.91 - 1.09 Positive >1.09Performed By: #### HSVIGM #### [facility] [address] [place] [address] Dr. Omar Ponce SIMPLEX 1/2 IGGon 92-54-2077AUF 1 IgG, Type Spec8.59 index Critically high0.00-0.90The Jewish HospitalComment on above:Result Comment: Negative <0.91 Equivocal 0.91 - 1.09 Positive >1.09 Note: Negative indicates no antibodies detected to HSV-1. Equivocal may suggest early infection. If clinically appropriate, retest at later date. Positive indicates antibodies detected to HSV-1.Performed By: #### HSV IGG #### [facility] [address] [place] [address] Dr. Omar Garcia 2 IgG Type Spec<0.91Awipli7.00-0.90[facility] Comment on above:Result Comment: Negative <0.91 Equivocal 0.91 - 1.09 Positive >1.09 Note: Negative indicates no HSV-2 antibodies detected. Positive indicates HSV-2 antibodies detected. Equivocal and low positive HSV-2 screens (Index 0.91-5.00) may be false positive and are reflexed to supplemental testing in accordance with CDC guidelines.Performed By: #### HSV IGG #### [facility] [address] [place] [address] [address] Omar SanabriaABRAZO [facility]ROW[facility] Intraoperative Recordon 78-68-9894SONI Intraoperative Record MAGR Intra-Op Record Summary Primary Physician: Luis Goss DO Finalized Date/Time: 12/19/18 08:27:55 Pt. Name: MOCK FIFIRADHA Fang/Sex: 1990 FEMALE Med Rec #: [id number] Physician: Luis Goss DO Financial #: [id number] Pt. Type: D Room/Bed: / Admit/Disch: 12/16/18 [...] Role Performed Surgeon - Primary Anesthesiologist of Tube Depatcher Record Time In 12/16/18 07:56:00 12/16/18 07:56:00 12/16/18 07:56:00 Time Out 12/16/18 09:03:00 12/16/18 09:03:00 12/16/18 09:03:00 Procedure Tubal Ligation Tubal Ligation Tubal Ligation Laparoscopic(Bilateral) Laparoscopic(Bilateral) Laparoscopic(Bilateral) Last Modified By: Joselyn Marx RN RN, Joselyn Coreas RN 12/16/18 09:14:28 12/16/18 09:14:28 12/16/18 09:14:28 Entry 4 Entry 5 Case Attendee Adrián HARMON, Cynthia Wong CST/CSFA Role Performed Scrub Personnel [employer] Time In 12/16/18 07:56:00 12/16/18 07:56:00 Time Out 12/16/18 09:03:00 12/16/18 09:03:00 Procedure Tubal Ligation Tubal Ligation Laparoscopic(Bilateral) Laparoscopic(Bilateral) Last Modified By: Joselyn Marx RN, RN, Jessica L 12/16/18 09:14:28 12/16/18 09:14:28 Surgical Procedures MAGR [...] Procedure Tubal Ligation Body Position Low Lithotomy Laparoscopic(Bilateral) Left Arm Position Tucked and padded at [...] Performs skin preparation Im.270.1 Implements protective measures toprevent skin and tissue injury due to chemical [...] required counts Entry 1 Procedure Tubal Ligation Laparoscopic(Bilateral) Counts Verification Initial Counts Items included in [...] regulation A.40 Verifies presence of prosthetics or correctivedevices Im.280 Implements thermoregulation measures Im.60 Uses supplies [...] Reason for Unfinalizing 12/19/18 08:27 MHSSAUER Correct DocumentationOhio State Harding Hospital HospitalCoding Summaryon 26-24-6166Gvlfvm SummaryCODING DATE: 12/17/2018 [facility] STATUS: Home PAYOR: Commercial Insurance APC DESCRIPTION 5361 Level 1 Laparoscopy and Related Services ADMIT DX: REASON FOR VISIT DX: Z30.2 Encounter for sterilization FINAL DX: PRINCIPAL: Z30.2 Encounter for sterilization SECONDARY: PYMT PROC APC STAT DESCRIPTION DOCTOR NAME DATE 87146 5361 J1 Laparoscopy, surgical; Luis Goss DO 12/16/2018 with fulguration of oviducts (with or without transection) NOTE: The code number assigned matches the documented diagnosis and / or procedure in the patient's chart. However, the narrative phrase printed from the coding software may appear abbreviated, or result in slightly different terminology. Coded By: Elissa Rowe Date Saved: 12/17/2018 12:12 [facility] HospitalConsent Formson 12-17-2018 Consent [id number]#1.00[facility] CenterHistory and Physicalon 88-88-8942Vjgnqog and Physical [id number]#1.00[facility] Operative Report - Surgeon/Physicianon 19-98-5503Bugteellz Report - Surgeon/[id number]#1.00[facility] HospitalProvider Orderson 00-20-5741Bjfeoxg mass conc [id number]#1.00[facility] Telemetry Stripson 66-83-3104Nthalcypd Strips [id number]#1.00[facility] Anesthesia Noteon 73-10-2931Onejxlpuyr NotePatient: FIFI MOCK Age: 28 years Sex: FEMALE : [birth year] Associated Diagnoses: None Author: Sebastian Myers MD Postoperative Information Post Operative Note: Post Anesthesia Care Unit. Anesthetic utilized: General. Health Status Allergies: Allergic Reactions (All) No Known Medication Allergies Physical Examination VS/Measurements Vital Signs (last 24 hrs) Last Charted Heart Rate Peripheral L 57bpm (DECEMBER 16:20) Resp Rate 18 br/min (DECEMBER 16:15) SBP 111 mmHg (DECEMBER 16:) DBP 64 mmHg (DECEMBER 16:) SpO2 98 % (DECEMBER 16) Pain assessment: Self-reports no pain. General: Alert [...] [Verified on: 12/16/2018 09:26 EDT] Sebastian Myers MDK[facility]tering Health [facility] TownshipAnesthesi NotePatient: FIFI MOCK Age: 28 years Sex: FEMALE [...] history): All Problems Anemia / SNOMED CT 401835492 / Confirmed Depression / SNOMED CT 80632367 / Confirmed Insomnia / SNOMED CT 150435793 / Confirmed Histories Family History: No family history items have been selected or recorded. Procedure history: Laparoscopic cholecystectomy (81280966). Dilation and curettage (23582553). Social History Alcohol Assessment Use: Current. Liquor, [...] (DECEMBER 16 06:25) SpO2 99 % (DECEMBER 16:) General: Alert and oriented, No acute distress. Airway: Mallampati classification: I (soft palate, fauces, uvula, pillars visible). Respiratory: Respirations are non-labored. Cardiovascular: Normal rate, Regular rhythm. Review / Management Laboratory Results Plan [place] [employer] Anesthesiologists#(ASA) physical status classification: Class I. Anesthetic Preoperative Plan Anesthesia: General. . Anesthetic plan, risks, benefits, and alternatives discussed with the patient and/or family. Risks discussed. Patient verbalized understanding. Informed consent was given. Consent was signed by thepatient. Communication: face to face with patient 10 minutes. Anesthetic technique: General anesthesia. [Electronically Signed on: 12/16/2018 07:49 EDT] Sebastian Myers MD [Verified on: 12/16/2018 07:49 EDT] Sebastian Myers MDK[facility]tering Health Washington TownshipInpatient Patient Summaryon 12-16-2018 [place] [address] Patient Discharge Instructions Name: NISH FIFI MCNAIR : 89 Patient Address: [address] [place] [address] Primary Care Provider: Name: Nasra Sparrow CNP After you are discharged if you find you have any questions, please, call [phone] ext [phone] to speak to a nurse. Discharge Diagnosis: [...] business decisions or sign any legal documents [facility] would like to thank you for allowing us to assist you with your healthcare needs.The following includes patient education materials and information regarding your injury/illness. FIFI MOCK has been given the following list of follow-up instructions, prescriptions,and patient education materials: Follow-up Instructions With: Address: When: Luis Goss [address] [place] [address] Landis+Gyr (9Jelli In 2 weeks 12/30/18 Medications During the course of your visit, your medication list was updated with the most current information. The details of those changes are reflected below: New Medications Printed Prescriptions acetaminophen-hydrocodone ([place] 5 mg-325 mg oral tablet) 1 tab(s) Oral Every 6 hours as needed forpain. may take 1 or 2 tablets not [...] list that you can keep with you. acetaminophen-hydrocodone ([place] 5 mg-325 mg oral tablet) 1 tab(s) Oral Every 6 hours as needed forpain. may take 1 or 2 tablets not [...] including vitamins, herbs, eye drops, creams, and yyei-ctc-xbprmah medicines. ? Any problems you or family [...] body to numb everything below the injection site(regional anesthetic). ? An IV tube will be [...] 10/28/2001 Document Revised: 12/27/2016 Document Reviewed: 07/01/2016 [employer] Interactive Patient Education ? 2018 [employer] Viruses or Bacteria What?s got you [...] Centers for Disease Control and Prevention April 2014[facility] MAGR PACU Recordon [id number] PACU RecordMAGR PACU Record Summary Primary Physician: Luis Goss DO Finalized Date/Time: 12/16/18 09:44:44 Pt. Name: FIFI MOCK/Sex: 1990 FEMALE Med Rec #: [id number] Physician: Luis Goss DO Financial #: [id number] Pt. Type: D Room/Bed: / Admit/Disch: 12/16/18 [...] Signatures Signed By: Gema Todd RN 12/16/18 09:44[facility] Postoperative Record on [id number] Postoperative RecordMAGR Phase II Record Summary Primary Physician: Luis Goss DO Finalized Date/Time: 12/16/18 10:50:50 Pt. Name: FIFI MOCK/Sex: 1990 FEMALE Med Rec #: [id number] Physician: Lius Goss DO Financial #: [id number] Pt. Type: D Room/Bed: / Admit/Disch: 12/16/18 06:00:00 - Institution: Phase II Case Times MAGR Pre-Care Text: Patient is free from s/s of injury. Patient remains free from compromised physical state related tosurgery or anesthesia. Patient comfort maintained. Patient/family verbalize [...] Signatures Signed By: Maty Irving RN 12/16/18 10:50[facility] Preoperative Recordon [id number] Preoperative RecordMAGR Pre-Op Record Summary Primary Physician: Luis Goss DO Finalized Date/Time: 12/16/18 08:34:48 Pt. Name: FIFI MOCK XU Fang/Sex: 1990 FEMALE Med Rec #: [id number] Physician: Luis Goss DO Financial #: [id number] Pt. Type: D Room/Bed: / Admit/Disch: 12/16/18 [...] Preop Departure 12/16/18 07:54:00 Last Modified By: Joselny Marx RN 12/16/18 08:34:47 Post-Care Text: Patient is prepared mentally and physically and is ready for surgery. The patient remains free froms/s of injury. Patient/family express understanding of plan of care and participate in decisions affectinghis or her perioperrative plan of care. Allergies documented appropriately. Patient identifiers and consent correct. General Comments: Denies chest pain, shortness of breath or illlnessess. Denies pacemaker/defib. Denies sleep apnea. Finalized By: Joselyn Marx RN Document Signatures Signed By: Joselyn Marx RN 12/16/18 08:34[facility] TownshipOperative Report - Surgeon/Physicianon 35-38-3466Wiprikspe Report - Surgeon/PhysicianDATE OF PROCEDURE: 12/16/18 SURGEON: Luis Goss DO [...] grasped with a single tooth tenaculum. An [place] uterine manipulator was then advanced into the [...] 4-0 Vicryl in a subcuticular manner. The [place] uterine manipulator was then removed from the vagina with no bleeding noted from the cervix. The patient tolerated the procedure well. Sponge, lap, needle and instrument counts were correct x2. The patient was taken to the recovery room awake and in stable condition. Luis Goss DO JOB #: [id number] [Electronically Signed on: 12/23/2018 07:53 EDT] Luis Goss DO, D.O. [Verified on: 12/23/2018 07:53 EDT] Luis Goss DO, D.O. [Transcribed on: 12/16/2018 09:49 EDT] [facility] HospitalPatient Handouton 23-13-8378Maysqkc HandoutObstetrics and Gynecology Laparoscopic Tubal Ligation Laparoscopic tubal [...] including vitamins, herbs, eye drops, creams, and umsn-tiy-zyfrlls medicines. ? Any problems you or family [...] body to numb everything below the injection site(regional anesthetic). ? An IV tube will be [...] 10/28/2001 Document Revised: 12/27/2016 Document Reviewed: 07/01/2016 [employer] Interactive Patient Education ? 2018 DATY.[facility] TownshipPregnancy Test Urine 1on 12-16-2018U PregNSalem City Hospital Comment on above:Performed By: #### [id number] #### [facility] (DEFAULT) [address] [place] [address] 57376I Preg Internal ControlTwin City HospitalComment on above:Performed By: #### [id number] #### [facility] (DEFAULT) [address] [place] [address] 66154Nqcqaeqb Note - Nurseon 57-50-6852Tfsvvma mass concSpoke with pt regarding arrival time of 0600 and NPO status. Verbalized understanding. 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: Commercial Insurance ADMIT [...] By: Elissa Rowe Date Saved: 12/11/2018 11:19 amNUniversity Hospitals Lake West Medical CenterProvider Orderson 04-84-2144Clffnhx mass [id number]#1.00OTGTIFF [facility].Auto Diff 1on 40-74-6458Crlo Baso %0.5 %Normal0.2-2.0 [facility] HospitalComment on above:Performed By: #### [id number], [id number] #### [facility] (DEFAULT) [address] [place] [address] 32374Lqcu Lamoure %8 %Normal1-12[facility]uder HospitalComment on above: Performed By: #### [id number], [id number] #### [facility] (DEFAULT) [address] [place] [address] 27809Ybfz Neut %64 %Zqtxly32-59Ykcwgbmx HospitalComment on above:Performed By: #### [id number], [id number] #### [facility] (DEFAULT) [address] [place] [address] 15489Tuag Abs#0.0 u45Mxejfg1.0-0.2Mag[facility]uder HospitalComment on above:Performed By: #### [id number], [id number] #### [facility] (DEFAULT) [address] [place] [address] 89559Jlh Abs#0.1 l49Afjfes0.0-0.4[facility] HospitalComment on above:Performed By: #### [id number], [id number] #### [facility] (DEFAULT) [address] [place] [address] 35431Anviisynytp/100 WBC (Bld)0.9 %Normal0.9-4.0[facility] HospitalComment on above:Performed By: #### [id number], [id number] #### [facility] (DEFAULT) [address] [place] [address] 76946Dwnpttuckvh #/vol (Bld)1.7 z77Nvajke6.3-2.9[facility] HospitalComment on above:Performed By: #### [id number], [id number] #### [facility] (DEFAULT) [address] [place] [address] 15146Yyfqzhqhxie/100 WBC (Bld)27 %Czodaj90-43Kwzczbdv Hospital Comment on above:Performed By: #### [id number], [id number] #### [facility] (DEFAULT) [address] [place] [address] 36020Ijna Abs#0.5 p23Omvykk1.0-0.8[facility] HospitalComment on above:Performed By: #### [id number], [id number] #### [facility] (DEFAULT) [address] [place] [address] 84799Tvlm Abs#4.1 r75Pmexzr7.5-9.2Magrwadsworth-rittman hospital HospitalComment on above:Performed By: #### [id number], [id number] #### [facility] (DEFAULT) [address] [place] [address] 93549BNX w/ Auto Diffon 71-55-9121Bfdcxrfimzv distribution width Ratio (RBC)12.9 %Czqodo21.5-15.0[facility] HospitalComment on above: Performed By: #### [id number], [id number] #### [facility] (DEFAULT) [address] [place] [address] 05798Ucxzjazghl Volume Fraction (Bld)44.3 %High33.7-40.4 [facility] HospitalComment on above:Performed By: #### [id number], [id number] #### [facility] (DEFAULT) [address] [place] [address] 40633Ilucnbafvg mass conc (Bld)15.1 g/eNXxpnpa08.3-15.9[facility] HospitalComment on above:Performed By: #### [id number], [id number] #### [facility] (DEFAULT) [address] [place] [address] 00414Foa Diff?AutoNormalMckitrick HospitalComment on above: Performed By: #### [id number], [id number] #### [facility] (DEFAULT) [address] [place] [address] 19171DNH Entitic mass (RBC)29 tlMvyxof32-79[facility] Comment on above:Performed By: #### [id number], [id number] #### [facility] (DEFAULT) [address] [place] [address] 73838IXLG mass conc (RBC)34 g/fIRucdwa32-95Rymqcnts Hospital Comment on above:Performed By: #### [id number], [id number] #### [facility] (DEFAULT) [address] [place] [address] 48064OOG Entitic volume (RBC)85 uHKvaiud22-096Tvzdyljy Hospital Comment on above:Performed By: #### [id number], [id number] #### [facility] (DEFAULT) [address] [place] [address] 11733Vbgptbfv mean volume Entitic volume (Bld)10.4 fLHigh 6.3-10.2MParkview Health Montpelier HospitalComment on above:Performed By: #### [id number], [id number] #### [facility] (DEFAULT) [address] [place] [address] 08978Grsuuibiw #/vol (Bld)295 d99Jvpmii436-063[facility] Comment on above:Performed By: #### [id number], [id number] #### [facility] (DEFAULT) [address] [place] [address] 18584DBW #/vol (Bld)5.19 x96Rvixse4.70-5.30[facility] Comment on above:Performed By: #### [id number], [id number] #### [facility] (DEFAULT) [address] [place] [address] 61747TAI #/vol (Bld)6.4 u49Esdmqa4.5-10.5[facility] Comment on above:Performed By: #### [id number], [id number] #### [facility] (DEFAULT) [address] [place] [address] 65484 Vital Signs Date TimeVital SignValuePerforming CxjgkbcwuAbpuobto35-84-1052 18:07-0500Body nxzihd026.94 cmLisa Aichholz [employer] Work Phone: [phone])[address]11-03-2025 18:07-0500 Body mass index (BMI) [Ratio]33.1 kg/m2Lisa Aichholz [employer] Work Phone: [phone])[address]11-03-2025 18:07-0500 Body efzslvlrgdu02.1 [degF]Bernie Aichholz [employer] Work Phone: 1(375)[address]11-03-2025 18:07-0500 Body rzlwmu97.6 kgLisa Aichholz [employer] Work Phone: [phone])[address]11-03-2025 18:07-0500 Diastolic blood mm[Hg]Bernie Aichholz [employer] Work Phone: 1(437)890-[address] [place], [place] 256[address]11-03-2025 18:07-0500 Heart rate90 /minLisa Aichholz [employer] Work Phone: 7(667)030-[address] [place], [place] 2568811-03-2025 18:07-0500 Respiratory rate18 /minLisa Aichholz [employer] Work Phone: 6(314)424-[address] [place], [place] 2568811-03-2025 18:07-0500 SaO2% (BldA) [Mass fraction]98 %Bernie Aichholz [employer] Work Phone: [facility]11-03-2025 18:07-0500 Systolic blood lbkpwozw196 mm[Hg]Bernie Quiñonez [employer] Work Phone: [facility]09-23-2025 15:08-0400 Body .9 cmLorenzo Bianchi MD Work Phone: [phone] HospitalBxxuekubvz57-27-3941 15:08-0400Body mass index (BMI) [Ratio]32.69 kg/t1NkiigsLorenzo Bianchi MD Work Phone: [phone] [place], [place] [address]Ujlarulqnu03-17-9626 15:08-0400Body .47 kgLorenzo Bianchi MD Work Phone: 1(421)[address] [place], [place] [address] HospitalIjzqxmettq42-78-6173 15:08-0400Diastolic blood gplqnfic14 mm[Hg]Lorenzo Bianchi MD Work Phone: 1(340)[address] [place], [place] [address] HospitalQywztohefc14-81-6913 15:08-0400Heart rate71 /min Lorenzo Bianchi MD Work Phone: [phone])[address] [place], [place] 3043409-23-2025 15:08-0400Systolic blood mm[Hg]Lorenzo Bianchi MD Work Phone: 1(092)[facility]2394[facility] HospitalLucorryacr56-91-3229 14:07-0400Body tgfhyx899.9 cmLorenzo Bianchi MD Work Phone: 1(609)[facility]-0904[facility] HospitalHtyfmpipnp91-41-3412 14:07-0400Body mass index (BMI) [Ratio]31.74 kg/z0GdmgflLorenzo Bianchi MD Work Phone: [phone] HospitalRfseokovnj91-15-7586 14:07-0400Body acjofe61.2 kg Lorenzo Bianchi MD Work Phone: 1(959)[facility]-6955[facility] HospitalIccxuurffs15-98-3766 14:07-0400Diastolic blood aficorml05 mm[Hg]Lorenzo Bianchi MD Work Phone: [facility] HospitalIrghpynsoq17-61-6367 14:07-0400Systolic blood uvveuttn340 mm[Hg]Lorenzo Bianchi MD Work Phone: noSaint [facility]–Barry RoadDukppeacfr77-50-5369 14:50-0400Body gzaeac248.9 Raiza Khang [employer] Work Phone: [facility] HospitalKxswwsyhhf10-01-9798 14:50-0400Body mass index (BMI) [Ratio]31.63 kg/m2Bernie Patiencedmitriysohamz [employer] Work Phone: [facility] HospitalIrvbxwjoxm83-71-0851 14:50-0400Body temperature 98.29 [degF]Bernie Moringill [employer] Work Phone: [place] [address]Gfwawhdryt07-10-4352 14:50-0400Body .93 kgLi Patiencedmitriyalfonso [employer] Work Phone: [facility] HospitalEylovzkori07-38-6250 14:50-0400Diastolic blood qprlgyat47 mm[Hg]Bernie Patiencegeniaz [employer] Work Phone: [facility] HospitalQwjfmmuthc46-12-1010 14:50-0400Heart rate75 /min Bernie Patiencegeniaz [employer] Work Phone: [place] [address]Jzavxthgnp85-68-9277 14:50-0400Respiratory rate18 /minLisa Alexissohamz [employer] Work Phone: [facility] HospitalFdjcpblvha17-20-4078 14:50-0048YuX6% (BldA) [Mass fraction]97 %Bernie Cinthiaz [employer] Work Phone: [facility] HospitalMhaexiathw60-30-3643 14:50-0400Systolic blood pohdtnvk07 mm[Hg]Bernie Khang [employer] Work Phone: [facility] HospitalWvesvqzmdp99-50-3964 11:46-0400Body hixdzg03.58 kgJames Medina MD Work Phone: [facility]10-01-2024 11:46-0400Diastolic blood mm[Hg]James Medina MD Work Phone: [facility]10-01-2024 11:46-0400 Respiratory rate18 /minJames Medina MD Work Phone: [facility]10-01-2024 11:46-0400Systolic blood xfoiovyp017 mm[Hg]James Medina MD Work Phone: [facility]09-24-2024 15:01-0400Body zyiolv943.9 Layneisa Khang [employer] Work Phone: [facility] HospitalEvyxxurrqh37-84-6901 15:01-0400Body mass index (BMI) [Ratio]31.06 kg/m2Lisa Khang [employer] Work Phone: [facility] HospitalIyzkhzjavk92-41-6578 15:01-0400Body temperature 98.1 [degF]Bernie Khang [employer] Work Phone: [facility] HospitalRemwzdnsla64-92-1213 15:01-0400Body .57 kgLisa Khang [employer] Work Phone: [facility] HospitalPoxmxcpcqo17-58-5765 15:01-0400Diastolic blood dshmsbuc40 mm[Hg]Bernie Khang [employer] Work Phone: [facility] HospitalLrqmqptton72-24-6689 15:01-0400Heart rate69 /min Bernie Khang [employer] Work Phone: [facility] HospitalMydnkjyomk53-69-3869 15:01-0400Respiratory rate18 /minLi Khang [employer] Work Phone: [facility] HospitalLgfsppjnhr14-71-4551 15:01-8998GoC8% (BldA) [Mass fraction]98 %Bernie Khang [employer] Work Phone: [facility] HospitalHkjprchgmk64-46-6983 15:01-0400Systolic blood cqtgywly825 mm[Hg]Bernie Khang [employer] Work Phone: [facility] HospitalBbrlpglgee12-42-2353 14:26-0400Body axaynd658.9 Layneisa Khang [employer] Work Phone: [facility] HospitalYwqgqrgcyj09-43-3884 14:26-0400Body mass index (BMI) [Ratio]31.29 kg/m2Bernie Quiñonez [employer] Work Phone: [facility] HospitalLrzkrtzltk55-72-5541 14:26-0400Body temperature 97.81 [degF]Bernie Quiñonez [employer] Work Phone: [facility] HospitalLqskarzmhz39-64-3684 14:26-0400Body ynfmck00.12 kgBernie Quiñonez [employer] Work Phone: [facility] HospitalYhrezcfoot54-12-1778 14:26-0400Diastolic blood jevjtzlb31 mm[Hg]Bernie Quiñonez [employer] Work Phone: [facility] HospitalVgazrkcows39-51-3304 14:26-0400Heart rate65 /min Bernie Quiñonez [employer] Work Phone: [facility] HospitalRwbyqcqpyu22-12-8677 14:26-0400Respiratory rate18 /minLisa Quiñonez [employer] Work Phone: [facility] HospitalGqqartecgf93-01-0927 14:26-8175GlJ5% (BldA) [Mass fraction]99 %Bernie Quiñonez [employer] Work Phone: [place] [address]Vqwkxtgwhw10-72-3700 14:26-0400Systolic blood tuzzwabh331 mm[Hg]Bernie Quiñonez [employer] Work Phone: [facility] HospitalHurudjvknu99-63-8186 09:00-0500Body wuhaij412.94 Elisha Junior Other [facility] [employer] Other 02-11-2024 09:00-0500Body mass index (BMI) [Ratio] 28.83 kg/b0UkmexMadison Junior Other [employer] Other 02-11-2024 09:00-0500Body duwnfowwvpi648 [degF]Madison Junior Other [place] [employer] Other 02-11-2024 09:00-0500Body xmkwek30.22 kgAmber Vernon Other [facility] [employer] Other 02-11-2024 09:00-0500Respiratory rate18 /minAmber Vernon Other [facility] [employer] Other 02-11-2024 09:00-5807BvG7% (BldA) [Mass fraction]99 % Madison Vernon Other [facility] [employer] Other 12-27-2023 17:10-0500Body hpcupu307.94 cmAmanda Edwin Other [facility] [employer] Other 12-27-2023 17:10-0500Body mass index (BMI) [Ratio] 24.56 kg/t0Bcinct Edwin Other [employer] Other 12-27-2023 17:10-0500Body ooftoutnsig47 [degF]Carmen Edwin Other [employer] Other 12-27-2023 17:10-0500Body ssteks64.97 kgAmanda Edwin Other [employer] Other 12-27-2023 17:10-0500Respiratory rate18 /minAmanda Edwin Other [employer] Other 12-27-2023 17:10-9452UbZ5% (BldA) [Mass fraction]97 % Carmen Edwin Other [employer] Other Encounters Encounter DateEncounter TypeCare ProviderFacilityStart: 06-07-2025 End: 44-87-3035oeswebxsjsJrlx J Aichholz [employer] Work Phone: [facility] ClydeStart: 06-07-2025 End: 13-65-3306Hbuqsdi encounter procedureLisa Kan Quiñonez [employer]-[facility] Work Phone: Start: 06-07-2025 End: 17-33-1275Ejbwvlt encounter statusLisa Kan Quiñonez ASSEMBLER PIANO-CFiCleveland Clinic Medina Hospitaltart: 84-08-7392Lsmqkep encounter statusLisa Quiñonez [employer]SEMBLER [employer]-C Work Phone: [facility]start: 04-27-2025 End: 10-61-3404Jutjnf outpatient visit 15 minutesLorenzo Bianchi MD Work Phone: [facility] [place] OtolaryngologyComment on above:Thyroid nodule (Primary Dx)Start: 04-27-2025 End: 26-78-5641dsljrrallzNDFBEF H ELIZABETHMISNot AvailableStart: 04-27-2025 End: 98-27-6478Xuljxq flowsheetLorenzo Bianchi MD Work Phone: [facility] OtolaryngologyStart: 04-27-2025 End: 79-58-2232Rdehnz Eunice Bianchi MD Work Phone: [facility] OtolaryngologyStart: 04-14-2025 End: 13-56-0764Egbmaninz Result EncounterLorenzo Bianchi MD Work Phone: [facility] External Department UnsolicitedStart: 04-14-2025 End: 42-73-4901Rqohownjf Result EncounterHilópezry Dmitriy Bianchi MD Work Phone: [facility] External Department UnsolicitedStart: 10-20-2024 End: 36-54-6160yzpzwgbejfSENKNN Dmitriy TIMMISNot AvailableStart: 07-13-2024 End: 65-56-9855Sbrifwaxz encounterLisa Cinthiaz [employer]ER [employer] Work Phone: [facility] CWM FMStart: 06-03-2024 End: 36-25-2520Unjgea flowsAnthony Bianchi MD Work Phone: [facility] CI ENTStart: 06-03-2024 End: 10-13-4796Geumai flowsAnthony Bianchi MD Work Phone: [facility] CI ENTStart: 06-03-2024 End: 65-29-3173Oakzpu outpatient new 30 minutesLorenzo Bianchi MD Work Phone: [facility] CI ENTComment on above:Thyroid nodule greater than or equal to 1.5 cm in diameter incidentally noted on imaging study (CMS/ HCC)Start: 06-03-2024 End: 26-07-9956ctzglnfvfeEGFPCR H TIMMISNot AvailableStart: 05-13-2024 End: 13-43-5589Nsmurw outpatient visit 15 minutesBernie Quiñonez [employer]SEM[employer] Work Phone: [facility] CWM FMComment on above:Thyroid nodule greater than or equal to 1.5 cm in diameter incidentally noted on imaging study (CMS/ HCC) (Primary Dx); Other Remedios-Danlos syndromes (CMS/HCC); Class 1 obesity due to excess calories without serious comorbidity with body mass index (BMI) of 31.0 to 31.9 in adultStart: 05-13-2024 End: 58-60-3909wmvivwaampNPEO AICHHOLZNot AvailableStart: 05-13-2024 End: 92-35-3904Rnzenu flowsheetBernie Quiñonez [employer] Work Phone: [facility] CWM FMStart: 05-13-2024 End: 70-73-9492Iiieas flowsheetBernie Quiñonez [employer] Work Phone: [facility] CWM FMStart: 05-05-2024 End: 83-71-0089Nnzmtc outpatient new 45 Ken Medina MD Work Phone: [facility] RheumatologyComment on above:SHAHLA positive (Primary Dx); Chronic fatigueStart: 05-05-2024 End: 15-65-3472fhiuhnfuruRONNSZ [facility] Hospitaltart: 05-02-2024 End: 75-48-0766Kgowhrpha Result EncounterLisa Aichholz [employer] Work Phone: noms External Department UnsolicitedStart: 05-02-2024 End: 41-37-6286Tsmgaigmh Result EncounterLisa Aichholz [employer] Work Phone: noms External Department UnsolicitedStart: 04-30-2024 End: 52-19-1230Bukonibez Result EncounterLisa Aichholz [employer] Work Phone: noms External Department UnsolicitedStart: 04-30-2024 End: 56-94-1150Tlrtmiolv Result EncounterLisa Aichholz [employer]SEM[employer] Work Phone: noms External Department UnsolicitedStart: 04-30-2024 End: 54-29-3540uyywuhptnlHypw [facility] Work Phone: Start: 04-30-2024 End: 43-41-5936Prdcfckf ReferredLisa Aichholz Work Phone: [facility]-LAB Path Spec Satin HospStart: 04-29-2024 End: 49-93-4278Ggsnxoqok encounterTimnylópez UrbinaoMedpat Physicians RheumatologyStart: 04-28-2024 End: 90-58-5318Yztxxj outpatient visit 25 minutesLisa Aichholz [employer] Work Phone: noms CWM FMComment on above:SHAHLA positive (Primary Dx); Other Remedios-Danlos syndromes (CMS/HCC); Class 1 obesity due to excess calories without serious comorbidity with body mass index (BMI) of 31.0 to 31.9 in adult; Thyroid nodule greater than or equal to 1.5 cm in diameter incidentally noted on imaging study (CMS/HCC)Start: 04-28-2024 End: 21-23-8457Frmbxq flowsFrancisca Alexisholz [employer] Work Phone: noms CWM FMStart: 04-28-2024 End: 75-19-7595Jobsrv flowsheetBernie Alexisholz [employer] Work Phone: noms CWM FMStart: 04-17-2024 End: 70-61-3636Vewfwatol Result EncounterLisa Vanesaholz [employer] Work Phone: noms External Department UnsolicitedStart: 04-17-2024 End: 52-76-0197Vmkvadwnk Result EncounterLisa Vicentez [employer] Work Phone: noms External Department UnsolicitedStart: 04-09-2024 End: 83-73-8315Ksleno OnlyBernie Vicentez [employer] Work Phone: noms CWM FMComment on above:Thyroid antibody positive (Primary Dx)Start: 04-04-2024 End: 91-23-2196Zueruhvrm Result EncounterLisa Vicentez [employer] Work Phone: noms External Department UnsolicitedStart: 04-04-2024 End: 28-38-9009Sajcdimmj Result EncounterLisa Vicentez [employer] Work Phone: noms External Department UnsolicitedStart: 04-02-2024 End: 98-39-6379Ospnuxka preventive med est patient 18-39 yrsLisa Quiñonez [employer]SEM[employer] Work Phone: noms CWM FMComment on above:Wellness examination (Primary Dx); Arthralgia, unspecified joint; Other fatigue; Iron deficiency anemia, unspecified iron deficiency anemia type; Class 1 obesity due to excess calories without serious comorbidity with body mass index (BMI) of 31.0 to 31.9 in adultStart: 04-02-2024 End: 23-25-8596Huvhcq flowsheetBernie Alexisholz [employer] Work Phone: noms CWM FMStart: 04-02-2024 End: 32-07-6859Lepszw flowsheetLisa Aichholz [employer] Work Phone: noms CWM FMStart: 04-02-2024 End: 50-36-5126Seakxrk encounter statusBernie Quiñonez [employer]SEMBL[employer]O Work Phone: NO HealthcareStart: 09-15-2023 End: 56-97-6125nxwtgjeyevGcizf [place] Other [facility] RuiYi Other Start: 74-86-9400Tyodev outpatient visit 25 minutes Madison KellerFPG Ur[facility] Care ClydeStart: 07-31-2023 End: 83-57-3696npvqxrkodzQxbktz Edwin Other [facility] [employer] Other Start: 87-13-1344Rsmaja outpatient visit 15 minutes Carmen GrobFPG Urgent Care ClydeStart: 10-30-2021 End: 91-28-1910yeozaseqzrHS NOVA FAZIOFacility:R9Yvnza: 10-30-2021 End: 59-42-4149dmqnxdybxzMCOW R BOVAFacility:Y4Frdow: 10-13-2018 End: 64-29-2534Zxaqxwh encounter procedureDEFAULT PHYSICIANFacility:[facility] Procedures DateProcedureProcedure DetailPerforming ClinicianStart: 52-23-9379Ns soft tissue head & neck real time imge Eulalio Bianchi MD Work Phone: Start: 51-64-2729KBEEPHBCGUO ANTIBODIES, IFABernie Quiñonez [employer]SEM[employer] Work Phone: Start: 51-29-0352JD BIOPSY THYROIDLisa Quiñonez [employer]SEMBL[employer] Work Phone: Start: 37-46-3440Rj soft tissue head & neck real time imge Opal Quiñonez [employer]SEM[employer] Work Phone: Start: 62-10-3647KJJ CBC WITH AUTO DIFFBernie Quiñonez [employer]SEMBLER [employer] Work Phone: H/O: tubal ligationHx of tubal ligationRebeccasa Khang [employer]SEMBL[employer]-C Work Phone: History of cholecystectomyHx of cholecystectomyLisa Khang [employer]SEMBLER [employer]-C Work Phone: Plan of Treatment DateCare ActivityDetailAuthorStart: 13-99-8538Zfumacikr for malignant neoplasm of cervixNOMS HealthcareStart: 04-27-2026 End: 13-95-7923Juajeml encounter vvhfrngef93/23/2026 2:20 PM EDT Office Visit [facility] [place] [facility] [address] [place] [address] Lorenzo Bianchi MD [address] [place] [address] [facility] [place] OtolaryngologyStart: 04-27-2025 End: 78-55-6013Gqvfdom encounter procedureNOMS [place] OtolaryngologyComment on above:ArrivedStart: 10-20-2024 End: 81-68-4805Jesifvu encounter mkarppnrd48/18/2025 3:20 PM EDT Office Visit [facility] [address] [place] [address] Lorenzo Bianchi MD [address] [place] [address] NOM[facility] CI ENTStart: 07-22-2024 End: 63-46-3393Tojmypa encounter zvkohxgmk53/18/2024 2:00 PM EST Office Visit [facility] [address] [place] [address] Bernie Quiñonez NP [address] [place] [address] [facility] CWM FMStart: 06-03-2024 End: 93-43-4964Wmgefxw encounter lljsbdbec67/30/2024 2:00 PM EDT Office Visit [facility] [address] [place] [address] Lorenzo Bianchi MD [address] [facility] [address] [place] [address] Thyroid nodule greater than or equal to 1.5 cm in diameter incidentally noted on imaging study (CMS/HCC)NOMS CI ENTComment on above:Thyroid nodule greater than or equal to 1.5 cm in diameter incidentally noted on imaging study (CMS/HCC)Start: 05-13-2024 End: 07-53-6732Icaozqn encounter procedureNOPR CWM FMComment on above:Arrived Start: 05-05-2024 End: 43-68-0150V-reactive proteinC-reactive protein Lab Routine SHAHLA positive Expected: 05/05/2024 (Approximate), Expires: 05/05/2025[facility] Comment on above:Expected: 05/05/2024 (Approximate), Expires: 05/05/2025Start: 05-05-2024 End: 30-94-3102Dbicaimwwwhpc metabolic 2000 panel - Serum or PlasmaProMedica Toledo HospitalComment on above:Expected: 05/05/2024 (Approximate), Expires: 05/05/2025Start: 04-28-2024 End: 19-96-1843Xerflsa encounter procedureNOINTEGRIS [facility] FMComment on above:Arrived Start: 04-09-2024 End: 36-33-9593FH Thyroid glandUS thyroid Imaging Routine Thyroid antibody positive Expected: 04/09/2024, Expires: 04/09/2025[facility] Work Phone: Comment on above:Expected: 04/09/2024, Expires: 04/09/2025Start: 51-15-3333Kdjevsqyr vaccinationLAYTON HOSPITAL HealthcareStart: 04-02-2024 End: 51-00-1135Xbyrbya encounter jufhhtpuj87/29/2024 2:20 PM EDT Office Visit [facility] [address] [place] [address] Bernie Quiñonez NP [address] [place] [address] [facility] FMComment on above:ArrivedStart: 04-02-2024 End: 04-02-2025 reactive protein [Mass/volume] in Serum or PlasmaC-reactive protein Lab Routine Arthralgia, unspecified joint Expected: 04/02/2024 (Approximate), Expires: 04/02/2025[facility] HealthcareComment on above:Expected: 04/02/2024 (Approximate), Expires: 04/02/2025Start: 04-02-2024 End: 96-75-9534Sjbtcqkvnlf sedimentation rateSedimentation rate, automated Lab Routine Arthralgia, unspecified joint Expected: 04/02/2024 (Approximate), Expires: 04/02/2025[facility] Work Phone: Comment on above:Expected: 04/02/2024 (Approximate), Expires: 04/02/2025Start: 04-02-2024 End: 35-96-7386Jrnn + transferrin + TIBCIron + transferrin + TIBC Lab Routine Iron deficiency anemia, unspecified iron deficiency anemia type Expected: 04/02/2024 (Approximate), Expires: 04/02/2025[facility] HealthcareComment on above: Expected: 04/02/2024 (Approximate), Expires: 04/02/2025Start: 04-02-2024 End: 50-30-4090Ualgkkl Ab [Titer] in Serum by ImmunofluorescenceANA Lab Routine Arthralgia, unspecified joint Expected: 04/02/2024 (Approximate), Expires: 04/02/2025[facility] HealthcareComment on above:Expected: 04/02/2024 (Approximate), Expires: 04/02/2025Start: 04-02-2024 End: 73-97-4778Zavleftftm factor [Units/volume] in Serum or PlasmaRheumatoid factor Lab Routine Arthralgia, unspecified joint Expected: 04/02/2024 (Approximate), Expires: 04/02/2025[facility] HealthcareComment on above:Expected: 04/02/2024 (Approximate), Expires: 04/02/2025Start: 04-02-2024 End: 45-24-1201Ueyuzbg peroxidase and thyroglobulin antibodiesThyroid peroxidase and thyroglobulin antibodies Lab Routine Other fatigue Expected: 04/02/2024 (Approximate), Expires: 04/02/2025[facility] HealthcareComment on above:Expected: 04/02/2024 (Approximate), Expires: 04/02/2025Start: 04-02-2024 End: 83-00-1437Tmpjk [Mass/volume] in Serum or PlasmaUric acid Lab Routine Arthralgia, unspecified joint Expected: 04/02/2024 (Approximate), Expires: [facility] HealthcareComment on above:Expected: 04/02/2024 (Approximate), Expires: 04/02/2025Start: 56-29-2272LKaV,Tdap and Td Vaccines (2 - Td or Tdap) DTaP,Tdap and Td Vaccines (2 - Td or Tdap)[facility]: 24-54-7550Ztknjgnzx for malignant neoplasm of cervixPap [facility] Start: 19-38-7950HCnY,Tdap and Td Vaccines (1 - Tdap)DTaP,Tdap and Td Vaccines (1 - Tdap)[facility]: 40-45-6652Ksexn BMI ScreeningAdult BMI ScreeningSt. Rita's Hospital SystemStart: 73-61-0418Gyfcloscoz ScreeningDepression ScreeningSt. Rita's Hospital SystemStart: 99-63-0077Ljihczk ScreeningTobacco ScreeningSt. Rita's Hospital System End: 66-82-3748Athueopwxfo Ab, HEp-2 Substrate, SAntinuclear Ab, HEp-2 Substrate, S Lab Routine SHAHLA positive 1 Occurrences starting 05/05/2024 until 05/05/2025[facility] Work Phone: comment on above:1 Occurrences starting 05/05/2024 until 05/05/2025ntinuclear Ab, HEp-2 Substrate, SAntinuclear Ab, HEp-2 Substrate, S Lab Routine SHAHLA positive 05/05/2024 12:03 PM EDTPSelect Medical [facility] SystemC reactive protein [Mass/volume] in Serum or PlasmaC-reactive protein Lab Routine SHAHLA positive 05/05/2024 12:03 PM [facility] SystemComprehensive metabolic 2000 panel - Serum or PlasmaAdventHealth Heart of [facility] Immunizations Immunization DateImmunizationNotesCare KvlvvkoqOsnvwfai04-77-9443rsslxzk toxoid, reduced diphtheria toxoid, and acellular pertussis vaccine, mendyLisa Khang NICOLE Work Phone: [facility] Payers DatePayer CategoryPayerPolicy [id number] Health InsuranceMEDICAL MUTUAL ..[id number] [id number] 2..1.217701.3.57[id number] ..1.351202.3.57[id number] 2..1.819549.3.57[id number] 2.1.282164.3.57[id number] 2..1.550199.3.57[id number] 2..1.155714.3.57[id number] 2..1.047235.3.57[id number] 2..1.868687.3.579.[id number] [id number]-yl96-745q-7ziv-[id number] 2..1.083769.3.579.2.531 Social History DateTypeDetailFacilityUnknown if ever smokedNomissouri rehabilitation center RuiYi Other Start: 04-01-2024 End: 41-37-7676Fgi [facility]igned At [facility] HealthcareStart: 03-01-2018 End: 47-03-6133Jyfstfq smoking status NHISNever smoked tobacco (finding) [facility]start: 73-05-3357Txw Assigned At [facility] Hospitaltart: 97-75-6385Vdwmlin use and exposure Smokeless tobacco non-userNOPR HealthcareStart: 04-02-2024 End: 74-68-6281Gtrhqfwwf beverage intakeCurrent drinker of alcohol (finding)[facility] HealthcareStart: 04-01-2024 End: 45-18-7879Hqjlidv of Social functionNOMS HealthcareStart: 17-10-0082Faj often do you need to have someone help you when you read instructions, pamphlets, or other written material from your doctor or pharmacy [SILS]Never [facility] HealthcareDo you belong to any clubs or organizations such as episcopalian groups, unions, fraternal or athletic groups, or school groups?NoNOMS Healthcare Are you now , , , , never or living with a partner?MarriedNOMS HealthcareHow often to you have a drink containing alcohol?Monthly or lessNOMS HealthcareHow many standard drinks containing alcohol do you have on a typical day?1 or 2NOMS HealthcareHow often do you have 6 or more drinks on 1 occasion?NeverNOMS HealthcareDo you feel stress - tense, restless, nervous, or anxious, or unable to sleep at night because yourmind is troubled all the time - these days [OSQ]Rather muchNOMS Healthcare(I/We) worried whether (my/our) food would run out before (I/we) got money to buy more.Never trueNOMS HealthcareStart: 21-65-5231Iyzzlnd Commentoccasional alcohol useNOMS HealthcareStart: 33-27-5567Kfa assigned at birthNot on fileNOPR HealthcareStart: 06-03-2024 End: 58-15-9832Wcmawlzba beverage intakeEx-drinker (finding)[facility] Tobacco smoking status NHISTobacco smoking consumption unknownProWestern Reserve Hospital SystemSexFemale (finding)[facility] Clinical Notes 07-31-2023 to 04-27-2025 Note Date & SywzFvbvBujiscgs18-56-7932 History of Present illness Narrative* Lorenzo Bianchi MD - 04/27/2025 3:20 PM EDT Subjective Patient ID: Fifi Mock is a 34 y.o. female who presents for Thyroid Nodule (6 month US [facility] 04/14/25) Thyroid Us shows a 74l17i2ny nodule compare to 82g67l4vh in October Family History Problem Relation Name Age of Onset Endometriosis Mother Elissa Youngblood Cancer Mother Elissa Youngblood Remedios-Danlos syndrome Father Diabetes Maternal Grandmother Celena Diabetes Paternal Grandmother Madhavi Diabetes Paternal Grandfather Uriel Active Ambulatory Problems Diagnosis Date Noted Elevated liver enzymes 04/02/2024 Herpes simplex viral infection 04/02/2024 TALHA (generalized anxiety disorder) 04/02/2024 Major depressive disorder with single episode, in remission 04/02/2024 JENIFER (iron deficiency anemia) 04/02/2024 Wellness examination 04/02/2024 Arthralgia 04/02/2024 Other fatigue 04/02/2024 Class 1 obesity due to excess calories without serious comorbidity with body mass index (BMI) of 31.0 to 31.9 in adult 04/02/2024 SHAHLA positive 04/09/2024 Abnormal urinalysis 04/20/2024 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 Thyroid nodule greater than or equal to 1.5 cm in diameter incidentally noted on imaging study 04/28/2024 Resolved Ambulatory Problems Diagnosis Date Noted No Resolved Ambulatory Problems Past Medical History: Diagnosis Date Anemia At risk for falls Bacterial infection BMI 24.0-24.9, adult Cholecystitis 2014 Cholelithiasis 2014 Depression Family history of connective tissue disease Fatigue Finger pain, right Herpes Influenza vaccination declined by patient Laceration of chin Non-healing skin lesion Scabies exposure Sleep difficulties Well woman exam Past Surgical History: Procedure Laterality Date ABDOMINAL SURGERY CHOLECYSTECTOMY 2013 lap elizabeth COSMETIC SURGERY 04/2020 TUBAL LIGATION 2017 No Known Allergies Current Outpatient Medications on File Prior to Visit Medication Sig Dispense Refill diphenhydrAMINE-acetaminophen (Tylenol PM) 25-500 MG per tablet Take 1 tablet by mouth as needed atbedtime for sleep valACYclovir (Valtrex) 500 MG tablet Take 500 mg by mouth in the morning and 500 mg before bedtime. No current facility-administered medications on file prior to visit. Objective Last Recorded Vitals Vitals: 04/27/25 1508 BP: 98/68 Pulse: 71 ENT Physical Exam Constitutional Appearance: patient appears well-developed, well-nourished and well-groomed, Communication/Voice: communication appropriate for developmental age; vocal quality normal; Assessment/Plan Diagnoses and all orders for this visit: Thyroid nodule Very stable thyroid nodule. Repeat US one year documented in this encounterBarnes-Jewish Saint Peters HospitalVsisgnzxjn65-85-0871 Telephone encounter Note* Telephone Encounter - Bernie Quiñonez NP - 07/13/2024 7:14 PM EST Please call referral for Genetics, pt still has not heard anything about an appt [place] [facility] HospitalBkbylruqjg70-11-4136 Miscellaneous Notes* Telephone Encounter - Bernie Quiñonez NP - 07/13/2024 7:14 PM EST Please call referral for Genetics, pt still has not heard anything about an appt [place] documented in this encounterBarnes-Jewish Saint Peters HospitalQvusqgoqcn26-29-6632 History of Present illness Narrative* Lorenzo Bianchi MD - 06/03/2024 2:00 PM EDT Subjective Patient ID: Fifi Mock is a 33 y.o. female who presents for Thyroid Nodule (Ultrasound 04/17/24 [facility]) Pt reports she was being evaluated for fatigue, which included and eval of the thyroid. TSH was 1.47. Thyroid US was obtained that showed a 35o18t6fc LT TR4 nodule. US-guided FNA performed that was classified as Anita 1. No radiation exposure. No family h/o [...] viral infection 04/02/2024 TALHA (generalized anxiety disorder) ([facility]/HCC) 04/02/2024 Major depressive disorder with single episode, in remission (HCC) ([facility]/HCC) 04/02/2024 JENIFER (iron deficiency anemia) 04/02/2024 Wellness examination 04/02/2024 Arthralgia 04/02/2024 Other fatigue 04/02/2024 Class 1 obesity due to excess calories without serious comorbidity with body mass index (BMI) of 31.0 to 31.9 in adult 04/02/2024 SHAHLA positive 04/09/2024 Abnormal urinalysis 04/20/2024 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 Thyroid nodule greater than or equal to 1.5 cm in diameter incidentally noted on imaging study ([facility]/HCC) 04/28/2024 Resolved Ambulatory Problems Diagnosis Date Noted [...] Take 1 tablet by mouth as needed atbedtime for sleep valACYclovir (Valtrex) 500 MG tablet [...] in diameter incidentally noted on imaging study ([facility]) - Ambulatory referral to ENT Pt has a small fairly low risk nodule. Though FNA technically nondiagnostic, it is still reassuringin that no suspicious cells were found. I will start checking periodic surveillance US. documented in this encounterBarnes-Jewish Saint Peters HospitalBqldhukdrc17-07-4091 History of Present illness Narrative* Bernie Quiñonez NP - 05/13/2024 5:37 PM EDTAssociated Problem(s): Thyroid nodule greater than or equal to 1.5 cm in diameter incidentally noted on imaging study ([facility]) Non diagnostic biopsy, will refer to ENT * Bernie Quiñonez NP - 05/13/2024 5:37 PM EDTAssociated Problem(s): Other Remedios- Danlos syndromes (CMS/HCC) Will send to [facility] for testing, [facility] does not do this testing * KATHIE RIVERA - 05/13/2024 2:40 PM EDT Left heel started hurting on Saturday-pt does not recall anything happening. Pt has iced it. Pt is still having pain in upper back between shoulder blades * Bernie Quiñonez NP - 05/13/2024 2:40 PM EDT Images from the original note were not [...] syndromes (CMS/HCC) - Primary Will send to [facility] for testing, [facility] does not do this testing Relevant Orders Ambulatory referral to Genetics Thyroid nodule greater than or equal to 1.5 cm in diameter incidentally noted on imaging study (CMS/HCC) Non diagnostic biopsy, will refer to ENT Relevant Orders Ambulatory referral to ENT documented in this encounterBarnes-Jewish Saint Peters HospitalJyrvgufbfd01-59-7295 History of Present illness Narrative* James Medina MD - 05/05/2024 11:45 AM EDT Images from the original note were not included. [address] [address] Date of Service: 05/05/2024 Positive SHAHLA Subjective: Fifi Mock is a 33 y.o. female who presents today for evaluation positive SHAHLA. Patient is seen at the request of ANAND Sevilla. This is the 1st visit for this 33-year-old female patient who has been referred to us with positiveANA Patient's history dates back to 2020 when [...] past medical history, past social history, past surgicalhistory and problem list. Review of Systems: Review [...] the homunculus. Go to the Rheumatology activity andcomplete the homunculus joint exam. LOCK-28 (CRP): -- [...] has positive SHAHLA screen, however there is noenough clinical or laboratory evidence suggest an underlying [...] results RTC based on lab results Total csby-lr-yivp time was 35 minutes with more than 50% of the visit spent counseling and discussing diagnostic or treatment recommendations, prognosis, risks and benefits of management options, instructions, compliance or risk- factor reduction. This note was created with the assistance of a speech recognition program. While intending to generate a timely document that accurately reflects the content of the visit, no guarantee can be provided that every grammatical or spelling mistake has been or will be identified or corrected. Thank you for your understanding. [facility] [place] [address] [place] [address], [address] [place] [address] Office: [phone] documented in this encounterPro[facility]09-[facility]-20[facility] Miscellaneous Notes* Telephone Encounter - Bucky Mcdermott CNA - 04/29/2024 11:34 AM EDT Lvm to schedule new patient appt Positive SHAHLA documented in this encounterProMedica [facility]09-25-2024 Telephone encounter Note* Telephone Encounter - Bucky Mcdermott CNA - 04/29/2024 11:34 AM EDT Lvm to schedule new patient appt Positive SHAHLA [facility]09-24-2024 History of Present illness Narrative* Bernie Quiñonez NP - 04/28/2024 5:34 PM EDTAssociated Problem(s): Thyroid nodule greater than or equal to 1.5 cm in diameter incidentally noted on imaging study (CMS/HCC) Has biopsy this week Fu for results * Bernie Quiñonez NP - 04/28/2024 5:34 PM EDTAssociated Problem(s): Other Remedios- Danlos syndromes (CMS/HCC) Family hx of this, would like genetic testing * Bernie Quiñonez NP - 04/28/2024 5:32 PM EDTAssociated Problem(s): SHAHLA positive Did not do a pattern or ratio Will re order SHAHLA level Refer to Rheumatology * KATHIE RIVERA - 04/28/2024 2:40 PM EDT Pt would like to go over the medication with bernie before her procedure on . * Bernie Khang, ASSEMBLER PIANO - 04/28/2024 2:40 PM EDT Images from the original note were not [...] Past Surgical History: Procedure Laterality Date CHOLECYSTECTOMY 2014 lap elizabeth TUBAL LIGATION 2018 family history [...] in diameter incidentally noted on imaging study ([facility]) Has biopsy this week Fu for results documented in this encounterBarnes-Jewish Saint Peters HospitalVygfhndutd13-23-3273 History of Present illness Narrative* Bernie Quiñonez NP - 04/02/2024 8:59 PM EDTAssociated Problem(s): Wellness examination Reviewed Ht/Wt/BMI Recommend eye exam yearly Recommend dental exams twice a year Balance work/leisure activities Exercises is recommended most days of the week (appropriate as chronic conditions allow) Follow up yearly and prn * KATHIE RIVERA - 04/02/2024 2:20 PM EDT Pt has not taken any iron for a long time and she is interested in those levels. Pt would like to talk about the process of going about how to find out if she has remedios danlos like her father and sister. * Bernie Quiñonez NP - 04/02/2024 2:20 PM EDT Images from the original note were not [...] having deficiency. She would also like to havean evaluation for possible Remedios-Danlos syndrome: both her [...] to 31.9 in adult documented in this encounterBarnes-Jewish Saint Peters HospitalGrnrmuoyyq92-65-0248 Evaluation note* Encounter Date Diagnosis Assessment Notes Treatment Notes Treatment Clinical Notes Sep, Sore throat (ICD-10 - J02.9) Sep,Strep pharyngitis (ICD-10 - J02.0) Advised patient that [...] understanding and is agreeable to treatment plan. [employer] Other 12-27-2023 Evaluation note* Encounter Date Diagnosis Assessment Notes Treatment Notes Treatment Clinical Notes Jul, Contact with and (slater spected) exposure to covid-19 (ICD-10 - Z20.822) Jul,Influenza B (ICD-10 - J10.1)You were seen here today for your cough, congestion, sinus pressure, sore throat, headache, nausea,and swollen glands. You tested positive for flu B. Rest. Drink plenty of water. Lexx Tylenol or Motr in as needed for fever or discomfort. You may take over the counter cold and flu medication. Tamiflu is not indicated this far into symptoms and has side effects that outweigh the benefits. Follow upwith your primary care doctor if symptoms persist or worsen. Go to the Et if you develop chest pain, difficulty breathing, shortness of breath. Patient is a 32 yo female who presents with complaints of cough, congestion, headache, general malaise, sinus pressure, mild sore throat for the past few days. Reports daughter was recently sick withsimilar symptoms. DDX includes covid, flu, viral URI, [...] pain, shortness of breath or difficulty breathing. [employer] Other Evaluation noteNo assessment information available [facility] Work Phone: Evaluation note* Diagnosis Thyroid [...] imaging study (CMS/HCC) documented in this encounter [facility] HealthcareEvaluation note* Diagnosis SHAHLA positive- Primary Chronic fatigue Other malaise and fatigue documented in this [facility] Diagnosis Wellness examination- Primary Arthralgia, unspecified joint Other fatigue Iron deficiency anemia, unspecified iron deficiency anemia type Class 1 obesity due to excess calories without serious comorbidity with body mass index (BMI) of 31.0 to 31.9 in adult SHAHLA positive- Primary Other Remedios-Danlos syndromes (HCC) Class 1 obesity due to excess calories without serious comorbidity with body mass index (BMI) of 31.0 to 31.9 in adult Thyroid nodule greater than or equal to 1.5 cm in diameter incidentally noted on imaging study Thyroid nodule greater than or equal to 1.5 cm in diameter incidentally noted on imaging study- Primary Other Remedios-Danlos syndromes (HCC) Class 1 obesity due to excess calories without serious comorbidity with body mass index (BMI) of 31.0 to 31.9 in adult Thyroid nodule- Primary Nontoxic uninodular goiter documented in this encounter [facility] HealthcareEvaluation note* Diagnosis Onset Date Resolution Status Admit Date Remedios-Danlos disease acuteNov2024 5:46pmEncounter for wellness examinationacuteNov2024 5:46pmGAD (generalized anxiety disorder)acuteNov2024 5:46pm JENIFER (iron deficiency anemia)acuteNov2024 5:46pmMajor depressionacute June 07, 2025 5:46pmObesity due to excess caloriesacuteNov2024 5:46pm [facility] Work Phone: History general Narrative - Reported* Type Description Date Medical History anemia Surgical HistorycholecystectomySurgical Historytubal ligationHospitalization Historysee aboveHospitalization Historychild [employer] Other InstructionsNot on filedocumented in this encounter [facility] SystemInstructionsNot on filedocumented in this encounter [facility] SystemReason for referral (narrative)* Consultation (Routine) - Pending ReviewSpecialtyDiagnoses / ProceduresReferred By ContactReferred To ContactGenetics Diagnoses Other Remedios-Danlos syndromes (CMS/HCC) Procedures ND OFFICE/OUTPATIENT NEW HIGH MDM 60 MINUTES Bernie Quiñonez NP [address] [place] [address] Nancy Brennan MD [address] [place] [address] Referral IDStatusReasonStart DateExpiration DateVisits RequestedVisits [id number] Review Specialty Services Required * Consultation (Routine) - Pending ReviewSpecialtyDiagnoses / ProceduresReferred By ContactReferred To ContactOtolaryngology Diagnoses Thyroid nodule greater than or equal to 1.5 cm in diameter incidentally noted on imaging study (CMS/HCC) Procedures ND OFFICE/OUTPATIENT NEW HIGH MDM 60 MINUTES Bernie Quiñonze NP [address] [place] [address] Lorenzo Bianchi MD [address] [address] Referral IDStatusReasonStart DateExpiration DateVisits RequestedVisits [id number] Review Specialty Services Required [facility] HealthcareReason for referral (narrative)* Consultation (Routine) - Pending ReviewSpecialtyDiagnoses / ProceduresReferred By ContactReferred To Contact Rheumatology Diagnoses SHAHLA positive Procedures ND OFFICE/OUTPATIENT NEW HIGH MDM 60 MINUTES Bernie Quiñonez NP [address] [place] [address] James Medina MD [address] [place] [address] Referral IDStatusReasonStart DateExpiration DateVisits RequestedVisits [id number] Review Specialty Services Required * Consultation (Routine) - Pending ReviewSpecialtyDiagnoses / ProceduresReferred By ContactReferred To ContactGenetics Diagnoses Other Remedios-Danlos syndromes (CMS/HCC) Procedures ND OFFICE/OUTPATIENT NEW HIGH MDM 60 MINUTES Bernie Quiñonez, BONNIE [address] [place] [address] Referral IDStatusReasonStart DateExpiration DateVisits RequestedVisits [id number] Review Specialty Services Required Scheduling Instructions Schedule in [place] with Genetics [facility] DelmyReervin for referral (narrative)No reason for referral information availableTrihealth [facility] Work Phone: Summary Purpose Family History No Family History Records FoundNo Family History Records FoundNo Family History Records FoundNo Family History Records FoundNo Family History Records FoundNo Family History Records Found Advance Directives Advance Directive Response Recorded Date/ Time Advance Directives No March 06 12:49pm Advance Directive Response Recorded Date/ Time Advance Directives No March 06 11:49am Hospital Course Note [facility] SURGERY Clinical Discharge Summary PERSON INFORMATION Name FIFI MOCK Age 28 Years 90 Sex FEMALE Language Slovenian PCP Nasra Sparrow CNP Marital Status Med Service Ambulatory Surgery Acct# Arrival 12/16/18 06:00:00 Visit Reason SURGERY - LAPAROSCOPIC BILATERAL TUBAL LIGATION Acuity LOS 034 00:46 Address: [address] [place] [address] Comment: PROVIDER INFORMATION VITALS INFORMATION Vital Sign [...] Medication Allergies Prescriptions Given: Prescription Display acetaminophen-hydrocodone ([place] 5 mg- 325 mg oral tablet) 1 tab(s), PO, q6hr, Instructions: may take 1 or 2 tablets not to exceed 8 tablets/day, (more content not included)... Chief Complaint and Reason for Visit Chief Complaint Admit Date annual wellness June 07, 2025 5 :46pm Reason for Visit Admit Date Remedios-Danlos disease June 07, 2025 5:46pm Encounter for wellness examination Novem 2024 5:46pm TALHA (generalized anxiety disorder) Novem 2024 5:46pm JENIFER (iron deficiency anemia) June 5:46pm Major depression June 07, 2025 5 :46pm Obesity due to excess calories June 07, 2025 5:46pm Additional Source Comments INFORMATION SOURCE (unrecogn ized section and content) DATE CREATED AUTHOR 10/14/2018 [facility] DATE CREATED AUTHOR AUTHOR'S ORGANIZ ATION 01/01/2019 [facility] DATE CREATED AUTHOR AUTHOR'S ORGANIZ ATION 02/14/2022 [facility] DATE CREATED AUTHOR AUTHOR'S ORGANIZ ATION 05/06/2024 [facility] DATE CREATED AUTHOR AUTHOR'S ORGANIZ ATION 05/08/2024 [facility] DATE CREATED AUTHOR AUTHOR'S ORGANIZ ATION 04/28/2025 [facility] EPIC REASON FOR VISIT (unrecogniz ed section and content) ReasonCommentsThyroid NoduleUltrasound 04/17/24 TBHSpecialtyDiagnoses / ProceduresReferred By ContactReferred To ContactOtolaryngology Diagnoses Thyroid nodule greater than or equal to 1.5 cm in diameter incidentally noted on imaging study (CMS/HCC) Procedures ND OFFICE/OUTPATIENT NEW HIGH [facility] 60 MINUTES Bernie Quiñonez NP [address] [place] [address] Phone: tel: fax: Lorenzo Bianchi MD [address] [facility] [address] [place] [address] Phone: tel: fax: Referral IDStatusReasonStart DateExpiration DateVisits RequestedVisits [id number] Specialty Services Required /[id number] Nodule6 month [facility] 04/14/25 Care Teams (unrecognized sec tion and content) Team Status: Inactive Member Role Status Dates Bernie Quiñonez Attending Provider Active Start: April 30, 2024 End: April 30, 2024Team MemberRelationshipSpecialtyStart DateEnd Date Chrissie Mesa PA [address] [place] [address] PCP - Medical [employer]08/05/2211 Fermín Ceballos MD [address] [place] [address] PCP - GeneralFamily Medicine03/19/24 Bernie Quiñonez NP [address] [place] [address] Nurse PractitionerFamily Medicine03/19/24Team MemberRelationshipSpecialtyStart DateEnd Date Chrissie Mesa PA [address] [facility] [place] [address] PCP - Medical [employer]08/05/2211 Fermín Ceballos MD [address] [place] [address] PCP - GeneralFamily Medicine03/19/24 Bernie Quiñonez NP [address] [place] [address] Nurse [facility] Medicine03/19/24Team MemberRelationshipSpecialtyStart DateEnd Date Chrissie Mesa PA [address] [facility] [place] [address] PCP - Medical [employer]08/05/2211 Fermín Ceballos MD [address] [place] [address] PCP - [facility] Medicine03/19/24 Bernie Quiñonez NP [address] [place] [address] [facility] [place]03/19/24Team MemberRelationshipSpecialtyStart DateEnd Date Chrissie Mesa PA [address] [facility] [place] [address] PCP - Medical [employer]08/05/2211 Fermín Ceballos MD [address] [place] [address] PCP - [facility] [place]03/19/24 Bernie Quiñonez NP [address] [place] [address] Nurse Pract[facility]erT[facility] [place]03/19/24Team MemberRelationshipSpecialtyStart DateEnd Date Chrissie Mesa PA [address] [place] [address] PCP - Medical [employer]08/05/2211 Fermín Ceballos MD [address] [place] [address] PCP - GeneralFamily Medicine03/19/24 Bernie Quiñonez NP [address] [place] [address] Nurse Pract[facility]erT[facility] [place]03/19/24Team MemberRelationshipSpecialtyStart DateEnd Date Chrissie Mesa PA [address] [facility] [place] [address] PCP - Medical [employer]08/05/2211 Fermín Ceballos MD [address] [place] [address] PCP - [facility] [place]03/19/24 Bernie Quiñonez NP [address] [place] [address] Nurse Pract[facility]erT[facility] [place]03/19/24Team MemberRelationshipSpecialtyStart DateEnd Date Chrissie Mesa PA [address] [facility] [place] [address] PCP - Medical [employer]08/05/2211 Fermín Ceballos MD [address] [place] [address] PCP - [facility]Long [facility] Medicine03/19/24 Bernie Quiñonez NP [address] [place] [address] Nurse Pract[facility]erT[facility] [place]03/19/24Team MemberRelationshipSpecialtyStart DateEnd Date Chrissie Mesa PA [address] [facility] [place] [address] PCP - Medical [employer]/ Fermín Ceballos MD [address] [place] [address] PCP - [facility]03/19/24 Bernie Quiñonez NP [address] [place] [address] Nurse Pract[facility] [place]03/19/24Team MemberRelationshipSpecialtyStart DateEnd Date Chrissie Mesa PA [address] [facility] [place] [address] PCP - Medical [employer]08/05/2211 Fermín Ceballos MD [address] [place] [address] PCP - [facility] [place]03/19/24 Bernie Quiñonez NP [address] [place] [address] Nurse Pract[facility]erT[facility] [place]03/19/24Team MemberRelationshipSpecialtyStart DateEnd Date Chrissie Mesa PA [address] [place], [place] [address] PCP - Medical [employer]08/05/2211 Fermín Ceballos MD [address] [place] [address] PCP - GeneralFamily Medicine03/19/24 Bernie Quiñonez, BONNIE [address] [place] [address] Nurse Practitionermily Medicine03/19/24Team MemberRelationshipSpecialtyStart DateEnd Date Chrissie Mesa PA [address] [facility] [place] [address] PCP - Medical [employer]08/05/2211 Fermín Ceballos MD [address] [place] [address] PCP - GeneralFamily Medicine03/19/24 Bernie Quiñonez, BONNIE [address] [place] [address] Nurse PractitionerMercyone [facility] Centerly Medicine03/19/24Team MemberRelationshipSpecialtyStart DateEnd Date Chrissie Mesa PA [address] [place] [address] [place], [place] [address] PCP - Medical [employer]08/05/2211 Fermín Ceballos MD [address] [place] [address] PCP - GeneralFamily Medicine03/19/24 Bernie Quiñonez NP [address] [place] [address] Nurse PractitionerFaksly Medicine03/19/24Team MemberRelationshipSpecialtyStart DateEnd Date Nasra Sparrow, SPRAY UNIT FEEDER-PRODUCTION TRUCK DRIVER [address] [place] [address] PCP - GeneralNurse Practitioner04/25/20Team MemberRelationshipSpecialtyStart Date End Date Nasra Sparrow APRN-PRODUCTION TRUCK DRIVER PCP - GeneralNurse Practitioner04/25/20Team MemberRelationshipSpecialtyStart Date End Date Fermín Ceballos MD PCP - GeneralFamily Medicine03/19/24 Bernie Quiñonez NP Nurse PractitionerMercyone [facility] Centerly Medicine03/19/24Team MemberRelationshipSpecialtyStart DateEnd Date Fermín Ceballos MD [address] [place] [address] PCP - GeneralFamily Medicine04/21/25 Bernie Quiñonez NP Nurse PractitionerMercyone [facility] Centerly Medicine03/19/24 Bernie Quiñonez NP [address] [place] [address] Nurse PractitionerMercyone [facility] Centerly [facility]04/21/25Team MemberRelationshipSpecialtyStart DateEnd Date Fermín Ceballos MD [address] [place] [address] PCP - GeneralFamily Medicine04/21/25 Bernie Quiñonez NP Nurse PractitionerT[facility] [place]03/19/24 Bernie Quiñonez NP [address] [place] [address] Nurse PractitionerT[facility] [place]04/21/25Team MemberRelationshipSpecialtyStart DateEnd Date Chrissie Mesa PA [address] [facility] [address] [place], [place] [address] PCP - Medical [employer] Fermín Ceballos MD [address] [facility] [facility] [address] [place], [place] [address] PCP - GeneralFamily Medicine Fermín Ceballos MD [address] [place] [address] PCP - GeneralFamily Medicine04/21/25 Bernie Quiñonez NP [address] [facility] [place] [address] Nurse PractitionerT[facility] [place]03/19/24 Bernie Quiñonez NP [address] [place] [address] Nurse PractitionerLong [facility] Hospital Medicine04/21/25Team MemberRelationshipSpecialtyStart DateEnd Date Chrissie Mesa PA [address] [facility] [place] [address] PCP - Medical [employer] Fermín Ceballos MD [address] [facility] [facility] [place] [address] PCP - [facility] [place] Fermín Ceballos MD [address] [place] [address] PCP - GeneralT[facility] Medical [facility] [place]04/21/25 Bernie Quiñonez NP [address] [facility] [place] [address] Nurse PractitionerT[facility] Medical [facility] [place]03/19/24 Bernie Quiñonez NP [address] [place] [address] Nurse PractitionerT[facility] [place]04/21/25 Team Status: Active Member Role/Relationship Status Dates GENOVEVA Lund Primary Care Provider Active Team Status: Inactive Member Role/Relationship Status Dates GENOVEVA Lund Primary Care Provider Active Start: June 07, 2025 End: June 07, 2025Bernie Quiñonez NP-CAttensonido ProviderActiveStart: June 07, 2025 End: June 07, 2025 Goals (unrecognized section and content) Goals may [...] BE BASED ON THE PRIMARY CLINICAL RECORDS. [facility] [employer] [facility]. provides no warranty or guarantee of the accuracy or completeness of information in this document.
[2025-06-08 14:10] LABS: Hematocrit 42.2 % (36.0-48.0); Hemoglobin 14.2 g/dL (12.0-16.0); Immature Granulocytes Abs Auto 0.02 10^3/uL (0.00-0.03); Immature Granulocytes Pct Auto 0.2 % (0.0-0.5); Lymphocytes Absolute Auto 2.3 10^3/uL (1.2-3.8); Mean Corpuscular HGB Conc 33.6 g/dL (29.9-35.2); Mean Corpuscular Hemoglobin 29.3 pg (26.7-34.0); Mean Corpuscular Volume 87.2 fL (81.0-99.0); Platelet Count 298 10^3/uL (150-450); Red Blood Count 4.84 10^6/uL (4.20-5.40); White Blood Count 9.1 10^3/uL (4.0-11.0)
[2025-06-08 14:20] LABS: Glucose Urine UA NEGATIVE (NEGATIVE)
[2025-06-08 14:26] LABS: Cast Seen? NONE SEEN #/LPF (NONE SEEN); Crystals Seen? None Seen #/HPF (None Seen)
[2025-06-08 14:33] LABS: Alanine Aminotransferase 22 U/L (14-59); Albumin Globulin Ratio 1.1; Albumin Level 3.9 g/dL (3.4-5.0); Alkaline Phosphatase 67 U/L (46-116); Anion Gap 12.3; Aspartate Amino Transferase 18 U/L (15-37); Blood Urea Nitrogen 11.0 mg/dL (7.0-18.0); Calcium 9.0 mg/dL (8.5-10.1); Carbon Dioxide 26.5 mmol/L (21.0-32.0); Chloride 104 mmol/L (98-107); Cholesterol 194 mg/dL (<=200); Estimated GFR (African America >60 (>=60 mL/min/1.73m^2); Estimated GFR (Non-African Ame >60 (>=60 mL/min/1.73m^2); Globulin 3.6 g/dL; Glucose 89 mg/dL (74-106); HDL Cholesterol 45 mg/dL (40-60); Potassium 3.8 mmol/L (3.5-5.1); Sodium 139 mmol/L (136-145); Thyroid Stimulating Hormone 1.132 uIU/mL (0.358-3.740); Total Protein 7.5 g/dL (6.4-8.2); Triglycerides 114 mg/dL (<=150); VLDL CHOLESTEROL 22.8 mg/dL
[2025-06-08 15:11] LABS: Iron 99.0 ug/dL (50.0-170.0); Percent Iron Saturation 34.9 %; Total Iron Binding Capacity 284.0 ug/dL (250.0-450.0)
[2025-06-08 15:23] LABS: Ferritin 96.0 ng/mL (8.0-252.0)
[2025-06-09 08:10] LABS: Transferrin 258 mg/dL (192-364)
== END 2025-06-08 13:11 | disposition home or self-care (01) ==
PROVIDERS: PCP Nurse Practitioner; Visit Provider Nurse Practitioner
DX: Z00.00 Encounter for general adult medical examination without abnormal findings (principal); D50.9 Iron deficiency anemia, unspecified
CPT/HCPCS: 36415; 80053; 80061; 81001; 82728; 83540; 83550; 84443; 84466; 85025

== ENCOUNTER 2025-06-15 13:42 | Outpatient (OUT) | payer OTHER, SELFPAY ==
--- OUTSIDE RECORDS SUMMARY | 2025-06-15 13:45 | XMS_ITS | Clinical Summary ---
Author Organization [facility] Address [address] [place] [address] Care Team Providers Care Intake Clinician Name Role Phone Unavailable Primary Care Provider Unavailabl e Social History Tobacco UseTypesPacks/DayYears UsedDateSmoking Tobacco: Never Assessed CommentsUnknownSex and Gender InformationValueDate RecordedSex Assigned at Not on fileLegal KvsLvaizv93/30/2022 12:13 AM EDTGender IdentityNot on file Sexual OrientationNot on file Plan of Treatment Not on file
--- OUTSIDE RECORDS SUMMARY | 2025-06-15 13:45 | XMS_ITS | Clinical Summary ---
Author Organization [employer] [facility] tem Address [id number] [address] [place] [address] Care Team Providers Care Asbestos Removal Supervisor Name Role Phone Nasra Sparrow GENOVEVA-CHILD WELFARE DIRECTOR Primary Care Provider [phone] Allergies No known active allergies Medications MedicationSigDispense QuantityRefillsLast FilledStart DateEnd DateStatus amitriptyline (ELAVIL) 10 mg tablet Indications:Chronic fatigueOne capsule at 8 PM each night 30 tablet 4Active Active Problems No known active problems Social History Tobacco UseTypesPacks/DayYears UsedDateSmoking Tobacco: Never AssessedChildcare AnswerDate IoqwxyvcJoszeavttBopvzzv65/21/2020EmploymentAnswerDate Recorded EhlustprbwMmtsudp12/21/2020Purpose - LifeAnswerDate RecordedPurpose and direction in tudeAhkvxcy59/11/2021CommentsUnknownSex and Gender InformationValueDate RecordedSex Assigned at BirthNot on fileLegal SexFemale 03/10/2015 11:58 AM EDTGender IdentityNot on fileSexual OrientationNot on file Last Filed Vital Signs Vital SignReadingTime TakenCommentsBlood Ghlfnsgo621/7410 11:46 AM EDT Pulse--Temperature--Respiratory Pjbv8493 11:46 AM EDTOxygen Saturation-- Inhaled Oxygen Concentration--Vossqq38.6 kg (160 lb)05/05/2024 11:46 AM EDT Height--Body Mass Index-- Plan of Treatment DateTypeDepartmentCare Team (Latest Contact Info)Aniuftcbdsn96/04/2026 7:00 AM ESTHospital Encounter [facility] [address] [place] [address] Devin Holden MD [address], [facility] [address] [place] [address] 10/06/2025 7:00 AM EST - 10/06/2025 10:00 AM ESTSurgery [facility] [address] [place] [address] [address] [place] [address] Devin Holden MD [address] [facility] [address] [place] [address] REMOVAL IMPLANT BREASTNamePriorityAssociated DiagnosesDate/TimeREMOVAL IMPLANT BREAST COSMETIC 10/06/2025 7:00 AM ESTREDUCTION BREAST COSMETIC 10/06/2025 7:00 AM ESTHealth MaintenanceDue DateLast DoneCommentsDepression Iyuvetscf09/02/2003Tobacco Rwwpqcyqn43/02/2003Adult BMI Njsbvfoox15/02/2009Pap Smear11/05/2011DTaP,Tdap and Td Vaccines (2 - Td or Tdap) Influenza Qcxlnoa4604/05/2025 Medical Devices Not on file Insurance MemberSubscriberPlan / Payer (Effective 2023-Present)Name:Venita Chappell Relation to Subscriber:SpouseName:MERVIN CHAPPELL Date of :1983 Address: [address] [place] [address] Payer ID:Not on file Type:Not on file Address: [address] [place] [id number] Care Teams Team MemberRelationshipSpecialtyStart DateEnd Date Nasra Sparrow, HATCHERY ATTENDANT-CHILD WELFARE DIRECTOR [address] [place] [address] PCP - GeneralNurse Practitioner04/25/20
--- OUTSIDE RECORDS SUMMARY | 2025-06-15 13:45 | XMS_ITS | Clinical Summary ---
Author Organization [facility] Address [address] [place] [address] Care Team Providers Care Mapping Technician Name Role Phone Fermín Ceballos MD Primary Care Provider [phone] Mckenna Quiñonez NP Unavailable [phone] Allergies No known active allergies Medications MedicationSigDispense QuantityRefillsLast FilledStart DateEnd DateStatus valACYclovir (Valtrex) 500 MG tablet Take 500 mg by mouth in the morning and 500 mg before bedtime.09/18/2022ctive diphenhydrAMINE-acetaminophen (Tylenol PM) 25-500 MG per tablet Take 1 tablet by mouth as needed at bedtime for sleepActive Active Problems ProblemNoted DateDiagnosed DateOther Meghana-Danlos bsknxyjgi75/24/2024 Assessment & Plan (05/13/2024 5:37 PM EDT): Will send to [facility] for testing, [facility] does not do this testing Assessment & Plan (04/28/2024 5:34 PM EDT): Family hx of this, would like genetic testing Thyroid nodule greater than or equal to 1.5 cm in diameter incidentally noted on imaging study04/28/2024 Assessment & Plan (05/13/2024 5:37 PM EDT): Non diagnostic biopsy, will refer to ENT Assessment & Plan (04/28/2024 5:34 PM EDT): Has biopsy this week Fu for results Abnormal uuxqkjnvib30/16/2024NA wvyuwbgv20/05/2024 Assessment & Plan (04/28/2024 5:32 PM EDT): Did not do a pattern or ratio Will re order SHAHLA level Refer to Rheumatology Elevated liver nidgauc2004/02/2024Herpes simplex viral swexjkjmr51/29/2024GAD (generalized anxiety disorder)04/02/2024Major depressive disorder with single episode, in pvlbswuxn71/29/2024IDA (iron deficiency anemia)04/02/2024Wellness pisjiqzrdpm57/29/2024 Assessment & Plan (04/02/2024 8:59 PM EDT): Reviewed Ht/Wt/BMI Recommend eye exam yearly Recommend dental exams twice a year Balance work/leisure activities Exercises is recommended most days of the week (appropriate as chronic conditions allow) Follow up yearly and prn Inhhxtpazz37/29/2024Other avdkfez7804/02/2024lass 1 obesity due to excess calories without serious comorbidity with body mass index (BMI) of 31.0 to 31.9 in adult04/02/2024 Encounters DateTypeDepartmentCare ZjanSvraowkhkcz21/23/2025 3:20 PM EDTOffice Visit [facility] [address] [place] [id number] Becky Oliveros MD Thyroid nodule (Primary Dx)04/27/2025amboo flowsheet [facility] [address] [place] [address] Becky Oliveros MD 04/27/20252890Hbktxx51/10/2025linisync Result Encounter [facility] External Department Unsolicited Becky Oliveros MD from Last 3 Months Immunizations ImmunizationAdministration DatesNext HfwCsfk00/25/2012 Family History Medical HistoryRelationNameCommentsEhlers-Danlos syndromeFatherDiabetesMaternal GrandmotherSandyCancerMotherJennifer MorrisonEndometriosisMotherJennifer MorrisonDiabetesPaternal GrandfatherBobDiabetesPaternal GrandmotherPhyllis RelationNameStatusCommentsDaughterAliveFatherAliveMaternal GrandmotherSandy MotherElissa MorrisonAlivePaternal GrandfatherBobPaternal GrandmotherPhyllis SonAlive Social History Tobacco UseTypesPacks/DayYears UsedDateSmoking Tobacco: NeverSmokeless Tobacco: Never Tobacco Cessation:Counseling Given: Not Answered Alcohol UseStandard Drinks/WeekCommentsNot Currently0 (1 standard drink = 0.6 oz pure alcohol)occasional alcohol [id number] Health LiteracyAnswerDate RecordedHow often do you need to have someone help you when you read instructions, pamphlets, or other written material from your doctor or pharmacy?Never 04/01/2024Social Connection and Isolation PanelAnswerDate RecordedIn a typical week, how many times do you talk on the phone with family, friends, or neighbors?Once a week04/01/2024How often do you get together with friends or relatives?Once a week04/01/2024How often do you attend islam or orthodoxy services?Never04/01/2024o you belong to any clubs or organizations such as islam groups, unions, fraternal or athletic groups, or school groups?No 04/01/2024How often do you attend meetings of the clubs or organizations you belong to?Never04/01/2024re you , , , , never , or living with a partner?Lcasrvl7804/01/2024UDIT-CAnswerDate RecordedQ1: How often do you have a drink containing alcohol?Monthly or less04/01/2024Q2: How many drinks containing alcohol do you have on a typical day when you are drinking?1 or Q3: How often do you have six or more drinks on one occasion?Never04/01/2024Overall Financial Resource Strain (CARDIA)AnswerDate RecordedHow hard is it for you to pay for the very basics like food, housing, medical care, and heating?Not hard at all04/01/2024HQ-2AnswerDate Recorded Patient Health Questionnaire-2 Zplkl650Fin[facility] [place] [facility] Occup[facility] - Occupational Stress QuestionnaireAnswerDate RecordedDo you feel stress - tense, restless, nervous, or anxious, or unable to sleep at night because your mind is troubled all the time - these days?Rather much04/01/2024Exercise Vital SignAnswerDate RecordedOn average, how many days per week do you engage in moderate to strenuous exercise (like a brisk walk)?4 days04/01/2024On average, how many minutes do you engage in exercise at this level?60 min04/01/2024Hunger Vital SignAnswerDate RecordedWithin the past 12 months, you worried that your food would run out before you got the money to buymore.Never true04/01/2024 Within the past 12 months, the food you bought just didn't last and you didn't have money to get more.Never true04/01/2024RAPARE - TransportationAnswerDate RecordedIn the past 12 months, has lack of transportation kept you from medical appointments or from getting medications?No04/01/2024In the past 12 months, has lack of transportation kept you from meetings, work, or from getting things needed for daily living?No04/01/2024Housing Stability Vital SignAnswerDate RecordedIn the last 12 months, was there a time when you were not able to pay the mortgage or rent on time?No04/01/2024Number of Times Moved in the Last Year Not on file04/01/2024t any time in the past 12 months, were you homeless or living in a [place] facility (including now)?No04/01/2024CommentsUnknownSex and Gender InformationValueDate RecordedSex Assigned at BirthNot on fileLegal Sex Onunig2410/17/2022 6:45 PM EDTGender IdentityNot on fileSexual OrientationNot on file Last Filed Vital Signs Vital SignReadingTime TakenCommentsBlood Qosfcdty56/6809 3:08 PM EDT Mnjes0264 3:08 PM VHIJgthisqyogx17.8 ??C (98.3 ??F)05/13/2024 2:50 PM EDTRespiratory Gmae8193 2:50 PM EDTOxygen Hmwqkdyngy97%05/13/2024 2:50 PM EDTInhaled Oxygen Concentration--Lwsaco69.5 kg (173 lb)04/27/2025 3:08 PM EDT Twxvvl861.9 cm (5' 1 )04/27/2025 3:08 PM EDTBody Mass Index32.6909/ 3:08 PM EDT Plan of Treatment DateTypeDepartmentCare Team (Latest Contact Info)Dequnogevzd48/23/2026 2:20 PM EDTOffice Visit [facility] [address] [facility] [address] [place] [address] Becky Oliveros MD [address] [facility] [address] [place] [address] Health MaintenanceDue DateLast DoneCommentsPap Smear11/05/2011COVID-19 Vaccine ( season)/06/2021, 11/18/2020ervical Cancer Screening 02/16/2028HPV/Pxrfti52Influenza VaccineDiscontinued Pneumococcal Vaccine: Pediatrics (0 to 5 Years) and At-Risk Patients (6 to 64 Years)Aged OutNo longer eligible based on patient's age to complete this topic Procedures Procedure NamePriorityDate/TimeAssociated DiagnosisCommentsUS WBAZDWL0304/14/2025 3:48 PM EDT THINPREP PAP AND HPV MRNA E6/E7 W/RFL HPV 16,18/72Fyrligm84/14/2023 10:32 AM EDT Well woman exam with routine gynecological exam from Last 3 Months or Most Recently Relevant to Health Maintenance Results * US thyroid (04/14/2025 3:48 PM EDT)Anatomical RegionLateralityModalityHead, NeckUltrasoundSpecimen (Source)Anatomical Location / LateralityCollection Method / VolumeCollection TimeReceived Time04/14/2025 3:48 PM EDT Narrative 04/14/2025 3:50 PM EDT [facility] ?[address] ? [place] [address] ? Ultrasound Report ? Signed ? Patient: CHAPPELL,FIFI A ?MR#: [id number] ?? : 1990 ?Acct:[id number] ?? Age/Sex: 34 / F ?ADM Date: 09//25 ?? Loc: US ? Attending Candie Oliveros M.D. ? Ordering Physician: Becky Oliveros M.D. ?? Date of Service: 04/14/25 ?? Procedure(s): US thyroid ?? Accession Number(s): [id number] ? cc: Physician,Non-Staff Cristino; Becky Oliveros M.D. ? [facility] ? [address] ? [place] [address] ? Patient Name: ?? FIFI CHAPPELL ? MRN: [facility]:[id number] ? date: 1990 ?Sex: F ?? Assigned Patient Location: US ?? Current Patient Location: US ?? Accession/Order Number: [id number] ?? Exam Date: 04/14/2025 ??13:52 ?Report Date: 04/14/2025 ??15:48 ? At the request of: ?? BECKY ??TASH ? Procedure: ??US thyroid ? Thyroid ultrasound ? Reason for exam: Thyroid nodule follow-up ? Comparison: Thyroid ultrasound 10/09/2024 ? Technique: Grayscale and color Doppler images of the thyroid gland were ?? obtained. ? Findings: ? Right lobe measures 5.1 x 1.4 x 1.0 cm. ??Left lobe measures 5.1 x 1.5 x 1.3 ?? cm. ??Isthmus measures 0.23 cm. ??Once again demonstrated is a hypoechoic nodule ?? involving the mid aspect of the left lobe measuring 15 x 8 x 12 mm grossly ?? unchanged from the prior study. ??No microcalcifications. ? US/US thyroid ?? Impression: ? No significant change in thyroid findings were compared to the prior study. ? FNA should be contemplated. ? Impression dictated by: Bird Harris Jr., D.O. ??04/14/2025 3:48 PM ? Dictation Location: RADIO-PC-22 ? Electronically authenticated by: [id number] ??Y ?? Date: 04/14/2025 ??15:48 ? Dictated By: ?Bird Harris M.D. ? Signed By: ?04/14/25 1550 ? DD/ 1548 ? TD/TT: ? Marketing Systems Analyst: Procedure Note Radiology, Radiologist, MD - 04/14/[address] [address] Ultrasound Report Signed Patient: IFFI CHAPPELL [facility]#: [id number] : 1990Acct:[id number] Age/Sex: 34 / FADM Date: 04/14/25 Loc: US Attending Dr: Becky Oliveros M.D. Ordering Physician: Becky Oliveros M.D. Date of Service: 04/14/25 Procedure(s): US thyroid Accession Number(s): [id number] cc: Physician,Non-Staff Cristino; Becky Oliveros M.D. The [place] [id number] Patient Name: FIFI CHAPPELL MRN: [id number] date: 1990 Sex: F Assigned Patient Location: US Current Patient Location: [place] Accession/Order Number: [id number] Exam Date: 04/14/2025 13:52 Report Date: 04/14/2025 15:48 At the request of: BECKY OLIVEROS MD Procedure: US thyroid Thyroid ultrasound Reason for exam: Thyroid nodule follow-up Comparison: Thyroid ultrasound 10/09/2024 Technique: Grayscale and color Doppler images of the thyroid gland were obtained. Findings: Right lobe measures 5.1 x 1.4 x 1.0 cm. Left lobe measures 5.1 x 1.5 x1.3 cm. Isthmus measures 0.23 cm. Once again demonstrated is a hypoechoicnodule involving the mid aspect of the left lobe measuring 15 x 8 x 12 mm grossly unchanged from the prior study. No microcalcifications. US/US thyroid Impression: No significant change in thyroid findings were compared to the priorstudy. FNA should be contemplated. Impression dictated by: Bird Harris Jr., D.O. 04/14/2025 3:48 PM Dictation Location: [place] [address] Electronically authenticated by: [id number] Y Date: 5:48 Dictated By: Bird Harris M.D. Signed By:04/14/25 1550 DD/ 1548 TD/TT: Marketing Systems Analyst: Authorizing ProviderResult TypeResult StatusBecky Oliveros MDIMG US PROCEDURES Final Result * THINPREP PAP AND HPV MRNA E6/E7 W/RFL HPV 16,18/45 (02/15/2023 10:32 AM EDT) Narrative Authorizing ProviderResult TypeResult StatusAmy Moshe LIN BLOOD ORDERABLES Final ResultPerforming OrganizationAddressCity/State/ZIP CodePhone Number EXTERNAL LAB from Last 3 Months or Most Recently Relevant to Health Maintenance Insurance * Guarantor: Tiffanie Chappell TypeRelation to PatientDate of BirthPhone Billing AddressPersonal/OxhfkyVpzo50/[birth year]/[address] [address] Care Teams Team MemberRelationshipSpecialtyStart DateEnd Date Fermín eCballos MD [address] [place] [phone] PCP - GeneralFamily Medicine04/21/25 Mckenna Quiñonez NP [address] [place] [address] Nurse PractitionerFamily Medicine04/21/25
--- OUTSIDE RECORDS SUMMARY | 2025-06-15 13:48 | XMS_ITS | CCD ---
Author Organization [facility] CliniSywi Care Team Providers Care Pain Coordinator Name Role Phone PHYSICIAN, DEFAULT Admitting Unavailable [...] Fermín Ceballos MD Primary Care Provider Khang FUR TRIMMER, Bernie Unavailable JAMES MEDINA Attending Unavailable BISHOP, NASRA R Referring Unavailable BISHOP, NASRA R Primary Care Unavailable HIMANSHU MEDINAADER Referring Unavailable BISHOP, NASRA R Primary Care Unavailable Bernie Quiñonez Attending Unavailable Bernie Quiñonez Admitting Unavailable [facility] Nasra R Primary Care Provider [facility] Nasra R Primary Care Provider [phone] Fermín Ceballos MD Primary Care Provider [phone] Khang FUR TRIMMER, Bernie Unavailable Fermín Ceballos MD Primary Care Provider Khang FUR TRIMMER, Bernie Unavailable LORENZO BIANCHI Attending Unavailable LORENZO BIANCHI Attending Unavailable BERNIE QUIÑONEZ Attending Unavailable LORENZO BIANCHI Attending Unavailable BERNIE QUIÑONEZ Referring Unavailable Chrissie Burks Unavailable Fermín Ceballos MD Primary Care Provider [phone] Khang FUR TRIMMER, Bernie Unavailable Fermín Ceballos MD Primary Care Provider Khang FUR TRIMMER, Bernie Unavailable Khang FUR TRIMMER-C, Bernie Omer Primary Care Provider [phone] Khang FUR TRIMMER-C, Bernie Omer Attending Provider [phone] Medications Current Medications MedicationDrug Class(es)DatesSig (Normalized)Sig (Original)acetaminophen 500 mg / diphenhydrAMINE hydrochloride 25 mg oral tablet (16 sources)Histamine-1 Receptor AntagonistStart: 88-82-8422wskm 1 tablet by mouth once daily at [...] 80 mg/ml oral suspension (1 source)Penicillin-class AntibacterialStart: 34-99-9160hgrk 12.5 mL by mouth twice dailyAmoxicillin 400 MG/5ML 12.5 mL Orally Twice a day for 10 days Sep, ActiveIron (2 sources)Iron ActivevalACYclovir 500 mg oral tablet (20 sources)Herpesvirus Nucleoside Analog DNA Polymerase Inhibitor, Herpes Simplex Virus Nucleoside Analog DNA Polymerase Inhibitor, Herpes Zoster Virus Nucleoside Analog DNA Polymerase InhibitorStart: 06-05-2025 End: 08-54-6210tcax 1 tablet by mouth once daily as neededValacyclovir (Valtrex) 500 mg tablet Active 500 MG PO Daily as needed June 07, 2025 6:20pm Comp lies with drug therapyStart: 83-64-8780xbvh 1 tablet by mouth in the morning valACYclovir (Valtrex) 500 MG tablet Take 500 mg by mouth in the morning and 500 mg before bedtime.09/18/2022 Active Completed/Discontinued Medications MedicationDrug Class(es)DatesSig (Normalized)Sig (Original)amitriptyline hydrochloride 10 mg oral tablet (4 sources)Tricyclic AntidepressantStart: 05-05-2024 End: 81-07-8036uhze 1 tablet by mouth at bedtimeamitriptyline (Elavil) 10 MG tablet Take 10 mg by mouth at bedtime 05/05/2024 05/13/2024 Discontinued azithromycin 500 mg oral tablet (2 sources)Macrolide Antimicrobialtake 2 tablets by mouth once at mealtime Zithromax 500 MG 2 tabs Orally once for 1 days 2 tablets p.o. x1 today with food Not-Taking/PRNcefTRIAXone (2 sources)Cephalosporin AntibacterialStart: 69-92-7387Kjekwllh 500 mg Jul, 500 mgfluconazole 150 mg oral tablet (2 sources)Azole AntifungalStart: 60-20-0154Szgftlrd 150 MG 1 tablet Orally once for 2 days Take 1 tablet p.o. today, take the second tablet in3 days. Jul, Not-Taking/PRNmetroNIDAZOLE 500 mg oral tablet (4 sources)Nitroimidazole AntimicrobialStart: 92-77-9135bqyy 4 tablets by mouth once as neededmetroNIDAZOLE 500 MG 4 tablets Orally once for 1 days Jul, Not-Taking/PRNmetroNIDAZOLE 0.75 % 1 application Vaginal qhs for 5 day(s) Not-Taking/PRN Problems Active Problems Problem ClassificationProblemDateDocumented DateEpisodic/ChronicAnxiety disorders (20 sources)Generalized anxiety disorder; Translations: [Generalized anxiety disorder]Onset: 651101-52-2352RbwdtchLoqvwcgtju and other anemia (20 sources)Iron deficiency anemia; Translations: [Iron deficiency anemia, unspecified]Onset: 509133-56-4529JuvbcfuxVngrbwkajcntx and screening for infectious disease (20 sources)Encounter for screening for human papillomavirus (HPV); Translations: [Anti-nuclear factor positive]Onset: 033247-32-3234Wmevggnj Influenza (1 source)Influenza due to other identified influenza virus with other respiratory manifestationsEpisodicMalaise and fatigue (2 sources)Chronic fatigue, unspecified; Translations: [Fatigue]Onset: 972132-41-6577GkjazmzKwen disorders (20 sources)Major depression, single episode; Translations: [Major depressive disorder, single episode, in fullremission]Onset: hronic Other congenital anomalies (20 sources)Remedios-Danlos syndrome; 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]Onset: 032668-26-5975MlsnyzdLmhxk nutritional; endocrine; and metabolic disorders (20 sources)Obesity caused by energy imbalance; Translations: [Class 1 obesity due to excess calories without serious comorbidity with body mass index (BMI) of 31.0 to 31.9 in adult]Onset: 058789-20-5334QqnbhqiGzxsa screening for suspected conditions (not mental disorders or infectious disease) (5 sources)Encounter for screening for malignant neoplasm of cervix; Translations: [Other specified abnormal findings of blood chemistry]Onset: 07-36-5563XuyyvcsbQfmri upper respiratory infections (2 sources)Acute pharyngitis, unspecified; Translations: [Streptococcal pharyngitis]EpisodicResidual codes; unclassified (1 source)History of bilateral breast implants; Translations: [Breast implant status]95-28-8282PhcetfuSuylhvq disorders (20 sources)Thyroid nodule; Translations: [Nontoxic single thyroid nodule]Onset: 611502-19-7254TfzmackXlfeo infection (20 sources)Herpesviral infection, unspecified; Translations: [Herpes simplex] Onset: 764851-56-2145Rpetoytt Past or Other Problems Problem ClassificationProblemDateDocumented DateEpisodic/ChronicGenitourinary symptoms and ill-defined conditions (18 sources)Abnormal urinalysis; Translations: [Unspecified abnormal findings in urine]Onset: 059652-24-9115DzixocgkGjvpzyz and fatigue (20 sources)Fatigue; Translations: [Other fatigue]Onset: EpisodicOther liver diseases (20 sources)Elevated liver enzymes level; Translations: [Abnormal levels of other serum enzymes]Onset: 144549-41-9232EchmwprdBynjv non-traumatic joint disorders (20 sources)Joint pain; Translations: [Pain in unspecified joint]Onset: 939646-56-2353NitzwbuwHfyggorgsawt (1 source)Contact with and (suspected) exposure to covid-19 Z20.822 Results Test NameValueInterpretationReference RangeFacilityUS Thyroid glandon 04-14-2025 [place] [address] Ultrasound Report Signed Patient: FIFI MOCK MR#: [id number] : 1990 Acct:[id number] Age/Sex: 34 / F ADM Date: 04/14/25 Loc: US Attending Dr: Lorenzo Bianchi M.D. Ordering Physician: Lorenzo Bianchi M.D. Date of Service: 04/14/25 Procedure(s): US thyroid Accession Number(s): [id number] cc: Physician,Non-Staff Cristino; Lorenzo Bianchi M.D. [place] [address] Patient Name: FIFI MOCK MRN: [id number] date: 1990 Sex: F Assigned Patient Location: US Current Patient Location: Accession/Order Number: [id number] Exam Date: 04/14/2025 13:52 Report Date: 04/14/2025 [...] Jr., D.O. 04/14/2025 3:48 PM Dictation Location: [place] [address] Electronically authenticated by: [id number] Y Date: 04/14/2025 15:48 Dictated By: Bird Harris M.D. Signed By: 04/14/25 1550 DD/ 1548 TD/TT: Voice Over Announcer:FIDELadiologbabita, Radiologist, - 04/14/2025 [place] [address] Ultrasound Report Signed Patient: FIFI MOCK MR#: [id number] : 1990 Acct:[id number] Age/Sex: 34 / F ADM Date: 04/14/25 Loc: US Attending Dr: Lorenzo Bianchi M.D. Ordering Physician: Lorenzo Bianchi M.D. Date of Service: 04/14/25 Procedure(s): US thyroid Accession Number(s): [id number] cc: Physician,Non-Staff Cristino; Lorenzo Bianchi M.D. [place] [id number] Patient Name: FIFI MOCK MRN: [id number] date: 1990 Sex: F Assigned Patient Location: Current Patient Location: US Accession/Order Number: [id number] Exam Date: 04/14/2025 13:52 Report Date: 04/14/2025 [...] Jr., D.O. 04/14/2025 3:48 PM Dictation Location: [place] [address] Electronically authenticated by: [id number] Y Date: 04/14/2025 15:48 Dictated By: Bird Harris M.D. Signed By: 04/14/25 1550 DD/ 1548 TD/TT: Voice Over Announcer: PHILIP BrockRadiology Study observation (narrative)PHILIP Conway Thyroid glandOrdered By: Radiologist Radiology on 42-40-0063LTOB Content[employer] Work Phone: [place] Thyroid glandon [phone] [address] Ultrasound Report Signed with Addenda Patient: FIFI MOCK MR#: [id number] : 1990 Acct:[id number] Age/Sex: 33 / F ADM Date: 04/16/24 Loc: US Attending Dr: Bernie Quiñonez NP Ordering Physician: Bernie Quiñonez NP Date of Service: 04/16/24 Procedure(s): US thyroid Accession Number(s): [id number] cc: Bernie Quiñonez NP ADDENDUM [facility] [place] [id number] Patient Name: FIFI MOCK MRN: [id number] date: 1990 Sex: F Assigned Patient Location: US Current Patient Location: US Accession/Order Number: [id number] Exam Date: 04/16/2024 13:50 Report Date: 05/12/2024 10:57 At the request of: BERNIE QUIÑONEZ Procedure: US thyroid Begin Addendum #1 COLLECTED DATE: 04/30/2024 Final Diagnosis Report for [facility] [place] Pathological Diagnosis: Left thyroid nodule, FNA cytology: Category 1 [place] system: Nondiagnostic. 05/08/[address] Bernie [...] left thyroid TR 4 nodule TI-RADS: The [employer] TI-RADS committee's white paper [...] Addendum Cosigned By: DD/ /28/1057 TD/TT: / [place] [id number] Patient Name: FIFI MOCK MRN: [id number] date: 1990 Sex: F Assigned Patient Location: US Current Patient Location: Accession/Order Number: [id number] Exam Date: 04/16/2024 13:50 Report Date: 04/17/2024 [...] content not included)...TBHRadiology, Radiologist, - 05/18/2024 [place] [address] Ultrasound Report Signed with Addenda Patient: FIFI MOCK MR#: [id number] : 1990 Acct:[id number] Age/Sex: 33 / F ADM Date: 04/16/24 Loc: US Attending Dr: Bernie Quiñonez NP Ordering Physician: Bernie Quiñonez NP Date of Service: 04/16/24 Procedure(s): US thyroid Accession Number(s): [id number] cc: Bernie Quiñonez NP ADDENDUM [facility] [place] [address] Patient Name: FIFI MOCK MRN: [facility]:[id number] date: 1990 Sex: F Assigned Patient Location: Current Patient Location: Accession/Order Number: [id number] Exam Date: 04/16/2024 13:50 Report Date: 05/12/2024 10:57 At the request of: BERNIE QUIÑONEZ Procedure: US thyroid Begin Addendum #1 COLLECTED DATE: 04/30/2024 Final Diagnosis Report for [facility] [place] Pathological Diagnosis: Left thyroid nodule, FNA cytology: Category 1 [place] system: Nondiagnostic. 05/08/[address] Bernie [...] left thyroid TR 4 nodule TI-RADS: The [employer] TI-RADS committee's white paper [...] Addendum Cosigned By: DD/ /28/1057 TD/TT: / [place] [id number] Patient Name: FIFI MOCK MRN: [id number] date: 1990 Sex: F Assigned Patient Location: Current Patient Location: Accession/Order Number: [id number] Exam Date: 04/16/2024 13:50 Report Date: 04/17/2024 [...] left thyroid TR 4 nodule TI-RADS: The [employer] TI-RADS committee's white paper recommendations for thyroid lesions classified as TR4 (moderately suspicious) are listed below: > 1.0 cm. Follow-up ultrasound in 1, 2, 3, and 5 years. > 1.5 cm. FNA. J. Am Jose Carlos Radiol 2017;14:587-595. Electronically authenticated by: BRODERICK NGUYEN Date: 04/17/2024 13:46 Dictated By: Broderick Nguyen M.D. Signed By: 04/17/24 1348 DD/ 1346 TD/TT: Voice Over Announcer: PHILIP Brock Thyroid glandOrdered By: Radiologist Radiology on 05-18-2024 [facility] Work Phone: aNTINUCLEAR ANTIBODIES, IFAon [phone] ANTIBODIES, IFAPositiveAbnormal.[facility] HealthcareComment on above:Negative <1:80 Borderline 1:80 Positive >1:80 CENTRIOLE PATTERNTNP.[facility] HealthcareCENTROMERE PATTERNTNP.[facility] HOMOGENEOUS PATTERN1:640Abnormal.[facility] HealthcareComment on above:[facility] nomenclature: AC-1Interpretation and review of laboratory resultsAbnormalNOMS HealthcareMIDBODY PATTERNTNP.[facility] HealthcareNOTE:Comment.[facility] CenterComment on above:Pattern Potential Disease Association Homogeneous Systemic Lupus Erythematosus, Drug Induced Systemic Lupus Erythematosus, Chronic Autoimmune hepatitis, Juvenile Idiopathic Arthritis Speckled Sjogren Syndrome, Systemic Lupus Erythematosus, Subacute Cutaneous Lupus, Lupus, Congenital Heart Block, Mixed Connective Tissue Disease, Scleroderma-diffuse, Scleroderma-Autoimmune Myositis Overlap Syndrome, Systemic Lupus Pymjptqzlikrk-Gcpepulvkwe-Hnyrjgkaef Myositis Overlap Syndrome, Systemic Autoimmune Rheumatic Disease, [...] Cytopenias, Linear Scleroderma, Antiphospholipid Syndrome Performed at: [address] [id number] Art Therapy Specialist: Vasu Duke PhD, Phone: [phone] NUCLEAR DOT PATTERNTNP.N[facility] HealthcareNUCLEAR MEMBRANE PATTERNTNP.[facility] HealthcareNUCLEOLAR PATTERN1:640Abnormal.[facility] HealthcareComment on above:[facility] nomenclature: AC-8,9,10PCNA PATTERNTNP.[facility] HealthcareSPECKLED PATTERNTNP.[facility] HealthcareSPINDLE APPARATUS PATTERNTNP.[facility] HealthcareCLINISYNCNCREEK NATION [facility] Healthcare Antinuclear AB, HE-p Substrate, (SHAHLA by IFA)on 18-26-6046Djzhrsbrkex Ab, HEp-2 Substrate, SNegativeNormal<1:80 (Negative)[facility] Hospital LimaComment on above:Result Comment: NOTE ADDITIONAL INFORMATION Method: Immunofluorescence using HEp-2 cellular substrate. Test Performed by: [place] [address] Art Therapy Specialist: Ashanti Anthony Ph.D.; CLIA# [id number] By: #### 58891- 1, 1987-12, CBCA, CMP #### [facility] ([id number]) [address] [place] [address] #### NAIFA #### [facility] ([id number]) [address] [place] [address],CBC AND AUTO DIFFon 82-71-3791OZRAZLMU BASOPHIL0.1 X10E9/LNormal0.0-0.2 [facility] Hospital LimaComment on above:Performed By: #### 90813-8, 1987-12, CBCA, CMP #### [facility] ([id number]) [address] [place] [address] #### NAIFA #### [facility] ([id number]) [address] [place] [address],ABSOLUTE NEUTROPHIL4.6 X10E9/LNormal1.5-6.6[facility] Comment on above:Performed By: #### 20942-9, 1987-12, CBCA, CMP #### [facility] ([id number]) [address] [place] [address], [place] [address] #### NAIFA #### [facility] ([id number]) [address] [place] [address],Basophils/100 WBC (Bld)0.7 %NormalProMercy Hospital HospitalComment on above:Performed By: #### 13562-3, 1987-12, CBCA, CMP #### [facility] ([id number]) [address] [place] [address] #### NAIFA #### [facility] ([id number]) [address] [place] [address],Eosinophils (Bld) [#/Vol]0.1 10*3/uLNormal0.0-0.4[facility] HospitalComment on above:Performed By: #### 60979-7, 1987-12, CBCA, CMP #### [facility] ([id number]) [address] [place] [address] #### NAIFA #### [facility] ([id number]) [address] [place] [address],Eosinophils/100 WBC (Bld)2.0 %NormalProMercy Hospital HospitalComment on above:Performed By: #### 09520-3, 1987-12, CBCA, CMP #### [facility] ([id number]) [address] [place] [address] #### NAIFA #### [facility] ([id number]) [address] [place] [address],Erythrocyte distribution width (RBC) [Ratio]12.4 %Uefzab62.5-15.0 [facility] HospitalComment on above:Performed By: #### 02451-0, 1987-12, CBCA, CMP #### [facility] ([id number]) [address] [place] [address], [address] [place] [address] #### NAIFA #### [facility] ([id number]) [address] [place] [address],Hematocrit (Bld) [Volume fraction]42.1 %Jgmimk31-84UjhTiaxdn [place] HospitalComment on above:Performed By: #### 84149-8, 1987-12, CBCA, CMP #### [facility] ([id number]) [address] [place] [address], [address] [place] [address] #### NAIFA #### [facility] ([id number]) [address] [place] [address],Hemoglobin (Bld) [Mass/Vol]14.5 g/cYQdavju39.7-15.5ProMedOur Lady of Mercy Hospital HospitalComment on above:Performed By: #### 40126-7, 1987-12, CBCA, CMP #### [facility] ([id number]) [address] [place] [address], [address] [place] [address] #### NAIFA #### [facility] ([id number]) [address] [place] [address],Lymphocytes (Bld) [#/Vol]2.1 10*3/uLNormal1.0-3.5PLicking Memorial Hospital HospitalComment on above:Performed By: #### 49123-9, 1987-12, CBCA, CMP #### [facility] ([id number]) [address] [place] [address], [address] [place] [address] #### NAIFA #### [facility] ([id number]) [address] [place] [address],Lymphocytes/100 WBC (Bld)27.9 %NormalProMediAultman Alliance Community Hospital HospitalComment on above:Performed By: #### 33193-6, 1987-12, CBCA, CMP #### [facility] ([id number]) [address] [place] [address], [address] [place] [address] #### NAIFA #### [facility] ([id number]) [address] [place] [address],MCH (RBC) [Entitic mass]30.0 qrToauaw82-53MjoJxdieaSCCI Hospital Lima Comment on above:Performed By: #### 96734-9, 1987-12, CBCA, CMP #### [facility] ([id number]) [address] [place] [address], [address] [place] [address] #### NAIFA #### [facility] ([id number]) [address] [place] [address],MCHC (RBC) [Mass/Vol]34.5 g/sSTkqiit23-17FzrSztgddSCCI Hospital Lima Comment on above:Performed By: #### 11276-8, 1987-12, CBCA, CMP #### [facility] ([id number]) [address] [place] [address], [place] [address] #### NAIFA #### [facility] ([id number]) [address] [place] [address],MCV (RBC) [Entitic vol]87 pBQwjwkv58-484AxmFscnagSCCI Hospital Lima Comment on above:Performed By: #### 12818-5, 1987-12, CBCA, CMP #### [facility] ([id number]) [address] [place] [address], [address] [place] [address] #### NAIFA #### [facility] ([id number]) [address] [place] [address],Monocytes (Bld) [#/Vol]0.5 10*3/uLNormal0-0.9[facility] Comment on above:Performed By: #### 85856-9, 1987-12, CBCA, CMP #### [facility] ([id number]) [address] [place] [address], [address] [place] [address] #### NAIFA #### [facility] ([id number]) [address] [facility],Monocytes/100 WBC (Bld)7.1 %NormalKettering Health Washington Township HospitalComment on above:Performed By: #### 00677-1, 1987-12, CBCA, CMP #### [facility] ([id number]) [address] [place] [address], [address] [place] [address] #### NAIFA #### [facility] ([id number]) [address] [facility],Neutrophils/100 WBC (Bld)62.3 %NormalProMercy Hospital HospitalComment on above:Performed By: #### 86460-9, 1987-12, CBCA, CMP #### [facility] ([id number]) [address] [place] [address] #### NAIFA #### [facility] ([id number]) [address] [place] [address],Platelet mean volume (Bld) [Entitic vol]9.3 fLNormal7-12[facility] [place] HospitalComment on above:Performed By: #### 61114-2, 1987-12, CBCA, CMP #### [facility] ([id number]) [address] [place] [address], [address] [place] [address] #### NAIFA #### [facility] ([id number]) [address] [place] [address],Platelets (Bld) [#/Vol]297 10*3/iVMivtkp709-529ZhbXxuinf [place] HospitalComment on above:Performed By: #### 24599-5, 1987-12, CBCA, CMP #### [facility] ([id number]) [address] [place] [address], [address] [place] [address] #### NAIFA #### [facility] ([id number]) [address] [facility],RBC COUNT4.85 X10E12/LNormal3.80-5.20[facility] Hospital LimaComment on above:Performed By: #### 14250-4, 1987-12, CBCA, CMP #### [facility] ([id number]) [address] [place] [address], [address] [place] [address] #### NAIFA #### [facility] ([id number]) [address] [facility],WBC (Bld) [#/Vol]7.4 10*3/uLNormal4.0-11.0[facility] Comment on above:Performed By: #### 31548-9, 1987-12, CBCA, CMP #### [facility] ([id number]) [address] [place] [address], [place] [address] #### NAIFA #### [facility] ([id number]) [address] [place] [address],CBC auto differentialon 43-35-2817Eliyjkbfp (Bld) [#/Vol]0.1 10*3/uL [facility] SystemBasophils/100 WBC (Bld)0.7 %[facility] Eosinophils (Bld) [#/Vol]0.1 10*3/uLKerbs Memorial HospitalMedica Health SystemEosinophils/100 WBC (Bld)2.0 %[facility] Health SystemErythrocyte distribution width (RBC) [Ratio] 12.4 %11.5 - 15.0 %[facility] Health SystemHematocrit (Bld) [Volume fraction]42.1 %35 - 47 %[facility] Health SystemHemoglobin (Bld) [Mass/Vol]14.5 g/dL11.7 - 15.5 g/dLProMeditn Health SystemLymphocytes (Bld) [#/Vol]2.1 10*3/uLProMedica Health SystemLymphocytes/100 WBC (Bld)27.9 %[facility] Health SystemMCH (RBC) [Entitic mass]30.0 pg27 - 34 [facility] CampusMCHC (RBC) [Mass/Vol]34.5 g/dL32 - 36 g/dLFisher-Titus Medical CenterMCV (RBC) [Entitic vol]87 fL80 - 100 [facility] NorthMonocytes (Bld) [#/Vol]0.5 10*3/[facility] Monocytes/100 WBC (Bld)7.1 %[facility] Medical CenterNeutrophils (Bld) [#/Vol]4.6 10*3/[facility] MichiganNeutrophils/100 WBC (Bld)62.3 %[facility]itus Medical CenterPlatelet mean volume (Bld) [Entitic vol]9.3 fL7 - 12 [facility] NorthPlatelets (Bld) [#/Vol]297 10*3/[facility] MichiganRBC (Bld) [#/Vol] 4.85 10*6/[facility] MichiganWBC corrected for nucl RBC Auto (Bld) [#/Vol] 7.4Holy Redeemer Health SystemCOMPREHENSIVE METABOLIC PANELon 57-56-5617Bwaufub [Mass/Vol]4.3 g/dLNormal3.2-5.3PSelect [facility] Comment on above:Performed By: #### 21428-4, 1987-12, CBCA, CMP #### [facility] ([id number]) [address] [place] [address], [place] [address] #### NAIFA #### [facility] ([id number]) [address] [place] [address] [Catalytic activity/Vol]60 U/UWlyeyz47-926NkpMyupibSCCI Hospital [facility] Comment on above:Performed By: #### 17885-0, 1987-12, CBCA, CMP #### [facility] ([id number]) [address] [place] [address], [address] [place] [address] #### NAIFA #### [facility] ([id number]) [address] [place] [Catalytic activity/Vol]13 U/LNormal0-31PSelect [facility] Comment on above:Performed By: #### 64250-4, 1987-12, CBCA, CMP #### [facility] ([id number]) [address] [place] [address], [address] [place] [address] #### NAIFA #### [facility] ([id number]) [address] [place] [address],Anion gap [Moles/Vol]10 mmol/LNormal5-15[facility] Comment on above:Performed By: #### 98492-3, 1987-12, CBCA, CMP #### [facility] ([id number]) [address] [place] [address], [address] [place] [address] #### NAIFA #### [facility] ([id number]) [address] [place] [address],[place] [Catalytic activity/Vol]18 U/LNormal0-41[facility] Comment on above:Performed By: #### 36367-2, 1987-12, CBCA, CMP #### [facility] ([id number]) [address] [place] [address], [address] [place] [address] #### NAIFA #### [facility] ([id number]) [address] [place] [address],Bilirubin [Mass/Vol]0.2 mg/dLLow0.3-1.2PSelect Medical OhioHealth Rehabilitation HospitalComment on above:Performed By: #### 75270-6, 1987-12, CBCA, CMP #### [facility] ([id number]) [address] [place] [address], [address] [address] #### NAIFA #### [facility] ([id number]) [address] [place] [address],Calcium [Mass/Vol]9.6 mg/dLNormal8.5-10.5PSelect Medical [facility] Rehabilitation Hospital Comment on above:Performed By: #### 58162-2, 1987-12, CBCA, CMP #### [facility] ([id number]) [address] [place] [address], [address] [place] [address] #### NAIFA #### [facility] ([id number]) [address] [place] [address],Chloride [Moles/Vol]103 mmol/LPqzcgm92-532IjpFlectdSCCI Hospital Lima Comment on above:Performed By: #### 70029-4, 1987-12, CBCA, CMP #### [facility] ([id number]) [address] [place] [address], [place] [address] #### NAIFA #### [facility] ([id number]) [address] [place] [address],CO2 [Moles/Vol]25 mmol/FHqftyz18-74UioKctipoSelect Medical OhioHealth Rehabilitation HospitalComment on above:Performed By: #### 60223-9, 1987-12, CBCA, CMP #### [facility] ([id number]) [address] [place] [address], [address] [place] [address] #### NAIFA #### [facility] ([id number]) [address] [place] [address],Creatinine [Mass/Vol]0.69 mg/dLNormal0.40-1.00[facility] Comment on above:Result Comment: METHOD TRACEABLE TO IDNM STANDARDPerformed By: #### 41630-5, 1987-12, CBCA, CMP #### [facility] ([id number]) [address] [place] [address], [address] [place] [address] #### NAIFA #### [facility] ([id number]) [address] [place] [address],eGFR (CKD-EPI) NON-RACE DEPENDENT>90Normal>59[facility] Comment on above:Result Comment: Reported eGFR is based on the CKD-EPI 2021 equation that does not use a race coefficient.Performed By: #### 06005-0, 1987-12, CBCA, CMP #### [facility] ([id number]) [address] [place] [address], [place] [address] #### NAIFA #### [facility] ([id number]) [address] [place] [address],Glucose [Mass/Vol]74 mg/tZRcmtvz80-45VlaArfdbx Toledo HospitalComment on above:Performed By: #### 44059-2, 1987-12, CBCA, CMP #### [facility] ([id number]) [address] [place] [address] #### NAIFA #### [facility] ([id number]) [address] [place] [address],Potassium [Moles/Vol]3.9 mmol/LNormal3.5-5.0[facility] Comment on above:Performed By: #### 39458-1, 1987-12, CBCA, CMP #### [facility] ([id number]) [address] [place] [address] #### NAIFA #### [facility] ([id number]) [address] [place] [address],Protein [Mass/Vol]7.3 g/dLNormal6.0-8.0ProSelect Medical Specialty Hospital - Cincinnati NorthComment on above:Performed By: #### 21866-9, 1987-12, CBCA, CMP #### [facility] ([id number]) [address] [place] [address] #### NAIFA #### [facility] ([id number]) [address] [place] [address],Sodium [Moles/Vol]138 mmol/QCleesc073-831VohRiyoqy [facility] Comment on above:Performed By: #### 27317-9, 1987-12, CBCA, CMP #### [facility] ([id number]) [address] [facility], [address] [place] [address] #### NAIFA #### [facility] ([id number]) [address] [facility],Urea nitrogen [Mass/Vol]19 mg/dLNormal5-23[facility] Comment on above:Performed By: #### 31440-5, 1987-12, CBCA, CMP #### [facility] ([id number]) [address] [place] [address], [address] [place] [address] #### NAIFA #### [facility] ([id number]) [address] [place] [address],CRP [Mass/Vol]on 4C REACTIVE PROTEIN0.2 mg/dLNormal0.000-0.744 SCC[facility] Hospital LimaComment on above:Performed By: #### 84564-5, 1987-12, CBCA, CMP #### [facility] ([id number]) [address] [place] [address], [address] [place] [address] #### NAIFA #### [facility] ([id number]) [address] [place] [address],ESR Photometric method (Bld) [Velocity]on 14-57-2236Hpitkkxndxksvj and review of laboratory resultsAbnormalProMedica Trihealth [facility] Hospital SystemProMeditn Health SystemESR, ERYTHROCYTE SEDIMENTATION RATE21 mm/hHigh0-20SCCI Hospital LimaComment on above:Performed By: #### 93943-4, 1987-12, CBCA, CMP #### [facility] ([id number]) [address] [place] [address], [address] [place] [address] #### NAIFA #### [facility] ([id number]) [address] [place] [address],Erythrocyte Sedimentation Rate (ESR)on 19-99-7109ACR Photometric method (Bld) [Velocity]21 mm/hHigh0 - 20 mm/hProMedica Eaton Rapids Medical CenterLon 04-30-2024 Specimen: Received: 05/06/24 Status: ANDER Teresaame Num: [id number] Spec Type: Cytology Subm Dr: GENOVEVA Lund Tissues: A FNA SLIDES NOPATH (LT THY NOD) Procedures: Cyto Int and Re, PAPSTN/5 Age/ Patient Sex Location Account Attending Physician NishFifi Lynnette 33/F LABELL [id number] GENOVEVA Lund SPEC NUM: [id number] RECD: 05/06/24 STATUS: ANDER TONI NUM: [id number] JOSE CARLOS: 04/30/24- SUBM DR: GENOVEVA Lund ENTERED: 05/06/[address]: Jyotsna,Lab Fab Wynn MD SPEC TYPE: Cytology DEPT: [facility] ENTERED BY: [id number] RECV BY: [id number] ORDERED: Cyto Int and Re, PAPSTN/5 ORDERED: Cyto Int and Re, PAPSTN/5 Pathological Diagnosis Left thyroid nodule, FNA cytology: -Occasional follicular cells are present. -However, the larger and the more preserved follicular groups are still <10 for overall assessment, consistent with the category 1 [place] system: Nondiagnostic -The follicular cells of the [...] Specimen: Received: 05/06/24 Status: ANDER Martin Num: [id number] Spec Type: Cytology Subm Dr: Bernie Quiñonez FUR TRIMMER-C Tissues: A FNA SLIDES SHAEATH (LT THY NOD) Procedures: Cyto Int and Re, PAPSTN/5 Patient: MockFifi Church [id number] (Continued) Specimen: [id number] Received: 05/06/24 (Continued) Signed (signature on file) Ramon Sanabria MD 05/06/24 1732 Specimen: [id number] Received: 05/06/24 Status: ANDER Martin Num: [id number] Spec Type: Cytology Subm Dr: Bernie Quiñonez FUR TRIMMER-C Tissues: A FNA SLIDES RUTH (LT THY NOD) Procedures: Cyto Int and Re, PAPSTN/5 Patient: Fifi Mock [id number] (Continued) Specimen: [id number] Received: 05/06/24 (Continued) Microscopic Description Microscopic examinations are performed supporting the above interpretation CPT Codes 48173 Specimen: [id number] Received: 05/06/24 Status: ANDER Martin Num: [id number] Spec Type: Cytology Subm Dr: Bernie Quiñonez, FUR TRIMMER-C Tissues: A FNA SLIDES NOPATH (LT THY NOD) Procedures: Cyto Int and Re, PAPSTN/5 Patient: Fifi Mock [id number] (Continued) Signed (signature on file) Ramon Sanabria MD 05/06/[address] [place] [address] Physician [facility] HospitalUS BIOPSY THYROIDon 75-79-2941[place]wsA[place] [id number] Ultrasound Report Signed Patient: FIFI MOCK MR#: [id number] : 1990 Acct:[id number] Age/Sex: 33 / F ADM Date: 04/30/24 Loc: US Attending Dr: Bernie Quiñonez NP Ordering Physician: Bernie Quiñonez NP Date of Service: 04/30/24 Procedure(s): US biopsy thyroid Accession Number(s): [id number] cc: Bernie Quiñonez NP [address] [address] Patient Name: FIFI MOCK MRN: [id number] date: 1990 Sex: F Assigned Patient Location: US Current Patient Location: LAB Accession/Order Number: [id number] Exam Date: 04/30/2024 08:23 Report Date: 04/30/2024 [...] M.D. Signed By: 04/30/24954 DD/ 2 TD/TT: Voice Over Announcer:FIDELadiology, Radiologist, - 04/30/2024 [place] [address] Ultrasound Report Signed Patient: FIFI MOCK MR#: [id number] : 1990 Acct:[id number] Age/Sex: 33 / F ADM Date: 04/30/24 Loc: US Attending Dr: Bernie Quiñonez NP Ordering Physician: Bernie Quiñonez NP Date of Service: 04/30/24 Procedure(s): US biopsy thyroid Accession Number(s): [id number] cc: Bernie Quiñonez NP [place] [address] Patient Name: FIFI MOCK MRN: [id number] date: 1990 Sex: F Assigned Patient Location: US Current Patient Location: LAB Accession/Order Number: [id number] Exam Date: 04/30/2024 08:23 Report Date: 04/30/2024 [...] M.D. Signed By: 04/30/24954 DD/ 2 TD/TT: Voice Over Announcer: PHILIP BrockRadiology Study observation (narrative)PHILIP BrockUS BIOPSY THYROIDOrdered By: Radiologist Radiology on 47-34-5950JFND [employer] Work Phone: US Thyroid glandon [phone] [address] Ultrasound Report Signed Patient: FIFI MOCK MR#: [id number] : 1990 Acct:[id number] Age/Sex: 33 / F ADM Date: 04/16/24 Loc: US Attending Dr: Bernie Quiñonez NP Ordering Physician: Bernie Quiñonez NP Date of Service: 04/16/24 Procedure(s): US thyroid Accession Number(s): [id number] cc: Bernie Quiñonez NP [place] [id number] Patient Name: FIFI MOCK MRN: [id number] date: 1990 Sex: F Assigned Patient Location: US Current Patient Location: Accession/Order Number: [id number] Exam Date: 04/16/2024 13:50 Report Date: 04/17/2024 [...] left thyroid TR 4 nodule TI-RADS: The [employer] TI-RADS committee's white paper recommendations for thyroid lesions classified as TR4 (moderately suspicious) are listed below: > 1.0 cm. Follow-up ultrasound in 1, 2, 3, and 5 years. > 1.5 cm. FNA. J. Am Jose Carlos Radiol 2017;14:587-595. Electronically authenticated by: BRODERICK NGUYEN Date: 04/17/2024 13:46 Dictated By: Broderick Nguyen M.D. Signed By: 04/17/24 1348 DD/ 1346 TD/TT: Voice Over Announcer:TBHRadiology, Radiologist, MD - 04/17/[address] [address] Ultrasound Report Signed Patient: FIFI MOCK MR#: [id number] : 1990 Acct:[id number] Age/Sex: 33 / F ADM Date: 04/16/24 Loc: US Attending Dr: Bernie Quiñonez NP Ordering Physician: Bernie Quiñonez NP Date of Service: 04/16/24 Procedure(s): US thyroid Accession Number(s): [id number] cc: Bernie Quiñonez NP The [address] [address] Patient Name: FIFI MOCK MRN: [id number] date: 1990 Sex: F Assigned Patient Location: US Current Patient Location: Accession/Order Number: [id number] Exam Date: 04/16/2024 13:50 Report Date: 04/17/2024 [...] left thyroid TR 4 nodule TI-RADS: The [employer] TI-RADS committee's white paper recommendations for thyroid lesions classified as TR4 (moderately suspicious) are listed below: > 1.0 cm. Follow-up ultrasound in 1, 2, 3, and 5 years. > 1.5 cm. FNA. J. Am Jose Carlos Radiol 2017;14:587-595. Electronically authenticated by: BRODERICK NGUYEN Date: 04/17/2024 13:46 Dictated By: Broderick Nguyen M.D. Signed By: 04/17/248 DD/ 45 TD/TT: Voice Over Announcer: PHILIP HealthcareRadiology Study observation (narrative)NOMS HealthcareUS Thyroid glandOrdered By: Radiologist Radiology on 47-21-7246LTHBLafayette Regional Health Center Work Phone: all CBC WITH AUTO DIFFon 05-46-3320SKIIEIZLN ABSOLUTE AUTO0.1NOMS HealthcareBasophils/100 WBC (Bld)0.7 %0.2 - 2.0 %[facility] Healthcare Eosinophils/100 WBC (Bld)2.1 %0.9 - 7.0 %NOM HealthcareErythrocyte distribution width (RBC) [Ratio]11.9 %11.0 - 15.0 %NOM HealthcareHematocrit (Bld) [Volume fraction]42.9 %36.0 - 48.0 %NOM HealthcareHemoglobin (Bld) [Mass/Vol]14.3 g/dL 12.0 - 16.0 g/dLLafayette Regional Health CenterIMMATURE GRANULOCYTES ABS AUTO0.02NOMS Healthcare Immature granulocytes/100 WBC (Bld)0.3 %0.0 - 0.5 %NOMMineral Area Regional Medical CenterLYMPHOCYTES ABSOLUTE AUTO1.9NOMS HealthcareLymphocytes/100 WBC (Bld)27.0 %20.5 - 60.0 %[facility] Medical CenterH (RBC) [Entitic mass]29.1 pg26.7 - 34.0 pgNOMineral Area Regional Medical CenterHC (RBC) [Mass/Vol]33.3 g/dL29.9 - 35.2 g/dLNOMineral Area Regional Medical CenterV (RBC) [Entitic vol]87.4 fL 81.0 - 99.0 fLNONM HealthcareMONOCYTES ABSOLUTE AUTO0.5NOMS [facility] Monocytes/100 WBC (Bld)7.5 %1.7 - 12.0 %NOMMineral Area Regional Medical CenterNEUTROPHILS ABSOLUTE AUTO 4.4NOMS [facility] HospitalNeutrophils/100 WBC (Bld)62.4 %43.0 - 75.0 %[facility] Platelet mean volume (Bld) [Entitic vol]10.3 fL9.5 - 13.5 fLNOBoone Hospital CenterTB EO #0.2NOMS HealthcareTB PFC381VIKT [facility] RBC4.91NOMS [facility] HospitalTB WBC 7.1NOMS HealthcareCLINISYNCNOMS [facility] HospitalQuick Strepon 09-15-2023S. pyogenes Org specific cx Ql (Throat)PositiveNonorthwest medical center [employer] Other Quick StrepNonorthwest medical center [employer] Other COVID/FLU/RSV RT-PCRon 74-84-2002OCBO-CoV-2 (COVID-19) RNA EDWIN+probe Ql (Unsp spec)NegativeNort [employer] Other COVID/FLU/RSV RT-PCRNegativeNoEnvysion Other COVID/FLU/RSV RT-PCRPositiveNoEnvysion Other PAP ACOG PANEL 2: 30 to 65on 11-05-2021..NormalSelect Medical Specialty Hospital - Southeast OhioComment on above:Result Comment: Performed at: WBPerformed By: #### [id number] #### [facility] [address] [place] [address] Dr. Omar Rivera Gdln ACOG Ieuhojt11-01ZntxdhRnsTrinity Health System East CampusComment on above:Performed By: #### [id number] #### [facility] [address] [place] [address] Dr. Omar SanabriaDIAGNOSIS:CommentFulton County Health Center on above: Result Comment: NEGATIVE FOR INTRAEPITHELIAL LESION OR MALIGNANCY. Performed at: WBPerformed By: #### [id number] #### [facility] [address] [place] [address] Dr. Omar SanabriaHPV AptimaNegativeNormalNegativeThe [facility] on above:Result Comment: This nucleic acid amplification test detects fourteen high-risk HPV types (16,18,31,33,35,39,45,51,52,56,58,59,66,68) without differentiation. Performed at: =GPerformed By: #### [id number] #### [facility] [address] [place] [address] Dr. Omar SanabriaMethodology:CommentFulton County Health Center on above: Result Comment: This liquid based ThinPrep(R) pap test was screened with the use of an image guided system. Performed at: WBPerformed By: #### [id number] #### [facility] [address] [place] [address] Dr. Omar SanabriaNote:CommentFulton County Health Center on above:Result Comment: The Pap smear is a screening test designed to aid in the detection of premalignant and malignant conditions of the uterine cervix. It is not a diagnostic procedure and should not be used as the sole means of detecting cervical cancer. Both false-positive and false-negative reports do occur. . Performed at: WBPerformed By: #### [id number] #### [facility] [address] [place] [address] Dr. Omar SanabriaPerformed by:CommentNoAvita Health System Bu[facility]rus Hospital on above: Result Comment: Moisés Luis, Barn Manager (ASCP) Performed at: WBPerformed By: #### [id number] #### [facility] [address] [place] [address] Dr. Omar Hendrix adequacy:CommentNormSheltering Arms Hospital on above:Result Comment: Satisfactory for evaluation. Endocervical and/or squamous metaplastic cells (endocervical component) are present. Performed at: WBPerformed By: #### [id number] #### [facility] [address] [place] [address] Dr. Omar Ponce SIMPLEX 1/2 IGMon 44-08-8692OVS, IgM I/II Combination1.01 RatioCritically high0.00-0.90Select Medical Specialty Hospital - Southeast OhioComment on above:Result Comment: Verified by repeat analysis Negative <0.91 Equivocal 0.91 - 1.09 Positive >1.09Performed By: #### HSVIGM #### [facility] [address] [place] [address] Dr. Omar Ponce SIMPLEX 1/2 IGGon 76-77-9135NUU 1 IgG, Type Spec8.59 index Critically high0.00-0.90Select Medical Specialty Hospital - Southeast OhioComment on above:Result Comment: Negative <0.91 Equivocal 0.91 - 1.09 Positive >1.09 Note: Negative indicates no antibodies detected to HSV-1. Equivocal may suggest early infection. If clinically appropriate, retest at later date. Positive indicates antibodies detected to HSV-1.Performed By: #### HSV IGG #### [facility] [address] [place] [address] Dr. Omar Garcia 2 IgG Type Spec<0.34Memhyb2.00-0.90[facility] Comment on above:Result Comment: Negative <0.91 Equivocal 0.91 - 1.09 Positive >1.09 Note: Negative indicates no HSV-2 antibodies detected. Positive indicates HSV-2 antibodies detected. Equivocal and low positive HSV-2 screens (Index 0.91-5.00) may be false positive and are reflexed to supplemental testing in accordance with CDC guidelines.Performed By: #### HSV IGG #### [facility] [address] [place] [address] [address] Omar SanabriaSOUTHEASTERN ARIZONA [facility] Intraoperative Recordon 02-23-6533ZKDO Intraoperative Record MAGR Intra-Op Record Summary Primary Physician: Luis Goss DO Finalized Date/Time: 12/19/18 08:27:55 Pt. Name: MOCK FIFIRADHA Fang/Sex: 1990 FEMALE Med Rec #: [id number] Physician: Luis Goss DO Financial #: [id number] Pt. Type: D Room/Bed: / Admit/Disch: 12/16/18 [...] Role Performed Surgeon - Primary Anesthesiologist of Front Office Supervisor Record Time In 12/16/18 07:56:00 12/16/18 07:56:00 12/16/18 07:56:00 Time Out 12/16/18 09:03:00 12/16/18 09:03:00 12/16/18 09:03:00 Procedure Tubal Ligation Tubal Ligation Tubal Ligation Laparoscopic(Bilateral) Laparoscopic(Bilateral) Laparoscopic(Bilateral) Last Modified By: Joselyn Marx RN RN, Joselyn Coreas RN 12/16/18 09:14:28 12/16/18 09:14:28 12/16/18 09:14:28 Entry 4 Entry 5 Case Attendee Adrián HARMON, Cynthia Wong CST/CSFA Role Performed Scrub Personnel Fire Sprinkler Installer Time In 12/16/18 07:56:00 12/16/18 07:56:00 Time [...] Reason for Unfinalizing 12/19/18 08:27 MHSSAUER Correct DocumentationBerger Hospital HospitalCoding Summaryon 05-89-9125Nmdgdb SummaryCODING DATE: 12/17/2018 [facility] STATUS: Home PAYOR: Commercial Insurance APC DESCRIPTION 5361 Level 1 Laparoscopy and Related Services ADMIT DX: REASON FOR VISIT DX: Z30.2 Encounter for sterilization FINAL DX: PRINCIPAL: Z30.2 Encounter for sterilization SECONDARY: PYMT PROC APC STAT DESCRIPTION DOCTOR NAME DATE 00200 5361 J1 Laparoscopy, surgical; Luis Goss DO 12/16/2018 with fulguration of oviducts (with or without transection) NOTE: The code number assigned matches the documented diagnosis and / or procedure in the patient's chart. However, the narrative phrase printed from the coding software may appear abbreviated, or result in slightly different terminology. Coded By: Elissa Rowe Date Saved: 12/17/2018 12:12 [facility], Edwin ShawConsent Formson 12-17-2018 Consent [id number]#1.00TriHealthHistory and Physicalon 78-49-8657Ijcdhht and Physical [id number]#1.00[facility] Operative Report - Surgeon/Physicianon 48-23-8556Habllddtn Report - Surgeon/[id number]#1.00ProMedica [facility]edo HospitalProvider Orderson 04-18-5982Ilwvtmr mass conc [id number]#1.00[facility] Telemetry Stripson 35-92-7360Imwqxvdyj Strips [id number]#1.00[facility] Anesthesia Noteon 55-08-5415Dtrtcnzcyp NotePatient: FIFI MOCK Age: 28 years Sex: [...] [Verified on: 12/16/2018 09:26 EDT] Sebastian Myers MDAdena Pike Medical CenterAnesthesi NotePatient: FIFI MOCK Age: 28 years Sex: [...] history): All Problems Anemia / SNOMED CT 740005597 / Confirmed Depression / SNOMED CT 92332326 / Confirmed Insomnia / SNOMED CT 621535172 / Confirmed Histories Family History: No family history items have been selected or recorded. Procedure history: Laparoscopic cholecystectomy (32745057). Dilation and curettage (02120396). Social History Alcohol Assessment Use: Current. Liquor, [...] rhythm. Review / Management Laboratory Results Plan [place] [employer]hes[employer]#(ASA) physical status classification: Class [...] Myers MD [Verified on: 12/16/2018 07:49 EDT] Sebatsian Myers MDAdena Pike Medical CenterInpatient Patient Summaryon 12-16-2018 [place] [address] Patient Discharge Instructions Name: NISH FIFI MCNAIR : [birth year] Patient [address]: [address] [place] [address] Primary Care Provider: Name: Nasra Sparrow CNP After you are discharged if you find you have any questions, please, call [phone] ext [phone] to speak to a nurse. [...] business decisions or sign any legal documents [facility] would like to thank you for allowing us to assist you with your healthcare needs.The following includes patient education materials and information regarding your injury/illness. FIFI MOCK has been given the following list of follow-up instructions, prescriptions,and patient education materials: Follow-up Instructions With: Address: When: Luis Goss [address] [place] [address] Bleacher Report (2Everlater In 2 weeks 12/30/18 Medications During the course of your visit, your medication list was updated with the most current information. The details of those changes are reflected below: New Medications Printed Prescriptions acetaminophen-hydrocodone ([place] 5 mg-325 mg oral tablet) 1 tab(s) [...] that you can keep with you. acetaminophen-hydrocodone ([place] 5 mg-325 mg oral tablet) 1 tab(s) [...] including vitamins, herbs, eye drops, creams, and xfcj-vvk-xfxwiql medicines. ? Any problems you or family [...] 10/28/2001 Document Revised: 12/27/2016 Document Reviewed: 07/01/2016 [employer] Patient Education ? 2018 [employer] Viruses or Bacteria What?s got you [...] Centers for Disease Control and Prevention April 2014[facility] MAGR PACU Recordon 17-64-0606VJOI PACU RecordMAGR PACU Record Summary Primary Physician: Luis Goss DO Finalized Date/Time: 12/16/18 09:44:44 Pt. Name: FIFI MOCK/Sex: 1990 FEMALE Med Rec #: [id number] Physician: Luis Goss DO Financial #: [id number] Pt. Type: D Room/Bed: / Admit/Disch: 12/16/18 [...] Signatures Signed By: Gema Todd RN 12/16/18 09:44[facility] Postoperative Record on 24-15-9204HMSI Postoperative RecordMAGR Phase II Record Summary Primary Physician: Luis Goss DO Finalized Date/Time: 12/16/18 10:50:50 Pt. Name: FIFI MOCK/Sex: 1990 FEMALE Med Rec #: [id number] Physician: Luis Goss DO Financial #: [id number] Pt. Type: D Room/Bed: / Admit/Disch: 12/16/18 [...] Signatures Signed By: Maty Irving RN 12/16/18 10:50[facility] Preoperative Recordon 76-22-5279HIGL Preoperative RecordMAGR Pre-Op Record Summary Primary Physician: Luis Goss DO Finalized Date/Time: 12/16/18 08:34:48 Pt. Name: FIFI MOCK XU Fang/Sex: 1990 FEMALE Med Rec #: [id number] Physician: Luis Goss DO Financial #: [id number] Pt. Type: D Room/Bed: / Admit/Disch: 12/16/18 [...] Signatures Signed By: Joselyn Marx RN 12/16/18 08:34[facility] Medical CenterOperative Report - Surgeon/Physicianon 64-23-5787Yklmjpxgx Report - Surgeon/PhysicianDATE OF PROCEDURE: 12/16/18 SURGEON: [...] grasped with a single tooth tenaculum. An [place] uterine manipulator was then advanced into the [...] 4-0 Vicryl in a subcuticular manner. The [place] uterine manipulator was then removed from the vagina with no bleeding noted from the cervix. The patient tolerated the procedure well. Sponge, lap, needle and instrument counts were correct x2. The patient was taken to the recovery room awake and in stable condition. Luis Goss DO JOB #: [id number] [Electronically Signed on: 12/23/2018 07:53 EDT] Luis Goss DO, D.O. [Verified on: 12/23/2018 07:53 EDT] Luis Goss DO, D.O. [Transcribed on: 12/16/2018 09:49 EDT] [facility] HospitalPatient Handouton 43-37-1758Ilvduct HandoutObstetrics and Gynecology Laparoscopic Tubal Ligation Laparoscopic [...] including vitamins, herbs, eye drops, creams, and uaej-hpr-wedzdqr medicines. ? Any problems you or family [...] 10/28/2001 Document Revised: 12/27/2016 Document Reviewed: 07/01/2016 [employer] Interactive Patient Education ? 2018 [employer].[facility] Medical CenterPregnancy Test Urine 1on 12-16-2018U [facility] Comment on above:Performed By: #### [id number] #### [facility] (DEFAULT) [address] [place] [address] [id number] Preg Internal ControlClermont County HospitalComment on above:Performed By: #### [id number] #### [facility] (DEFAULT) [address] [place] [address] 61505Yispoqae Note - Nurseon 65-04-6718Iizmwjs mass concSpoke with pt regarding arrival time of 0600 and NPO status. Verbalized understanding. [Electronically Signed on: 12/15/2018 13:31 EDT] Virginia Davenport RN [Verified on: 12/15/2018 13:31 EDT] Issac WHITTAKER, Virginia FernandoTrinity Health System East Campus HospitalCoding Summaryon [id number] SummaryCODING DATE: 12/11/2018 [facility] STATUS: Home PAYOR: Commercial Insurance ADMIT [...] By: Elissa Rowe Date Saved: 12/11/2018 11:19 amNSycamore Medical CenterProvider Orderson 39-27-0293Tuhjkvw mass [id number]#1.00OTGTIFF [facility].Auto Diff 1on 18-30-9418Wadv Baso %0.5 %Normal0.2-2.0 German HospitalComment on above:Performed By: #### [id number], [id number] #### [facility] (DEFAULT) [address] [place] [address] 75720Zkjo [place] %8 %Normal1-12[facility]uder HospitalComment on above: Performed By: #### [id number], [id number] #### [facility] (DEFAULT) [address] [place] [address] 62966Sawi Neut %64 %Ltudzb53-76Cdsxvknx HospitalComment on above:Performed By: #### [id number], [id number] #### [facility] (DEFAULT) [address] [place] [address] 00311Qwmy Abs#0.0 n71Udoaws3.0-0.2[facility]uder HospitalComment on above:Performed By: #### [id number], [id number] #### [facility] (DEFAULT) [address] [place] [address] 96786Kze Abs#0.1 h91Nnptiy8.0-0.4[facility]uder HospitalComment on above:Performed By: #### [id number], [id number] #### [facility] (DEFAULT) [address] [place] [address] 33376Rkcgftlpfez/100 WBC (Bld)0.9 %Normal0.9-4.0[facility] HospitalComment on above:Performed By: #### [id number], [id number] #### [facility] (DEFAULT) [address] [place] [address] 13049Nmdfvgnsdpc #/vol (Bld)1.7 l13Qonlau3.3-2.9[facility] HospitalComment on above:Performed By: #### [id number], [id number] #### [facility] (DEFAULT) [address] [place] [address] 62337Hmvkqeszqqv/100 WBC (Bld)27 %Pnsifk86-77Aejwwuuu Hospital Comment on above:Performed By: #### [id number], [id number] #### [facility] (DEFAULT) [address] [place] [address] 97654Wliq Abs#0.5 z85Yiepwl2.0-0.8[facility] HospitalComment on above:Performed By: #### [id number], [id number] #### [facility] (DEFAULT) [address] [place] [address] 22355Bqit Abs#4.1 c13Zsrihd1.5-9.2Magrkettering health behavioral medical center HospitalComment on above:Performed By: #### [id number], [id number] #### [facility] (DEFAULT) [address] [place] [address] 78016QEK w/ Auto Diffon 92-18-8804Lsxezqzuwjd distribution width Ratio (RBC)12.9 %Kmlxrh09.5-15.0[facility] HospitalComment on above: Performed By: #### [id number], [id number] #### [facility] (DEFAULT) [address] [place] [address] 45353Htqnhptxpj Volume Fraction (Bld)44.3 %High33.7-40.4 [facility] HospitalComment on above:Performed By: #### [id number], [id number] #### [facility] (DEFAULT) [address] [place] [address] 86465Jyhyuazyjl mass conc (Bld)15.1 g/wBFtgtnf93.3-15.9German HospitalComment on above:Performed By: #### [id number], [id number] #### [facility] (DEFAULT) [address] [place] [address] 94283Rer Diff?AutoNormalGerman HospitalComment on above: Performed By: #### [id number], [id number] #### [facility] (DEFAULT) [address] [place] [address] 40215GJB Entitic mass (RBC)29 vxEznudi18-09Gbgrcmqu Hospital Comment on above:Performed By: #### [id number], [id number] #### [facility] (DEFAULT) [address] [place] [address] 67171CVJL mass conc (RBC)34 g/tDIikfcv73-50Dkxdcmzx Hospital Comment on above:Performed By: #### [id number], [id number] #### [facility] (DEFAULT) [address] [place] [address] 76716YQM Entitic volume (RBC)85 lNIhuciz84-953Ufrfhxmg Hospital Comment on above:Performed By: #### [id number], [id number] #### [facility] (DEFAULT) [address] [place] [address] 82856Fapzxmvv mean volume Entitic volume (Bld)10.4 fLHigh 6.3-10.2MOhioHealth Marion General HospitalComment on above:Performed By: #### [id number], [id number] #### [facility] (DEFAULT) [address] [place] [address] 65190Yrkarfwgf #/vol (Bld)295 u36Gskqus989-140Jfojcnvy Hospital Comment on above:Performed By: #### [id number], [id number] #### [facility] (DEFAULT) [address] [place] [address] 07356IFF #/vol (Bld)5.19 w44Etqknh7.70-5.30[facility] Comment on above:Performed By: #### [id number], [id number] #### [facility] (DEFAULT) [address] [place] [address] 18121LTM #/vol (Bld)6.4 w62Ajgasf4.5-10.5[facility] Comment on above:Performed By: #### [id number], [id number] #### [facility] (DEFAULT) [address] [place] [address] 07400 Vital Signs Date TimeVital SignValuePerforming NkylfkplyZnjaofhu16-63-9902 18:07-0500Body uneesz212.94 cmLisa Aichholz FUR TRIMMER-C Work Phone: [phone]11-03-2025 18:07-0500 Body mass index (BMI) [Ratio]33.1 kg/m2Lisa Aichholz FUR TRIMMER-C Work Phone: [phone]11-03-2025 18:07-0500 Body couwtwkkvzo34.1 [degF]Bernie Aichholz FUR TRIMMER-C Work Phone: [phone]11-03-2025 18:07-0500 Body snivjb49.6 kgLisa Aichholz FUR TRIMMER-C Work Phone: [phone]11-03-2025 18:07-0500 Diastolic blood cygqnwrl67 mm[Hg]Bernie Aichholz FUR TRIMMER-C Work Phone: [phone] [place], [place] [address]11-03-2025 18:07-0500 Heart rate90 /minLisa Aichholz FUR TRIMMER-C Work Phone: [phone] [place], [place] [address]11-03-2025 18:07-0500 Respiratory rate18 /minLisa Aichholz FUR TRIMMER-C Work Phone: [phone] [place], [place] [address]11-03-2025 18:07-0500 SaO2% (BldA) [Mass fraction]98 %Bernie Aichholz FUR TRIMMER-C Work Phone: [facility]11-03-2025 18:07-0500 Systolic blood sctqyojr510 mm[Hg]Bernie Quiñonez FUR TRIMMER-C Work Phone: [facility]09-23-2025 15:08-0400 Body fsnpke991.9 cmLorenzo Bianchi MD Work Phone: [phone] CenterKccbclhveu03-77-1358 15:08-0400Body mass index (BMI) [Ratio]32.69 kg/u4MflctuLorenzo Bianchi MD Work Phone: [phone] [place], [place] [address]Rblhzmklar84-88-1790 15:08-0400Body .47 kgLorenzo Bianchi MD Work Phone: [phone] [place], [place] [address] CenterFgdsjililk24-20-1533 15:08-0400Diastolic blood rlnuvpqe09 mm[Hg]Lorenzo Bianchi MD Work Phone: [phone] [place], [place] [address] CenterWcdmwqqtnb84-46-8854 15:08-0400Heart rate71 /min Lorenzo Bianchi MD Work Phone: [phone] [place], [place] 7835809-23-2025 15:08-0400Systolic blood ghditiye00 mm[Hg]Lorenzo Bianchi MD Work Phone: [phone]5846[facility] CenterPxtvtrjfol28-43-8583 14:07-0400Body qzumwv794.9 cmLorenoz Bianchi MD Work Phone: [phone]-97[address] CenterNiraoggert02-61-1755 14:07-0400Body mass index (BMI) [Ratio]31.74 kg/i9DjcmdvLorenzo Bianchi MD Work Phone: [phone] CenterVvhcatwmpd23-13-8491 14:07-0400Body jpmyzg63.2 kg Lorenzo Bianchi MD Work Phone: [phone]-3181[facility] CenterRylqranaya96-04-8856 14:07-0400Diastolic blood wuolkniq08 mm[Hg]Lorenzo Bianchi MD Work Phone: [facility] CenterPjnpspmesh16-59-9580 14:07-0400Systolic blood rnyohrzt013 mm[Hg]Lorenzo Bianchi MD Work Phone: noBoone Hospital CenterKfpjcdxnle82-67-2417 14:50-0400Body gxicqf925.9 Raiza Khang FUR TRIMMER Work Phone: [facility] CenterTvfdqerotg21-78-9708 14:50-0400Body mass index (BMI) [Ratio]31.63 kg/m2Bernie Patiencedmitriysohamz FUR TRIMMER Work Phone: [facility] CenterTyupigbifh09-59-0665 14:50-0400Body temperature 98.29 [degF]Bernie Moringill FUR TRIMMER Work Phone: [place] [address]Pkfzjylyrb03-83-2011 14:50-0400Body usnzks77.93 kgLi Patiencedmirtiyalfonso FUR TRIMMER Work Phone: [facility] CenterBwvwmsslyg50-12-8407 14:50-0400Diastolic blood mmonbwvy64 mm[Hg]Bernie Patiencegeniaz FUR TRIMMER Work Phone: [facility] CenterYrxfghlmcx83-66-0969 14:50-0400Heart rate75 /min Bernie Patiencegeniaz FUR TRIMMER Work Phone: [place] [address]Drkxlsjuce71-90-6221 14:50-0400Respiratory rate18 /minLisa Alexissohamz FUR TRIMMER Work Phone: [facility] CenterSzkbgbqgdg67-46-6962 14:50-2385AmT7% (BldA) [Mass fraction]97 %Bernie Cinthiaz FUR TRIMMER Work Phone: [facility] CenterFvludkxdaz79-66-0907 14:50-0400Systolic blood mm[Hg]Bernie Khang FUR TRIMMER Work Phone: [facility] CenterSfsyzlljog57-99-7173 11:46-0400Body scnphu72.58 kgJames Medina MD Work Phone: [facility]10-01-2024 11:46-0400Diastolic blood mm[Hg]James Medina MD Work Phone: [facility]10-01-2024 11:46-0400 Respiratory rate18 /minJames Medina MD Work Phone: [facility]10-01-2024 11:46-0400Systolic blood mm[Hg]James Medina MD Work Phone: [facility]09-24-2024 15:01-0400Body kozxua687.9 Layneisa Khang FUR TRIMMER Work Phone: [facility] CenterFxbmuxgyzh59-77-7991 15:01-0400Body mass index (BMI) [Ratio]31.06 kg/m2Lisa Khang FUR TRIMMER Work Phone: [facility] CenterZgwjeepuyx55-74-9211 15:01-0400Body temperature 98.1 [degF]Bernie Khang FUR TRIMMER Work Phone: [facility] CenterRdpccmdrrk06-90-0326 15:01-0400Body hxhfew71.57 kgLisa Khang FUR TRIMMER Work Phone: [facility] CenterBogcotjxhe58-81-2974 15:01-0400Diastolic blood agltwjnx85 mm[Hg]Bernie Khang FUR TRIMMER Work Phone: [facility] CenterTlxbzjbvdb98-99-5842 15:01-0400Heart rate69 /min Bernie Khang FUR TRIMMER Work Phone: [facility] CenterQlllxxizqx55-07-7955 15:01-0400Respiratory rate18 /minLi Khang FUR TRIMMER Work Phone: [facility] CenterTkdemvbybc54-37-6069 15:01-4782VhX9% (BldA) [Mass fraction]98 %Bernie Khang FUR TRIMMER Work Phone: [facility] CenterTrdeezyieh86-65-3213 15:01-0400Systolic blood klggosjw630 mm[Hg]Bernie Khang FUR TRIMMER Work Phone: [facility] CenterNmojmfkwct75-30-8127 14:26-0400Body bhxiru531.9 Layneisa Khang FUR TRIMMER Work Phone: [facility] CenterTpamvxille96-77-7020 14:26-0400Body mass index (BMI) [Ratio]31.29 kg/m2Bernie Quiñonez FUR TRIMMER Work Phone: [facility] CenterApzbahubnf19-45-9048 14:26-0400Body temperature 97.81 [degF]Bernie Quiñonez FUR TRIMMER Work Phone: [facility] CenterWtbyrnovlq53-28-4625 14:26-0400Body wovisi61.12 kgBernie Quiñonez FUR TRIMMER Work Phone: [facility] CenterUkouxyzanf63-18-0555 14:26-0400Diastolic blood mattiemj49 mm[Hg]Bernie Quiñonez FUR TRIMMER Work Phone: [facility] CenterGzdjbfcaxw43-23-0287 14:26-0400Heart rate65 /min Bernie Quiñonez FUR TRIMMER Work Phone: [facility] CenterWnmhjeedvs94-53-9278 14:26-0400Respiratory rate18 /minLisa Quiñonez FUR TRIMMER Work Phone: [facility] CenterBulmtbeyll77-66-1715 14:26-3981AkX4% (BldA) [Mass fraction]99 %Bernie Quiñonez FUR TRIMMER Work Phone: [place] [address]Psmhwugias28-35-1107 14:26-0400Systolic blood mm[Hg]Bernie Quiñonez FUR TRIMMER Work Phone: [facility] CenterKilxwkrfwp77-52-9433 09:00-0500Body jhpnka665.94 Elisha Junior Other [facility] [employer] Other 02-11-2024 09:00-0500Body mass index (BMI) [Ratio] 28.83 kg/a3QwwwgMadison Junior Other [employer] Other 02-11-2024 09:00-0500Body sfroxeifyjm587 [degF]Madison Junior Other [place] [employer] Other 02-11-2024 09:00-0500Body pyiazn70.22 kgAmber Vernon Other [facility] [employer] Other 02-11-2024 09:00-0500Respiratory rate18 /minAmber Vernon Other [facility] [employer] Other 02-11-2024 09:00-2938YwB6% (BldA) [Mass fraction]99 % Madison Vernon Other [facility] [employer] Other 12-27-2023 17:10-0500Body .94 cmAmanda Edwin Other [facility] [employer] Other 12-27-2023 17:10-0500Body mass index (BMI) [Ratio] 24.56 kg/y4Psbdil Edwin Other [employer] Other 12-27-2023 17:10-0500Body dkezzpqzkot75 [degF]Carmen Edwin Other [employer] Other 12-27-2023 17:10-0500Body wnnpxi92.97 kgAmanda Edwin Other [employer] Other 12-27-2023 17:10-0500Respiratory rate18 /minAmanda Edwin Other [employer] Other 12-27-2023 17:10-9632MfR7% (BldA) [Mass fraction]97 % Carmen Edwin Other [employer] Other Encounters Encounter DateEncounter TypeCare ProviderFacilityStart: 06-07-2025 End: 51-50-6390lyfhzxsbmjHchc J Aichholz FUR TRIMMER-C Work Phone: -[facility] ClydeStart: 06-07-2025 End: 99-28-2881Frypvzk encounter procedureLisa Kan Quiñonez FUR TRIMMER-C-[facility] [place] Work Phone: Start: 06-07-2025 End: 44-45-3189Errmwxi encounter statusLisa Kan Quiñonez FUR TRIMMER-CFiProvidence Hospitaltart: 55-39-3307Tmjenga encounter statusLisa Quiñonez FUR TRIMMER-C Work Phone: [facility] Centertart: 04-27-2025 End: 61-80-3130Ofzvmn outpatient visit 15 minutesLorenzo Bianchi MD Work Phone: noms [place] OtolaryngologyComment on above:Thyroid nodule (Primary Dx)Start: 04-27-2025 End: 27-72-8157ttztoztnxaGUOHIO H ELIZABETHMISNot AvailableStart: 04-27-2025 End: 33-94-9674Mscrvg flowsheetLorenzo Bianchi MD Work Phone: noms [place] OtolaryngologyStart: 04-27-2025 End: 81-20-5164Pezgib Eunice Bianchi MD Work Phone: [facility] [place] OtolaryngologyStart: 04-14-2025 End: 70-48-2197Lyrwfrwea Result EncounterLorenzo Bianchi MD Work Phone: noms External Department UnsolicitedStart: 04-14-2025 End: 78-36-7315Fnactbmqb Result EncounterHilópezry Dmitriy Bianchi MD Work Phone: noms External Department UnsolicitedStart: 10-20-2024 End: 73-79-6164hzuakbmrxsBCAWZR Dmitriy TIMMISNot AvailableStart: 07-13-2024 End: 66-17-2526Vgrrqdqlq encounterLisa Cinthiaz FUR TRIMMER Work Phone: noms CWM FMStart: 06-03-2024 End: 51-74-3981Lmjpnm flowsAnthony Bianchi MD Work Phone: noms CI ENTStart: 06-03-2024 End: 82-15-1007Kknhgl flowsAnthony Bianchi MD Work Phone: noms CI ENTStart: 06-03-2024 End: 41-55-7165Kuxlun outpatient new 30 minutesLorenzo Bianchi MD Work Phone: noms CI ENTComment on above:Thyroid nodule greater than or equal to 1.5 cm in diameter incidentally noted on imaging study (CMS/ HCC)Start: 06-03-2024 End: 88-21-8005nvjjpxrhsgXOEWRT H TIMMISNot AvailableStart: 05-13-2024 End: 13-18-8637Ckfdgg outpatient visit 15 minutesBernie Quiñonez FUR TRIMMER Work Phone: noms CWM FMComment on above:Thyroid nodule greater than or equal to 1.5 cm in diameter incidentally noted on imaging study (CMS/ HCC) (Primary Dx); Other Remedios-Danlos syndromes (CMS/HCC); Class 1 obesity due to excess calories without serious comorbidity with body mass index (BMI) of 31.0 to 31.9 in adultStart: 05-13-2024 End: 97-19-8372rncbeamoxaJJBP AICHHOLZNot AvailableStart: 05-13-2024 End: 62-25-1480Dgzczn flowsheetBernie Quiñonez FUR TRIMMER Work Phone: noms CWM FMStart: 05-13-2024 End: 28-96-1751Dkcncn flowsheetBernie Quiñonez FUR TRIMMER Work Phone: noms CWM FMStart: 05-05-2024 End: 51-60-4047Vveubz outpatient new 45 Ken Medina MD Work Phone: [facility] RheumatologyComment on above:SHAHLA positive (Primary Dx); Chronic fatigueStart: 05-05-2024 End: 91-05-9230nbddqnpcxnDOOWFQ [facility] Hospitaltart: 05-02-2024 End: 18-68-9720Amnbwrjug Result EncounterLisa Aichholz FUR TRIMMER Work Phone: noms External Department UnsolicitedStart: 05-02-2024 End: 38-00-5568Weotbqheo Result EncounterLisa Aichholz FUR TRIMMER Work Phone: noms External Department UnsolicitedStart: 04-30-2024 End: 91-95-4987Seuxmenkw Result EncounterLisa Aichholz FUR TRIMMER Work Phone: noms External Department UnsolicitedStart: 04-30-2024 End: 20-98-2469Rvseffzhg Result EncounterLisa Aichholz FUR TRIMMER Work Phone: noms External Department UnsolicitedStart: 04-30-2024 End: 73-05-8679gnveqlhyxsJcfo Kan [facility] Work Phone: Start: 04-30-2024 End: 40-74-2663Zretmftt ReferredLisa Aichholz Work Phone: [facility]-LAB Path Spec Jyotsna HospStart: 04-29-2024 End: 59-49-8685Mncaglktb encounterTimnylópez UrbinaoMedpat Physicians RheumatologyStart: 04-28-2024 End: 79-92-7699Hkyvbt outpatient visit 25 minutesLisa Aichholz FUR TRIMMER Work Phone: noms CWM FMComment on above:SHAHLA positive (Primary Dx); Other Remedios-Danlos syndromes (CMS/HCC); Class 1 obesity due to excess calories without serious comorbidity with body mass index (BMI) of 31.0 to 31.9 in adult; Thyroid nodule greater than or equal to 1.5 cm in diameter incidentally noted on imaging study (CMS/HCC)Start: 04-28-2024 End: 66-11-1746Ribtwh flowsFrancisca Alexisholz FUR TRIMMER Work Phone: noms CWM FMStart: 04-28-2024 End: 19-30-2204Jbfgrp flowsheetBernie Alexisholz FUR TRIMMER Work Phone: noms CWM FMStart: 04-17-2024 End: 69-99-8654Bqkdrpcce Result EncounterLisa Vanesaholz FUR TRIMMER Work Phone: noms External Department UnsolicitedStart: 04-17-2024 End: 18-89-5861Nigxcfulf Result EncounterLisa Vicentez FUR TRIMMER Work Phone: noms External Department UnsolicitedStart: 04-09-2024 End: 21-92-8606Rdbpym OnlyBernie Vicentez FUR TRIMMER Work Phone: noms CWM FMComment on above:Thyroid antibody positive (Primary Dx)Start: 04-04-2024 End: 99-51-2808Nuklwtsub Result EncounterLisa Vicentez FUR TRIMMER Work Phone: noms External Department UnsolicitedStart: 04-04-2024 End: 15-67-0492Zxtvxiect Result EncounterLisa Vicentez FUR TRIMMER Work Phone: noms External Department UnsolicitedStart: 04-02-2024 End: 39-21-0518Mzgogjvy preventive med est patient 18-39 yrsLisa Quiñonez FUR TRIMMER Work Phone: noms CWM FMComment on above:Wellness examination (Primary Dx); Arthralgia, unspecified joint; Other fatigue; Iron deficiency anemia, unspecified iron deficiency anemia type; Class 1 obesity due to excess calories without serious comorbidity with body mass index (BMI) of 31.0 to 31.9 in adultStart: 04-02-2024 End: 09-02-8235Zhiufu flowsheetBernie Alexisholz FUR TRIMMER Work Phone: noms CWM FMStart: 04-02-2024 End: 70-73-6230Sykgsr flowsheetLisa Aichholz FUR TRIMMER Work Phone: noms CWM FMStart: 04-02-2024 End: 38-00-5570Gkpadib encounter statusBernie Quiñonez FUR TRIMMER Work Phone: NO HealthcareStart: 09-15-2023 End: 28-97-1085muwbpregvySnteb Vernon Other [facility] [employer] Other Start: 34-69-4862Mobbip outpatient visit 25 minutes Madison KellerFPG Urgent Care ClydeStart: 07-31-2023 End: 12-87-1716rdmitqwmxaGnxggo Edwin Other [facility] [employer] Other Start: 63-68-1873Oeobfs outpatient visit 15 minutes Carmen GrobFPG Urgent Care ClydeStart: 10-30-2021 End: 66-40-0949iiaenmjmbbIA NOVA FAZIOFacility:K7Alerf: 10-30-2021 End: 90-32-9781yvwksbjvwlMGIV R BOVAFacility:B2Srlql: 10-13-2018 End: 97-34-3778Khxaagp encounter procedureDEFAULT PHYSICIANFacility:[facility] Procedures DateProcedureProcedure DetailPerforming ClinicianStart: 23-19-5751Mn soft tissue head & neck real time imge Eulalio Bianchi MD Work Phone: Start: 32-11-4083UUFKZNYYCBN ANTIBODIES, IFABernie Quiñonez FUR TRIMMER Work Phone: Start: 15-90-2297SU BIOPSY THYROIDLisa Quiñonez FUR TRIMMER Work Phone: Start: 35-26-7596Cg soft tissue head & neck real time imge Opal Quiñonez FUR TRIMMER Work Phone: Start: 98-33-0254WPN CBC WITH AUTO DIFFBernie Quiñonez FUR TRIMMER Work Phone: H/O: tubal ligationHx of tubal ligationRebeccasa Khang FUR TRIMMER-C Work Phone: History of cholecystectomyHx of cholecystectomyLisa Khang FUR TRIMMER-C Work Phone: Plan of Treatment DateCare ActivityDetailAuthorStart: 92-83-9609Frcwobmnu for malignant neoplasm of cervixNOMS HealthcareStart: 04-27-2026 End: 45-04-3877Ovgunnq encounter /23/2026 2:20 PM EDT Office Visit [facility] [place] [facility] [address] [place] [address] Lorenzo Bianchi MD [address] [place] [address] [facility] [place] OtolaryngologyStart: 04-27-2025 End: 88-78-7208Buuqhah encounter procedureNOMS [place] OtolaryngologyComment on above:ArrivedStart: 10-20-2024 End: 34-49-3854Cvnbggx encounter cfhsdwwuz98/18/2025 3:20 PM EDT Office Visit [facility] [address] [place] [address] Lorenzo Bianchi MD [address] [place] [address] [facility]OM[facility] CI ENTStart: 07-22-2024 End: 93-63-9639Tpbylzk encounter bnarjopgj66/18/2024 2:00 PM EST Office Visit [facility] [address] [place] [address] Bernie Quiñonez NP [address] [place] [address] [facility] FMStart: 06-03-2024 End: 64-47-7731Claquuv encounter gihjnfyfh57/30/2024 2:00 PM EDT Office Visit [facility] [address] [place] [address] Lorenzo Bianchi MD [address] [facility] [address] [place] [address] Thyroid nodule greater than or equal to 1.5 cm in diameter incidentally noted on imaging study (CMS/HCC)[facility]OM[facility] CI ENTComment on above:Thyroid nodule greater than or equal to 1.5 cm in diameter incidentally noted on imaging study (CMS/HCC)Start: 05-13-2024 End: 10-51-9699Bjthykp encounter procedureNONM CWM FMComment on above:Arrived Start: 05-05-2024 End: 69-16-5535C-reactive proteinC-reactive protein Lab Routine SHAHLA positive Expected: 05/05/2024 (Approximate), Expires: 05/05/2025[facility] Comment on above:Expected: 05/05/2024 (Approximate), Expires: 05/05/2025Start: 05-05-2024 End: 76-00-4476Hoytvhnlrosku metabolic 2000 panel - Serum or PlasmaFisher-Titus Medical CenterComment on above:Expected: 05/05/2024 (Approximate), Expires: 05/05/2025Start: 04-28-2024 End: 04-94-9706Cuibeyv encounter procedureNOST. [facility] FMComment on above:Arrived Start: 04-09-2024 End: 86-79-8356QX Thyroid glandUS thyroid Imaging Routine Thyroid antibody positive Expected: 04/09/2024, Expires: 04/09/2025[facility] Work Phone: Comment on above:Expected: 04/09/2024, Expires: 04/09/2025Start: 40-14-7605Dfrxgyplw vaccinationST. [facility] HealthcareStart: 04-02-2024 End: 10-04-1160Zucyavv encounter swuklmunk96/29/2024 2:20 PM EDT Office Visit [facility] [address] [place] [address] Bernie Quiñonez NP [address] [place] [address] [facility] FMComment on above:ArrivedStart: 04-02-2024 End: 04-02-2025 reactive protein [Mass/volume] in Serum or PlasmaC-reactive protein Lab Routine Arthralgia, unspecified joint Expected: 04/02/2024 (Approximate), Expires: 04/02/2025[facility] HealthcareComment on above:Expected: 04/02/2024 (Approximate), Expires: 04/02/2025Start: 04-02-2024 End: 54-05-9291Mugcunpqvfh sedimentation rateSedimentation rate, automated Lab Routine Arthralgia, unspecified joint Expected: 04/02/2024 (Approximate), Expires: 04/02/2025[facility] Work Phone: Comment on above:Expected: 04/02/2024 (Approximate), Expires: 04/02/2025Start: 04-02-2024 End: 46-47-2463Eaml + transferrin + TIBCIron + transferrin + TIBC Lab Routine Iron deficiency anemia, unspecified iron deficiency anemia type Expected: 04/02/2024 (Approximate), Expires: 04/02/2025[facility] HealthcareComment on above: Expected: 04/02/2024 (Approximate), Expires: 04/02/2025Start: 04-02-2024 End: 22-61-9037Znmzyed Ab [Titer] in Serum by ImmunofluorescenceANA Lab Routine Arthralgia, unspecified joint Expected: 04/02/2024 (Approximate), Expires: [facility]02[facility]20[facility] HealthcareComment on above:Expected: 04/02/2024 (Approximate), Expires: 04/02/2025Start: 04-02-2024 End: 72-51-0347Xhdbhrpizr factor [Units/volume] in Serum or PlasmaRheumatoid factor Lab Routine Arthralgia, unspecified joint Expected: 04/02/2024 (Approximate), Expires: 04/02/2025[facility] HealthcareComment on above:Expected: 04/02/2024 (Approximate), Expires: 04/02/2025Start: 04-02-2024 End: 63-13-8969Tsskljd peroxidase and thyroglobulin antibodiesThyroid peroxidase and thyroglobulin antibodies Lab Routine Other fatigue Expected: 04/02/2024 (Approximate), Expires: 04/02/2025[facility] HealthcareComment on above:Expected: 04/02/2024 (Approximate), Expires: 04/02/2025Start: 04-02-2024 End: 78-10-8596Nhhlg [Mass/volume] in Serum or PlasmaUric acid Lab Routine Arthralgia, unspecified joint Expected: 04/02/2024 (Approximate), Expires: [facility] HealthcareComment on above:Expected: 04/02/2024 (Approximate), Expires: 04/02/2025Start: 10-54-5691NXvL,Tdap and Td Vaccines (2 - Td or Tdap) DTaP,Tdap and Td Vaccines (2 - Td or Tdap)[facility] Hospitaltart: 79-27-5775Upvkoglzb for malignant neoplasm of cervixPap [facility] Start: 53-09-9719FAzV,Tdap and Td Vaccines (1 - Tdap)DTaP,Tdap and Td Vaccines (1 - Tdap)[facility] Hospitaltart: 73-15-0491Dyria BMI ScreeningAdult BMI ScreeningProMedica Toledo Hospital SystemStart: 28-83-2287Qrcqhupdzu ScreeningDepression ScreeningProMedica Toledo Hospital SystemStart: 08-96-8923Dmkzwfr ScreeningTobacco ScreeningProMedica Toledo Hospital System End: 19-64-4112Egwvrnquoks Ab, HEp-2 Substrate, SAntinuclear Ab, HEp-2 Substrate, S Lab Routine SHAHLA positive 1 Occurrences starting 05/05/2024 until 05/05/2025[facility] Work Phone: comment on above:1 Occurrences starting 05/05/2024 until 05/05/2025ntinuclear Ab, HEp-2 Substrate, SAntinuclear Ab, HEp-2 Substrate, S Lab Routine SHAHLA positive 05/05/2024 12:03 PM [facility]TPSt[facility] SystemC reactive protein [Mass/volume] in Serum or PlasmaC-reactive protein Lab Routine SHAHLA positive 05/05/2024 12:03 PM [facility] SystemComprehensive metabolic 2000 panel - Serum or PlasmaGulf [facility]reeze [facility] Immunizations Immunization DateImmunizationNotesCare FrhfgdvuNaxsjcyr74-21-6673bmqvvst toxoid, reduced diphtheria toxoid, and acellular pertussis vaccine, mendyLisa Khang NICOLE Work Phone: [employer] [facility] Payers DatePayer CategoryPayerPolicy [id number] Health InsuranceMEDICAL MUTUAL ..[id number] [id number] [id number] 2..1.785529.3.57[id number] ..1.410596.3.57[id number] 2..1.618194.3.57[id number] 2.1.557917.3.57[id number] 2..1.007140.3.57[id number] 2..1.341064.3.57[id number] 2..1.944432.3.57[id number] 2..1.556408.3.579.[id number] 50hh2946-yo93-934h-7cox-[id number] 2..1.182104.3.579.2.531 Social History DateTypeDetailFacilityUnknown if ever smokedNonorthwest medical center [employer] Other Start: 04-01-2024 End: 23-28-9527Idn Assigned At [facility] HealthcareStart: 03-01-2018 End: 91-33-9596Jtgmmqk smoking status NHISNever smoked tobacco (finding) [facility] Centertart: 66-85-5184Mrn Assigned At [facility] Campustart: 87-72-1850Gkjeepz use and exposure Smokeless tobacco non-userNONM HealthcareStart: 04-02-2024 End: 62-12-7738Mswczlpfv beverage intakeCurrent drinker of alcohol (finding)[facility] HealthcareStart: 04-01-2024 End: 08-79-6602Xcxyiec of Social functionNOMS HealthcareStart: 84-47-8309Bpj often do you need to have someone help you when you read instructions, pamphlets, or other written material from your doctor or pharmacy [SILS]Never [facility] HealthcareDo you belong to any clubs or organizations such as gnosticism groups, unions, fraternal or athletic groups, or [...] got money to buy more.Never trueNOMS HealthcareStart: 44-08-2296Auljvuy Commentoccasional alcohol useNOMS HealthcareStart: 37-18-1561Rpf assigned at birthNot on fileNONM HealthcareStart: 06-03-2024 End: 64-37-7877Jocowznev beverage intakeEx-drinker (finding)[facility] Tobacco smoking status NHISTobacco smoking consumption unknownProHarrison Community Hospital SystemSexFemale (finding)[facility] Clinical Notes 07-31-2023 to 04-27-2025 Note Date & ExtvVvfzUggdpjbj67-14-3885 History of Present illness Narrative* Lorenzo Biancih MD - 04/27/2025 3:20 PM EDT Subjective Patient ID: Fifi Mock is a 34 y.o. female who presents for Thyroid Nodule (6 month US [facility] 04/14/25) Thyroid Us shows a 56m24b2rd nodule compare to 66q34b3pg in October Family History Problem Relation Name [...] Repeat US one year documented in this encounterLafayette Regional Health CenterCmgdgiwghl21-86-0608 Telephone encounter Note* Telephone Encounter - Bernie Quiñonez NP - 07/13/2024 7:14 PM EST Please call referral for Genetics, pt still has not heard anything about an appt [place] [facility] [phone] Miscellaneous Notes* Telephone Encounter - Bernie Quiñonez NP - 07/13/2024 7:14 PM EST Please call referral for Genetics, pt still has not heard anything about an appt [place] documented in this encounterLafayette Regional Health CenterCdpoaddpcl08-64-0212 History of Present illness Narrative* Lorenzo Bianchi MD - 06/03/2024 2:00 PM EDT Subjective Patient ID: Fifi Mock is a 33 y.o. female who presents for Thyroid Nodule (Ultrasound 04/17/24 [facility]) Pt reports she was being evaluated for fatigue, which included and eval of the thyroid. TSH was 1.47. Thyroid US was obtained that showed a 08p08r6gn LT TR4 nodule. US-guided FNA performed that was classified as [place] 1. No radiation exposure. 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 Though FNA technically nondiagnostic, it is still reassuringin that no suspicious cells were found. I will start checking periodic surveillance US. documented in this encounterLafayette Regional Health CenterFuwswyruel35-63-4701 History of Present illness Narrative* Bernie Quiñonez NP - 05/13/2024 5:37 PM EDTAssociated Problem(s): Thyroid nodule greater than or equal to 1.5 cm in diameter incidentally noted on imaging study ([facility]) Non diagnostic biopsy, will refer to ENT * Bernie Quiñonez NP - 05/13/2024 5:37 PM EDTAssociated Problem(s): Other Remedios- Danlos syndromes (CMS/HCC) Will send to [facility] for testing, [facility] does not do this testing * KATHIE [...] syndromes (CMS/HCC) - Primary Will send to [facility] for testing, [facility] does not do this testing Relevant Orders Ambulatory referral to Genetics Thyroid nodule greater than or equal to 1.5 cm in diameter incidentally noted on imaging study (CMS/HCC) Non diagnostic biopsy, will refer to ENT Relevant Orders Ambulatory referral to ENT documented in this encounterLafayette Regional Health CenterKzcldnvcje95-11-4539 History of Present illness Narrative* James Medina MD - 05/05/2024 11:45 AM EDT Images from the original note were not included. [address] [address] Date of Service: 05/05/2024 Positive SHAHLA Subjective: [...] results RTC based on lab results Total xdwh-iy-nymu time was 35 minutes with more than [...] or corrected. Thank you for your understanding. [facility] [place] [address] [place] [address], [address] [place] [address] Office: [phone] documented in this encounterFisher-[facility]09-25-2024 Miscellaneous Notes* Telephone Encounter - Bucky Mcdermott CNA - 04/29/2024 11:34 AM EDT Lvm to schedule new patient appt Positive SHAHLA documented in this encounterFisher-Titus [facility] Center09-25-2024 Telephone encounter Note* Telephone Encounter - Bucky Mcdermott CNA - 04/29/2024 11:34 AM EDT Lvm to schedule new patient appt Positive SHAHLA [facility]09-24-2024 History of Present illness Narrative* Bernie Quiñonez [...] her procedure on . * Bernie Khang, FUR TRIMMER - 04/28/2024 2:40 PM EDT Images from [...] in diameter incidentally noted on imaging study ([facility]) Has biopsy this week Fu for results documented in this encounterLafayette Regional Health CenterGiksasztxj98-04-1440 History of Present illness Narrative* Bernie Quiñonez [...] to 31.9 in adult documented in this encounterLafayette Regional Health CenterOkpvnngbug19-98-0166 Evaluation note* Encounter Date Diagnosis Assessment Notes [...] understanding and is agreeable to treatment plan. [facility] Other 12-27-2023 Evaluation note* Encounter Date Diagnosis [...] pain, shortness of breath or difficulty breathing. [facility] Other Evaluation noteNo assessment information available [facility] Work Phone: Evaluation note* Diagnosis Thyroid [...] in this encounter [facility] HealthcareEvaluation note* Diagnosis HSAHLA positive- Primary Other Remedios-Danlos syndromes (CMS/HCC) Class 1 obesity due to excess calories without serious comorbidity with body mass index (BMI) of 31.0 to 31.9 in adult Thyroid nodule greater than or equal to 1.5 cm in diameter incidentally noted on imaging study (CMS/HCC) documented in this encounter [facility] HealthcareEvaluation note* Diagnosis SHAHLA positive- Primary Chronic fatigue Other malaise and fatigue documented in this encounter [facility] SystemEvaluation note* Diagnosis Wellness examination- Primary [...] Nontoxic uninodular goiter documented in this encounter [facility] HealthcareEvaluation note* Diagnosis Onset Date Resolution Status Admit Date Remedios-Danlos disease acuteNov2024 5:46pmEncounter for wellness examinationacuteNov2024 5:46pmGAD (generalized anxiety disorder)acuteNov2024 5:46pm JENIFER (iron deficiency anemia)acuteNov2024 5:46pmMajor depressionacute June 07, 2025 5:46pmObesity due to excess caloriesacuteNov2024 5:46pm [facility] Work Phone: History general Narrative - Reported* Type Description Date Medical History anemia Surgical HistorycholecystectomySurgical Historytubal ligationHospitalization Historysee aboveHospitalization Historychild Foodspotting Other InstructionsNot on filedocumented in this encounter [facility] SystemInstructionsNot on filedocumented in this encounter [facility] SystemReason for referral (narrative)* Consultation (Routine) - Pending ReviewSpecialtyDiagnoses / ProceduresReferred By ContactReferred To ContactGenetics Diagnoses Other Remedios-Danlos syndromes (CMS/HCC) Procedures [place] OFFICE/OUTPATIENT NEW HIGH MDM 60 MINUTES Bernie Quiñonez NP [address] [place] [address] Nancy Brennan MD [address] [place] [address] Referral IDStatusReasonStart DateExpiration DateVisits RequestedVisits [id number] Review Specialty Services Required * Consultation (Routine) - Pending ReviewSpecialtyDiagnoses / ProceduresReferred By ContactReferred To ContactOtolaryngology Diagnoses Thyroid nodule greater than or equal to 1.5 cm in diameter incidentally noted on imaging study (CMS/HCC) Procedures [place] OFFICE/OUTPATIENT NEW HIGH MDM 60 MINUTES Bernie Quiñonez NP [address] [place] [address] Lorenzo Bianchi MD [address] [address] Referral IDStatusReasonStart DateExpiration DateVisits RequestedVisits [id number] Review Specialty Services Required [facility] HealthcareReason for referral (narrative)* Consultation (Routine) - Pending ReviewSpecialtyDiagnoses / ProceduresReferred By ContactReferred To Contact Rheumatology Diagnoses SHAHLA positive Procedures [place] OFFICE/OUTPATIENT NEW HIGH MDM 60 MINUTES Bernie Quiñonez NP [address] [place] [address] James Medina MD [address] [place] [address] Referral IDStatusReasonStart DateExpiration DateVisits RequestedVisits [id number] Review Specialty Services Required * Consultation (Routine) - Pending ReviewSpecialtyDiagnoses / ProceduresReferred By ContactReferred To ContactGenetics Diagnoses Other Remedios-Danlos syndromes (CMS/HCC) Procedures [place] OFFICE/OUTPATIENT NEW HIGH MDM 60 MINUTES Bernie Quiñonez, BONNIE [address] [place] [address] Referral IDStatusReasonStart DateExpiration DateVisits RequestedVisits [id number] Review Specialty Services Required Scheduling Instructions Schedule in [place] with Genetics department of [facility] DelmyReervin for referral (narrative)No reason for referral information availableParkwood Hospital Work Phone: Summary Purpose Family History No Family History Records FoundNo Family History Records FoundNo Family History Records FoundNo Family History Records FoundNo Family History Records FoundNo Family History Records Found Advance Directives Advance Directive Response Recorded Date/ Time Advance Directives No March 06 12:49pm Advance Directive Response Recorded Date/ Time Advance Directives No March 06 11:49am Hospital Course Note [facility] SURGERY Clinical Discharge Summary PERSON INFORMATION Name FIFI MOCK Age 28 Years 90 Sex FEMALE Language Macedonian PCP Nasra Sparrow CNP Marital Status Med Service Ambulatory Surgery Acct# Arrival 12/16/18 06:00:00 Visit Reason SURGERY - LAPAROSCOPIC BILATERAL TUBAL LIGATION Acuity LOS 034 00:46 Address: [address] [place] [address] Comment: PROVIDER INFORMATION VITALS INFORMATION Vital Sign [...] Medication Allergies Prescriptions Given: Prescription Display acetaminophen-hydrocodone ([place] 5 mg- 325 mg oral tablet) 1 [...] [facility] DATE CREATED AUTHOR AUTHOR'S ORGANIZ ATION 01/01/2019 [facility] DATE CREATED AUTHOR AUTHOR'S ORGANIZ ATION 02/14/2022 [facility] DATE CREATED AUTHOR AUTHOR'S ORGANIZ ATION 05/06/2024 [facility] DATE CREATED AUTHOR AUTHOR'S ORGANIZ ATION 05/08/2024 [facility] DATE CREATED AUTHOR AUTHOR'S ORGANIZ ATION 04/28/2025 [facility] EPIC REASON FOR VISIT (unrecogniz ed section and content) ReasonCommentsThyroid NoduleUltrasound 04/17/24 TBHSpecialtyDiagnoses / ProceduresReferred By ContactReferred To ContactOtolaryngology Diagnoses Thyroid nodule greater than or equal to 1.5 cm in diameter incidentally noted on imaging study (CMS/HCC) Procedures [place] OFFICE/OUTPATIENT NEW HIGH [facility] 60 MINUTES Bernie Quiñonez NP [address] [place] [address] Phone: tel: fax: Lorenzo Bianchi MD [address] [facility] [address] [place] [address] Phone: tel: fax: Referral IDStatusReasonStart DateExpiration DateVisits RequestedVisits [id number] Specialty Services Required /[id number] Nodule[address] [facility] 04/14/25 Care Teams (unrecognized sec tion and content) Team Status: Inactive Member Role Status Dates Bernie Quiñonez Attending Provider Active Start: April 30, 2024 End: April 30, 2024Team MemberRelationshipSpecialtyStart DateEnd Date Chrissie Mesa PA [address] [place] [address] PCP - [facility] [place] [employer]08/05/2211 Fermín Ceballos MD [address] [place] [address] PCP - GeneralFamily Medicine03/19/24 Bernie Quiñonez NP [address] [place] [address] Nurse PractitionerFamily Medicine03/19/24Team MemberRelationshipSpecialtyStart DateEnd Date Chrissie Mesa PA [address] [place] [address] PCP - [facility] [place] [employer]08/05/2211 Fermín Ceballos MD [address] [place] [address] PCP - GeneralFamily Medicine03/19/24 Bernie Quiñonez NP [address] [place] [address] Nurse PractitionerTobey Hospital Medicine03/19/24Team MemberRelationshipSpecialtyStart DateEnd Date Chrissie Mesa PA [address] [place] [address] PCP - [facility] [place] [employer]08/05/2211 Fermín Ceballos MD [address] [place] [address] PCP - [facility]ey Hospital Medicine03/19/24 Bernie Quiñonez NP [address] [place] [address] Nurse PractitionerPiedmont Mcduffie03/19/24Team MemberRelationshipSpecialtyStart DateEnd Date Chrissie Mesa PA [address] [place] [address] PCP - [facility] [place] [employer]08/05/2211 Fermín Ceballos MD [address] [place] [address] PCP - GeneralPiedmont Mcduffie03/19/24 Bernie Quiñonez NP [address] [place] [address] Nurse PractitionerPiedmont Mcduffie03/19/24Team MemberRelationshipSpecialtyStart DateEnd Date Chrissie Mesa PA [address] [place] [address] PCP - [facility] [employer]08/05/2211 Fermín Ceballos MD [address] [place] [address] PCP - GeneralFamily Medicine03/19/24 Bernie Quiñonez NP [address] [place] [address] Nurse PractitionerPiedmont Mcduffie03/19/24Team MemberRelationshipSpecialtyStart DateEnd Date Chrissie Mesa PA [address] [facility] [place] [address] PCP - [facility] [place] [employer]08/05/2211 Fermín Ceballos MD [address] [place] [address] PCP - GeneralPiedmont Mcduffie03/19/24 Bernie Quiñonez NP [address] [place] [address] Nurse PractitionerPiedmont Mcduffie03/19/24Team MemberRelationshipSpecialtyStart DateEnd Date Chrissie Mesa PA [address] [place] [address] PCP - [facility] [place] [employer]08/05/2211 Fermín Ceballos MD [address] [place] [address] PCP - [facility] Hospital Medicine03/19/24 Bernie Quiñonez NP [address] [place] [address] Nurse PractitionerPiedmont Mcduffie03/19/24Team MemberRelationshipSpecialtyStart DateEnd Date Chrissie Mesa PA [address] [place] [address] PCP - [facility] [place] [employer]/ Fermín Ceballos MD [address] [place] [address] PCP - [facility]03/19/24 Bernie Quiñonez NP [address] [place] [address] Nurse PractitionerPiedmont Mcduffie03/19/24Team MemberRelationshipSpecialtyStart DateEnd Date Chrissie Mesa PA [address] [place] [address] PCP - [facility] [place] [employer]08/05/2211 Fermín Ceballos MD [address] [place] [address] PCP - GeneralPiedmont Mcduffie03/19/24 Bernie Quiñonez NP [address] [place] [address] Nurse PractitionerPiedmont Mcduffie03/19/24Team MemberRelationshipSpecialtyStart DateEnd Date Chrissie Mesa PA [address] [place], [place] [address] PCP - [facility] [place] [employer]08/05/2211 Fermín Ceballos MD [address] [place] [address] PCP - GeneralFamily Medicine03/19/24 Bernie Quiñonez, BONNIE [address] [place] [address] Nurse Practitionermily Medicine03/19/24Team MemberRelationshipSpecialtyStart DateEnd Date Chrissie Mesa PA [address] [place] [address] PCP - [facility] [place] [employer]08/05/2211 Fermín Ceballos MD [address] [place] [address] PCP - GeneralFamily Medicine03/19/24 Bernie Quiñonez, BONNIE [address] [place] [address] Nurse PractitionerMahaska Healthly Medicine03/19/24Team MemberRelationshipSpecialtyStart DateEnd Date Chrissie Mesa PA [address] [place] [address] [place], [place] [address] PCP - [facility] [place] [employer]08/05/2211 Fermín Ceballos MD [address] [place] [address] PCP - GeneralFamily Medicine03/19/24 Bernie Quiñonez NP [address] [place] [address] Nurse PractitionerFamsly Medicine03/19/24Team MemberRelationshipSpecialtyStart DateEnd Date Nasra Sparrow, STORE PERSON-[facility] [address] [place] [address] PCP - GeneralNurse Practitioner04/25/20Team MemberRelationshipSpecialtyStart Date End Date Nasra Sparrow APRN-[facility] PCP - GeneralNurse Practitioner04/25/20Team MemberRelationshipSpecialtyStart Date End Date Fermín Ceballos MD PCP - GeneralFamily Medicine03/19/24 Bernie Quiñonez NP Nurse PractitionerMahaska Healthly Medicine03/19/24Team MemberRelationshipSpecialtyStart DateEnd Date Fermín Ceballos MD [address] [place] [address] PCP - GeneralFamily Medicine04/21/25 Bernie Quiñonez NP Nurse PractitionerMahaska Healthly Medicine03/19/24 Bernie Quiñonez NP [address] [place] [address] Nurse PractitionerMahaska Healthly [facility]04/21/25Team MemberRelationshipSpecialtyStart DateEnd Date Fermín Ceballos MD [address] [place] [address] PCP - GeneralFamily Medicine04/21/25 Bernie Quiñonez NP Nurse PractitionerPiedmont Mcduffie03/19/24 Bernie Quiñonez NP [address] [place] [address] Nurse PractitionerPiedmont Mcduffie04/21/25Team MemberRelationshipSpecialtyStart DateEnd Date Chrissie Mesa PA [address] [place], [place] [address] PCP - [facility] [place] [employer] Fermín Ceballos MD [address] [place], [place] [address] PCP - GeneralFamily Medicine Fermín Ceballos MD [address] [place] [address] PCP - GeneralFamily Medicine04/21/25 Bernie Quiñonez NP [address] [place] [address] Nurse PractitionerPiedmont Mcduffie03/19/24 Bernie Quiñonez NP [address] [place] [address] Nurse PractitionerT[facility]ey Hospital Medicine04/21/25Team MemberRelationshipSpecialtyStart DateEnd Date Chrissie Mesa PA [address] [address] PCP - [facility] [place] [employer] Fermín Ceballos MD [address] [address] PCP - GeneralPiedmont Mcduffie Fermín Ceballos MD [address] [place] [address] PCP - GeneralPiedmont Mcduffie04/21/25 Bernie Quiñonez NP [address] [address] Nurse PractitionerPiedmont Mcduffie03/19/24 Bernie Quiñonez NP [address] [place] [address] Nurse PractitionerPiedmont Mcduffie04/21/25 Team Status: Active Member Role/Relationship Status Dates [...] BE BASED ON THE PRIMARY CLINICAL RECORDS. [facility]. provides no warranty or guarantee of the accuracy or completeness of information in this document.
[2025-06-15 14:10] LABS: Glucose Urine UA NEGATIVE (NEGATIVE)
[2025-06-15 15:03] LABS: Cast Seen? NONE SEEN #/LPF (NONE SEEN); Crystals Seen? None Seen #/HPF (None Seen); Urine Culture Indicated ALREADY ORDERED
== END 2025-06-15 13:43 | disposition home or self-care (01) ==
LOC: LAB 13:43
PROVIDERS: PCP Nurse Practitioner; Visit Provider Nurse Practitioner
DX: R82.90 Unspecified abnormal findings in urine (principal)
CPT/HCPCS: 81001; 87086

== ENCOUNTER 2025-06-23 03:27 | Emergency (ER) | payer OTHER, SELFPAY ==
--- OUTSIDE RECORDS SUMMARY | 2025-06-15 19:38 | XMS_ITS | Continuity of Care Document ---
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 Role Phone Mckenna Quiñonez RATE EXAMINER-C Primary Care Provider Mckenna Quiñonez NP-C Attending Provider Care Teams Patient Care Team Team Status: Active Member Role/Relationship Status Dates Mckenna Quiñonez NP-C Primary Care Provider Active Visit Care Team Team Status: Inactive Member Role/Relationship Status Dates Mckenna Quiñonez NP-C Primary Care Provider Active Start: June 07, 2025 End: June 07, 2025FELICITY LundCAttensonido ProviderActiveStart: June 07, 2025 End: June 07, 2025 Patient Care Team Team Status: Active Member Role/Relationship Status Dates Mckenna Quiñonez RATE EXAMINER-C Primary Care Provider Active Start: June 08, 2025 FELICITY LundCAttensonido ProviderActiveStart: June 08, 2025 Patient Care Team Team Status: Active Member Role/Relationship Status Dates Mckenna Quiñonez NP-C Primary Care Provider Active Start: June 15, 2025 FELICITY LundCAtdahlia ProviderActiveStart: June 15, 2025 Chief Complaint and Reason for Visit [...] Legal Sex [facility] (finding) [facility] 1990 [facility] Active Problems Problem Diagnosis/Recorded Date [...] simplex June 05, 2025 4:38am Unknown Active Abnormal urinalysis June 11, 2025 6:42am Unknown Active JENIFER (iron deficiency anemia) June [...] 6:21pmDiphenhydramine-Acetaminophen (Tylenol Pm Extra Strength) 25-500 mg [id number] at bedtime as neededJune 04, 2025 11:00pmUnknownValacyclovir (Valtrex) 500 mg tablet [id number] as neededJune 07, 2025 6:20pmUnknown Relevant Diagnostic Tests and/or Laboratory Data Laboratory Results Test Collection Date/Time Result Date/Time Result Interpretation Reference Range Result Comment Performing Site Urine Other Casts June 08, 2025 1:18pm NONE SEEN #/LPFNONE SEENTransferrinJune 08, 2025 1:39pmJune 08, 2025 1:01jj978 mg/gC398-754Qmsbplqbm at: [facility] [id number] Director: Vasu Duke PhD, Phone: [phone] June 08, 2025 1:39pmNov2024 1:39pm96.0 ng/mL8.0-252.0Iron SaturationJune 08, 2025 1:39pmJune 08, 2025 1:39pm34.9 %Thyroid Stimulating Hormone 3rd GenJune 08, 2025 1:39pmJune 08, 2025 1:39pm 1.132 u[iU]/mL0.358-3.740Cholesterol/HDL RatioNove2024 1:39pmJune 08, 2025 1:39pm4.33.3 - 4.4 LOW RISK4.4 - 7.1 AVERAGE RISK7.1 - 11.0 MODERATE RISK>11.0 HIGH RISKAnion GapJune 08, 2025 1:39pmJune 08, 2025 1:39pm 12.3Basophils # (Auto)June 08, 2025 1:39pmJune 08, 2025 1:39pm0.0 10 3/uL0.0-0.1Urine Culture ReflexedJune 15, 2025 1:45pmALREADY ORDEREDUrine Other CrystalsJune 08, 2025 1:18pmNone Seen #/HPFNone SeenIron Level June 08, 2025 1:39pmJune 08, 2025 1:39pm99.0 ug/dL50.0-170.0 Cholesterol LevelJune 08, 2025 1:39pmJune 08, 2025 1:43zc065 mg/dL <=200Albumin/Globulin RatioNove2024 1:39pmJune 08, 2025 1:39pm1.1 Basophils (%) (Auto)June 08, 2025 1:39pmNov2024 1:39pm0.4 % 0.2-2.0Urine Other CastsNov2024 1:45pmNONE SEEN #/LPFNONE SEENUrine BacteriaJune 08, 2025 1:18pmSMALL #/HPFAbnormal (applies to non-numeric results)NONE SEENTotal Iron Binding CapacityJune 08, 2025 1:39pmJune 08, 2025 1:09gx264.0 ug/dL250.0-450.0HDL CholesterolJune 08, 2025 1:39pm June 08, 2025 1:39pm45 mg/dL40-60> or =60 mg/dl - LOW CARDIOVASCULAR RISK<40 mg/dl - HIGH CARDIOVASCULAR RISKAlbuminJune 08, 2025 1:39pmJune 08, 2025 1:39pm3.9 g/dL3.4-5.0Eosinophils # (Auto)June 08, 2025 1:39pm June 08, 2025 1:39pm0.1 10 3/uL0.0-0.7Urine Other CrystalsJune 15, 2025 1:45pmNone Seen #/HPFNone SeenUrine BilirubinJune 08, 2025 1:18pm NEGATIVENEGATIVELDL Cholesterol, CalculatedJune 08, 2025 1:39pmJune 08, 2025 1:06op750.2 mg/dL<100 mg/dl GYJQLMG395-000 mg/dl NEAR OR ABOVE OSTIQNM719-306 mg/dl BORDERLINE INCP295-663 mg/dl HIGH>190 mg/dl VERY HIGH Alkaline PhosphataseJune 08, 2025 1:39pmJune 08, 2025 1:39pm67 U/L 46-116Eosinophils (%) (Auto)June 08, 2025 1:39pmJune 08, 2025 1:39pm 1.4 %0.9-7.0Urine BacteriaJune 15, 2025 1:45pmSMALL #/HPFAbnormal (applies to non-numeric results)NONE SEENUrine Occult BloodJune 08, 2025 1:18pm TRACE-INEGATIVETriglycerides LevelJune 08, 2025 1:39pmJune 08, 2025 1:17il821 mg/dL<=150Alanine Aminotransferase (ALT/SGPT)June 08, 2025 1:39pm June 08, 2025 1:39pm22 U/F80-63CjsrwfwutoIxcrpbwu 4th, 2025 1:39pmNov2024 1:39pm42.2 %36.0-48.0Urine BilirubinNovember 2024 1:45pmNEGATIVE NEGATIVEUrine AppearanceNov2024 1:18pmSLIGHTLY CLOUDYAbnormal (applies to non-numeric results)CLEARVLDL CholesterolNov2024 1:39pm June 08, 2025 1:39pm22.8 mg/dLAspartate Amino Transf (AST/SGOT)June 08, 2025 1:39pmNov2024 1:39pm18 U/U63-39JdatjxmkwgRmcgxqwu 4th, 2025 1:39pmNov2024 1:39pm14.2 g/dL12.0-16.0Urine Occult BloodNovember 2024 1:45pmSMALLAbnormal (applies to non-numeric results)NEGATIVEUrine ColorJune 08, 2025 1:18pmLT. YELLOWYELLOWBUN/Creatinine RatioNovember 2024 1:39pmNov2024 1:39pm15.3Immature Granulocyte # (Auto)June 08, 2025 1:39pmNov2024 1:39pm0.02 10 3/uL0.00-0.03Urine Appearance June 15, 2025 1:45pmCLEARCLEARUrine Glucose (UA)June 08, 2025 1:18pm NEGATIVE mg/dLNEGATIVEBlood Urea NitrogenNov2024 1:39pmNov2024 1:39pm11.0 mg/dL7.0-18.0Immature Granulocyte % (Auto)June 08, 2025 1:39pmNov2024 1:39pm0.2 %0.0-0.5Urine ColorNov2024 1:45pm LT. YELLOWYELLOWUrine KetonesNov2024 1:18pmTRACE mg/dLAbnormal (applies to non-numeric results)NEGATIVECalcium LevelNov2024 1:39pm June 08, 2025 1:39pm9.0 mg/dL8.5-10.1Lymphocytes # (Auto)June 08, 2025 1:39pmNov2024 1:39pm2.3 10 3/uL1.2-3.8Urine Glucose (UA)June 15, 2025 1:45pmNEGATIVE mg/dLNEGATIVEUrine Leukocyte EsteraseJune 08, 2025 1:18pmTRACEAbnormal (applies to non-numeric results)NEGATIVEChloride Level June 08, 2025 1:39pmNov2024 1:81zc408 mmol/F64-500Dxxyqmseigf (%) (Auto)June 08, 2025 1:39pmNov2024 1:39pm25.1 %20.5-60.0Urine KetonesNov2024 1:45pmNEGATIVE mg/dLNEGATIVEUrine MucusNov2024 1:18pmSMALLAbnormal (applies to non-numeric results)NONE SEENCarbon Dioxide LevelNov2024 1:39pmNov2024 1:39pm26.5 mmol/L 21.0-32.0Mean Corpuscular HemoglobinNov2024 1:39pmNov2024 1:39pm29.3 pg26.7-34.0Urine Leukocyte EsteraseNov2024 1:45pmSMALL Abnormal (applies to non-numeric results)NEGATIVEUrine NitriteJune 08, 2025 1:18pmNEGATIVENEGATIVECreatinineJune 08, 2025 1:39pmNov2024 1:39pm0.72 mg/dL0.55-1.02Mean Corpuscular Hemoglobin ConcentJune 08, 2025 1:39pmNov2024 1:39pm33.6 g/dL29.9-35.2Urine MucusNov2024 1:45pmSMALLAbnormal (applies to non-numeric results)NONE SEENUrine pHNov2024 1:18pm5.55.0-9.0Estimated GFR ()June 08, 2025 1:39pmNov2024 1:39pm>60>=60 mL/min/1.73m 2Mean Corpuscular Volume June 08, 2025 1:39pmNov2024 1:39pm87.2 fL81.0-99.0Urine Nitrite June 15, 2025 1:45pmNEGATIVENEGATIVEUrine ProteinNov2024 1:18pm NEGATIVE mg/dLNEG/TRACEEstimated GFR (Non- AmericanNov2024 1:39pmNov2024 1:39pm>60>=60 mL/min/1.73m 2Monocytes # (Auto)June 08, 2025 1:39pmNov2024 1:39pm0.6 10 3/uL0.3-0.8Urine pHNov2024 1:45pm5.55.0-9.0Urine RBCNov2024 1:07re8-99 #/HPFAbnormal (applies to non-numeric results)0-2GlobulinNov2024 1:39pmNov2024 1:39pm3.6 g/dLMonocytes (%) (Auto)June 08, 2025 1:39pmNov2024 1:39pm7.0 %1.7-12.0Urine ProteinNov2024 1:45pmNEGATIVE mg/dLNEG/TRACEUrine Specific GravityNov2024 1:18pm>=1.030Abnormal (applies to non-numeric results)1.005-1.025Glucose LevelNov2024 1:39pmNov2024 1:39pm89 mg/oV99-711Srtf Platelet VolumeNov2024 1:39pmNov2024 1:39pm10.6 fL9.5-13.5Urine RBCNov2024 1:56rz2-4 #/HPF0-2Urine Squamous Epithelial CellsNov2024 1:18pm MODERATE #/LPFAbnormal (applies to non-numeric results)NONE/RAREPotassium Level June 08, 2025 1:39pmNov2024 1:39pm3.8 mmol/L3.5-5.1Neutrophils # (Auto)June 08, 2025 1:39pmNov2024 1:39pm6.0 10 3/uL1.4-6.5Urine Specific GravityJune 15, 2025 1:45pm>=1.030Abnormal (applies to non- numeric results)1.005-1.025Urine UrobilinogenNov2024 1:18pm0.2 EU/dL 0.2-1.0Sodium LevelNov2024 1:39pmNov2024 1:68ax470 mmol/L 136-145Neutrophils (%) (Auto)June 08, 2025 1:39pmNov2024 1:39pm 65.9 %43.0-75.0Urine Squamous Epithelial CellsJune 15, 2025 1:45pmFEW #/LPFAbnormal (applies to non-numeric results)NONE/RAREUrine WBCNov2024 1:70fr04-78 #/HPFAbnormal (applies to non-numeric results)NONE SEENTotal BilirubinJune 08, 2025 1:39pmNov2024 1:39pm0.5 mg/dL0.2-1.0 Platelet CountNov2024 1:39pmNov2024 1:21ge390 10 3/uL 150-450Urine UrobilinogenNov2024 1:45pm0.2 EU/dL0.2-1.0Total Protein June 08, 2025 1:39pmNov2024 1:39pm7.5 g/dL6.4-8.2Red Blood Count June 08, 2025 1:39pmNov2024 1:39pm4.84 10 6/uL4.20-5.40Urine WBC June 15, 2025 1:98lx8-1 #/HPFAbnormal (applies to non-numeric results)NONE SEENRed Cell Distribution WidthJune 08, 2025 1:39pmNov2024 1:39pm11.8 %11.0-15.0Corrected White Blood CountNov2024 1:39pm 2025 1:39pm9.1 10 3/uL4.0-11.0 Vital Signs Vital Reading Result Reference Range Collection Date/Time Height 61 [in_i] June 07, 2025 6:08sbYacjiv84.60 kgJune 07, 2025 6:07pmBody Temperature 98.1 [degF]97.6-99.0June 07, 2025 6:07pmHeart Rate90 /ofl37-115OszvtcsnJune 07, 2025 6:07pmRespiratory rate18 /zni28-11AgoarckyJune 07, 2025 6:07pmOxygen saturation by Pulse rybbxnus61 %95-100June 07, 2025 6:07pmBP Rtyvwpjq838 mm[Hg]100-140June 07, 2025 6:07pmBP Hwqjomars60 mm[Hg]60-100June 07, 2025 6:07pmBMI (Body Mass Index)33.1 kg/b6CjeboewxJune 07, 2025 6:07pm Advance Directives Advance Directive Response Recorded Date/ Time Advance Directives No March 06 11:49am Insurance Providers Guarantor Venita Mock Address [address] [place] [address] 7 [address] [facility] [id number] Info.Home Phone: Payer Group Member ID Coverage Type Subscriber Relationship to Subscriber Effective Date Ex[place] Date [facility] [place]: [id number] A [place] Id: [id number] [facility] [address] Home Phone: Encounters Encounter Location(s) Arrival/Admit Date Discharge/Departure Date Discharge/Departure Disposition Provider(s) Departed Physician/ Provider Office Visit -[facility]a June 07, 2025 5:46pm June 07, 2025 6:32pm Discharged to home care or self care (routine discharge) GENOVEVA Lund Non-patient / Non-visit -[facility] N 2024 1:39pm FERNANDO Lundon-patient / [facility] June 15, 2025 1:45pmGENOVEVA Lund Recent Diagnosis Onset Date Admit Date 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 5:46pm Encounter for wellness examination Unknown June 07, 2025 5:46pm TALHA (generalized anxiety disorder) Unknown June 07, 2025 5:46pm JENIFER (iron deficiency anemia) Unknown Nov 2024 5:46pm Major depression Unknown June 07, 025 5:46pm Obesity due to excess calories Unknown N ov2024 5:46pm Assessments Diagnosis Onset Date Resolution Status Admit Date Meghana-Danlos disease acuteJune 07, 2025 5:46pmEncounter for wellness examinationacuteJune 07, 2025 5:46pmGAD (generalized anxiety disorder)acuteJune 07, 2025 5:46pm JENIFER (iron deficiency anemia)acuteJune 07, 2025 5:46pmMajor depressionacute June 07, 2025 5:46pmObesity due to excess caloriesacuteJune 07, 2025 5:46pm Plan of Treatment Author Mckenna Qu[facility]z [facility]June 07, 2025 7:28amReviewed Ht/Wt/BMI Recommend eye exams yearly Recommend [...] Tests Test Name Ordered Date Scheduled Date Urine Culture June 15, 2025 1:45pm Comprehensive Metabolic PanelJune 07, 2025 7:28am Future Visits Future appointment information is unavailable Future Procedures Procedure Name Ordered Date Scheduled Date Urine Culture June 15, 2025 9:49pm Novem clyde 2024 1:45pm Dipstick and Microscopic June 07, 2025 7:28 am Lipid PanelJune 07, 2025 7:28am Future Medications Future medication information is unavailable Patient Instructions Patient instructions are unavailable
[2025-06-23] VITALS (18 sets, daily range): BP systolic 107–145; BP diastolic 72–85; PULSE 62–79; TEMP 36.7–37.1; O2SAT 97–100; BMI 32.1
[2025-06-23 03:51] LABS: Glucose Urine UA NEGATIVE (NEGATIVE)
--- NOTE | 2025-06-23 03:51 | ED_ITS ---
HPI - Abdominal Pain General Chief Complaint: Abdominal Pain Stated Complaint: ABDOMINAL PAIN,BACK PAIN Time Seen by Provider: 06/23/25 03:47 Source: patient Mode of arrival: walk-in Limitations: no limitations History of Present Illness HPI narrative: epigastric abdominal pain,nausea and diarrhea over 12 hours. past cholecystectomy. pain reminds her of her gallbladder. No fever or chills or respiratory symptoms Related Data Home Medications ?Medication ?Instructions ?Recorded ?Confirmed No Known Home Medications 06/23/2506/05 Allergies Allergy/AdvReac Type Severity Reaction Status Date / Time No Known Drug Allergies Allergy Verified 06/23/25 03:34 Review of Systems ROS Status of ROS 10 or more systems reviewed and unremark able except as noted in history and below [facility] Medical History (Updated 06/23/25 @ 06:53 by Farhat Sommers MD) Fe deficiency anemia ?D50.9 - Iron deficiency anemia, unspecified (ICD-10) Surgical History (Updated 04/30/24 @ 09:57 by Samantha Hoover) H/O fine needle aspiration with imaging guidance ?Z98.890 - Other specified postprocedural states (ICD-10) History of dilatation and curettage ?Z98.890 - Other specified postprocedural states (ICD-10) Hx of breast implants, bilateral ?Z98.82 - Breast implant status (ICD-10) H/O tubal ligation ?Z98.51 - Tubal ligation status (ICD-10) Hx laparoscopic cholecystectomy ?Z90.49 - Acquired absence of other specified parts of digestive tract (ICD- 10) Social History Little interest or pleasure in doing things: not at all Feeling down, depressed, or hopeless: not at all Exam Constitutional Vital Signs, click to edit/add: Last Vital Signs Temp 98.1 F 06/23/25 04:32 Pulse 62 06/23/25 04:32 Resp 18 06/23/25 04:32 BP 115/72 06/23/25 06:00 Pulse Ox 97 06/23/25 06:10 O2 Del Method Room Air 06/23/25 03:34 Common normals: no apparent distress, average body habitus, oriented x3, no limitations, healthy appearing, alert and well nourished HENNM Common normals: normocephalic and head/scalp atraumatic Eye Common normals: PERRL and EOMs intact bilaterally Respiratory Common normals: normal respiratory effort, no retractions, no use of accessory muscles and clear to auscultation bilaterally Cardio Common normals: regular rate, regular rhythm, S1 normal heart sound and S2 normal heart sound GI Common normals: Normal to inspection, nondistended, normoactive bowel sounds present and soft to palpation Other: mild epigastric tenderness Extremity Common normals: normal to inspection and full ROM Neuro Common normals: oriented x3, CN's II-XII intact bilaterally, moves all extremities and no focal motor deficits Psych Appearance: grossly normal Course Vital Signs Vital signs: Vital Signs Temperature 98.7 F 06/23/25 03:34 Pulse Rate 79 06/23/25 03:34 Respiratory Rate 18 06/23/25 03:34 Blood Pressure 145/81 H 06/23/25 03:34 Pulse Oximetry 97 06/23/25 03:34 Oxygen Delivery Method Room Air 06/23/25 03:34 Temperature 98.1 F 06/23/25 04:32 Pulse Rate 62 06/23/25 04:32 Respiratory Rate 18 06/23/25 04:32 Blood Pressure 115/72 06/23/25 06:00 Pulse Oximetry 97 06/23/25 06:10 Oxygen Delivery Method Room Air 06/23/25 03:34 MDM - Abdominal Pain MDM Narrative Medical decision making narrative: past cholecystectomy. Presents with nausea, abdominal pain and diarrhea. Exam with mild epigastric tenderness. IV fluids along with labs and diagnostic study ordered. Also given zofran for nausea. labs returned and are unremarkable. Patent re examined and still has some discomfort but has improved. CT still pending. GI cocktail ordered care transferred to Dr Banegas at change of shift Lab Data Labs: Lab Results 06/23/25 06/23/25 Range/Units 03:35 04:00 WBC 9.1 (4.0-11.0) 10^3/uL RBC 5.04 (4.20-5.40) 10^6/uL Hgb 14.8 (12.0-16.0) g/dL Hct 43.1 (36.0-48.0) % MCV 85.5 (81.0-99.0) fL MCH 29.4 (26.7-34.0) pg MCHC 34.3 (29.9-35.2) g/dL RDW 11.9 (11.0-15.0) % Plt Count 311 (150-450) 10^3/uL MPV 10.6 (9.5-13.5) fL Neut % (Auto) 79.9 H (43.0-75.0) % Lymph % (Auto) 13.9 L (20.5-60.0) % [place] % (Auto) 4.8 (1.7-12.0) % Eos % (Auto) 0.9 (0.9-7.0) % Baso % (Auto) 0.3 (0.2-2.0) % Neut # (Auto) 7.3 H (1.4-6.5) 10^3/uL Lymph # (Auto) 1.3 (1.2-3.8) 10^3/uL [place] # (Auto) 0.4 (0.3-0.8) 10^3/uL Eos # (Auto) 0.1 (0.0-0.7) 10^3/uL Baso # (Auto) 0.0 (0.0-0.1) 10^3/uL Abs Immat Gran (auto) 0.02 (0.00-0.03) 10^3/uL Imm/Tot Granulo (auto) 0.2 (0.0-0.5) % Sodium 139 (136-145) mmol/L Potassium 3.9 (3.5-5.1) mmol/L Chloride 107 (98-107) mmol/L Carbon Dioxide 25.0 (21.0-32.0) mmol/L Anion Gap 10.9 BUN 10.0 (7.0-18.0) mg/dL Creatinine 0.72 (0.55-1.02) mg/dL Est GFR ( Amer) >60 (>=60 mL/min/1.73m^2) Est GFR (Non-Af Amer) >60 (>=60 mL/min/1.73m^2) BUN/Creatinine Ratio 13.9 Glucose 118 H (74-106) mg/dL Lactate 1.1 (0.4-2.0) mmol/L Calcium 8.5 (8.5-10.1) mg/dL Total Bilirubin 0.4 (0.2-1.0) mg/dL AST 15 (15-37) U/L ALT 28 (14-59) U/L Alkaline Phosphatase 75 (46-116) U/L Troponin I High Sens <4.0 L (4.0-51.3) pg/mL Total Protein 7.4 (6.4-8.2) g/dL Albumin 3.8 (3.4-5.0) g/dL Globulin 3.6 g/dL Albumin/Globulin Ratio 1.1 Lipase 24.0 (16.0-77.0) U/L Urine Color Lt. yellow (YELLOW) Urine Clarity Clear (CLEAR) Urine pH 5.5 (5.0-9.0) Ur Specific [place] 1.025 (1.005-1.025) Urine Protein Negative (NEG/TRACE) mg/dL Urine Glucose (UA) Negative (NEGATIVE) mg/dL Urine Ketones Negative (NEGATIVE) mg/dL Urine Occult Blood Moderate A (NEGATIVE) Urine Nitrite Negative (NEGATIVE) Urine Bilirubin Negative (NEGATIVE) Urine Urobilinogen 0.2 (0.2-1.0) EU/dL Ur Leukocyte Esterase Negative (NEGATIVE) Urine RBC 5-10 A (0-2) #/HPF Urine WBC 0-2 A (NONE SEEN) #/HPF Ur Squamous Epith Cells Rare (NONE/RARE) #/LPF Urine Crystals None seen (None Seen) #/HPF Urine Bacteria Trace A (NONE SEEN) #/HPF Urine Casts None seen (NONE SEEN) #/LPF Urine Mucus None seen (NONE SEEN) Ur Culture Indicated? No Urine HCG, Qual Negative (NEGATIVE) Discharge Plan Discharge Patient Disposition: Still a Patient
[2025-06-23 03:54] LABS: HCG Qualitative Urine* NEGATIVE (NEGATIVE)
--- OUTSIDE RECORDS SUMMARY | 2025-06-23 03:55 | XMS_ITS | CCD ---
Author Organization [facility] Care Team Providers Care Margin Clerk Name Role Phone PHYSICIAN, DEFAULT Admitting Unavailable [...] Fermín Ceballos MD Primary Care Provider Khang PERMANENT WAVER, Bernie Unavailable JAMES MEDINA Attending Unavailable NASRA SPARROW R Referring Unavailable BISHOPWILLIN R Primary Care Unavailable HIMANSHU MEDINAADER Referring Unavailable BISHOPWILLIN R Primary Care Unavailable Bishop TREE SURGEON-HEALTH SERVICES RNWillin R Primary Care Provider Bishop TREE SURGEON-Nasra TIRADO R Primary Care Provider Fermín Ceballos MD Primary Care Provider Khang PERMANENT WAVER, Bernie Unavailable Fermín Ceballos MD Primary Care Provider [phone] Khang PERMANENT WAVER, Bernie Unavailable LORENZO BIANCHI Attending Unavailable LORENZO BIANCHI Attending Unavailable BERNIE QUIÑONEZ Attending Unavailable LALO BIANCHIAMEENA Izaguirre Attending Unavailable BERNIE QUIÑONEZ Referring Unavailable Chrissie Burks Unavailable Fermín Ceballos MD Primary Care Provider Khang PERMANENT WAVER, Bernie Unavailable Fermín Ceballos MD Primary Care Provider Khang PERMANENT WAVER, Bernie Unavailable Khang PERMANENT WAVER-CBernie Primary Care Provider Khang PERMANENT WAVER-C, Bernie Omer Attending Provider Bernie Quiñonez Attending Unavailable Bernie Quiñonez Admitting Unavailable Medications Current Medications MedicationDrug Class(es)DatesSig (Normalized)Sig (Original)acetaminophen 500 mg / diphenhydrAMINE hydrochloride 25 mg oral tablet (17 sources)Histamine-1 Receptor AntagonistStart: 85-57-7822dcor 1 tablet by mouth once daily at bedtime as neededtake 25-500 mg by mouth once as needed diphenhydrAMINE-acetaminophen (Tylenol PM) 25-500 MG per tablet Take 1 tablet by mouth as needed atbedtime for sleep Activeamoxicillin 80 mg/ml oral suspension (1 source)Penicillin-class AntibacterialStart: 48-70-5733ykfz 12.5 mL by mouth twice dailyAmoxicillin 400 MG/5ML 12.5 mL Orally Twice a day for 10 days Sep, ActiveIron (2 sources)Iron ActivevalACYclovir 500 mg oral tablet (20 sources)Herpesvirus Nucleoside Analog DNA Polymerase Inhibitor, Herpes Simplex Virus Nucleoside Analog DNA Polymerase Inhibitor, Herpes Zoster Virus Nucleoside Analog DNA Polymerase InhibitorStart: 06-05-2025 End: 37-89-2280uosh 1 tablet by mouth once daily as neededStart: 06-97-4494aoub 1 tablet by mouth in the morningvalACYclovir (Valtrex) 500 MG tablet Take 500 mg by mouth in the morning and 500 mg before bedtime.09/18/2022 Active Completed/Discontinued Medications MedicationDrug Class(es)DatesSig (Normalized)Sig (Original)amitriptyline hydrochloride 10 mg oral tablet (4 sources)Tricyclic AntidepressantStart: 05-05-2024 End: 39-18-9211ktmk 1 tablet by mouth at bedtimeamitriptyline (Elavil) 10 MG tablet Take 10 mg by mouth at bedtime 05/05/2024 05/13/2024 Discontinued azithromycin 500 mg oral tablet (2 sources)Macrolide Antimicrobialtake 2 tablets by mouth once at mealtime Zithromax 500 MG 2 tabs Orally once for 1 days 2 tablets p.o. x1 today with food Not-Taking/PRNcefTRIAXone (2 sources)Cephalosporin AntibacterialStart: 90-58-0050Igvqraiu 500 mg Jul, 500 mgfluconazole 150 mg oral tablet (2 sources)Azole AntifungalStart: 86-29-9465Ryimisfi 150 MG 1 tablet Orally once for 2 days Take 1 tablet p.o. today, take the second tablet in3 days. Jul, Not-Taking/PRNmetroNIDAZOLE 500 mg oral tablet (4 sources)Nitroimidazole AntimicrobialStart: 56-18-8907pgyb 4 tablets by mouth once as neededmetroNIDAZOLE 500 MG 4 tablets Orally once for 1 days Jul, Not-Taking/PRNmetroNIDAZOLE 0.75 % 1 application Vaginal qhs for 5 day(s) Not-Taking/PRN Problems Active Problems Problem ClassificationProblemDateDocumented DateEpisodic/ChronicAnxiety disorders (20 sources)Generalized anxiety disorder; Translations: [Generalized anxiety disorder]Onset: 878910-49-7209WqtbsyyGsqkyrgrar and other anemia (20 sources)Iron deficiency anemia; Translations: [Iron deficiency anemia, unspecified]Onset: 029795-10-0589YijjcindYhwdextskoihg symptoms and ill- defined conditions (19 sources)Abnormal urinalysis; Translations: [Unspecified abnormal findings in urine]Onset: 608664-41-0904YdpipbfjRnltxaupjbddk and screening for infectious disease (20 sources)Encounter for screening for human papillomavirus (HPV); Translations: [Anti-nuclear factor positive]Onset: 268414-39-2695Dgpoqvwr Influenza (1 source)Influenza due to other identified influenza virus with other respiratory manifestationsEpisodicMalaise and fatigue (2 sources)Chronic fatigue, unspecified; Translations: [Fatigue]Onset: 831816-15-9163KzjwlotHuxj disorders (20 sources)Major depression, single episode; Translations: [Major depressive disorder, single episode, in fullremission]Onset: hronic Other congenital anomalies (20 sources)Remedios-Danlos syndrome; 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]Onset: 861009-16-5917RhnmksvGacrd nutritional; endocrine; and metabolic disorders (20 sources)Obesity caused by energy imbalance; Translations: [Class 1 obesity due to excess calories without serious comorbidity with body mass index (BMI) of 31.0 to 31.9 in adult]Onset: 939420-96-8475ZunhkmaZavqt screening for suspected conditions (not mental disorders or infectious disease) (6 sources)Encounter for screening for malignant neoplasm of cervix; Translations: [Other specified abnormal findings of blood chemistry]Onset: 18-97-1592TcbjjcgwOdtfw upper respiratory infections (2 sources)Acute pharyngitis, unspecified; Translations: [Streptococcal pharyngitis]EpisodicResidual codes; unclassified (2 sources)History of bilateral breast implants; Translations: [Breast implant status]09-15-2289RmdmwbnGvzzzfz disorders (20 sources)Thyroid nodule; Translations: [Nontoxic single thyroid nodule]Onset: 401040-71-3253RbjpyfjBoifh infection (20 sources)Herpesviral infection, unspecified; Translations: [Herpes simplex] Onset: 413148-37-3127Judfnanm Past or Other Problems Problem ClassificationProblemDateDocumented DateEpisodic/ChronicMalaise and fatigue (20 sources)Fatigue; Translations: [Other fatigue]Onset: EpisodicOther liver diseases (20 sources)Elevated liver enzymes level; Translations: [Abnormal levels of other serum enzymes]Onset: 732545-95-6010FmrretbcIuwkv non-traumatic joint disorders (20 sources)Joint pain; Translations: [Pain in unspecified joint]Onset: 941020-34-9658CcdgjahcWorkousvfood (1 source)Contact with and (suspected) exposure to covid-19 Z20.822 Results Test NameValueInterpretationReference RangeFacilityLaboratory - Chemistry and Chemistry - challengeOrdered By: Bernie Quiñonez on 85-73-8523Shfqhhify Ql (U) NegativeNEGTuscarawas HospitalGlucose (U) [Mass/Vol]Negative NEGATIVETrihealth Bethesda North HospitalKetones Ql (U)NegativeNEGTuscarawas HospitalpH (U)5.5 [pH]5.0-9.0[facility] Specific gravity (U) [Rel density]>=1.853Sujobvhc6.005-1.025[facility] HospitalUrobilinogen Qn (U)0.2 {Avery'U}/dL0.2-1.0[facility] HospitalLaboratory - Specimen informationOrdered By: Bernie Quiñonez on 30-06-3371Xwzjvuzicn (U)CLEARCLEARFMercer County Community HospitalColor (U)LT. YELLOWYELLOWTrihealth Bethesda North HospitalLaboratory - UrinalysisOrdered By: Bernie Quiñonez on 34-92-0104Hhdrrtbrz esterase Test strip Ql (U)SMALLAbnormal NEGATIVETrihealth Bethesda North HospitalMucus Ql (Urine sed)SMALLAbnormalNONE [facility] HospitalNitrite Ql (U)NegativeNEGTuscarawas HospitalProtein Ql (U)NegativeNEG/TRACETrihealth Bethesda North HospitalNo Panel InformationOrdered By: Bernie Quiñonez on 77-67-2101Biugs Bacteria SMALL #/HPFAbnormalNONE [facility] HospitalUrine Culture ReflexedALREADY ORDEREDTrihealth Bethesda North HospitalUrine Occult BloodSMALL AbnormalNEGTuscarawas HospitalUrine Other CastsNONE SEEN #/LPFNONE [facility] HospitalUrine Other CrystalsNone Seen #/HPFNone [facility] HospitalUrine RBC0-2 #/HPF0-2FMercer County Community HospitalUrine Squamous Epithelial CellsFEW #/LPFAbnormalNONE/RARE [facility] HospitalUrine WBC2-5 #/HPFAbnormalNONE SEENTrihealth Bethesda North HospitalUrine Cultureon 10-96-5357Dozxgbtv identified Cx Nom (U) Diagnosis: R82.90 Comment: <9,000 colonies/ml mixed bacterial skin contaminants 1 Day PERFORMED BY: [place] [id number] PATHOLOGIST MANAGER SERVICE DESK DELIA NAVA M.D.NormalThe [facility]red Hospital [facility] Greensboro Physician GroupComment on above: Performed By: #### CU[place] #### [place] [address] USABasophils Auto (Bld) [#/Vol]Ordered By: Bernie Quiñonez on 64-58-7657Jaqkwcuui (Bld) [#/Vol]0.0 10 3/uL0.0-0.1FMercer County Community HospitalBasophils/100 WBC Auto (Bld)Ordered By: Bernie Quiñonez on 06-08-2025 Basophils/100 WBC (Bld)0.4 %0.2-2.0[facility] HospitalCholesterol in LDL Calc [Mass/Vol]Ordered By: Bernie Quiñonez on 65-85-2498Lzdbpbcrgyg in LDL [Mass/Vol]126.2 mg/dLTrihealth Bethesda North HospitalComment on above:<100 mg/dl XNGMCPU385-492 mg/dl NEAR OR ABOVE KDHZYRW956-059 mg/dl BORDERLINE MYLC392-502 mg/dl HIGH>190 mg/dl VERY HIGHCholesterol in VLDL Calc [Mass/Vol] Ordered By: Bernie Quiñonez on 41-88-6716Asyrxwotlzx in VLDL [Mass/Vol]22.8 mg/dL [facility] HospitalEosinophils/100 WBC Auto (Bld)Ordered By: Bernie Quiñonez on 44-10-8578Tlzahwbgfwy/100 WBC (Bld)1.4 %0.9-7.0[facility] HospitalErythrocyte distribution width Auto (RBC) [Ratio]Ordered By: Bernie Quiñonez on 56-51-9923Yuilgguifuq distribution width (RBC) [Ratio]11.8 % 11.0-15.0[facility] HospitalGlobulin Calc (S) [Mass/Vol]Ordered By: Bernie Quiñonez on 59-37-4615Cvbtogno (S) [Mass/Vol]3.6 g/dLTrihealth Bethesda North HospitalGlomerular filtration rate (GFR) estimation in non- AmericanOrdered By: Bernie Quiñonez on 68-24-6285ZAB/1.73 sq M.predicted among non-blacks MDRD (S/P/Bld) [Vol rate/Area]mL/min/{1.73_m2}>=60 mL/min/1.73m 2 [facility] HospitalHematocrit Auto (Bld) [Volume fraction]Ordered By: Bernie Quiñonez on 61-55-7599Zevgqnnnxn (Bld) [Volume fraction]42.2 %36.0-48.0 [facility] HospitalHemoglobin [Mass/volume] in BloodOrdered By: Bernie Quiñonez on 15-68-9465Tylvqykjkv (Bld) [Mass/Vol]14.2 g/dL12.0-16.0 [facility] HospitalIron binding capacity [Mass/volume] in Serum or PlasmaOrdered By: Bernie Quiñonez on 03-41-1626Egki binding capacity [Mass/Vol] 284.0 ug/dL250.0-450.0[facility] HospitalIron saturation [Mass Fraction] in Serum or PlasmaOrdered By: Bernie Quiñonez on 53-70-0983Srkh saturation [Mass fraction]34.9 %[facility] HospitalLaboratory - Chemistry and Chemistry - challengeOrdered By: Bernie Quiñonez on 06-08-2025 Albumin [Mass/Vol]3.9 g/dL3.4-5.0[facility] HospitalALP [Catalytic activity/Vol]67 U/X61-118OviubdirnTrihealth Bethesda North HospitalALT [Catalytic activity/Vol]22 U/G43-53MjovqtanaTrihealth Bethesda North HospitalAST [Catalytic activity/Vol]18 U/T27-63ZijwgiptcTrihealth Bethesda North HospitalBilirubin [Mass/Vol]0.5 mg/dL0.2-1.0[facility] HospitalCalcium [Mass/Vol]9.0 mg/dL 8.5-10.1FMercer County Community HospitalChloride [Moles/Vol]104 mmol/L98-107 [facility] HospitalCholesterol [Mass/Vol]194 mg/dL<=200[facility] HospitalCholesterol in HDL [Mass/Vol]45 mg/lV43-13WlfuzqdjuTrihealth Bethesda North HospitalComment on above:> or =60 mg/dl - LOW CARDIOVASCULAR RISK<40 mg/dl - HIGH CARDIOVASCULAR RISKCO2 [Moles/Vol]26.5 mmol/L21.0-32.0 [facility] HospitalCreatinine [Mass/Vol]0.72 mg/dL0.55-1.02 [facility] HospitalFerritin [Mass/Vol]96.0 ng/mL8.0-252.0[facility] HospitalGFR/1.73 sq M.predicted MDRD (S/P/Bld) [Vol rate/Area] mL/min/{1.73_m2}>=60 mL/min/1.73m 2FMercer County Community HospitalGlucose [Mass/Vol]89 mg/pZ23-917GzfnuorcpTrihealth Bethesda North HospitalIron [Mass/Vol]99.0 ug/dL50.0-170.0[facility] HospitalPotassium [Moles/Vol]3.8 mmol/L 3.5-5.1FMercer County Community HospitalProtein [Mass/Vol]7.5 g/dL6.4-8.2 [facility] Hospitalodium [Moles/Vol]139 mmol/A280-855BpadgfbtjTrihealth Bethesda North HospitalTransferrin [Mass/Vol]258 mg/zI257-018KkpxqonwqTrihealth Bethesda North HospitalComment on above:Performed at: - [facility] [address] [id number] Director: Vasu Duke PhD, Phone: [phone] Triglyceride [Mass/Vol]114 mg/dL<=150[facility] HospitalTSH Qn 1.132 m[IU]/L0.358-3.740[facility] HospitalUrea nitrogen [Mass/Vol]11.0 mg/dL7.0-18.0[facility] HospitalUrea nitrogen/Creatinine [Mass ratio]15.3 mg/mgTrihealth Bethes[facility] Hospital Bilirubin Ql (U)NegativeNEGATIVETrihealth Bethesda North HospitalGlucose (U) [Mass/Vol]NegativeNEGATIVETrihealth Bethesda North HospitalKetones Ql (U)TRACE mg/dLAbnormalNEGTuscarawas HospitalpH (U)5.5 [pH]5.0-9.0 [facility] Hospitalpecific gravity (U) [Rel density]>=1.030 Abnormal1.005-1.025[facility] HospitalUrobilinogen Qn (U)0.2 {Avery'U}/dL0.2-1.0[facility] HospitalLaboratory - Hematology and Cell countsOrdered By: Bernie Quiñonez on 61-22-7903Afnkleix granulocytes/100 WBC (Bld)0.2 %0.0-0.5FMercer County Community HospitalLaboratory - Specimen informationOrdered By: Bernie Quiñonez on 47-83-4485Eojjxnpytm (U)SLIGHTLY CLOUDY AbnormalCLEARFMercer County Community HospitalColor (U)LT. YELLOWYELLOWTrihealth Bethesda North HospitalLaboratory - UrinalysisOrdered By: Bernie Quiñonez on 60-31-0315Xtkuzxhak esterase Test strip Ql (U)TRACEAbnormalNEGTuscarawas HospitalMucus Ql (Urine sed)SMALLAbnormalNONE SEENTrihealth Bethesda North HospitalNitrite Ql (U)NegativeNEGATIVETrihealth Bethesda North HospitalProtein Ql (U)NegativeNEG/TRACETrihealth Bethesda North HospitalLeukocytes [#/volume] corrected for nucleated erythrocytes in Blood by Automated coun Ordered By: Bernie Quiñonez on 64-46-7636PTF corrected for nucl RBC Auto (Bld) [#/Vol]9.1 10 3/uL4.0-11.0[facility] HospitalLymphocytes Auto (Bld) [#/Vol]Ordered By: Bernie Quiñonez on 06-64-9876Plmppcwecfa (Bld) [#/Vol]2.3 10 3/uL1.2-3.8[facility] HospitalLymphocytes/100 WBC Auto (Bld) Ordered By: Bernie Quiñonez on 71-75-0184Efjpdoantwg/100 WBC (Bld)25.1 %20.5-60.0 [facility] HospitalMCH Auto (RBC) [Entitic mass]Ordered By: Bernieyuridia Quiñonez on 96-88-7872SGL (RBC) [Entitic mass]29.3 pg26.7-34.0[facility] HospitalMCHC Auto (RBC) [Mass/Vol]Ordered By: Bernie Quiñonez on 06-08-2025 MCHC (RBC) [Mass/Vol]33.6 g/dL29.9-35.2FMercer County Community HospitalMCV Auto (RBC) [Entitic vol]Ordered By: Bernie Quiñonez on 26-19-9700IWQ (RBC) [Entitic vol]87.2 fL81.0-99.0[facility] HospitalMonocytes Auto (Bld) [#/Vol]Ordered By: Bernie Quiñonez on 72-47-8839Apulltdnm (Bld) [#/Vol]0.6 10 3/uL 0.3-0.8[facility] HospitalMonocytes/100 WBC Auto (Bld)Ordered By: Bernie Quiñonez on 09-13-0154Kxzfrbrtk/100 WBC (Bld)7.0 %1.7-12.0[facility] HospitalNeutrophils Auto (Bld) [#/Vol]Ordered By: Bernie Quiñonez on 16-36-7193Zdidehyouwh (Bld) [#/Vol]6.0 10 3/uL1.4-6.5FMercer County Community HospitalNeutrophils/100 WBC Auto (Bld)Ordered By: Bernie Quiñonez on 40-87-0152Zulqyaiqlve/100 WBC (Bld)65.9 %43.0-75.0[facility] HospitalNo Panel InformationOrdered By: Bernie Quiñonez on 16-89-9372Cevzwjrlsum # (Auto)0.1 10 3/uL0.0-0.7FMercer County Community HospitalImmature Granulocyte # (Auto)0.02 10 3/uL0.00-0.03[facility] HospitalUrine BacteriaSMALL #/HPFAbnormalNONE SEENTrihealth Bethesda North HospitalUrine Occult BloodTRACE-I NEGATIVETrihealth Bethesda North HospitalUrine Other CastsNONE SEEN #/LPFNONE SEENTrihealth Bethesda North HospitalUrine Other CrystalsNone Seen #/HPFNone SeenTrihealth Bethesda North HospitalUrine RBC5-10 #/HPFAbnormal0-2FMercer County Community HospitalUrine Squamous Epithelial CellsMODERATE #/LPFAbnormal NONE/RARETrihealth Bethesda North HospitalUrine LRL93-78 #/HPFAbnormalNONE SEEN [facility] HospitalPlatelet mean volume Auto (Bld) [Entitic vol] Ordered By: Bernie Quiñonez on 78-03-3077Dlbvlunk mean volume (Bld) [Entitic vol] 10.6 fL9.5-13.5FMercer County Community HospitalPlatelets Auto (Bld) [#/Vol] Ordered By: Bernie Quiñonez on 11-94-6319Tlcccothw (Bld) [#/Vol]298 10 3/mY792-632 [facility] HospitalRBC Auto (Bld) [#/Vol]Ordered By: Bernie Quiñonez on 62-90-9845APA (Bld) [#/Vol]4.84 10 6/uL4.20-5.40[facility] Hospitalerum or plasma albumin/globulin mass ratioOrdered By: Bernie Quiñonez on 58-77-9323Npfybrr/Globulin [Mass ratio]1.1 {ratio}[facility] Hospitalerum or plasma anion gap determinationOrdered By: Bernie Quiñonez on 95-19-6328Iugaq gap [Moles/Vol]12.3 mmol/LFDayton Osteopathic Hospitalerum or plasma total cholesterol/high density lipoprotein (HDL) cholesterol mass rat Ordered By: Bernie Quiñonez on 24-58-5148Ouzuevvgbgl.total/Cholesterol in HDL [Mass ratio]4.3 {ratio}[facility] HospitalComment on above:3.3 - 4.4 LOW RISK4.4 - 7.1 AVERAGE RISK7.1 - 11.0 MODERATE RISK>11.0 HIGH RISKUS Thyroid glandon 40-12-0031W[address] [place] [address] Ultrasound Report Signed Patient: FIFI MOCK MR#: [id number] : 1990 Acct:[id number] Age/Sex: 34 / F ADM Date: 04/14/25 Loc: US Attending Dr: Lorenzo Bianchi M.D. Ordering Physician: Lorenzo Bianchi M.D. Date of Service: 04/14/25 Procedure(s): US thyroid Accession Number(s): [id number] cc: Physician,Non-Staff Cristino; Lorenzo Bianchi M.D. [address] [address] Patient Name: FIFI MOCK MRN: [id number] date: 1990 Sex: F Assigned Patient Location: US Current Patient Location: US Accession/Order Number: [id number] Exam Date: 04/14/2025 13:52 Report Date: 04/14/2025 [...] Jr., D.O. 04/14/2025 3:48 PM Dictation Location: [place] [address] Electronically authenticated by: [id number] Y Date: 04/14/2025 15:48 Dictated By: Bird Harris M.D. Signed By: 04/14/25 1550 DD/ 1548 TD/TT: Usability Engineer:TBHRadiology, Radiologist, - 04/14/2025 The [place] [id number] Ultrasound Report Signed Patient: FIFI MOCK MR#: [id number] : 1990 Acct:[id number] Age/Sex: 34 / F ADM Date: 04/14/25 Loc: US Attending Dr: Lorenzo Bianchi M.D. Ordering Physician: Lorenzo Bianchi M.D. Date of Service: 04/14/25 Procedure(s): US thyroid Accession Number(s): [id number] cc: Physician,Non-Staff Cristino; Lorenzo Bianchi M.D. The [place] [id number] Patient Name: FIFI MCOK MRN: [id number] date: 1990 Sex: F Assigned Patient Location: US Current Patient Location: US Accession/Order Number: [id number] Exam Date: 04/14/2025 13:52 Report Date: 04/14/2025 [...] FNA should be contemplated. Impression dictated by: Julita Kraft Jr.OVa 04/14/2025 3:48 PM Dictation Location: [place] [address] Electronically authenticated by: [id number] Y Date: 04/14/2025 15:48 Dictated By: Bird Harris M.D. Signed By: 04/14/25 1550 DD/ 1548 TD/TT: Usability Engineer: PHILIP BrockRadiology Study observation (narrative)PHILIP Conway Thyroid glandOrdered By: Radiologist Radiology on 70-88-8147[facility] Work Phone: [place] Thyroid glandon [phone] [address] Ultrasound Report Signed with Addenda Patient: FIFI MOCK MR#: [id number] : 1990 Acct:[id number] Age/Sex: 33 / F ADM Date: 04/16/24 Loc: US Attending Dr: Bernie Quiñonez NP Ordering Physician: Bernie Quiñonez NP Date of Service: 04/16/24 Procedure(s): US thyroid Accession Number(s): [id number] cc: Bernie Quiñonez NP ADDENDUM The [address] [address] Patient Name: FIFI MOCK MRN: [id number] date: 1990 Sex: F Assigned Patient Location: US Current Patient Location: US Accession/Order Number: [id number] Exam Date: 04/16/2024 13:50 Report Date: 05/12/2024 10:57 At the request of: BERNIE QUIÑONEZ Procedure: US thyroid Begin Addendum #1 COLLECTED DATE: 04/30/2024 Final Diagnosis Report for [facility] [place] Pathological Diagnosis: Left thyroid nodule, FNA cytology: Category 1 [place] system: Nondiagnostic. 05/08/[address] Bernie [...] left thyroid TR 4 nodule TI-RADS: [employer] TI-RADS committee's white paper [...] Addendum Cosigned By: DD/ /28/1057 TD/TT: / [place] [address] Patient Name: FIFI MOCK MRN: [id number] date: 1990 Sex: F Assigned Patient Location: US Current Patient Location: Accession/Order Number: [id number] Exam Date: 04/16/2024 13:50 Report Date: 04/17/2024 [...] content not included)...TBHRadiology, Radiologist, - 05/18/[address] [address] Ultrasound Report Signed with Addenda Patient: FIFI MOCK MR#: [id number] : 1990 Acct:[id number] Age/Sex: 33 / F ADM Date: 04/16/24 Loc: US Attending Dr: Bernie Quiñonez NP Ordering Physician: Bernie Quiñonez NP Date of Service: 04/16/24 Procedure(s): US thyroid Accession Number(s): [id number] cc: Bernie Quiñonez NP ADDENDUM The [address] [address] Patient Name: FIFI MOCK MRN: [id number] date: 1990 Sex: F Assigned Patient Location: US Current Patient Location: US Accession/Order Number: [id number] Exam Date: 04/16/2024 13:50 Report Date: 05/12/2024 10:57 At the request of: BERNIE QUIÑONEZ Procedure: US thyroid Begin Addendum #1 COLLECTED DATE: 04/30/2024 Final Diagnosis Report for [facility] [place] Pathological Diagnosis: Left thyroid nodule, FNA cytology: Category 1 [place] system: Nondiagnostic. 05/08/[address] Bernie [...] Signed By: Cristino> 05/18/241422 Addendum Cosigned By: YELENA/ /28/1057 TD/TT: / ADDENDUM US/US thyroid IMPRESSION: 1. 5 cm left thyroid TR 4 nodule TI-RADS: [employer] TI-RADS committee's white paper [...] Signed By: Cristino> 05/18/241422 Addendum Cosigned By: YELENA/ /28/1057 TD/TT: / [place] [address] Patient Name: FIFI MOCK MRN: [id number] date: 1990 Sex: F Assigned Patient Location: US Current Patient Location: Accession/Order Number: [id number] Exam Date: 04/16/2024 13:50 Report Date: 04/17/2024 [...] left thyroid TR 4 nodule TI-RADS: [employer] TI-RADS committee's white paper recommendations for thyroid lesions classified as TR4 (moderately suspicious) are listed below: > 1.0 cm. Follow-up ultrasound in 1, 2, 3, and 5 years. > 1.5 cm. FNA. J. Am Jose Carlos Radiol 2017;14:587-595. Electronically authenticated by: BRODERICK NGUYEN Date: 04/17/2024 13:46 Dictated By: Broderick Nguyen M.D. Signed By: 04/17/24 1348 DD/ 1346 TD/TT: Usability Engineer: PHILIP [employer] Thyroid glandOrdered By: Radiologist Radiology on 05-18-2024 [facility] [employer] Work Phone: aNTINUCLEAR ANTIBODIES, IFAon [phone] ANTIBODIES, IFAPositiveAbnormal.[facility] HealthcareComment on above:Negative <1:80 Borderline 1:80 Positive >1:80 CENTRIOLE PATTERNTNP.[facility] HospitalCENTROMERE PATTERNTNP.[facility] HOMOGENEOUS PATTERN1:640Abnormal.[facility] HealthcareComment on above:ICAP nomenclature: AC-1Interpretation and review of laboratory resultsAbnormalNOMS HealthcareMIDBODY PATTERNTNP.[facility] HealthcareNOTE:Comment.[facility] HealthcareComment on above:Pattern Potential Disease Association Homogeneous Systemic Lupus Erythematosus, Drug Induced Systemic Lupus Erythematosus, Chronic Autoimmune hepatitis, Juvenile Idiopathic Arthritis Speckled Sjogren Syndrome, Systemic Lupus Erythematosus, Subacute Cutaneous Lupus, Lupus, Congenital Heart Block, Mixed Connective Tissue Disease, Scleroderma-diffuse, Scleroderma-Autoimmune Myositis Overlap Syndrome, Systemic Lupus Ugssotaxtndbk-Wamwddkjuiz-Oyefjlahyg Myositis Overlap Syndrome, Systemic Autoimmune Rheumatic Disease, [...] Cytopenias, Linear Scleroderma, Antiphospholipid Syndrome Performed at: [facility] [id number] Stitch Burnisher: Vasu Duke PhD, Phone: [phone] NUCLEAR DOT PATTERNTNP.NOMS HealthcareNUCLEAR MEMBRANE PATTERNTNP.NOMS HealthcareNUCLEOLAR PATTERN1:640Abnormal.[facility] HealthcareComment on above:ICAP nomenclature: AC-8,9,10PCNA PATTERNTNP.N[facility] HealthcareSPECKLED PATTERNTNP.[facility] HealthcareSPINDLE APPARATUS PATTERNTNP.NOMS HealthcareCLINISYNCNOMS Healthcare Antinuclear AB, HE-p Substrate, (SHAHLA by IFA)on 85-38-7131Wmnxummsfcg Ab, HEp-2 Substrate, SNegativeNormal<1:80 (Negative)Genesis HospitalComment on above:Result Comment: NOTE ADDITIONAL INFORMATION Method: Immunofluorescence using HEp-2 cellular substrate. Test Performed by: [facility] [address] [place] [address] Stitch Burnisher: Ashanti Anthony Ph.D.; CLIA# [id number] By: #### 44810- , 1987-12, CBCA, CMP #### [facility] ([id number]) [address] [place] [address], [place] [address] #### NAIFA #### [facility] ([id number]) [address] [place] [address],CBC AND AUTO DIFFon 85-60-6884MTXUIHMR BASOPHIL0.1 X10E9/LNormal0.0-0.2 Genesis HospitalComment on above:Performed By: #### 33617-7, 1987-12, CBCA, CMP #### [facility] ([id number]) [address] [place] [address], [place] [address] #### NAIFA #### [facility] ([id number]) [address] [place] [address],ABSOLUTE NEUTROPHIL4.6 X10E9/LNormal1.5-6.6[facility] Comment on above:Performed By: #### 82845-1, 1987-12, CBCA, CMP #### [facility] ([id number]) [address] [place] [address], [address] [place] [address] #### NAIFA #### [facility] ([id number]) [address] [place] [address],Basophils/100 WBC (Bld)0.7 %NormalMemorial Hospital HospitalComment on above:Performed By: #### 40686-4, 1987-12, CBCA, CMP #### [facility] ([id number]) [address] [place] [address], [place] [address] #### NAIFA #### [facility] ([id number]) [address] [facility],Eosinophils (Bld) [#/Vol]0.1 10*3/uLNormal0.0-0.4ProChildren'S Hospital Of Columbus HospitalComment on above:Performed By: #### 52601-1, 1987-12, CBCA, CMP #### [facility] ([id number]) [address] [place] [address] #### NAIFA #### [facility] ([id number]) [address] [place] [address],Eosinophils/100 WBC (Bld)2.0 %NormalMemorial Hospital HospitalComment on above:Performed By: #### 64415-2, 1987-12, CBCA, CMP #### [facility] ([id number]) [address] [place] [address] #### NAIFA #### [facility] ([id number]) [address] [place] [address],Erythrocyte distribution width (RBC) [Ratio]12.4 %Weqrow41.5-15.0 [facility] HospitalComment on above:Performed By: #### 50353-7, 1987-12, CBCA, CMP #### [facility] ([id number]) [address] [place] [address], [address] [address] #### NAIFA #### [facility] ([id number]) [address] [place] [address],Hematocrit (Bld) [Volume fraction]42.1 %Ffnchq09-26DidDaerfzSelect Medical Ohiohealth Rehabilitation HospitalComment on above:Performed By: #### 83867-0, 1987-12, CBCA, CMP #### [facility] ([id number]) [address] [place] [address], [address] [place] [address] #### NAIFA #### [facility] ([id number]) [address] [facility],Hemoglobin (Bld) [Mass/Vol]14.5 g/sXCanqrx29.7-15.5PRiverside Methodist HospitalComment on above:Performed By: #### 19802-7, 1987-12, CBCA, CMP #### [facility] ([id number]) [address] [place] [address], [address] [place] [address] #### NAIFA #### [facility] ([id number]) [address] [place] [address],Lymphocytes (Bld) [#/Vol]2.1 10*3/uLNormal1.0-3.5PRiverside Methodist HospitalComment on above:Performed By: #### 98651-3, 1987-12, CBCA, CMP #### [facility] ([id number]) [address] [place] [address], [place] [address] #### NAIFA #### [facility] ([id number]) [address] [place] [address],Lymphocytes/100 WBC (Bld)27.9 %NormalProSelect Medical Ohiohealth Rehabilitation HospitalComment on above:Performed By: #### 64895-7, 1987-12, CBCA, CMP #### [facility] ([id number]) [address] [place] [address], [place] [address] #### NAIFA #### [facility] ([id number]) [address] [place] [address],MCH (RBC) [Entitic mass]30.0 atUysbot70-10JocNegkgsGenesis Hospital Comment on above:Performed By: #### 55527-5, 1987-12, CBCA, CMP #### [facility] ([id number]) [address] [place] [address], [facility] [address] [place] [address] #### NAIFA #### [facility] ([id number]) [address] [facility],MCHC (RBC) [Mass/Vol]34.5 g/gEMzoufl61-96XwxCwtgawGenesis Hospital Comment on above:Performed By: #### 03312-1, 1987-12, CBCA, CMP #### [facility] ([id number]) [address] [place] [address], [place] [address] #### NAIFA #### [facility] ([id number]) [address] [place] [address],MCV (RBC) [Entitic vol]87 xALbwxcj45-845JghAwiivsGenesis Hospital Comment on above:Performed By: #### 97088-5, 1987-12, CBCA, CMP #### [facility] ([id number]) [address] [place] [address], [place] [address] #### NAIFA #### [facility] ([id number]) [address] [place] [address],Monocytes (Bld) [#/Vol]0.5 10*3/uLNormal0-0.9[facility] Comment on above:Performed By: #### 33687-3, 1987-12, CBCA, CMP #### [facility] ([id number]) [address] [place] [address], [address] [place] [address] #### NAIFA #### [facility] ([id number]) [address] [place] [address],Monocytes/100 WBC (Bld)7.1 %NormalProSelect Medical Ohiohealth Rehabilitation HospitalComment on above:Performed By: #### 72858-4, 1987-12, CBCA, CMP #### [facility] ([id number]) [address] [place] [address], [address] [place] [address] #### NAIFA #### [facility] ([id number]) [address] [place] [address],Neutrophils/100 WBC (Bld)62.3 %NormalProChildren'S Hospital Of Columbus HospitalComment on above:Performed By: #### 92134-4, 1987-12, CBCA, CMP #### [facility] ([id number]) [address] [place] [address], [address] [place] [address] #### NAIFA #### [facility] ([id number]) [address] [place] [address],Platelet mean volume (Bld) [Entitic vol]9.3 fLNormal7-12ProMedica Michie HospitalComment on above:Performed By: #### 19004-8, 1987-12, CBCA, CMP #### [facility] ([id number]) [address] [place] [address], [address] [place] [address] #### NAIFA #### [facility] ([id number]) [address] [place] [address],Platelets (Bld) [#/Vol]297 10*3/mSYpmdpb910-952TkxBmpqjv [place] HospitalComment on above:Performed By: #### 29636-5, 1987-12, CBCA, CMP #### [facility] ([id number]) [address] [place] [address], [address] [place] [address] #### NAIFA #### [facility] ([id number]) [address] [place] [address],RBC COUNT4.85 X10E12/LNormal3.80-5.20ProChildren'S Hospital Of Columbus HospitalComment on above:Performed By: #### 92895-5, 1987-12, CBCA, CMP #### [facility] ([id number]) [address] [place] [address], [address] [place] [address] #### NAIFA #### [facility] ([id number]) [address] [facility],WBC (Bld) [#/Vol]7.4 10*3/uLNormal4.0-11.0[facility] Comment on above:Performed By: #### 80554-1, 1987-, CBCA, CMP #### [facility] ([id number]) [address] [facility], [address] [place] [address] #### NAIFA #### [facility] ([id number]) [address] [facility],CBC auto differentialon 90-89-5998Neftxjced (Bld) [#/Vol]0.1 10*3/uL [facility] SystemBasophils/100 WBC (Bld)0.7 %[facility] Eosinophils (Bld) [#/Vol]0.1 10*3/uLUniversity Hospitals Health SystemEosinophils/100 WBC (Bld)2.0 %[facility] Hospit[facility] Health SystemErythrocyte distribution width (RBC) [Ratio] 12.4 %11.5 - 15.0 %[facility] Health SystemHematocrit (Bld) [Volume fraction]42.1 %35 - 47 %[facility] Health SystemHemoglobin (Bld) [Mass/Vol]14.5 g/dL11.7 - 15.5 g/dLUniversity Hospitals Health SystemLymphocytes (Bld) [#/Vol]2.1 10*3/uLUniversity Hospitals Health SystemLymphocytes/100 WBC (Bld)27.9 %[facility] Health SystemMCH (RBC) [Entitic mass]30.0 pg27 - 34 [facility] HospitalMCHC (RBC) [Mass/Vol]34.5 g/dL32 - 36 g/dLUniversity Hospitals Health SystemMCV (RBC) [Entitic vol]87 fL80 - 100 [facility] HospitalMonocytes (Bld) [#/Vol]0.5 10*3/uLUniversity Hospitals Health System Monocytes/100 WBC (Bld)7.1 %[facility] Health SystemNeutrophils (Bld) [#/Vol]4.6 10*3/[facility] SystemNeutrophils/100 WBC (Bld)62.3 %[facility] SystemPlatelet mean volume (Bld) [Entitic vol]9.3 fL7 - 12 [facility] SystemPlatelets (Bld) [#/Vol]297 10*3/[facility] SystemRBC (Bld) [#/Vol] 4.85 10*6/[facility] SystemWBC corrected for nucl RBC Auto (Bld) [#/Vol] 7.4Mer[facility] Philadelphia HospitalCOMPREHENSIVE METABOLIC PANELon 13-94-4501Tqkurao [Mass/Vol]4.3 g/dLNormal3.2-5.3PRiverside Methodist Hospital Comment on above:Performed By: #### 97823-6, 1987-12, CBCA, CMP #### [facility] ([id number]) [address] [place] [address], [place] [address] #### NAIFA #### [facility] ([id number]) [address] [place], [place] [address]ALP [Catalytic activity/Vol]60 U/PSdalqj08-035ZbtYyilfeGenesis Hospital Comment on above:Performed By: #### 96392-5, 1987-12, CBCA, CMP #### [facility] ([id number]) [address] [place] [address], [address] [place], [place] [address] #### NAIFA #### [facility] ([id number]) [address] [place] [address],ALT [Catalytic activity/Vol]13 U/LNormal0-31PRiverside Methodist Hospital Comment on above:Performed By: #### 05043-4, 1987-12, CBCA, CMP #### [facility] ([id number]) [address] [place] [address], [address] [place] [address] #### NAIFA #### [facility] ([id number]) [address] [facility],Anion gap [Moles/Vol]10 mmol/LNormal5-15[facility] Comment on above:Performed By: #### 92065-0, 1987-12, CBCA, CMP #### [facility] ([id number]) [address] [place] [address], [address] [place] [address] #### NAIFA #### [facility] ([id number]) [address] [facility],AST [Catalytic activity/Vol]18 U/LNormal0-41[facility] Comment on above:Performed By: #### 17515-9, 1987-12, CBCA, CMP #### [facility] ([id number]) [address] [place] [address], [address] [place] [address] #### NAIFA #### [facility] ([id number]) [address] [place] [address],Bilirubin [Mass/Vol]0.2 mg/dLLow0.3-1.2PRiverside Methodist HospitalComment on above:Performed By: #### 30041-9, 1987-12, CBCA, CMP #### [facility] ([id number]) [address] [place] [address], [address] [place] [address] #### NAIFA #### [facility] ([id number]) [address] [place] [address],Calcium [Mass/Vol]9.6 mg/dLNormal8.5-10.5PRiverside Methodist Hospital Comment on above:Performed By: #### 96340-4, 1987-12, CBCA, CMP #### [facility] ([id number]) [address] [place] [address], [address] [place] [address] #### NAIFA #### [facility] ([id number]) [address] [place] [address],Chloride [Moles/Vol]103 mmol/FIyvipg55-151UgfOzunyvGenesis Hospital Comment on above:Performed By: #### 22296-4, 1987-12, CBCA, CMP #### [facility] ([id number]) [address] [place] [address], [address] [address] #### NAIFA #### [facility] ([id number]) [address] [place] [address],CO2 [Moles/Vol]25 mmol/OOyprqi46-85NrgBkcvqbRiverside Methodist HospitalComment on above:Performed By: #### 02493-5, 1987-12, CBCA, CMP #### [facility] ([id number]) [address] [place] [address], [place] [address] #### NAIFA #### [facility] ([id number]) [address] [place] [address],Creatinine [Mass/Vol]0.69 mg/dLNormal0.40-1.00[facility] Comment on above:Result Comment: METHOD TRACEABLE TO IDMS STANDARDPerformed By: #### 72171-4, 1987-12, CBCA, CMP #### [facility] ([id number]) [address] [place] [address] #### NAIFA #### [facility] ([id number]) [address] [place] [address],eGFR (CKD-EPI) NON-RACE DEPENDENT>90Normal>59[facility] Comment on above:Result Comment: Reported eGFR is based on the CKD-EPI 2020 equation that does not use a race coefficient.Performed By: #### 40540-7, 1987-12, CBCA, CMP #### [facility] ([id number]) [address] [place] [address] #### NAIFA #### [facility] ([id number]) [address] [place] [address],Glucose [Mass/Vol]74 mg/cEQuadww08-82XorDmnwvp [place] HospitalComment on above:Performed By: #### 67300-1, 1987-12, CBCA, CMP #### [facility] ([id number]) [address] [place] [address], [address] [place] [address] #### NAIFA #### [facility] ([id number]) [address] [place] [address],Potassium [Moles/Vol]3.9 mmol/LNormal3.5-5.0[facility] Comment on above:Performed By: #### 13166-7, 1987-12, CBCA, CMP #### [facility] ([id number]) [address] [place] [address] #### NAIFA #### [facility] ([id number]) [address] [place] [address],Protein [Mass/Vol]7.3 g/dLNormal6.0-8.0Genesis HospitalComment on above:Performed By: #### 59059-4, 1987-12, CBCA, CMP #### [facility] ([id number]) [address] [place] [address] #### NAIFA #### [facility] ([id number]) [address] [place] [address],Sodium [Moles/Vol]138 mmol/CVegjkb842-941OorZehaseGenesis Hospital Comment on above:Performed By: #### 89265-9, 1987-12, CBCA, CMP #### [facility] ([id number]) [address] [place] [address], [address] [place] [address] #### NAIFA #### [facility] ([id number]) [address] [place] [address],Urea nitrogen [Mass/Vol]19 mg/dLNormal5-23[facility] Comment on above:Performed By: #### 91076-0, 1987-12, CBCA, CMP #### [facility] ([id number]) [address] [place] [address], [address] [place] [address] #### NAIFA #### [facility] ([id number]) [address] [facility],CRP [Mass/Vol]on 05-05-2024 REACTIVE PROTEIN0.2 mg/dLNormal0.000-0.744 [facility] HospitalComment on above:Performed By: #### 81045-5, 1987-12, CBCA, CMP #### [facility] ([id number]) [address] [place] [address], [address] [place] [address] #### NAIFA #### [facility] ([id number]) [address] [place] [address],ESR Photometric method (Bld) [Velocity]on 92-20-8342Qrgbkfcrbgbtnm and review of laboratory resultsAbnormalProMedica Health SystemProMedica Health SystemESR, ERYTHROCYTE SEDIMENTATION RATE21 mm/hHigh0-20[facility] Hospitalca [facility] Medical CenterComment on above:Performed By: #### 43202-9, 1987-12, CBCA, CMP #### [facility] ([id number]) [address] [place] [address], [address] [place] [address] #### NAIFA #### [facility] ([id number]) [address] [place] [address],Erythrocyte Sedimentation Rate (ESR)on 30-06-0983NTG Photometric method (Bld) [Velocity]21 mm/hHigh0 - 20 mm/hProMedica Health SystemUS BIOPSY THYROID on 24-66-4196[address] [address] Ultrasound Report Signed Patient: FIFI MOCK MR#: [id number] : 1990 Acct:[id number] Age/Sex: 33 / F ADM Date: 04/30/24 Loc: US Attending Dr: Bernie Quiñonez NP Ordering Physician: Bernie Quiñonez NP Date of Service: 04/30/24 Procedure(s): US biopsy thyroid Accession Number(s): [id number] cc: Bernie Quiñonez NP [place] [id number] Patient Name: FIFI MOCK MRN: [facility]:[id number] date: 1990 Sex: F Assigned Patient Location: US Current Patient Location: LAB Accession/Order Number: [id number] Exam Date: 04/30/2024 08:23 Report Date: 04/30/2024 [...] Dictated By: Fab Wynn M.D. Signed By: 04/30/24 0955 DD/ 0953 TD/TT: Usability Engineer:MATTHIASHRadiology, Radiologist, MD - 04/30/[address] [address] Ultrasound Report Signed Patient: FIFI MOCK MR#: [id number] : 1990 Acct:[id number] Age/Sex: 33 / F ADM Date: 04/30/24 Loc: US Attending Dr: Bernie Quiñonez NP Ordering Physician: Bernie Quiñonez NP Date of Service: 04/30/24 Procedure(s): US biopsy thyroid Accession Number(s): [id number] cc: Bernie Quiñonez NP [address] [address] Patient Name: FIFI MOCK MRN: H:[id number] date: 1990 Sex: F Assigned Patient Location: US Current Patient Location: LAB Accession/Order Number: [id number] Exam Date: 04/30/2024 08:23 Report Date: 04/30/2024 [...] Fab Wynn M.D. Signed By: 04/30/24954 DD/ TD/TT: Usability Engineer: PHILIP HealthcareRadiology Study observation (narrative)NOMS HealthcareUS BIOPSY THYROIDOrdered By: Radiologist Radiology on 39-30-0442ZOVB Healthcare Work Phone: US Thyroid glandon [phone] [address] Ultrasound Report Signed Patient: FIFI MOCK MR#: [id number] : 1990 Acct:[id number] Age/Sex: 33 / F ADM Date: 04/16/24 Loc: US Attending Dr: Bernie Quiñonez NP Ordering Physician: Bernie Quiñonez NP Date of Service: 04/16/24 Procedure(s): US thyroid Accession Number(s): [id number] cc: Bernie Quiñonez NP The [place] [id number] Patient Name: FIFI MOCK MRN: [facility]:[id number] date: 1990 Sex: F Assigned Patient Location: [place] Current Patient Location: Accession/Order Number: [id number] Exam Date: 04/16/2024 13:50 Report Date: 04/17/2024 [...] left thyroid TR 4 nodule TI-RADS: [employer] TI-RADS committee's white paper recommendations for thyroid lesions classified as TR4 (moderately suspicious) are listed below: > 1.0 cm. Follow-up ultrasound in 1, 2, 3, and 5 years. > 1.5 cm. FNA. J. Am Jose Carlos Radiol 2017;14:587-595. Electronically authenticated by: BRODERICK NGUYEN Date: 04/17/2024 13:46 Dictated By: Broderick Nguyen M.D. Signed By: 04/17/24 1348 DD/ 1346 TD/TT: Usability Engineer:MATTHIASHRadiology, Radiologist, - 04/17/2024 [place] [address] Ultrasound Report Signed Patient: FIFI MOCK MR#: [id number] : 1990 Acct:[id number] Age/Sex: 33 / F ADM Date: 04/16/24 Loc: US Attending Dr: Bernie Quiñonez NP Ordering Physician: Bernie Quiñonez NP Date of Service: 04/16/24 Procedure(s): US thyroid Accession Number(s): [id number] cc: Bernie Quiñonez NP [place] [address] Patient Name: FIFI MOCK MRN: [facility]:[id number] date: 1990 Sex: F Assigned Patient Location: US Current Patient Location: Accession/Order Number: [id number] Exam Date: 04/16/2024 13:50 Report Date: 04/17/2024 [...] left thyroid TR 4 nodule TI-RADS: [employer] TI-RADS committee's white paper recommendations for thyroid lesions classified as TR4 (moderately suspicious) are listed below: > 1.0 cm. Follow-up ultrasound in 1, 2, 3, and 5 years. > 1.5 cm. FNA. J. Am Jose Carlos Radiol 2017;14:587-595. Electronically authenticated by: BRODERICK NGUYEN Date: 04/17/2024 13:46 Dictated By: Broderick Nguyen M.D. Signed By: 04/17/24 1348 DD/ 1346 TD/TT: Usability Engineer: [facility] HOSPITALRadha HealthcareRadiology Study observation (narrative)[facility] HospitalUS Thyroid glandOrdered By: Radiologist Radiology on 76-68-4551PVLNLakeland Regional Hospital Work Phone: all CBC WITH AUTO DIFFon 01-36-7787ZDVSRPSYX ABSOLUTE AUTO0.1NOMS HealthcareBasophils/100 WBC (Bld)0.7 %0.2 - 2.0 %NOMSt. Louis Children'S Hospital Eosinophils/100 WBC (Bld)2.1 %0.9 - 7.0 %NOMSt. Louis Children'S HospitalErythrocyte distribution width (RBC) [Ratio]11.9 %11.0 - 15.0 %[facility] Regional HospitalHematocrit (Bld) [Volume fraction]42.9 %36.0 - 48.0 %[facility] HospitalHemoglobin (Bld) [Mass/Vol]14.3 g/dL 12.0 - 16.0 g/dLLakeland Regional HospitalIMMATURE GRANULOCYTES ABS AUTO0.02NOCameron Regional Medical Center Immature granulocytes/100 WBC (Bld)0.3 %0.0 - 0.5 %[facility] HospitalLYMPHOCYTES ABSOLUTE AUTO1.9NOMS [facility] Medical CenterLymphocytes/100 WBC (Bld)27.0 %20.5 - 60.0 %[facility] HospitalMCH (RBC) [Entitic mass]29.1 pg26.7 - 34.0 pgNOCameron Regional Medical CenterMCHC (RBC) [Mass/Vol]33.3 g/dL29.9 - 35.2 g/dLLakeland Regional HospitalMCV (RBC) [Entitic vol]87.4 fL 81.0 - 99.0 fLLakeland Regional HospitalMONOCYTES ABSOLUTE AUTO0.5NOCameron Regional Medical Center Monocytes/100 WBC (Bld)7.5 %1.7 - 12.0 %[facility] HospitalNEUTROPHILS ABSOLUTE AUTO 4.4NOMS HealthcareNeutrophils/100 WBC (Bld)62.4 %43.0 - 75.0 %[facility] Platelet mean volume (Bld) [Entitic vol]10.3 fL9.5 - 13.5 fLNOCameron Regional Medical CenterTBH EO #0.2NOMS HealthcareTBH MUR431EIFV HealthcareTBH RBC4.91NOMS HealthcareTB WBC 7.1NOMS HealthcareCLINISYNCNOMS HealthcareQuick Strepon 09-15-2023S. pyogenes Org specific cx Ql (Throat)PositiveNoOmtool, Ltd Other Quick StrepNoI-Works Other COVID/FLU/RSV RT-PCRon 88-85-4924UFQI-CoV-2 (COVID-19) RNA EDWIN+probe Ql (Unsp spec)NegativeMoberly Regional Medical CenterOmtool, Ltd Other COVID/FLU/RSV RT-PCRNegativeMIKA Audio Other COVID/FLU/RSV RT-PCRPositiveI-Works Other PAY ACOG PANEL 2: 30 to 65on 11-05-2021..NormalThe [facility] Medical CenterComment on above:Result Comment: Performed at: WBPerformed By: #### [id number] #### [facility] [address] [place] [address] Dr. Omar Rivera Gdln ACOG Mvawcmp63-18SoagnpEshShelby Memorial HospitalComment on above:Performed By: #### [id number] #### [facility] [address] [place] [address] Dr. Omar SanabriaDIAGNOSIS:CommentNoShelby Memorial HospitalComment on above: Result Comment: NEGATIVE FOR INTRAEPITHELIAL LESION OR MALIGNANCY. Performed at: WBPerformed By: #### [id number] #### [facility] [address] [place] [address] Dr. Omar SanabriaHPV AptimaNegativeNormalNegativeWhite HospitalComment on above:Result Comment: This nucleic acid amplification test detects fourteen high-risk HPV types (16,18,31,33,35,39,45,51,52,56,58,59,66,68) without differentiation. Performed at: =GPerformed By: #### [id number] #### [facility] [address] [place] [address] Dr. Omar SanabriaMethodology:CommentToledo HospitalComment on above: Result Comment: This liquid based ThinPrep(R) pap test was screened with the use of an image guided system. Performed at: WBPerformed By: #### [id number] #### [facility] [address] [place] [address] Dr. Omar SanabriaNote:CommentACMC Healthcare System Glenbeigh on above:Result Comment: The Pap smear is a screening test designed to aid in the detection of premalignant and malignant conditions of the uterine cervix. It is not a diagnostic procedure and should not be used as the sole means of detecting cervical cancer. Both false-positive and false-negative reports do occur. . Performed at: WBPerformed By: #### [id number] #### [facility] [address] [place] [address] Dr. Omar SanabriaPerformed by:CommentACMC Healthcare System Glenbeigh on above: Result Comment: Moisés [employer] ([employer]) Performed at: WBPerformed By: #### [id number] #### [facility] [address] [place] [address] Dr. Omar SanabriaSpecimen adequacy:CommentACMC Healthcare System Glenbeigh on above:Result Comment: Satisfactory for evaluation. Endocervical and/or squamous metaplastic cells (endocervical component) are present. Performed at: WBPerformed By: #### [id number] #### [facility] [address] [place] [address] Dr. Omar Ponce SIMPLEX 1/2 IGMon [id number], IgM I/II Combination1.01 RatioCritically high0.00-0.90The [facility] on above:Result Comment: Verified by repeat analysis Negative <0.91 Equivocal 0.91 - 1.09 Positive >1.09Performed By: #### HSVIGM #### [facility] [address] [place] [address] Dr. Omar Ponce SIMPLEX 1/2 IGGon 87-54-4704RLZ 1 IgG, Type Spec8.59 index Critically high0.00-0.90The [facility]otsna HospitalComment on above:Result Comment: Negative <0.91 Equivocal 0.91 - 1.09 Positive >1.09 Note: Negative indicates no antibodies detected to HSV-1. Equivocal may suggest early infection. If clinically appropriate, retest at later date. Positive indicates antibodies detected to HSV-1.Performed By: #### HSV IGG #### [facility] [address] [address] [address] [facility] 2 IgG Type Spec<0.25Vbesim1.00-0.90[facility] Comment on above:Result Comment: Negative <0.91 Equivocal 0.91 - 1.09 Positive >1.09 Note: Negative indicates no HSV-2 antibodies detected. Positive indicates HSV-2 antibodies detected. Equivocal and low positive HSV-2 screens (Index 0.91-5.00) may be false positive and are reflexed to supplemental testing in accordance with CDC guidelines.Performed By: #### HSV IGG #### [facility] [address] [place] [address] Dr. [facility]operative Recordon 15-77-9161HTUN Intraoperative Record MAGR Intra-Op Record Summary Primary Physician: Luis Goss DO Finalized Date/Time: 12/19/18 08:27:55 Pt. Name: FIFI MOCK/Sex: 1990 FEMALE Med Rec #: [id number] Physician: Luis Goss DO Financial #: [id number] Pt. Type: D Room/Bed: / Admit/Disch: 12/16/18 [...] Role Performed Surgeon - Primary Anesthesiologist of Forest Ranger Technician Record Time In 12/16/18 07:56:00 12/16/18 07:56:00 12/16/18 07:56:00 Time Out 12/16/18 09:03:00 12/16/18 09:03:00 12/16/18 09:03:00 Procedure Tubal Ligation Tubal Ligation Tubal Ligation Laparoscopic(Bilateral) Laparoscopic(Bilateral) Laparoscopic(Bilateral) Last Modified By: Francisco J RN, Joselyn Marx RN, Joselyn Marx RN, Joselyn Granados 12/16/18 09:14:28 12/16/18 09:14:28 12/16/18 09:14:28 Entry 4 Entry 5 Case Attendee Adrián HARMON, Cynthia Wong FRETTED INSTRUMENT REPAIRER/CSFA Role Performed Scrub Personnel Mainstreaming Facilitator Time In 12/16/18 07:56:00 12/16/18 07:56:00 Time Out 12/16/18 09:03:00 12/16/18 09:03:00 Procedure Tubal Ligation Tubal Ligation Laparoscopic(Bilateral) Laparoscopic(Bilateral) Last Modified By: Francisco J WHITTAKER, Joselyn [...] Chlorhexidine Gluconate Povidone-Iodine and Alcohol Prep By Francisco J WHITTAKER, Joselyn Coreas RN Prep Area (Im.270) Abdomen Vagina and perineum Prep Area Details Skin Prep Agent Dry Yes Yes Without Pooling Hair Removal Syntegrity Hair Removal Methods No hair removal No hair removal performed performed Hair Removal By Hair Removal Date/Time Hair Removal Site Hair Removal Site Details Outcome Met (O.100) Yes Yes Last Modified By: Francisco J WHITTAKER, Joselyn Coreas RN 12/16/18 08:38:25 12/16/18 08:38:25 Post-Care Text: E.10 [...] Reason for Unfinalizing 12/19/18 08:27 MHSSAUER Correct DocumentationSycamore Medical CenterCoding Summaryon 11-47-1509Ihpqlu SummaryCODING DATE: 12/17/2018 [facility] STATUS: Home PAYOR: Commercial Insurance APC DESCRIPTION 5361 Level 1 Laparoscopy and Related Services ADMIT DX: REASON FOR VISIT DX: Z30.2 Encounter for sterilization FINAL DX: PRINCIPAL: Z30.2 Encounter for sterilization SECONDARY: PYMT PROC APC STAT DESCRIPTION DOCTOR NAME DATE 48159 5361 J1 Laparoscopy, surgical; Luis Goss DO 12/16/2018 with fulguration of oviducts (with or without transection) NOTE: The code number assigned matches the documented diagnosis and / or procedure in the patient's chart. However, the narrative phrase printed from the coding software may appear abbreviated, or result in slightly different terminology. Coded By: Elissa Rowe Date Saved: 12/17/2018 12:12 [facility] HospitalConsent Formson 12-17-2018 Consent [id number]#1.00OTKindred Hospital LimaHistory and Physicalon 53-44-2996Kzdmwia and Physical [id number]#1.00[facility] Operative Report - Surgeon/Physicianon 63-45-4464Nrtivksbg Report - Surgeon/[id number]#1.00OTSalem Regional Medical CenterProvider Orderson 11-24-8689Jjuxplt mass conc [id number]#1.00[facility] Telemetry Stripson 13-70-7236Gvrvgkhlu Strips [id number]#1.00[facility] Anesthesia Noteon 74-49-6043Jnsysjpdvu NotePatient: FIFI MOCK Age: 28 years Sex: [...] [Verified on: 12/16/2018 09:26 EDT] Sebastian Myers MDSycamore Medical CenterAnesthesia NotePatient: FIFI MOCK Age: 28 years Sex: [...] history): All Problems Anemia / SNOMED CT 812334847 / Confirmed Depression / SNOMED CT 17236799 / Confirmed Insomnia / SNOMED CT 306590394 / Confirmed Histories Family History: No family history items have been selected or recorded. Procedure history: Laparoscopic cholecystectomy (45705261). Dilation and curettage (37726935). Social History Alcohol Assessment Use: Current. Liquor, [...] rhythm. Review / Management Laboratory Results Plan [place] Society of Anesthesiologists#(ASA) physical status classification: Class [...] [Verified on: 12/16/2018 07:49 EDT] Sebastian Myers MDNoHenry County HospitalInpatient Patient Summaryon 12-16-2018 Inpatient Patient Summary[address] [id number] Patient Discharge Instructions Name: FIFI MOCK : 89 Patient [address]: [address] [place] [address] Primary Care Provider: Name: Nasra Sparrow CNP After you are discharged if you find you have any questions, please, call [phone] ext [phone] to speak to a nurse. Discharge Diagnosis: [...] business decisions or sign any legal documents [facility] would like to thank you for allowing us to assist you with your healthcare needs.The following includes patient education materials and information regarding your injury/illness. FIFI MOCK has been given the following list of follow-up instructions, prescriptions,and patient education materials: Follow-up Instructions With: Address: When: Luis Goss [address] [place] [address] [id number] Business (1) In 2 weeks 12/30/18 Medications During the course of your visit, your medication list was updated with the most current information. The details of those changes are reflected below: New Medications Printed Prescriptions acetaminophen-hydrocodone (Morrison 5 mg-325 mg oral tablet) 1 tab(s) [...] that you can keep with you. acetaminophen-hydrocodone (Morrison 5 mg-325 mg oral tablet) 1 tab(s) [...] including vitamins, herbs, eye drops, creams, and djlr-bwm-oiapvzm medicines. ? Any problems you or family [...] 10/28/2001 Document Revised: 12/27/2016 Document Reviewed: 07/01/2016 [employer] Patient Education ? 2018 [employer]. Viruses or Bacteria What?s got you sick? [...] Centers for Disease Control and Prevention April 2014[facility] MAGR PACU Recordon 12-97-3282JYTP PACU RecordMA PACU Record Summary Primary Physician: Luis Goss DO Finalized Date/Time: 12/16/18 09:44:44 Pt. Name: FIFI MOCK/Sex: 1990 FEMALE Med Rec #: [id number] Physician: Luis Goss DO Financial #: [id number] Pt. Type: D Room/Bed: / Admit/Disch: 12/16/18 [...] Signatures Signed By: Gema Todd RN 12/16/18 09:44[facility] Postoperative Record on 47-69-4312FPFW Postoperative RecordMAGR Phase II Record Summary Primary Physician: Luis Goss DO Finalized Date/Time: 12/16/18 10:50:50 Pt. Name: MOCKFIFI D.O.B./Sex: 1990 FEMALE Med Rec #: [id number] Physician: Luis Goss DO Financial #: [id number] Pt. Type: D Room/Bed: / Admit/Disch: 12/16/18 [...] Signatures Signed By: Maty Irving RN 12/16/18 10:50NoK[facility] Preoperative Recordon 67-27-3939XURL Preoperative RecordMAGR Pre-Op Record Summary Primary Physician: Luis Goss DO Finalized Date/Time: 12/16/18 08:34:48 Pt. Name: FIFI MOCK D.O.B./Sex: 1990 FEMALE Med Rec #: [id number] Physician: Luis Goss DO Financial #: [id number] Pt. Type: D Room/Bed: / Admit/Disch: 12/16/18 [...] Signatures Signed By: Joselyn Marx RN 12/16/18 08:34Sy[facility]ore Medical CenterOperative Report - Surgeon/Physicianon 29-04-6357Atrwoxvxd Report - Surgeon/PhysicianDATE OF PROCEDURE: 12/16/18 SURGEON: [...] grasped with a single tooth tenaculum. An [place] uterine manipulator was then advanced into the [...] 4-0 Vicryl in a subcuticular manner. The [place] uterine manipulator was then removed from the vagina with no bleeding noted from the cervix. The patient tolerated the procedure well. Sponge, lap, needle and instrument counts were correct x2. The patient was taken to the recovery room awake and in stable condition. Luis Goss DO JOB #: [id number] [Electronically Signed on: 12/23/2018 07:53 EDT] Luis Goss DO, D.O. [Verified on: 12/23/2018 07:53 EDT] Luis Goss DO, D.O. [Transcribed on: 12/16/2018 09:49 EDT] [facility] HospitalPatient Handouton 44-46-5410Gerjetj HandoutObstetrics and Gynecology Laparoscopic Tubal Ligation Laparoscopic [...] including vitamins, herbs, eye drops, creams, and uqba-mst-zqpsjsr medicines. ? Any problems you or family [...] 10/28/2001 Document Revised: 12/27/2016 Document Reviewed: 07/01/2016 [employer] Patient Education ? 2018 [employer] Medical CenterPregnancy Test Urine 1on 12-16-2018 [facility] Comment on above:Performed By: #### [id number] #### [facility] (DEFAULT) [address] [place] [address] [id number] Preg Internal ControlAdena Health SystemComment on above:Performed By: #### [id number] #### [facility] (DEFAULT) [address] [place] [address] 21796Ulfmvpdu Note - Nurseon 62-03-0098Jrqumko mass concSpoke with pt regarding arrival time of 0600 and NPO status. Verbalized understanding. [Electronically Signed on: 12/15/2018 13:31 EDT] Virginia Davenport RN [Verified on: 12/15/2018 13:31 EDT] Virginia Davenport RN [facility] HospitalCoding Summaryon 58-69-1772Gejcgf SummaryCODING DATE: 12/11/2018 FINAL [facility] STATUS: Home PAYOR: Commercial Insurance ADMIT [...] By: Elissa Rowe Date Saved: 12/11/2018 11:19 amNSelect Medical Specialty Hospital - CincinnatiProvider Orderson 57-58-7669Kwvbpyf mass [id number]#1.00OTGTIFF [facility].Auto Diff 1on 87-00-9157Mcnl Baso %0.5 %Normal0.2-2.0 [facility] HealthComment on above:Performed By: #### [id number], [id number] #### [facility] (DEFAULT) [address] [place] [address] 13079Htuh Labette %8 %Normal1-12[facility]uder HospitalComment on above: Performed By: #### [id number], [id number] #### [facility] (DEFAULT) [address] [place] [address] 69657Zxoj Neut %64 %Xygrgh15-41Nsvhvfzn HospitalComment on above:Performed By: #### [id number], [id number] #### [facility] (DEFAULT) [address] [place] [address] 92437Nugv Abs#0.0 o51Lrenkg6.0-0.2[facility] HospitalComment on above:Performed By: #### [id number], [id number] #### [facility] (DEFAULT) [address] [place] [address] 59579Rnf Abs#0.1 j73Iupcnk8.0-0.4[facility] HospitalComment on above:Performed By: #### [id number], [id number] #### [facility] (DEFAULT) [address] [place] [address] 17439Aigwsipninr/100 WBC (Bld)0.9 %Normal0.9-4.0Mag[facility]uder HospitalComment on above:Performed By: #### [id number], [id number] #### [facility] (DEFAULT) [address] [place] [address] 80976Zoksqaqbbjy #/vol (Bld)1.7 o19Nkmrpg9.3-2.9[facility]uder HospitalComment on above:Performed By: #### [id number], [id number] #### [facility] (DEFAULT) [address] [place] [address] 99071Dgimjvcahtt/100 WBC (Bld)27 %Peluxi51-32Tnfmjlek Hospital Comment on above:Performed By: #### [id number], [id number] #### [facility] (DEFAULT) [address] [place] [address] 76664Rtgk Abs#0.5 n40Xkayam4.0-0.8[facility]uder HospitalComment on above:Performed By: #### [id number], [id number] #### [facility] (DEFAULT) [address] [place], [place] [address]Neut Abs#4.1 h59Gxhulz2.5-9.2Magrwvumedicine [facility] HospitalComment on above:Performed By: #### [id number], [id number] #### [facility] (DEFAULT) [address] [place], [place] [address]CBC w/ Auto Diffon 33-20-4449Obsoktbsjuj distribution width Ratio (RBC)12.9 %Xxyylv61.5-15.0[facility] HospitalComment on above: Performed By: #### [id number], [id number] #### [facility] (DEFAULT) [address] [place], [place] [address]Hematocrit Volume Fraction (Bld)44.3 %High33.7-40.4 [facility] HospitalComment on above:Performed By: #### [id number], [id number] #### [facility] (DEFAULT) [address] [place], [place] [address]Hemoglobin mass conc (Bld)15.1 g/vVRgcnoz45.3-15.9[facility] HospitalComment on above:Performed By: #### [id number], [id number] #### [facility] (DEFAULT) [address] [place], [place] [address]Man Diff?AutoNormalBrecksville [facility] HospitalComment on above: Performed By: #### [id number], [id number] #### [facility] (DEFAULT) [address] [place], [place] [address]H Entitic mass (RBC)29 rhFvebqh43-55Kgnnljea Hospital Comment on above:Performed By: #### [id number], [id number] #### [facility] (DEFAULT) [address] [place], [place] [address]HC mass conc (RBC)34 g/qORdaxgh50-62Lskkwypw Hospital Comment on above:Performed By: #### [id number], [id number] #### [facility] (DEFAULT) [address] [place], [place] [address]V Entitic volume (RBC)85 sKVyohnp23-310Agvqclca Hospital Comment on above:Performed By: #### [id number], [id number] #### [facility] (DEFAULT) [address] [place] [address] 84813Dwitnfmi mean volume Entitic volume (Bld)10.4 fLHigh 6.3-10.2MGalion HospitalComment on above:Performed By: #### [id number], [id number] #### [facility] (DEFAULT) [address] [place] [address] 64636Wngwlrdye #/vol (Bld)295 i26Qdlhso054-663Wczsibmn Hospital Comment on above:Performed By: #### [id number], [id number] #### [facility] (DEFAULT) [address] [place] [address] 55610XYI #/vol (Bld)5.19 a02Twudzv3.70-5.30[facility] Comment on above:Performed By: #### [id number], [id number] #### [facility] (DEFAULT) [address] [place] [address] 89678QHX #/vol (Bld)6.4 n94Bmdehf0.5-10.5[facility] Comment on above:Performed By: #### [id number], [id number] #### [facility] (DEFAULT) [address] [place] [address] 78486 Vital Signs Date TimeVital SignValuePerforming XekreeacxOglrqarw79-26-8737 18:07-0500Body dfathb250.94 Raiza BLEVINSC Work Phone: [phone] [place], [place] 358[address]11-03-2025 18:07-0500 Body mass index (BMI) [Ratio]33.1 kg/m2Bernie BLEVINSC Work Phone: [phone]-[facility]11-03-2025 18:07-0500 Body qgnfvhvulzq11.1 [degF]Bernie Khang NICOLE-C Work Phone: [facility]11-03-2025 18:07-0500 Body qzwova91.6 kgLisa Aichholz PERMANENT WAVER-C Work Phone: [facility]11-03-2025 18:07-0500 Diastolic blood wsakezyp98 mm[Hg]Bernie Aichholz PERMANENT WAVER-C Work Phone: [facility]11-03-2025 18:07-0500 Heart rate90 /minLisa Aichholz PERMANENT WAVER-C Work Phone: [phone] [place], [place] [address]11-03-2025 18:07-0500 Respiratory rate18 /minLisa Aichholz PERMANENT WAVER-C Work Phone: [facility]11-03-2025 18:07-0500 SaO2% (BldA) [Mass fraction]98 %Bernie Aichholz PERMANENT WAVER-C Work Phone: [facility]11-03-2025 18:07-0500 Systolic blood axkiohqj818 mm[Hg]Bernie Aichholz PERMANENT WAVER-C Work Phone: [facility]09-23-2025 15:08-0400 Body lusvxr275.9 cmLorenzo Bianchi MD Work Phone: [facility] HospitalLbrzgcwcyw27-99-0223 15:08-0400Body mass index (BMI) [Ratio]32.69 kg/o0ZyykopLorenzo Bianchi MD Work Phone: [facility] HospitalZkzjbankgv19-56-0298 15:08-0400Body rjqbub16.47 kgLorenzo Bianchi MD Work Phone: [facility] HospitalUnrbpqrgvr60-75-2668 15:08-0400Diastolic blood taxhrbed82 mm[Hg]Lorenzo Bianchi MD Work Phone: [facility] HospitalWqqkrdfbkg48-49-7078 15:08-0400Heart rate71 /min Lorenzo Bianchi MD Work Phone: [address] [address]Rfotdciiqv45-75-9753 15:08-0400Systolic blood svliapxn57 mm[Hg]Lorenzo Bianchi MD Work Phone: [facility] HospitalDhadfzsrem37-57-2358 14:07-0400Body wdjamn119.9 cmLorenzo Bianchi MD Work Phone: [facility] HospitalOdsfbwqihb44-58-9632 14:07-0400Body mass index (BMI) [Ratio]31.74 kg/w0GibutdLorenzo Bianchi MD Work Phone: [facility] HospitalWjutxlympo57-81-9487 14:07-0400Body .2 kg Lorenzo Bianchi MD Work Phone: [facility] HospitalFujskedbxn79-75-5661 14:07-0400Diastolic blood anszklpq45 mm[Hg]Lorenzo Bianchi MD Work Phone: [facility] HospitalFycvntjmpa51-02-3077 14:07-0400Systolic blood rhlsuejp416 mm[Hg]Lorenzo Bianchi MD Work Phone: [facility] HospitalMaahwhnlop19-64-5494 14:50-0400Body qouwxa946.9 cmLisa Vanesaholz PERMANENT WAVER Work Phone: [facility] HospitalQzhwvsaxdw79-34-0640 14:50-0400Body mass index (BMI) [Ratio]31.63 kg/m2Lisa Aichholz PERMANENT WAVER Work Phone: [facility] HospitalZenfxncply96-15-4483 14:50-0400Body temperature 98.29 [degF]Bernie Aichholz PERMANENT WAVER Work Phone: [facility] HospitalXskaysjvwv07-00-0516 14:50-0400Body azkmrm20.93 kgLisa Aichholz PERMANENT WAVER Work Phone: [address] [address]Bokcctavbt57-25-3022 14:50-0400Diastolic blood jmdhzfal20 mm[Hg]Bernie Aichholz PERMANENT WAVER Work Phone: [facility] HospitalEbcdootdfd97-18-3795 14:50-0400Heart rate75 /min Bernie Aichholz PERMANENT WAVER Work Phone: [facility] HospitalTynbzvhcrk56-59-1941 14:50-0400Respiratory rate18 /minLisa Aichholz PERMANENT WAVER Work Phone: [facility] HospitalBxodljbgta97-90-6565 14:50-7682SaG3% (BldA) [Mass fraction]97 %Bernie Khnag PERMANENT WAVER Work Phone: [facility] HospitalXlezghnnra98-48-6046 14:50-0400Systolic blood lkceiwbk10 mm[Hg]Bernie Khang PERMANENT WAVER Work Phone: [facility] HospitalOmywayvcty41-26-1776 11:46-0400Body yysazo85.58 kgJames Medina MD Work Phone: [phone])[address]10-01-2024 11:46-0400Diastolic blood hapykdnz61 mm[Hg]James Medina MD Work Phone: [phone])[address]10-01-2024 11:46-0400 Respiratory rate18 /minJames Medina MD Work Phone: [phone])[address]10-01-2024 11:46-0400Systolic blood mm[Hg]James Medina MD Work Phone: [phone])[address] [place], [place] [address]9-24-2024 15:01-0400Body obeeey144.9 Raiza Khagn PERMANENT WAVER Work Phone: [facility] HospitalMosikneybh18-54-3704 15:01-0400Body mass index (BMI) [Ratio]31.06 kg/m2Bernie Khang PERMANENT WAVER Work Phone: [facility] HospitalOpvoxfgyja70-03-7845 15:01-0400Body temperature 98.1 [degF]Bernie Khang PERMANENT WAVER Work Phone: [facility] HospitalUlieyiujez26-86-6687 15:01-0400Body .57 kgLi Khang PERMANENT WAVER Work Phone: [facility] HospitalVegszuhkcl91-36-1519 15:01-0400Diastolic blood mgcljczo73 mm[Hg]Bernie Khang PERMANENT WAVER Work Phone: [place] [address]Pvnobavjly74-13-1776 15:01-0400Heart rate69 /min Bernie Cinthiaz PERMANENT WAVER Work Phone: [facility] HospitalLogcruknpa98-80-0519 15:01-0400Respiratory rate18 /minLisa Vanesaholz PERMANENT WAVER Work Phone: [facility] HospitalNmkjkogpom94-58-1513 15:01-1776YxX4% (BldA) [Mass fraction]98 %Bernie Cinthiaz PERMANENT WAVER Work Phone: [facility] HospitalLslbiggwxl61-48-4764 15:01-0400Systolic blood kzffuibm352 mm[Hg]Bernie Vanesaholz PERMANENT WAVER Work Phone: [facility] HospitalXyvjtzlsbt35-73-0932 14:26-0400Body xhfund177.9 Layneisa Vanesaholz PERMANENT WAVER Work Phone: [facility] HospitalMognihopik41-38-4602 14:26-0400Body mass index (BMI) [Ratio]31.29 kg/m2Lisa Cinthiaz PERMANENT WAVER Work Phone: [facility] HospitalClfjuvipel45-14-7081 14:26-0400Body temperature 97.81 [degF]Bernie Cinthiaz PERMANENT WAVER Work Phone: [facility] HospitalUjwcbpmwuj02-52-1892 14:26-0400Body btztyq35.12 kgLisa Cinthiaz PERMANENT WAVER Work Phone: [facility] HospitalBtiavaupvm19-95-3923 14:26-0400Diastolic blood macvrfgj46 mm[Hg]Bernie Cinthiaz PERMANENT WAVER Work Phone: [place] [address]Nupygmxtbh19-29-5076 14:26-0400Heart rate65 /min Bernie Vanesaholz PERMANENT WAVER Work Phone: [place] [address]Xjwjlorhya20-96-4606 14:26-0400Respiratory rate18 /minLisa Vanesaholz PERMANENT WAVER Work Phone: [place] [address]Tcxwyxbpyf41-45-6642 14:26-4969JpZ1% (BldA) [Mass fraction]99 %Bernie Vanesaholz PERMANENT WAVER Work Phone: noCameron Regional Medical CenterCtvpehnpvj34-84-5777 14:26-0400Systolic blood jwedvphd835 mm[Hg]Bernie Quiñonez PERMANENT WAVER Work Phone: noCameron Regional Medical CenterBciwbahtas07-49-1032 09:00-0500Body owviyh584.94 Diegocorneliaoctavio Agueroler Other [employer] Other 02-11-2024 09:00-0500Body mass index (BMI) [Ratio] 28.83 kg/v5GmemtMadison Junior Other [employer] Other 02-11-2024 09:00-0500Body sqzzngrpmor233 [degF]Madison Junior Other [employer] Other 02-11-2024 09:00-0500Body fungxi17.22 kgMadison Junior Other [employer] Other 02-11-2024 09:00-0500Respiratory rate18 /minMadison Junior Other [employer] Other 02-11-2024 09:00-5201XdD7% (BldA) [Mass fraction]99 % Madison Junior Other [employer] Other 12-27-2023 17:10-0500Body iztoip348.94 cmAmanda Edwin Other [employer] Other 12-27-2023 17:10-0500Body mass index (BMI) [Ratio] 24.56 kg/e6Kolbyd Edwin Other [employer] Other 12-27-2023 17:10-0500Body dymvrmoxhks71 [degF]Carmen Edwin Other [employer] Other 12-27-2023 17:10-0500Body ddvipk97.97 kgAmanda Edwin Other [employer] Other 12-27-2023 17:10-0500Respiratory rate18 /minAmanda Edwin Other [employer] Other 12-27-2023 17:10-1844YeR4% (BldA) [Mass fraction]97 % Carmenmary Priceb Other [employer] Other Encounters Encounter DateEncounter TypeCare ProviderFacilityStart: 06-15-2025 End: 27-87-4743zzjoheefobWckc J AichholzFacility:[facility] Hospitaltart: 08-53-4133Jmk-patient / Non-visitLisa Kan Quiñonez PERMANENT WAVER-C-[facility] [employer] Work Phone: Start: 62-70-7633Uzy-patient / Non-visitLisa Kan Quiñonez PERMANENT WAVER-C-[facility] Work Phone: Start: 06-07-2025 End: 74-30-3664pibylvugvdWjqq Kan Quiñonez PERMANENT WAVER-C Work Phone: -[facility] ClydeStart: 06-07-2025 End: 28-36-1470Gxxlpin encounter procedureLisa Kan Quiñonez PERMANENT WAVER-C-[facility] Work Phone: Start: 06-07-2025 End: 76-75-4820Zdxhije encounter statusLisa Kan Quiñonez PERMANENT WAVER-CFiWright-Patterson Medical Centertart: 48-23-0769Nihtmvz encounter statusLisa Khang PERMANENT WAVER-C Work Phone: [facility] Hospitaltart: 04-27-2025 End: 92-67-5209Rbksoe outpatient visit 15 minutesLorenzo Bianchi MD Work Phone: [facility] OtolaryngologyComment on above:Thyroid nodule (Primary Dx)Start: 04-27-2025 End: 87-12-9317zpdxzypiepZWXUFS Dmitriy Zamora AvailableStart: 04-27-2025 End: 41-67-3985Ywcnig flowsAnthony Bianchi MD Work Phone: [facility] OtolaryngologyStart: 04-27-2025 End: 30-79-7317Ruyvov Eunice Bianchi MD Work Phone: noms [facility] OtolaryngologyStart: 04-14-2025 End: 96-02-8631Lmwqqxptr Result EncounterLorenzo Bianchi MD Work Phone: noms External Department UnsolicitedStart: 04-14-2025 End: 80-15-7769Roslqiqmk Result EncounterHimilvia Bianchi MD Work Phone: n[facility] External Department UnsolicitedStart: 10-20-2024 End: 89-76-5386ktloglcuinXIXEHZ Dmitriy BIANCHINot AvailableStart: 07-13-2024 End: 00-30-9672Agztvwzho encounterLisa Kahng PERMANENT WAVER Work Phone: noms CWM FMStart: 06-03-2024 End: 34-23-9674Njxpah flowsheetLorenzo Bianchi MD Work Phone: [facility] CI ENTStart: 06-03-2024 End: 85-39-0400Pwqtjk Eunice Bianchi MD Work Phone: NOMS CI ENTStart: 06-03-2024 End: 63-39-2929Ysqnmi outpatient new 30 minutesLorenzo Bianchi MD Work Phone: NOLP CI ENTComment on above:Thyroid nodule greater than or equal to 1.5 cm in diameter incidentally noted on imaging study (CMS/ HCC)Start: 06-03-2024 End: 69-18-0943zyuhwcshdsAJADNU Dmitriy Zamora AvailableStart: 05-13-2024 End: 20-30-8931Ndkxhy outpatient visit 15 Alma Delia Quiñonez PERMANENT WAVER Work Phone: noms CWM FMComment on above:Thyroid nodule greater than or equal to 1.5 cm in diameter incidentally noted on imaging study (CMS/ HCC) (Primary Dx); Other Remedios-Danlos syndromes (CMS/HCC); Class 1 obesity due to excess calories without serious comorbidity with body mass index (BMI) of 31.0 to 31.9 in adultStart: 05-13-2024 End: 40-61-0040gkcmymfgdrLQTR AICHHOLZNot AvailableStart: 05-13-2024 End: 63-06-4379Fukjgf flowsheetLisa Patiencehholz PERMANENT WAVER Work Phone: noms CWM FMStart: 05-13-2024 End: 68-26-3269Rpyapi flowsheetLisa Aichholz PERMANENT WAVER Work Phone: noms CWM FMStart: 05-05-2024 End: 87-66-0914Xnerkb outpatient new 45 Ken Medina MD Work Phone: [facility] RheumatologyComment on above:SHAHLA positive (Primary Dx); Chronic fatigueStart: 05-05-2024 End: 26-10-6195sptfhsrgftRKEFXCThelma Nunez [facility] HospitalStart: 05-02-2024 End: 85-64-8238Kknerobqc Result EncounterLisa Aichholz PERMANENT WAVER Work Phone: noms External Department UnsolicitedStart: 05-02-2024 End: 36-18-9438Gmlnouizg Result EncounterLisa Aichholz PERMANENT WAVER Work Phone: noms External Department UnsolicitedStart: 04-30-2024 End: 36-94-4759Bvmclkknc Result EncounterLisa Aichholz PERMANENT WAVER Work Phone: noms External Department UnsolicitedStart: 04-30-2024 End: 45-85-0960Icxdnkdam Result EncounterLisa Vanesaholz PERMANENT WAVER Work Phone: noms External Department UnsolicitedStart: 04-30-2024 End: 83-68-7284irnqgcivqbShel Patiencehholz Work Phone: [facility] Work Phone: Start: 04-30-2024 End: 60-83-8079Yeedgxhw ReferredLisa Vanesaholz Work Phone: [facility]-LAB Path Spec Jyotsna HospStart: 04-29-2024 End: 46-97-5810Mnzhkswgb encounterTimnyla Baldemar CNAProMedica Physicians RheumatologyStart: 04-28-2024 End: 87-66-6604Wmyysb outpatient visit 25 minutesLisa Barbaz PERMANENT WAVER Work Phone: noms CWM FMComment on above:SHAHLA positive (Primary Dx); Other Remedios-Danlos syndromes (CMS/HCC); Class 1 obesity due to excess calories without serious comorbidity with body mass index (BMI) of 31.0 to 31.9 in adult; Thyroid nodule greater than or equal to 1.5 cm in diameter incidentally noted on imaging study (CMS/HCC)Start: 04-28-2024 End: 82-20-4658Qtjgsu flowsheetLisa Vanesaholz PERMANENT WAVER Work Phone: noms CWM FMStart: 04-28-2024 End: 71-02-0157Qouotb flowsheetLisa Patiencehholz PERMANENT WAVER Work Phone: noms CWM FMStart: 04-17-2024 End: 35-67-0019Cmrgvbzjr Result EncounterLisa Patiencehholz PERMANENT WAVER Work Phone: noms External Department UnsolicitedStart: 04-17-2024 End: 90-21-6844Uxveuxdtv Result EncounterLisa Vanesaholz PERMANENT WAVER Work Phone: noms External Department UnsolicitedStart: 04-09-2024 End: 15-79-6571Ajkliu OnlyBernie Quiñonez PERMANENT WAVER Work Phone: noms CWM FMComment on above:Thyroid antibody positive (Primary Dx)Start: 04-04-2024 End: 01-07-5512Ddajeeopy Result EncounterBernie Quiñonez PERMANENT WAVER Work Phone: noms External Department UnsolicitedStart: 04-04-2024 End: 62-80-3734Kybailwvf Result EncounterBernie Quiñonez PERMANENT WAVER Work Phone: noms External Department UnsolicitedStart: 04-02-2024 End: 53-11-6859Lzjzlmms preventive med est patient 18-39 yrsBernie Quiñonez PERMANENT WAVER Work Phone: noms CWM FMComment on above:Wellness examination (Primary Dx); Arthralgia, unspecified joint; Other fatigue; Iron deficiency anemia, unspecified iron deficiency anemia type; Class 1 obesity due to excess calories without serious comorbidity with body mass index (BMI) of 31.0 to 31.9 in adultStart: 04-02-2024 End: 40-40-1200Wkllmh flowsFrancisca Quiñonez PERMANENT WAVER Work Phone: noms CWM FMStart: 04-02-2024 End: 12-30-7435Lumgzk flowsFrancisca Quiñonez PERMANENT WAVER Work Phone: noms CWM FMStart: 04-02-2024 End: 61-74-6974Pfcdncm encounter statusBernie Quiñonez PERMANENT WAVER Work Phone: noms HealthcareStart: 09-15-2023 End: 82-10-8688augvbmroteKdhjv Keller Other [facility] [employer] Other Start: 18-45-6710Djniue outpatient visit 25 minutes [facility] ClydeStart: 07-31-2023 End: 55-84-6859emsivsqcyhKkngqh Grob Other Nort [employer] Other Start: 08-62-3295Wmnakb outpatient visit 15 minutes Carmenmary HammondPG [facility] ClydeStart: 10-30-2021 End: 95-61-7933epfsoinjcsRW NOVA FAZIOFacility:V2Jwwkf: 10-30-2021 End: 53-69-9869pbuktfrdxoOPPP R BOVAFacility:N8Xdjwh: 10-13-2018 End: 67-32-2151Ngwmubq encounter procedureDEFAULT PHYSICIANFacility:[facility] Procedures DateProcedureProcedure DetailPerforming ClinicianStart: 77-97-3043Oy soft tissue head & neck real time imge Eulalio Bianchi MD Work Phone: Start: 17-72-7031BEYQAPJQRHF ANTIBODIES, IFALisa Aichholz PERMANENT WAVER Work Phone: Start: 73-19-2504HT BIOPSY THYROIDLisa Aichholz PERMANENT WAVER Work Phone: Start: 15-30-3377Ij soft tissue head & neck real time imge docmLisa Aichholz PERMANENT WAVER Work Phone: Start: 04-56-3692APH CBC WITH AUTO DIFFLisa Aichholz PERMANENT WAVER Work Phone: H/O: tubal ligationHx of tubal ligationLisa Aichholz PERMANENT WAVER-C Work Phone: History of cholecystectomyHx of cholecystectomyLisa Aichholz PERMANENT WAVER-C Work Phone: Plan of Treatment DateCare ActivityDetailAuthorStart: 08-56-2079Eijlxvewv for malignant neoplasm of cervixNOMS HealthcareStart: 04-27-2026 End: 78-14-4248Bazhtbn encounter svnsumwao32/23/2026 2:20 PM EDT Office Visit [facility] [address] [place] [id number] Lorenzo Bianchi MD [address] [place] [address] [facility] [place] OtolaryngologyStart: 06-15-2025 [facility]etart: 04-27-2025 End: 02-59-3483Koysiwe encounter procedureNOMS [place] OtolaryngologyComment on above:ArrivedStart: 10-20-2024 End: 99-51-3394Cbhrelz encounter ygrquskgu62/18/2025 3:20 PM EDT Office Visit [facility] [address] [place] [address] Lorenzo Bianchi MD [address] [place] [address] NOMS CI ENTStart: 07-22-2024 End: 41-45-7807Grsnsme encounter kuxthycca64/18/2024 2:00 PM EST Office Visit [facility] FM [address] [place] [address] Bernie Quiñonez, PERMANENT WAVER [address] [place] [address] [facility] CWM FMStart: 06-03-2024 End: 97-44-7549Itjhfbr encounter ahefbiwpb04/30/2024 2:00 PM EDT Office Visit [facility] [address] [place] [address] Lorenzo Bianchi MD [address] [place] [address] Thyroid nodule greater than or equal to 1.5 cm in diameter incidentally noted on imaging study (CMS/HCC)NOMS CI ENTComment on above:Thyroid nodule greater than or equal to 1.5 cm in diameter incidentally noted on imaging study (CMS/HCC)Start: 05-13-2024 End: 95-33-1636Atldjso encounter procedureNOMS CWM FMComment on above:Arrived Start: 05-05-2024 End: 66-48-5521N-reactive proteinC-reactive protein Lab Routine SHAHLA positive Expected: 05/05/2024 (Approximate), Expires: 05/05/2025[facility] Comment on above:Expected: 05/05/2024 (Approximate), Expires: 05/05/2025Start: 05-05-2024 End: 07-58-5393Xuscpgptugqxx metabolic 2000 panel - Serum or PlasmaProCrystal Clinic Orthopedic Center SystemComment on above:Expected: 05/05/2024 (Approximate), Expires: 05/05/2025Start: 04-28-2024 End: 51-08-6675Smntyey encounter procedureNOMI CWM FMComment on above:Arrived Start: 04-09-2024 End: 25-45-1655TN Thyroid glandUS thyroid Imaging Routine Thyroid antibody positive Expected: 04/09/2024, Expires: 04/09/2025[facility] Healthcare Work Phone: Comment on above:Expected: 04/09/2024, Expires: 04/09/2025Start: 70-73-3031Decwkkmui vaccinationNOMI HealthcareStart: 04-02-2024 End: 34-53-4310Oeufxla encounter rvzpowlgm70/29/2024 2:20 PM EDT Office Visit [facility] [address] [place] [address] Bernie Quiñonez NP [address] [place] [address] ArrivedSAN JUAN HOSPITALM FMComment on above:ArrivedStart: 04-02-2024 End: 04-02-2025 reactive protein [Mass/volume] in Serum or PlasmaC-reactive protein Lab Routine Arthralgia, unspecified joint Expected: 04/02/2024 (Approximate), Expires: 04/02/2025NOMS HealthcareComment on above:Expected: 04/02/2024 (Approximate), Expires: 04/02/2025Start: 04-02-2024 End: 03-64-6902Iafhjgmgusi sedimentation rateSedimentation rate, automated Lab Routine Arthralgia, unspecified joint Expected: 04/02/2024 (Approximate), Expires: 04/02/2025[facility] Healthcare Work Phone: Comment on above:Expected: 04/02/2024 (Approximate), Expires: 04/02/2025Start: 04-02-2024 End: 87-44-4592Ridf + transferrin + TIBCIron + transferrin + TIBC Lab Routine Iron deficiency anemia, unspecified iron deficiency anemia type Expected: 04/02/2024 (Approximate), Expires: 04/02/2025[facility] HealthcareComment on above: Expected: 04/02/2024 (Approximate), Expires: 04/02/2025Start: 04-02-2024 End: 69-03-7089Dzbanei Ab [Titer] in Serum by ImmunofluorescenceANA Lab Routine Arthralgia, unspecified joint Expected: 04/02/2024 (Approximate), Expires: 04/02/2025[facility] HealthcareComment on above:Expected: 04/02/2024 (Approximate), Expires: 04/02/2025Start: 04-02-2024 End: 82-33-3408Fzzqqdrqfr factor [Units/volume] in Serum or PlasmaRheumatoid factor Lab Routine Arthralgia, unspecified joint Expected: 04/02/2024 (Approximate), Expires: 04/02/2025[facility] HealthcareComment on above:Expected: 04/02/2024 (Approximate), Expires: 04/02/2025Start: 04-02-2024 End: 68-09-8353Iqicapd peroxidase and thyroglobulin antibodiesThyroid peroxidase and thyroglobulin antibodies Lab Routine Other fatigue Expected: 04/02/2024 (Approximate), Expires: 04/02/2025[facility] HealthcareComment on above:Expected: 04/02/2024 (Approximate), Expires: 04/02/2025Start: 04-02-2024 End: 08-61-0105Ilkpo [Mass/volume] in Serum or PlasmaUric acid Lab Routine Arthralgia, unspecified joint Expected: 04/02/2024 (Approximate), Expires: [facility] HealthcareComment on above:Expected: 04/02/2024 (Approximate), Expires: 04/02/2025Start: 60-63-3191MSxY,Tdap and Td Vaccines (2 - Td or Tdap) DTaP,Tdap and Td Vaccines (2 - Td or Tdap)[facility] Centertart: 27-47-0577Yhmutlzeq for malignant neoplasm of cervixKindred Healthcare Start: 88-34-4966AExS,Tdap and Td Vaccines (1 - Tdap)DTaP,Tdap and Td Vaccines (1 - Tdap)[facility] Centertart: 00-52-3650Hklyr BMI ScreeningAdult BMI ScreeningSampson Regional Medical Centertart: 47-23-2297Cpksqwpldf ScreeningDepression ScreeningSampson Regional Medical Centertart: 29-67-9956Ykdswls ScreeningTobacco ScreeningProCrystal Clinic Orthopedic Center System End: 12-34-0988Uowjgbzpqte Ab, HEp-2 Substrate, SAntinuclear Ab, HEp-2 Substrate, S Lab Routine SHAHLA positive 1 Occurrences starting 05/05/2024 until 05/05/2025[facility] Work Phone: comment on above:1 Occurrences starting 05/05/2024 until 05/05/2025ntinuclear Ab, HEp-2 Substrate, SAntinuclear Ab, HEp-2 Substrate, S Lab Routine SHAHLA positive 05/05/2024 12:03 PM EDEvans Army Community [facility] Health SystemC reactive protein [Mass/volume] in Serum or PlasmaC-reactive protein Lab Routine SHAHLA positive 05/05/2024 12:03 PM EDTPUniversity Hospitals [facility] SystemComprehensive metabolic 2000 panel - Serum or PlasmaLee Health [facility]ocon[facility] Immunizations Immunization DateImmunizationNotesCare XyikbzdqBhxcdact44-12-7112lmawlsj toxoid, reduced diphtheria toxoid, and acellular pertussis vaccine, adsorbedLisa Khang PERMANENT WAVER Work Phone: [facility] Healthcare Payers DatePayer CategoryPayerPolicy [id number] Health InsuranceMEDICAL MUTUAL [id number] [id number] 2..1.590183.3.57[id number] 2..1.895494.3.57[id number] 2..1.264594.3.57[id number] 2..1.218677.3.57[id number] 2..1.199549.3.57[id number] 2..1.343210.3.57[id number] 2..1.227415.3.57[id number] 2..1.603315.3.57[id number] 2..1.140400.3.579.[id number] 91lw2828-yn32-125v-9tva-[id number] 2.16.840.1.244181.3.579.2.531 Social History DateTypeDetailFacilityUnknown if ever smokedNosaint francis hospital & health services [employer] Other Start: 04-01-2024 End: 56-02-3822Ohp Assigned At [facility] HealthNOMI HealthcareStart: 03-01-2018 End: 46-48-0707Ryqitta smoking status NHISNever smoked tobacco (finding) [facility] Hospitaltart: 02-06-9423Vvv Assigned At [facility] Hospitaltart: 39-73-0795Fgbofhm use and exposure Smokeless tobacco non-userNOMS HealthcareStart: 04-02-2024 End: 45-73-0456Pfbmgpwkj beverage intakeCurrent drinker of alcohol (finding)[facility] HealthcareStart: 04-01-2024 End: 58-46-2762Sqirarq of Social functionNOMS HealthcareStart: 60-58-0127Abu often do you need to have someone help you when you read instructions, pamphlets, or other written material from your doctor or pharmacy [SILS]Never NOMS HealthcareDo you belong to any clubs or organizations such as mosque groups, unions, fraternal or athletic groups, or [...] got money to buy more.Never trueNOMS HealthcareStart: 25-23-8402Ttfdvac Commentoccasional alcohol useNOMS HealthcareStart: 09-52-8650Svi assigned at birthNot on fileASHLEY REGIONAL [facility]ENTER HealthcareStart: 06-03-2024 End: 02-10-4468Fhfqdchdm beverage intakeEx-drinker (finding)[facility] Tobacco smoking status NHISTobacco smoking consumption unknownProCrystal Clinic Orthopedic Center SystemSexFemale (finding)[facility] Clinical Notes 07-31-2023 to 06-07-2025 Note Date & UemiHlkxKjcofzyw62-73-5648 Evaluation note* Diagnosis Onset Date Resolution Status Admit Date Remedios-Danlos disease acuteNov2024 5:46pmEncounter for wellness examinationacuteJune 07, 2025 5:46pmGAD (generalized anxiety disorder)acuteJune 07, 2025 5:46pm JENIFER (iron deficiency anemia)acuteJune 07, 2025 5:46pmMajor depressionacute June 07, 2025 5:46pmObesity due to excess caloriesacuteNov2024 5:46pm [facility] Work Phone: 1(494) 283-634509-23-2025 History of Present illness Narrative* Lorenzo Bianchi MD - 04/27/2025 3:20 PM EDT Subjective Patient ID: Fifi Mock is a 34 y.o. female who presents for Thyroid Nodule (6 month US [facility] 04/14/25) Thyroid Us shows a 97p04g6ma nodule compare to 85m31s6dw in October Family History Problem Relation Name [...] Repeat US one year documented in this encounterLakeland Regional HospitalJcgfwbsbhf02-51-2935 Telephone encounter Note* Telephone Encounter - Bernie Quiñonez NP - 07/13/2024 7:14 PM EST Please call referral for Genetics, pt still has not heard anything about an appt [place] [facility] HospitalJvvrynvgap63-46-9080 Miscellaneous Notes* Telephone Encounter - Bernie Quiñonez NP - 07/13/2024 7:14 PM EST Please call referral for Genetics, pt still has not heard anything about an appt [place] documented in this encounterLakeland Regional HospitalHekpurirgx26-58-5814 History of Present illness Narrative* Lorenzo Bianchi MD - 06/03/2024 2:00 PM EDT Subjective Patient ID: Fifi Mock is a 33 y.o. female who presents for Thyroid Nodule (Ultrasound 04/17/24 [facility]) Pt reports she was being evaluated for fatigue, which included and eval of the thyroid. TSH was 1.47. Thyroid US was obtained that showed a 69x30k3vm LT TR4 nodule. US-guided FNA performed that was classified as [place] 1. No radiation exposure. No family h/o [...] viral infection 04/02/2024 TALHA (generalized anxiety disorder) ([facility]/HCC) 04/02/2024 Major depressive disorder with single episode, in remission (HCC) ([facility]/HCC) 04/02/2024 JENIFER (iron deficiency anemia) 04/02/2024 [...] in diameter incidentally noted on imaging study ([facility]/HCC) 04/28/2024 Resolved Ambulatory Problems Diagnosis Date [...] in diameter incidentally noted on imaging study ([facility]) - Ambulatory referral to ENT Pt has a small fairly low risk nodule. Though FNA technically nondiagnostic, it is still reassuringin that no suspicious cells were found. I will start checking periodic surveillance US. documented in this encounterLakeland Regional HospitalJxqgwlkgob58-13-1953 History of Present illness Narrative* Bernie Quiñonez NP - 05/13/2024 5:37 PM EDTAssociated Problem(s): Thyroid nodule greater than or equal to 1.5 cm in diameter incidentally noted on imaging study (CMS/HCC) Non diagnostic biopsy, will refer to ENT * Bernie Quiñonez NP - 05/13/2024 5:37 PM EDTAssociated Problem(s): Other Remedios- Danlos syndromes (CMS/HCC) Will send to [place] for testing, [facility] does not do this testing * KATHIE [...] syndromes (CMS/HCC) - Primary Will send to [place] for testing, [facility] does not do this testing Relevant Orders Ambulatory referral to Genetics Thyroid nodule greater than or equal to 1.5 cm in diameter incidentally noted on imaging study (CMS/HCC) Non diagnostic biopsy, will refer to ENT Relevant Orders Ambulatory referral to ENT documented in this encounterLakeland Regional HospitalQkenuzoeom92-03-9866 History of Present illness Narrative* James Medina MD - 05/05/2024 11:45 AM EDT Images from the original note were not included. [address] [address] Date of Service: 05/05/2024 Positive SHAHLA Subjective: [...] results RTC based on lab results Total ekqs-mu-dfdp time was 35 minutes with more than [...] or corrected. Thank you for your understanding. [facility] Dr. James Medina MD [address] [facility] [address] [facility], [address] [place] [address] Office: [phone] documented in this encounterUniversity Hospitals Health System09-25-2024 Miscellaneous Notes* Telephone Encounter - Bucky Mcdermott CNA - 04/29/2024 11:34 AM EDT Lvm to schedule new patient appt Positive SHAHLA documented in this encounterUniversity Hospitals Health System09-25-2024 Telephone encounter Note* Telephone Encounter - Bucky Mcdermott CNA - 04/29/2024 11:34 AM EDT Lvm to schedule new patient appt Positive SHAHLA [facility]09-24-2024 History of Present illness Narrative* Bernie Quiñonez [...] bernie before her procedure on . * Bernieyuridia Quiñonez NP - 04/28/2024 2:40 PM EDT Images from [...] week Fu for results documented in this encounterLakeland Regional HospitalBlgztchqgr32-42-0410 History of Present illness Narrative* Bernie Quiñonez [...] to 31.9 in adult documented in this encounterLakeland Regional HospitalEtnlagthjx70-60-5465 Evaluation note* Encounter Date Diagnosis Assessment Notes [...] understanding and is agreeable to treatment plan. [employer] Other 12-27-2023 Evaluation note* Encounter Date Diagnosis [...] pain, shortness of breath or difficulty breathing. [employer] Other Evaluation noteNo assessment information available [facility] Work Phone: Evaluation note* Diagnosis Thyroid [...] malaise and fatigue documented in this encounter [facility]* Diagnosis Wellness examination- Primary [...] Nontoxic uninodular goiter documented in this encounter [facility] HealthcareEvaluation note* Diagnosis Onset Date Resolution Status Admit Date Remedios-Danlos disease acuteNov2024 5:46pmEncounter for wellness examinationacuteNov2024 5:46pmGAD (generalized anxiety disorder)acuteNov2024 5:46pm JENIFER (iron deficiency anemia)acuteNov2024 5:46pmMajor depressionacute June 07, 2025 5:46pmObesity due to excess caloriesacuteNov2024 5:46pm [facility] Work Phone: History general Narrative - Reported* Type Description Date Medical History anemia Surgical HistorycholecystectomySurgical Historytubal ligationHospitalization Historysee aboveHospitalization Historychild births [employer] Other InstructionsNot on filedocumented in this encounter [facility] SystemInstructionsNot on filedocumented in this encounter [facility] SystemReason for referral (narrative)* Consultation (Routine) - Pending ReviewSpecialtyDiagnoses / ProceduresReferred By ContactReferred To ContactGenetics Diagnoses Other Remedios-Danlos syndromes (CMS/HCC) Procedures OR OFFICE/OUTPATIENT NEW HIGH MDM 60 MINUTES Bernie Quiñonez NP [address] [place] [address] Nancy Brennan MD [address] [place] [address] Referral IDStatusReasonStart DateExpiration DateVisits RequestedVisits [id number] Review Specialty Services Required * Consultation (Routine) - Pending ReviewSpecialtyDiagnoses / ProceduresReferred By ContactReferred To ContactOtolaryngology Diagnoses Thyroid nodule greater than or equal to 1.5 cm in diameter incidentally noted on imaging study (CMS/HCC) Procedures OR OFFICE/OUTPATIENT NEW HIGH MDM 60 MINUTES Bernie Quiñonez NP [address] [place] [address] Lorenzo Bianchi MD [address] [address] Referral IDStatusReasonStart DateExpiration DateVisits RequestedVisits [id number] Review Specialty Services Required [facility] CenterRedeaconess [facility] for referral (narrative)* Consultation (Routine) - Pending ReviewSpecialtyDiagnoses / ProceduresReferred By ContactReferred To Contact Rheumatology Diagnoses SHAHLA positive Procedures OR OFFICE/OUTPATIENT NEW HIGH MDM 60 MINUTES Bernie Quiñonez NP [address] [place] [address] James Medina MD [address] [facility] [address] [place] [address] Referral IDStatusReasonStart DateExpiration DateVisits RequestedVisits [id number] Review Specialty Services Required * Consultation (Routine) - Pending ReviewSpecialtyDiagnoses / ProceduresReferred By ContactReferred To ContactGenetics Diagnoses Other Remedios-Danlos syndromes (CMS/HCC) Procedures OR OFFICE/OUTPATIENT NEW HIGH MDM 60 MINUTES Bernie Quiñonez, BONNIE [address] [place] [address] Referral IDStatusReasonStart DateExpiration DateVisits RequestedVisits [id number] Review Specialty Services Required Scheduling Instructions Schedule in [place] with Genetics department of [facility] PHILIP BrockReervin for referral (narrative)No reason for referral information availableGrand Lake Joint [facility] District [facility] Hospital Work Phone: Summary Purpose Family History No Family History Records FoundNo Family History Records FoundNo Family History Records FoundNo Family History Records FoundNo Family History Records FoundNo Family History Records Found Advance Directives Advance Directive Response Recorded Date/ Time Advance Directives No March 06 12:49pm Advance Directive Response Recorded Date/ Time Advance Directives No March 06 11:49am Hospital Course Note [facility] SURGERY Clinical Discharge Summary PERSON INFORMATION Name FIFI MOCK Age 28 Years 90 Sex FEMALE Language Macedonian PCP Nasra Sparrow CNP Marital Status Med Service Ambulatory Surgery Acct# Arrival 12/16/18 06:00:00 Visit Reason SURGERY - LAPAROSCOPIC BILATERAL TUBAL LIGATION Acuity LOS 034 00:46 Address: [address] [place] [address] Comment: PROVIDER INFORMATION VITALS INFORMATION Vital Sign [...] Medication Allergies Prescriptions Given: Prescription Display acetaminophen-hydrocodone (Morrison 5 mg- 325 mg oral tablet) 1 [...] section and content) DATE CREATED AUTHOR 10/14/2018 [facility] DATE CREATED AUTHOR AUTHOR'S ORGANIZ ATION 01/01/2019 [facility] DATE CREATED AUTHOR AUTHOR'S ORGANIZ ATION 02/14/2022 [facility] DATE CREATED AUTHOR AUTHOR'S ORGANIZ ATION 05/06/2024 [facility] DATE CREATED AUTHOR AUTHOR'S ORGANIZ ATION 04/28/2025 [facility] DATE CREATED AUTHOR AUTHOR'S ORGANIZ ATION 06/17/2025 [facility] REASON FOR VISIT (unrecogniz ed section and content) ReasonCommentsThyroid NoduleUltrasound 04/17/24 TBHSpecialtyDiagnoses / ProceduresReferred By ContactReferred To ContactOtolaryngology Diagnoses Thyroid nodule greater than or equal to 1.5 cm in diameter incidentally noted on imaging study (CMS/HCC) Procedures OR OFFICE/OUTPATIENT [facility] 60 MINUTES Bernie Quiñonez NP [address] [facility], [facility] [place] [address] Phone: tel: fax: Lorenzo Bianchi MD [address] [address] Phone: tel: fax: Referral IDStatusReasonStart DateExpiration DateVisits RequestedVisits [id number] Specialty Services Required /[id number] Nodule6 month [facility] 04/14/25 Care Teams (unrecognized sec tion and content) Team Status: Inactive Member Role Status Dates Bernie Quiñonez Attending Provider Active Start: April 30, 2024 End: April 30, 2024Team MemberRelationshipSpecialtyStart DateEnd Date Chrissie Mesa PA [address] [place], [place] [id number] PCP - Medical [employer]08/05/2211 Fermín Ceballos MD [address] [place] [address] PCP - GeneralFamily Medicine03/19/24 Bernie Quiñonez NP [address] [place] [address] Nurse PractitionerFandly Medicine03/19/24Team MemberRelationshipSpecialtyStart DateEnd Date Chrissie Mesa PA [address] [place] [address] PCP - Medical [employer]08/05/2211 Fermín Ceballos MD [address] [place] [address] PCP - GeneralFamily Medicine03/19/24 Bernie Quiñonez NP [address] [place] [address] Nurse PractitionerFamily Medicine03/19/24Team MemberRelationshipSpecialtyStart DateEnd Date Chrissie Mesa PA [address] [facility] [place] [address] PCP - Medical [employer]/ Fermín Ceballos MD [address] [place] [address] PCP - GeneralFamily Medicine03/19/24 Bernie Quiñonez NP [address] [place] [address] Nurse PractitionerMem[facility] University [facility]03/19/24Team MemberRelationshipSpecialtyStart DateEnd Date Chrissie Mesa PA [address] [facility] [place] [address] PCP - Medical [employer]/ Fermín Ceballos MD [address] [place] [address] PCP - GeneralFamily Medicine03/19/24 Bernie Quiñonez NP [address] [place] [address] Nurse PractitionerBr[facility] Medicine03/19/24Team MemberRelationshipSpecialtyStart DateEnd Date Chrissie Mesa PA [address] [place] [address] PCP - Medical [employer]08/05/2211 Fermín Ceballos MD [address] [place] [address] PCP - GeneralFamily Medicine03/19/24 Bernie Quiñonez NP [address] [place] [address] Nurse Practitionermi Medicine03/19/24Team MemberRelationshipSpecialtyStart DateEnd Date Chrissie Mesa PA [address] [place] [address] [place] [address] PCP - Medical [employer]08/05/2211 Fermín Ceballos MD [address] [place] [address] PCP - GeneralFamily Medicine03/19/24 Bernie Quiñonez NP [address] [place] [address] Nurse PractitionerMem[facility] University [facility] Center03/19/24Team MemberRelationshipSpecialtyStart DateEnd Date Chrissie Mesa PA [address] [place] [address] [place] [address] PCP - Medical [employer]08/05/2211 Fermín Ceballos MD [address] [place] [address] PCP - GeneralFamily Medicine03/19/24 Bernie Quiñonez NP [address] [place] [address] Nurse PractitionerMemorial Health University Medical Center03/19/24Team MemberRelationshipSpecialtyStart DateEnd Date Chrissie Mesa PA [address] [place] [address] PCP - Medical [employer]08/05/2211 Fermín Ceballos MD [address] [place] [address] PCP - GeneralMem[facility] Center03/19/24 Bernie Quiñonez NP [address] [place] [address] Nurse PractitionerMemorial Health University Medical Center03/19/24Team MemberRelationshipSpecialtyStart DateEnd Date Chrissie Mesa PA [address] [place] [address] PCP - Medical [employer]08/05/2211 Fermín Ceballos MD [address] [place] [address] PCP - GeneralBr[facility] Medicine03/19/24 Bernie Quiñonez NP [address] [place] [address] Nurse PractitionerMemorial Health University Medical Center03/19/24Team MemberRelationshipSpecialtyStart DateEnd Date Chrissie Mesa PA [address] [place] [place], [place] [address] PCP - Medical [employer]08/05/2211 Fermín Ceballos MD [address] [place] [address] PCP - GeneralFamily Medicine03/19/24 Bernie Quiñonez NP [address] [place] [address] Nurse Practitionermily Medicine03/19/24Team MemberRelationshipSpecialtyStart DateEnd Date Chrissie Mesa PA [address] [facility] [place] [address] PCP - Medical [employer]08/05/2211 Fermín Ceballos MD [address] [place] [address] PCP - GeneralFamily Medicine03/19/24 Bernie Quiñonez NP [address] [place] [address] Nurse PractitionerMem[facility] Center03/19/24Team MemberRelationshipSpecialtyStart DateEnd Date Chrissie Mesa PA [address] [facility] [place] [address] PCP - Medical [employer]08/05/2211 Fermín Ceballos MD [address] [place] [address] PCP - GeneralFamily Medicine03/19/24 Bernie Quiñonez NP [address] [place] [address] Nurse PractitionerMercy Medical Centerly Medicine03/19/24Team MemberRelationshipSpecialtyStart DateEnd Date Nasra Sparrow, TREE SURGEON[employer] SERVICES RN [address] [place] [address] PCP - GeneralNurse Practitioner04/25/20Team MemberRelationshipSpecialtyStart Date End Date Nasra Sparrow, TREE SURGEON-HEALTH SERVICES RN PCP - GeneralNurse Practitioner04/25/20Team MemberRelationshipSpecialtyStart Date End Date Fermín Ceballos MD PCP - GeneralFamily Medicine03/19/24 Bernie Quiñonez NP Nurse PractitionerBr[facility] Medicine03/19/24Team MemberRelationshipSpecialtyStart DateEnd Date Fermín Ceballos MD [address] [place] [address] PCP - GeneralFamily Medicine04/21/25 Bernie Quiñonez NP Nurse PractitionerMercy Medical Centerly Medicine03/19/24 Bernie Quiñonez NP [address] [place] [address] Nurse PractitionerBrigham And Women'[facility] Medicine04/21/25Team MemberRelationshipSpecialtyStart DateEnd Date Fermín Ceballos MD [address] [place] [address] PCP - GeneralMercy Medical Centerly Medicine04/21/25 Bernie Quiñonez NP Nurse PractitionerMem[facility] University [facility] Center03/19/24 Bernie Quiñonez NP [address] [place] [address] Nurse PractitionerMemorial Health University Medical Center04/21/25Team MemberRelationshipSpecialtyStart DateEnd Date Chrissie Mesa PA [address] [facility] [address] [place], [facility]11 PCP - Medical [employer] Fermín Ceballos MD [address] [facility] [place] [address] PCP - GeneralMercy Medical Centerly Medicine Fermín Ceballos MD [address] [place] [address] PCP - GeneralMercy Medical Centerly Medicine04/21/25 Bernie Quiñonez NP [address] [facility] [place] [address] Nurse PractitionerMemorial Health University Medical Center03/19/24 Bernie Quiñonez NP [address] [place] [address] Nurse PractitionerBrigh[facility] And Women[facility] Medicine04/21/25Team MemberRelationshipSpecialtyStart DateEnd Date Chrissie Mesa PA [address] [place] [address] [place] [address] PCP - Medical [employer] Fermín Ceballos MD [address] [facility] [place] [address] PCP - GeneralMem[facility] Fermín Ceballos MD [address] [place] [address] PCP - GeneralMem[facility] Center04/21/25 Bernie Quiñonez NP [address] [facility] [place] [address] Nurse PractitionerMemorial Health University Medical Center03/19/24 Bernie Quiñonez NP [address] [place] [address] Nurse PractitionerMemorial Health University Medical Center04/21/25 Team Status: Active Member Role/Relationship Status Dates Bernie Quiñonez NP-C Primary Care Provider Active Team Status: Inactive Member Role/Relationship Status Dates Bernie Quiñonez PERMANENT WAVER-C Primary Care Provider Active Start: June 07, 2025 End: June 07, 2025Bernie Quiñonez NP-CAttensonido ProviderActiveStart: June 07, 2025 End: June 07, 2025 Team Status: Active Member Role/Relationship Status Dates Bernie Quiñonez NP-C Primary Care Provider Active Start: June 08, 2025 Bernie Quiñonez NP-CAttensonido ProviderActiveStart: June 08, 2025 Team Status: Active Member Role/Relationship Status Dates EGNOVEVA Lund Primary Care Provider Active Start: June 15, 2025 Radhames Lundtensonido ProviderActiveStart: June 15, 2025 Goals (unrecognized section and content) Goals [...] BE BASED ON THE PRIMARY CLINICAL RECORDS. [employer] [facility]. provides no warranty or guarantee of the accuracy or completeness of information in this document.
--- OUTSIDE RECORDS SUMMARY | 2025-06-23 03:57 | XMS_ITS | Clinical Summary ---
Author Organization [facility] Address [address] [place] [address] Care Team Providers Care Animal Care Taker Name Role Phone Unavailable Primary Care Provider Unavailabl e Social History Tobacco UseTypesPacks/DayYears UsedDateSmoking Tobacco: Never Assessed CommentsUnknownSex and Gender InformationValueDate RecordedSex Assigned at Not on fileLegal ExpFseptw78/30/2022 12:13 AM EDTGender IdentityNot on file Sexual OrientationNot on file Plan of Treatment Not on file
--- OUTSIDE RECORDS SUMMARY | 2025-06-23 03:57 | XMS_ITS | Clinical Summary ---
Author Organization [employer] [facility] Formerly [facility] tem Address [id number] [address] [place] [address] Care Team Providers Care Planning Aide Name Role Phone Nasra Sparrow GENOVEVA-MEDICAL COST CONSULTANT Primary Care Provider [phone] Allergies No known active allergies Medications MedicationSigDispense QuantityRefillsLast FilledStart DateEnd DateStatus amitriptyline (ELAVIL) 10 mg tablet Indications:Chronic fatigueOne capsule at 8 PM each night 30 tablet 4Active Active Problems No known active problems Social History Tobacco UseTypesPacks/DayYears UsedDateSmoking Tobacco: Never AssessedChildcare AnswerDate PqkjefjxLldrustybSuuafst20/21/2020EmploymentAnswerDate Recorded IoomkajoodUmleivb56/21/2020Purpose - LifeAnswerDate RecordedPurpose and direction in mgplInansqg06/11/2021CommentsUnknownSex and Gender InformationValueDate RecordedSex Assigned at BirthNot on fileLegal SexFemale 03/10/2015 11:58 AM EDTGender IdentityNot on fileSexual OrientationNot on file Last Filed Vital Signs Vital SignReadingTime TakenCommentsBlood Atkkvfsq664/7410 11:46 AM EDT Pulse--Temperature--Respiratory Bgkx7148 11:46 AM EDTOxygen Saturation-- Inhaled Oxygen Concentration--Poxznx44.6 kg (160 lb)05/05/2024 11:46 AM EDT Height--Body Mass Index-- Plan of Treatment DateTypeDepartmentCare Team (Latest Contact Info)Oihnneruwse09/04/2026 7:00 AM ESTHospital Encounter [facility] [address] [place] [address] Devin Holden MD [address], [facility] [address] [place] [address] 10/06/2025 7:00 AM EST - 10/06/2025 10:00 AM ESTSurgery [facility] [address] [place] [address] [address] [place] [address] Devin Holden MD [address], [facility] [address] [place] [address] REMOVAL IMPLANT BREASTNamePriorityAssociated DiagnosesDate/TimeREMOVAL IMPLANT BREAST COSMETIC 10/06/2025 7:00 AM ESTREDUCTION BREAST COSMETIC 10/06/2025 7:00 AM ESTHealth MaintenanceDue DateLast DoneCommentsDepression Naqsbjonl04/02/2003Tobacco Tvfrtieqa38/02/2003Adult BMI Mcgophtki25/02/2009Pap Smear11/05/2011DTaP,Tdap and Td Vaccines (2 - Td or Tdap) Influenza Moaogpg5204/05/2025 Medical Devices Not on file Insurance MemberSubscriberPlan / Payer (Effective 2023-Present)Name:Venita Chappell Relation to Subscriber:SpouseName:MERVIN CHAPPELL Date of :1983 Address: [address] [place] [address] Payer ID:Not on file Type:Not on file Address: [address] [place] [id number] Care Teams Team MemberRelationshipSpecialtyStart DateEnd Date Nasra Sparrow, PATTERN GRADER SUPERVISOR-MEDICAL COST CONSULTANT [address] [place] [address] PCP - GeneralNurse Practitioner04/25/20
--- OUTSIDE RECORDS SUMMARY | 2025-06-23 03:58 | XMS_ITS | Clinical Summary ---
Author Organization [facility] Address [address] [place] [address] Care Team Providers Care Art Installer Name Role Phone Fermín Ceballos MD Primary Care Provider [phone] Mckenna Quiñonez NP Unavailable [phone] Allergies No known active allergies Medications MedicationSigDispense QuantityRefillsLast FilledStart DateEnd DateStatus valACYclovir (Valtrex) 500 MG tablet Take 500 mg by mouth in the morning and 500 mg before bedtime.09/18/2022ctive diphenhydrAMINE-acetaminophen (Tylenol PM) 25-500 MG per tablet Take 1 tablet by mouth as needed at bedtime for sleepActive Active Problems ProblemNoted DateDiagnosed DateOther Meghana-Danlos wjryezhqw02/24/2024 Assessment & Plan (05/13/2024 5:37 PM EDT): Will send to [place] for testing, [facility] does not do this testing Assessment & [...] biopsy this week Fu for results Abnormal /16/2024NA /05/2024 Assessment & Plan (04/28/2024 5:32 PM EDT): Did not do a pattern or ratio Will re order SHAHLA level Refer to Rheumatology Elevated liver dbiaqjb4204/02/2024Herpes simplex viral dncfniiol52/29/2024GAD (generalized anxiety disorder)04/02/2024Major depressive disorder with single episode, in nukzwrslx25/29/2024IDA (iron deficiency anemia)04/02/2024Wellness rypujzjbvrm28/29/2024 Assessment & Plan (04/02/2024 8:59 PM EDT): Reviewed Ht/Wt/BMI Recommend eye exam yearly Recommend dental exams twice a year Balance work/leisure activities Exercises is recommended most days of the week (appropriate as chronic conditions allow) Follow up yearly and prn Odaeraozxp41/29/2024Other psreryc8804/02/2024lass 1 obesity due to excess calories without serious comorbidity with body mass index (BMI) of 31.0 to 31.9 in adult04/02/2024 Encounters DateTypeDepartmentCare GltoOigbrqmbibu23/23/2025 3:20 PM EDTOffice Visit [facility] [address] [place] [address] Becky Oliveros MD Thyroid nodule (Primary Dx)04/27/2025amboo flowsheet [facility] [address] [place] [address] Becky Oliveros MD 04/27/20259035Kjfktg82/10/2025linisync Result Encounter [facility] External Department Unsolicited Becky Oliveros MD from Last 3 Months Immunizations ImmunizationAdministration DatesNext BcrFhue25/25/2012 Family History Medical HistoryRelationNameCommentsEhlers-Danlos syndromeFatherDiabetesMaternal GrandmotherSandyCancerMotherJennifer MorrisonEndometriosisMotherJennifer MorrisonDiabetesPaternal GrandfatherBobDiabetesPaternal GrandmotherPhyllis RelationNameStatusCommentsDaughterAliveFatherAliveMaternal GrandmotherSandy MotherElissa MorrisonAlivePaternal GrandfatherBobPaternal GrandmotherPhyllis SonAlive Social History Tobacco UseTypesPacks/DayYears UsedDateSmoking Tobacco: NeverSmokeless Tobacco: Never Tobacco Cessation:Counseling Given: Not Answered Alcohol UseStandard Drinks/WeekCommentsNot Currently0 (1 standard drink = 0.6 oz pure alcohol)occasional alcohol nxkM1483 Health LiteracyAnswerDate RecordedHow often do you need [...] relatives?Once a week04/01/2024How often do you attend evangelical or congregational services?Never04/01/2024o you belong to any clubs or organizations such as evangelical groups, unions, fraternal or athletic groups, or school groups?No 04/01/2024How often do you attend meetings of the clubs or organizations you belong to?Never04/01/2024re you , , , , never , or living with a partner?Kagqcfu3504/01/2024UDIT-CAnswerDate RecordedQ1: How often do you have a [...] hard at all04/01/2024HQ-2AnswerDate Recorded Patient Health Questionnaire-2 Fxabd601Finprimary [facility]'s hospital [place] of Occupational Health - Occupational Stress QuestionnaireAnswerDate [...] or living in a nursing home (including now)?No04/01/2024CommentsUnknownSex and Gender InformationValueDate RecordedSex Assigned at BirthNot on fileLegal Sex Sizycq6210/17/2022 6:45 PM EDTGender IdentityNot on fileSexual OrientationNot on file Last Filed Vital Signs Vital SignReadingTime TakenCommentsBlood Cxkprxrd15/6809 3:08 PM EDT Adpod3918 3:08 PM YEHKorsedouwle00.8 ??C (98.3 ??F)05/13/2024 2:50 PM EDTRespiratory Zcfv8014 2:50 PM EDTOxygen Bzevbysbai10%05/13/2024 2:50 PM EDTInhaled Oxygen Concentration--Hzhkhu19.5 kg (173 lb)04/27/2025 3:08 PM EDT Bbutcb129.9 cm (5' 1 )04/27/2025 3:08 PM EDTBody Mass Index32.6909/ 3:08 PM EDT Plan of Treatment DateTypeDepartmentCare Team (Latest Contact Info)Vzmcdfdbuwo27/23/2026 2:20 PM EDTOffice Visit [facility] [address] [facility] [address] [place] [address] Becky Oliveros MD [address] [facility] [address] [place] [address] Health MaintenanceDue DateLast DoneCommentsPap Smear11/05/2011COVID-19 Vaccine ( season)/06/2021, 11/18/2020ervical Cancer Screening 02/16/2028HPV/Dxrrso44Influenza VaccineDiscontinued Pneumococcal Vaccine: Pediatrics (0 to 5 Years) and At-Risk Patients (6 to 64 Years)Aged OutNo longer eligible based on patient's age to complete this topic Procedures Procedure NamePriorityDate/TimeAssociated DiagnosisCommentsUS FKNPCKG3004/14/2025 3:48 PM EDT THINPREP PAP AND HPV MRNA E6/E7 W/RFL HPV 16,18/12Ludpyry02/14/2023 10:32 AM EDT Well woman exam with routine gynecological exam from Last 3 Months or Most Recently Relevant to Health Maintenance Results * US thyroid (04/14/2025 3:48 PM EDT)Anatomical RegionLateralityModalityHead, NeckUltrasoundSpecimen (Source)Anatomical Location / LateralityCollection Method / VolumeCollection TimeReceived Time04/14/2025 3:48 PM EDT Narrative 04/14/2025 3:50 PM EDT [facility] ?[address] ? [place] [address] ? Ultrasound Report ? Signed ? Patient: CHAPPELL,FIFI A ?MR#: [id number] ?? : 1990 ?Acct:[id number] ?? Age/Sex: 34 / F ?ADM Date: 09//25 ?? Loc: [place] ? Attending Candie Oliveros M.D. ? Ordering Physician: Becky Oliveros M.D. ?? Date of Service: 04/14/25 ?? Procedure(s): US thyroid ?? Accession Number(s): [id number] ? cc: Physician,Non-Staff Cristino; Becky Oliveros M.D. ? [facility] ? [address] ? [place] [address] ? Patient Name: ?? FIFI CHAPPELL ? MRN: [facility]:[id number] ? date: 1990 ?Sex: F ?? Assigned Patient Location: [place] ?? Current Patient Location: [place] ?? Accession/Order Number: [id number] ?? Exam Date: 04/14/2025 ??13:52 ?Report Date: [...] Dictation Location: RADIO-PC-22 ? Electronically authenticated by: [id number] ??Y ?? Date: 04/14/2025 ??15:48 ? Dictated By: ?Bird Harris M.D. ? Signed By: ?04/14/25 1550 ? DD/ 1548 ? TD/TT: ? Farm Owner Operator: Procedure Note Radiology, Radiologist, MD - 04/14/[address] [address] Ultrasound Report Signed Patient: FIFI CHAPPELL [facility]#: [id number] : 1990Acct:[id number] Age/Sex: 34 / FADM Date: 04/14/25 Loc: US Attending Dr: Becky Oliveros M.D. Ordering Physician: Becky Oliveros M.D. Date of Service: 04/14/25 Procedure(s): US thyroid Accession Number(s): [id number] cc: Physician,Non-Staff Cristino; Becky Oliveros M.D. The [place] [id number] Patient Name: FIFI CHAPPELL MRN: [facility]:[id number] date: 1990 Sex: F Assigned Patient Location: [place] Current Patient Location: [place] Accession/Order Number: [id number] Exam Date: 04/14/2025 13:52 Report Date: 04/14/2025 [...] Jr., D.O. 04/14/2025 3:48 PM Dictation Location: [place] [address] Electronically authenticated by: [id number] Y Date: 5:48 Dictated By: Bird Harris M.D. Signed By:04/14/25 1550 DD/ 1548 TD/TT: Farm Owner Operator: Authorizing ProviderResult TypeResult StatusBecky Oliveros MDIMG US PROCEDURES Final Result * THINPREP PAP AND HPV MRNA E6/E7 W/RFL HPV 16,18/45 (02/15/2023 10:32 AM EDT) Narrative Authorizing ProviderResult TypeResult StatusAmy Moshe LIN BLOOD ORDERABLES Final ResultPerforming OrganizationAddressCity/State/ZIP CodePhone Number EXTERNAL LAB from Last 3 Months or Most Recently Relevant to Health Maintenance Insurance * Guarantor: Tiffanie Chappell TypeRelation to PatientDate of BirthPhone Billing AddressPersonal/CmigztLfqf27/02/[address] [address] Care Teams Team MemberRelationshipSpecialtyStart DateEnd Date Fermín Ceballos MD [address] [place] [address] PCP - GeneralFamily Medicine04/21/25 Mckenna Quiñonez NP [address] [place] [address] Nurse PractitionerFamily Medicine04/21/25
[2025-06-23 04:02] LABS: Cast Seen? NONE SEEN #/LPF (NONE SEEN); Crystals Seen? None Seen #/HPF (None Seen); Urine Culture Indicated NO
[2025-06-23] MEDS: 0.9 % SODIUM CHLORIDE 1,000 ML 999 ML IV (04:08)
[2025-06-23 04:10] LABS: Hematocrit 43.1 % (36.0-48.0); Hemoglobin 14.8 g/dL (12.0-16.0); Immature Granulocytes Abs Auto 0.02 10^3/uL (0.00-0.03); Immature Granulocytes Pct Auto 0.2 % (0.0-0.5); Lymphocytes Absolute Auto 1.3 10^3/uL (1.2-3.8); Mean Corpuscular HGB Conc 34.3 g/dL (29.9-35.2); Mean Corpuscular Hemoglobin 29.4 pg (26.7-34.0); Mean Corpuscular Volume 85.5 fL (81.0-99.0); Platelet Count 311 10^3/uL (150-450); Red Blood Count 5.04 10^6/uL (4.20-5.40); White Blood Count 9.1 10^3/uL (4.0-11.0)
[2025-06-23 04:26] LABS: Alanine Aminotransferase 28 U/L (14-59); Albumin Globulin Ratio 1.1; Albumin Level 3.8 g/dL (3.4-5.0); Alkaline Phosphatase 75 U/L (46-116); Anion Gap 10.9; Aspartate Amino Transferase 15 U/L (15-37); Blood Urea Nitrogen 10.0 mg/dL (7.0-18.0); Calcium 8.5 mg/dL (8.5-10.1); Carbon Dioxide 25.0 mmol/L (21.0-32.0); Chloride 107 mmol/L (98-107); Estimated GFR (African America >60 (>=60 mL/min/1.73m^2); Estimated GFR (Non-African Ame >60 (>=60 mL/min/1.73m^2); Globulin 3.6 g/dL; Glucose 118 mg/dL (74-106); Potassium 3.9 mmol/L (3.5-5.1); Sodium 139 mmol/L (136-145); Total Protein 7.4 g/dL (6.4-8.2)
[2025-06-23 04:28] LABS: Lactate/Lactic Acid 1.1 mmol/L (0.4-2.0)
[2025-06-23 04:29] LABS: Lipase 24.0 U/L (16.0-77.0)
--- NOTE | 2025-06-23 07:16 | ED_ITS ---
HPI HPI - General Adult General Chief complaint: Abdominal Pain Stated complaint: ABDOMINAL PAIN,BACK PAIN Time Seen by Provider: 06/23/25 03:47 Source: patient Mode of arrival: walk-in Limitations: no limitations History of Present Illness HPI narrative: 34-year-old female presented to the emergency department and was initially seen by Dr. Sommers and signed out to me after discussing the case with him thoroughly. Please see his full history and physical exam. Related Data Previous Rx's ?Medication ?Instructions ?Recorded ondansetron 4 mg disintegrating 4 mg PO Q6H PRN nausea and 06/23/25 tablet vomiting #20 tabs Allergies Allergy/AdvReac Type Severity Reaction Status Date / Time No Known Drug Allergies Allergy Verified 06/23/25 03:34 Opioid HPI Opioid Management Most Recent Opioid Data: Last Pain Scale 5 Today, 06:29 Last ED Pain Assessment Today, 06:29 [facility] Medical History (Updated 06/23/25 @ 06:53 by Farhat Sommers MD) Fe deficiency anemia ?D50.9 - Iron deficiency anemia, unspecified (ICD-10) Surgical History (Updated 04/30/24 @ 09:57 by Samantha Hoover) H/O fine needle aspiration with imaging guidance ?Z98.890 - Other specified postprocedural states (ICD-10) History of dilatation and curettage ?Z98.890 - Other specified postprocedural states (ICD-10) Hx of breast implants, bilateral ?Z98.82 - Breast implant status (ICD-10) H/O tubal ligation ?Z98.51 - Tubal ligation status (ICD-10) Hx laparoscopic cholecystectomy ?Z90.49 - Acquired absence of other specified parts of digestive tract (ICD- 10) Social History Little interest or pleasure in doing things: not at all Feeling down, depressed, or hopeless: not at all Exam Constitutional Vital Signs, click to edit/add: Last Vital Signs Temp 98.1 F 06/23/25 04:32 Pulse 62 06/23/25 04:32 Resp 18 06/23/25 04:32 BP 115/72 06/23/25 06:00 Pulse Ox 97 06/23/25 06:10 O2 Del Method Room Air 06/23/25 03:34 Course Vital Signs Vital signs: Vital Signs Temperature 98.7 F 06/23/25 03:34 Pulse Rate 79 06/23/25 03:34 Respiratory Rate 18 06/23/25 03:34 Blood Pressure 145/81 H 06/23/25 03:34 Pulse Oximetry 97 06/23/25 03:34 Oxygen Delivery Method Room Air 06/23/25 03:34 Temperature 98.1 F 06/23/25 04:32 Pulse Rate 62 06/23/25 04:32 Respiratory Rate 18 06/23/25 04:32 Blood Pressure 115/72 06/23/25 06:00 Pulse Oximetry 97 06/23/25 06:10 Oxygen Delivery Method Room Air 06/23/25 03:34 Medical Decision Making MDM Narrative Medical decision making narrative: CT scan per radiologist shows no acute findings. Findings are discussed with the patient and she is being discharged home with a prescription for Zofran. Treatment diagnosis and follow-up were discussed with the patient. Lab Data Lab results reviewed: Yes I reviewed the patient's lab results Labs: Lab Results 06/23/25 06/23/25 Range/Units 03:35 04:00 WBC 9.1 (4.0-11.0) 10^3/uL RBC 5.04 (4.20-5.40) 10^6/uL Hgb 14.8 (12.0-16.0) g/dL Hct 43.1 (36.0-48.0) % MCV 85.5 (81.0-99.0) fL MCH 29.4 (26.7-34.0) pg MCHC 34.3 (29.9-35.2) g/dL RDW 11.9 (11.0-15.0) % Plt Count 311 (150-450) 10^3/uL MPV 10.6 (9.5-13.5) fL Neut % (Auto) 79.9 H (43.0-75.0) % Lymph % (Auto) 13.9 L (20.5-60.0) % Long % (Auto) 4.8 (1.7-12.0) % Eos % (Auto) 0.9 (0.9-7.0) % Baso % (Auto) 0.3 (0.2-2.0) % Neut # (Auto) 7.3 H (1.4-6.5) 10^3/uL Lymph # (Auto) 1.3 (1.2-3.8) 10^3/uL Long # (Auto) 0.4 (0.3-0.8) 10^3/uL Eos # (Auto) 0.1 (0.0-0.7) 10^3/uL Baso # (Auto) 0.0 (0.0-0.1) 10^3/uL Abs Immat Gran (auto) 0.02 (0.00-0.03) 10^3/uL Imm/Tot Granulo (auto) 0.2 (0.0-0.5) % Sodium 139 (136-145) mmol/L Potassium 3.9 (3.5-5.1) mmol/L Chloride 107 (98-107) mmol/L Carbon Dioxide 25.0 (21.0-32.0) mmol/L Anion Gap 10.9 BUN 10.0 (7.0-18.0) mg/dL Creatinine 0.72 (0.55-1.02) mg/dL Est GFR ( Amer) >60 (>=60 mL/min/1.73m^2) Est GFR (Non-Af Amer) >60 (>=60 mL/min/1.73m^2) BUN/Creatinine Ratio 13.9 Glucose 118 H (74-106) mg/dL Lactate 1.1 (0.4-2.0) mmol/L Calcium 8.5 (8.5-10.1) mg/dL Total Bilirubin 0.4 (0.2-1.0) mg/dL AST 15 (15-37) U/L ALT 28 (14-59) U/L Alkaline Phosphatase 75 (46-116) U/L Troponin I High Sens <4.0 L (4.0-51.3) pg/mL Total Protein 7.4 (6.4-8.2) g/dL Albumin 3.8 (3.4-5.0) g/dL Globulin 3.6 g/dL Albumin/Globulin Ratio 1.1 Lipase 24.0 (16.0-77.0) U/L Urine Color Lt. yellow (YELLOW) Urine Clarity Clear (CLEAR) Urine pH 5.5 (5.0-9.0) Ur Specific [place] 1.025 (1.005-1.025) Urine Protein Negative (NEG/TRACE) mg/dL Urine Glucose (UA) Negative (NEGATIVE) mg/dL Urine Ketones Negative (NEGATIVE) mg/dL Urine Occult Blood Moderate A (NEGATIVE) Urine Nitrite Negative (NEGATIVE) Urine Bilirubin Negative (NEGATIVE) Urine Urobilinogen 0.2 (0.2-1.0) EU/dL Ur Leukocyte Esterase Negative (NEGATIVE) Urine RBC 5-10 A (0-2) #/HPF Urine WBC 0-2 A (NONE SEEN) #/HPF Ur Squamous Epith Cells Rare (NONE/RARE) #/LPF Urine Crystals None seen (None Seen) #/HPF Urine Bacteria Trace A (NONE SEEN) #/HPF Urine Casts None seen (NONE SEEN) #/LPF Urine Mucus None seen (NONE SEEN) Ur Culture Indicated? No Urine HCG, Qual Negative (NEGATIVE) Imaging Data CT scan - abdomen: Radiologist's impression: No acute abnormality in the abdomen and pelvis Discharge Plan Discharge Chief Complaint: Abdominal Pain Clinical Impression: Abdominal pain, Gastroenteritis Patient Disposition: Home, Self-Care Time of Disposition Decision: 07:15 Mode of Transportation: Private Vehicle Prescriptions / Home Meds: New ondansetron 4 mg tablet,disintegrating 4 mg PO Q6H PRN (Reason: nausea and vomiting) Qty: 20 0RF Print Language: Green[place]ic Instructions: Gastroenteritis (ED) Referrals: Mckenna Quiñonez NP [Primary Care Provider, Family Practice] - 1 week
== END 2025-06-23 07:22 | disposition home or self-care (01) ==
PROVIDERS: Internal Medicine; Emergency Provider Emergency Medicine; PCP Nurse Practitioner
DX: K52.9 Noninfective gastroenteritis and colitis, unspecified (principal); R10.9 Unspecified abdominal pain; Z90.49 Acquired absence of other specified parts of digestive tract
CPT/HCPCS: 36415; 74177; 80053; 81001; 83605; 83690; 84484; 84703; 85025; 96361; 96374; 99284; J2405; Q9967